=== PATIENT | female | born 1970 | race Caucasian/White ===

== ENCOUNTER 2017-07-31 09:19 | Inpatient (IN) | payer OTHER ==
--- NOTE | 2017-07-31 09:32 | PDOC ---
History of Present Illness - General History Source: Patient - History of Present Illness Initial Comments: 07/31/17 10:23 The patient is a 47-year-old female accompanied by son with a significant past medical history of seizures, HTN, CVA x3, cardiac arrest s/p gastric bypass, and depression, who presents to the emergency department with shaking episodes, tremors, and chest pain today. Patient reports she had 3 seizures that were witnessed by her son this morning, and has had tremors for 1.5 hours. The son states the patient was awake during her episodes, but patients reports dizziness during the episodes. Patient states her last seizures occurred 2 years ago, and she last saw her neurologist in April. Son admits that the patient has a history of ETOH abuse, and drinks 1 box of wine a day over the last 4 years. Son states her last drink was probably at 1pm yesterday. Son also reports the patient is non-compliant with medications. Patient admits that she fell off her bed one week ago while sleeping, and son admits that the patient has hit her head during previous falls. Patient also complains of chest pain currently. The patient denies shortness of breath and headache. The patient denies fever, nausea, vomit, diarrhea and constipation. The patient denies dysuria, frequency , urgency and hematuria. Denies any loss of bladder or bowel control. Allergies: ibuprofen, acetaminophen, oxycodone, morphine Past Surgical History: gastric bypass surgery Social History: ETOH abuse. Denies drug or tobacco use. PCP: Dr. Ireland <Dixie Tristan - Last Filed: 07/31/17 10:25> <Elle Morillo - Last Filed: 07/31/17 13:22> - General Stated Complaint: SEIZURE Time Seen by Provider: 07/31/17 09:32 Past History <Dixie Tristan - Last Filed: 07/31/17 10:25> - Past Medical History Anemia: Yes Asthma: No Cancer: No Cardiac Disorders: Yes (cardiac arrest 03/2013) CVA: Yes (X3; MINI STROKE) COPD: No CHF: No Dementia: No Diabetes: No GI Disorders: Yes (GERD, gastric bypass) Disorders: No HTN: Yes Hypercholesterolemia: Yes Liver Disease: No Seizures: Yes Thyroid Disease: No - Surgical History Abdominal Surgery: Yes Appendectomy: No Cardiac Surgery: No Cholecystectomy: No Lung Surgery: No Neurologic Surgery: No Orthopedic Surgery: Yes (LEFT KNEE SCREWS 2015) - Suicide/Smoking/Psychosocial Hx Smoking Status: No Smoking History: Never smoked Have you smoked in the past 12 months: No Number of Cigarettes Smoked Daily: 0 Hx Alcohol Use: Yes Drug/Substance Use Hx: Yes Substance Use Type: Alcohol Hx Substance Use Treatment: No <IliaElle - Last Filed: 07/31/17 13:22> - Past Medical History Allergies/Adverse Reactions: Allergies Allergy/AdvReac Type Severity Reaction Status Date / Time ibuprofen [From Motrin] Allergy Intermediate Hives Verified 07/31/17 10:03 acetaminophen [From Percocet] Allergy Swelling Verified 07/31/17 10:03 oxycodone HCl [From Percocet] Allergy Swelling Verified 07/31/17 10:03 morphine AdvReac Severe Difficulty Verified 07/31/17 10:03 Breathing Home Medications: Ambulatory Orders Aspirin [ASA -] 81 mg PO DAILY 07/31/17 Atorvastatin Ca [Lipitor] 20 mg PO HS 07/31/17 Gabapentin 300 mg PO TID 07/31/17 Losartan 50Mg/Hctz 12.5MG [Hyzaar -] 1 tab PO DAILY 07/31/17 Meclizine HCl 12.5 mg PO BID PRN 07/31/17 Paroxetine HCl [Paxil] 80 mg PO BID 07/31/17 Topiramate 100 mg PO DAILY 07/31/17 Trazodone HCl 100 mg PO HS 07/31/17 Review of Systems - Review of Systems Able to Perform ROS?: Yes Comments:: 07/31/17 10:23 GENERAL/CONSTITUTIONAL: No fever. No weakness. HEAD, EYES, EARS, NOSE AND THROAT: No change in vision. No ear pain or discharge. No sore throat. CARDIOVASCULAR: (+) Chest pain. No shortness of breath. RESPIRATORY: No cough, wheezing, or hemoptysis. GASTROINTESTINAL: No nausea, vomiting, diarrhea or constipation. GENITOURINARY: No dysuria, frequency, or change in urination. MUSCULOSKELETAL: No joint or muscle swelling or pain. No neck or back pain. SKIN: No rash NEUROLOGIC: (+) Seizures and tremors. No headache, vertigo, loss of consciousness, or change in strength/sensation. ENDOCRINE: No increased thirst. No abnormal weight change. HEMATOLOGIC/LYMPHATIC: No anemia, easy bleeding, or history of blood clots. ALLERGIC/IMMUNOLOGIC: No hives or skin allergy. <Dxiie Tristan - Last Filed: 07/31/17 10:25> *Physical Exam - Physical Exam Comments: 07/31/17 10:23 GENERAL: Awake, alert, and fully oriented, in no acute distress HEAD: No signs of trauma EYES: PERRLA, EOMI, sclera anicteric, conjunctiva clear ENT: Auricles normal inspection, hearing grossly normal, nares patent, oropharynx clear without exudates. Moist mucosa NECK: Normal ROM, supple, no lymphadenopathy, JVD, or masses LUNGS: Breath sounds equal, clear to auscultation bilaterally. No wheezes, and no crackles HEART: (+) Tachycardic. Regular rhythm, normal S1 and S2, no murmurs, rubs or gallops ABDOMEN: Soft, nontender, normoactive bowel sounds. No guarding, no rebound. No masses EXTREMITIES: No edema. No clubbing or cyanosis. No cords, erythema, or tenderness. (+) Bruising to LUE. (+) Contracted LUE from prior stroke. NEUROLOGICAL: Cranial nerves II through XII grossly intact. SKIN: Warm, Dry, normal turgor, no rashes or lesions noted. <Dixie Tristan - Last Filed: 07/31/17 10:25> Heart Score/ECG Review - ECG Intrepretation Comment:: 07/31/17 10:15 sinus at 85, baseline artifact, nl interval, low voltage, no acute st/t wave findings <Elle Morillo - Last Filed: 07/31/17 13:22> ED Treatment Course - LABORATORY CBC & Chemistry Diagram: 07/31/17 09:57 07/31/17 10:06 - Medications Given in the ED: ED Medications Discontinued Medications Generic Name Dose Route Start Last Admin Trade Name Cayetanoq PRN Reason Stop Dose Admin Lorazepam 2 mg 07/31/17 09:35 07/31/17 10:00 Ativan Injection - IVPUSH 07/31/17 09:36 2 mg ONCE ONE Administration <Dixie Tristan - Last Filed: 07/31/17 10:25> - LABORATORY CBC & Chemistry Diagram: 07/31/17 09:57 07/31/17 10:06 <Elle Morillo - Last Filed: 07/31/17 13:22> Medical Decision Making - Medical Decision Making 07/31/17 09:39 a/p: 47yo female with hx of seizures with 3 "shaking" episodes this am- did not have LOC, was responsive -per son, drinking a box of wine daily and has not been taking her meds -Dr. West is neuro but hasn't seen in over a year -Dr. Ireland is PMD -suspect alcohol withdrawal tremors -last drink yesterday at 1p -supposed to take topamax and carbamazapine -only took 2 doses of meds last week -also suspect withdrawal seizures from meds -will check labs, will need admission for alcohol withdrawal and seizure monitoring -will check trops for cp today -drug screen -head ct/c spine ct given recent falls -ua -monitor, ekg, cxr -will monitor and reassess 07/31/17 11:18 pt with tachy, tongue fasciculations, tremors - concern for alcohol withdrawal case discussed with DR. Ireland - accepts pt to service consult placed to Dr. calloway 07/31/17 13:21 re-eval: tremors have improved, c/o R breast pain soft tissue density to R breast, no ttp, no ecchymosis, no erythema, no drainage from nipple, no skin changes - missed mammogram a year ago recommend mammogram for further eval <Elle Morillo - Last Filed: 07/31/17 13:22> *DC/Admit/Observation/Transfer - Attestations Scribe Attestion: 07/31/17 10:24 Documentation prepared by Dixie Tristan, acting as medical stenographer for Elle Morillo DO, MD/. <Dixie Tristan - Last Filed: 07/31/17 10:25> - Discharge Dispostion Admit: Yes - Attestations Physician Attestion: 07/31/17 11:19 I, Dr. Elle Morillo DO, attest that this document has been prepared under my direction and personally reviewed by me in its entirety. I further attest, that it accurately reflects all work, treatment, procedures and medical decision -making performed by me. <Elle Morillo - Last Filed: 07/31/17 13:22> Diagnosis at time of Disposition: Alcohol withdrawal, Breast pain, right - Discharge Dispostion Condition at time of disposition: Guarded
[2017-07-31] MEDS ORDERED: FOLIC ACID INJECTION - 1 MG, THIAMINE HCL 100 MG, MULTIVIT INJECTION ADULT 10 ML in SOD... IVPB ONE (09:35)
[2017-07-31] MEDS ORDERED: LORazepam 2 MG/ML SDV VIAL ONE ×2 (09:37→10:58)
[2017-07-31 10:28] LABS: BASO % 1.2 % (0-2.0); EOS % 0.3 % (0-4.5); HEMATOCRIT 31.6 % (32.4-45.2); HEMOGLOBIN 10.2 GM/dL (10.7-15.3); MCH 25.4 pg (25.7-33.7); MCHC 32.2 g/dl (32.0-36.0); MONO % 5.4 % (3.8-10.2); NEUT % 67.1 % (42.8-82.8); PLATELET COUNT 149 K/MM3 (134-434); RDW 26.2 % (11.6-15.6); WHITE BLOOD COUNT 4.4 K/mm3 (4.0-10.0)
[2017-07-31 10:32] LABS: ADD RBC MORPHOLOGY YES
[2017-07-31 10:52] LABS: INR 0.88 (0.82-1.09)
[2017-07-31 10:53] LABS: ALBUMIN 3.6 g/dl (3.4-5.0); ANION GAP 9 (8-16); BLOOD UREA NITROGEN 9 mg/dL (7-18); CALCIUM 8.4 mg/dL (8.5-10.1); CHLORIDE 102 mmol/L (98-107); CO2 26 mmol/L (21-32); CREATININE 0.5 mg/dL (0.55-1.02); GLUCOSE,RANDOM 88 mg/dL (74-106); SGPT/ALT 24 U/L (12-78); SODIUM 137 mmol/L (136-145); TOT PROT 7.8 g/dl (6.4-8.2)
[2017-07-31 10:55] LABS: ACTIVATED PTT 30.6 SECONDS (26.9-34.4)
[2017-07-31 10:56] LABS: ALK PHOS 100 U/L (45-117); BILIRUBIN,TOTAL 0.6 mg/dL (0.2-1.0)
[2017-07-31 11:01] LABS: POTASSIUM 4.4 mmol/L (3.5-5.1); SGOT/AST 47 U/L (15-37)
[2017-07-31] MEDS ORDERED: chlordiazePOXIDE HCL 25 MG CAPSULE PO PRN (11:42)
[2017-07-31] MEDS ORDERED: chlordiazePOXIDE HCL 25 MG CAPSULE PO ONE (11:42)
--- NOTE | 2017-07-31 11:44 | CONSULT ---
Consult Detox [facility] Reason for Current Admission/Consult: substance use disorder Referred by:: gustavo grier - History History of Present Illness: 47 yo f admitted yesterday after reportedly 3 seizures at home, denies daily alcohol use but did drink socially, family says she is drinking, she says last heavy drinking 2002. Has been started on libirum deto x protocol which she has tolerated without sedation and has eleavted bp with tyremors+++, anxiety and insomnia, sweats reported. severe chest pain as ell, followed by cardiology. denies smoking., takes mediations as prescribed which she would liek to restart. - History Source History Provided By: Patient, Medical Record, Caregiver Limitations to Obtaining History: Poor Historian - Alcohol/Substance Use Hx Alcohol Use: Yes (social???) - Current Drug/Alcohol Use Alcohol Route: Oral Frequency: 1-3 times last 30 days Amount used: ??? 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 very agitated, anxious, with sweats, tremors, tearful woulud like to restart medications from home. elevated bp CIWA Score - CIWA Score Nausea/Vomitin-No Nausea/No Vomiting Muscle Tremors: 4-Moderate,w/Arms Extend Anxiety: 4-Mod. Anxious/Guarded Agitation: 4-Moderately Restless Paroxysmal Sweats: 1-Minimal Palms Moist Orientation: 0-Oriented Tacttile Disturbances: 0-None Auditory Disturbances: 0-None Visual Disturbances: 0-None Headache: 0-None Present CIWA-Ar Total Score: 13 Assessment Plan - Diagnosis (1) Alcohol dependence with uncomplicated withdrawal Status: Acute (2) Hypertension Status: Acute Qualifiers: Hypertension type: essential hypertension Qualified Code(s): I10 - Essential (primary) hypertension (3) Seizure Status: Acute (4) GERD (gastroesophageal reflux disease) Status: Acute (5) H/O bariatric surgery Status: Acute (6) History of stroke Status: Acute (7) Poor historian Status: Acute - Plan Plan: chart, imagina, labs reveiweed, history taken and patietn examinied. Discussed care with medical team. REcommend: 1. fluids, mvi, thimaine, folic acid, cont llibirum detox as ordered -0 very agitate and anxious, will give extra dose of libirum ordered for 7. 2. hypertension- restart home medications 3. depression - psych consult, restart psych meds???, 4. seziures - alcohol withdrawal vbs epilepsy , restart neurontin can titirte up to daily dose as tolerted 5. consider intensive outpatien care at [facility], f/u [facility] Medrano [phone] - Medication Detox Regimen/Protocol: Librium
[2017-07-31] MEDS ORDERED: cloNIDine HCL 0.1 MG TABLET PO ONE (11:45)
[2017-07-31 14:12] LABS: URINE APPEARANCE CLEAR; URINE BILIRUBIN NEGATIVE (<2.0 mg/dL); URINE BLOOD NEGATIVE (NEGATIVE); URINE COLOR YELLOW; URINE GLUCOSE (UA) NEGATIVE (NEGATIVE); URINE KETONE 2+ (NEGATIVE); URINE LEUK ESTERASE NEGATIVE (NEGATIVE); URINE NITRITE NEGATIVE (NEGATIVE); URINE UROBILINOGEN NEGATIVE mg/dL (0.2-1.0)
[2017-07-31 14:18] LABS: URINE PROTEIN 2+ (NEGATIVE)
[2017-07-31 14:26] LABS: COCAINE, UR NEGATIVE ng/ml (CUTOFF=300); METHADONE, UR NEGATIVE ng/ml (CUTOFF=300); OPIATES, URI NEGATIVE ng/ml (CUTOFF=300); PHENCYCLIDINE,URINE NEGATIVE ng/ml (CUTOFF=25); URINE AMPHETAMINES NEGATIVE ng/ml (CUTOFF=500); URINE BARBITURATES NEGATIVE ng/ml (CUTOFF=200); URINE BENZODIAZEPINES NEGATIVE ng/ml (CUTOFF=200)
--- NOTE | 2017-07-31 14:41 | EKG ---
Test Reason : Blood Pressure : / mmHG Vent. Rate : 085 BPM Atrial Rate : 085 BPM P-R Int : 140 ms QRS Dur : 074 ms QT Int : 370 ms P-R-T Axes : 067 025 045 degrees QTc Int : 440 ms POOR DATA QUALITY, INTERPRETATION MAY BE ADVERSELY AFFECTED NORMAL SINUS RHYTHM NORMAL ECG WHEN COMPARED WITH ECG OF 18-OCT-2015 14:32, NON-SPECIFIC CHANGE IN ST SEGMENT IN ANTERIOR LEADS Confirmed by COLT AGUIRRE MD ([id number]) on 07/31/2017 2:41:09 PM Referred By: Confirmed By:COLT AGUIRRE MD
[2017-07-31 15:58] LABS: EPI CELLS MODERATE /HPF (FEW); URINE BACTERIA FEW /hpf (NONE SEEN)
[2017-07-31 15:59] LABS: URINE HYALINE CAST <1 /lpf; URINE MUCUS MANY
[2017-07-31] MEDS ORDERED: chlordiazePOXIDE HCL 25 MG CAPSULE ONE (17:52)
[2017-07-31] MEDS: chlordiazePOXIDE HCL 25 MG CAPSULE PO SCH ×2 (17:56→23:18)
[2017-07-31] MEDS: THIAMINE HCL 100 MG TABLET (FP) PO SCH (21:33)
[2017-07-31] MEDS ORDERED: ASPIRIN 325 MG ENTERIC COATED TABLET (FP) PO ONE (23:02)
--- NOTE | 2017-07-31 23:02 | HOSP ---
Subjective - Review of Symptoms Events since last encounter: I was called to evaluate patient for chest pain. She states that she has had this chest pain for the past two weeks. She describes sharp constant non radiating substernal pain that is worse of palpation and deep inspirations. She does admit to cough for the past two weeks as well. CP is accompanied by some dysnea on exertion. Pain is not associated with activity, nausea , vomiting , diaphoresis or fevers. She is admitted for multiple tonic-clonic siezures earlier today. Denies BEAN, SOB, or abdominal pain. Pulmonary: Yes: Cough, Pleuritic Chest Pain Cardiovascular: Yes: Chest Pain, Edema Gastrointestinal: No: Nausea, Vomiting Physical Examination Vital Signs: Vital Signs Temperature 98.3 F 07/31/17 17:48 Pulse Rate 85 07/31/17 17:48 Respiratory Rate 16 07/31/17 17:50 Blood Pressure 135/84 07/31/17 17:48 O2 Sat by Pulse Oximetry (%) 97 07/31/17 20:42 Constitutional: Yes: Well Nourished, Mild Distress HENT: Yes: Atraumatic, Normocephalic Neck: Yes: Supple Cardiovascular: Yes: Regular Rate and Rhythm. No: Gallop, Murmur, Rub Respiratory: Yes: Regular, CTA Bilaterally Gastrointestinal: Yes: Normal Bowel Sounds, Soft Musculoskeletal: Yes: Other (point tenderness with palpation of right sternal border.) Extremities: No: Calf Tenderness Neurological: Yes: Alert, Oriented Labs: CBC, BMP 07/31/17 09:57 07/31/17 10:06 Hospitalist Encounter Assessment: Pain is most likely musculoskeletal. * Given cardiac history will send for toponin I * EKG stat * ASA 325 PO stat. Outcome: * EKG showed NSR with no acute st or t wave abnormalities. * Troponin I (-) x1 Visit type - Emergency Visit Emergency Visit: Yes ED Registration Date: 07/31/17 Care time: The patient presented to the Emergency Department on the above date and was hospitalized for further evaluation of their emergent condition. - New Patient This patient is new to me today: Yes Date on this admission: 08/01/17 - Critical Care Critical Care patient: No
[2017-08-01 03:49] VITALS: BMI 22.1
[2017-08-01] MEDS: chlordiazePOXIDE HCL 25 MG CAPSULE PO SCH ×4 (05:13→22:55)
--- NOTE | 2017-08-01 06:18 | HP ---
Admitting History and Physical - Primary Care Physician PCP: Andie Ireland - Admission Chief Complaint: TREMORS/ETOH WITHDRAWEL History of Present Illness: PATIENT WELL KNOWN TO MY SERVICE HOWEVER HAS NOT SEEN ME FOR MEDICAL CARE IN OVER 1 YEAR. PATIENT S/P GASTRIC BYPASS SX, S/P CVA WITH PARESTHESIA, SEVERE ANXIETY DISORDER WITH PRIOR NERVOUS BREAKDOWNS, APPARANTLY HAS BEEN ABUSING AND DEPENDENT ON ETOH HERE WITH WITHDRAWEL SYMPTOMS. 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), Migraine, Seizure Cardiovascular: Yes: HTN, Other (cardiac arrest at time of gastric bypass) ...LMP: 01/22/12 ...: No Musculoskeletal: Yes: Hemiplegia (residual left side weakness from the CVA) - Past Surgical History Past Surgical History: Yes: Bariatric Surgery (2012), Upper Endoscopy (2005) - Smoking History Smoking history: Never smoked Have you smoked in the past 12 months: No Aproximately how many cigarettes per day: 0 - Alcohol/Substance Use Hx Alcohol Use: Yes Home Medications - Allergies Allergies/Adverse Reactions: Allergies Allergy/AdvReac Type Severity Reaction Status Date / Time ibuprofen [From Motrin] Allergy Intermediate Hives Verified 07/31/17 10:03 acetaminophen [From Percocet] Allergy Swelling Verified 07/31/17 10:03 oxycodone HCl [From Percocet] Allergy Swelling Verified 07/31/17 10:03 morphine AdvReac Severe Difficulty Verified 07/31/17 10:03 Breathing - Home Medications Home Medications: Ambulatory Orders Aspirin [ASA -] 81 mg PO DAILY 07/31/17 Atorvastatin Ca [Lipitor] 20 mg PO HS 07/31/17 Cyclobenzaprine HCl 10 mg PO HS PRN 07/31/17 Gabapentin 300 mg PO TID 07/31/17 Losartan 50Mg/Hctz 12.5MG [Hyzaar -] 1 tab PO DAILY 07/31/17 Meclizine HCl 12.5 mg PO BID PRN 07/31/17 Paroxetine HCl [Paxil] 80 mg PO BID 07/31/17 Topiramate 100 mg PO DAILY 07/31/17 Trazodone HCl 100 mg PO HS 07/31/17 Review of Systems - Review of Systems Constitutional: reports: Weakness Eyes: reports: No Symptoms HENT: reports: No Symptoms Neck: reports: No Symptoms Cardiovascular: reports: Chest Pain Respiratory: reports: No Symptoms, SOB Gastrointestinal: reports: No Symptoms Genitourinary: reports: No Symptoms Musculoskeletal: reports: Muscle Weakness Integumentary: reports: No Symptoms Neurological: reports: Confusion, Numbness, Parasthesia, Pre-Existing Deficit Endocrine: reports: No Symptoms Hematology/Lymphatic: reports: No Symptoms Psychiatric: reports: Anxiety, Depression Physical Examination Vital Signs: Vital Signs Temperature 97.8 F 08/01/17 01:43 Pulse Rate 62 08/01/17 01:43 Respiratory Rate 18 08/01/17 01:43 Blood Pressure 135/90 08/01/17 01:43 O2 Sat by Pulse Oximetry (%) 97 07/31/17 20:42 Constitutional: Yes: Mild Distress Eyes: Yes: WNL HENT: Yes: WNL Neck: Yes: WNL Cardiovascular: Yes: WNL Respiratory: Yes: WNL Gastrointestinal: Yes: WNL Renal/: Yes: WNL Musculoskeletal: Yes: Muscle Weakness Extremities: Yes: Other Edema: No Integumentary: Yes: WNL, Tattoos Neurological: Yes: Confusion, Pre-Existing Deficit, Tingling ...Motor Strength: LUE, LLE, RUE, RLE Psychiatric: Yes: Agitated Labs: CBC, BMP 07/31/17 09:57 07/31/17 10:06 Problem List - Problems (1) Alcohol withdrawal Code(s): F10.239 - ALCOHOL DEPENDENCE WITH WITHDRAWAL, UNSPECIFIED (2) Breast pain, right Code(s): N64.4 - MASTODYNIA (3) Abdominal pain Code(s): R10.9 - UNSPECIFIED ABDOMINAL PAIN (4) Anemia Code(s): D64.9 - ANEMIA, UNSPECIFIED (5) Elevated liver enzymes Code(s): R74.8 - ABNORMAL LEVELS OF OTHER SERUM ENZYMES (6) Epilepsy Code(s): G40.909 - EPILEPSY, UNSP, NOT INTRACTABLE, WITHOUT STATUS EPILEPTICUS (7) GERD (gastroesophageal reflux disease) Code(s): K21.9 - GASTRO-ESOPHAGEAL REFLUX DISEASE WITHOUT ESOPHAGITIS (8) H/O bariatric surgery Code(s): Z98.84 - BARIATRIC SURGERY STATUS (9) H/O cardiac arrest Code(s): Z86.74 - PERSONAL HISTORY OF SUDDEN CARDIAC ARREST (10) HTN (hypertension) Code(s): I10 - ESSENTIAL (PRIMARY) HYPERTENSION (11) Hemiplegia affecting non-dominant side, post-stroke Code(s): I69.359 - HEMIPLGA FOLLOWING CEREBRAL INFARCTION AFFECTING UNSP SIDE (12) History of stroke Code(s): Z86.73 - PRSNL HX OF TIA (TIA), AND CEREB INFRC W/O RESID DEFICITS Assessment/Plan ETOH WITHDRAWEL LIBRIUM PROTOCOL DETOX CONSULT DR SIMON THIAMINE FOLIC ACID [facility] NEURO CHECKS PT EVAL WILL NEED PSYCHOLOGICAL SUPPORT AND COMFORT PSYCHIATRY EVAL
--- NOTE | 2017-08-01 09:33 | CON.CARD ---
Consult Consult Specialty:: Cardiology Referred by:: Dr. Ireland Reason for Consultation:: Exertional dyspnea, palpitations and chest pain x 1 year - History of Present Illness Chief Complaint: Seizures at home History of Present Illness: Chart reviewed: " The patient is a 47-year-old female accompanied by son with a significant past medical history of seizures, HTN, CVA x3, cardiac arrest s/p gastric bypass , and depression, who presents to the emergency department with shaking episodes , tremors, and chest pain today. Patient reports she had 3 seizures that were witnessed by her son this morning, and has had tremors for 1.5 hours. The son states the patient was awake during her episodes, but patients reports dizziness during the episodes. Patient states her last seizures occurred 2 years ago, and she last saw her neurologist in April. Son admits that the patient has a history of ETOH abuse, and drinks 1 box of wine a day over the last 4 years. Son states her last drink was probably at 1pm yesterday. Son also reports the patient is non-compliant with medications. Patient admits that she fell off her bed one week ago while sleeping, and son admits that the patient has hit her head during previous falls. Patient also complains of chest pain currently. The patient denies shortness of breath and headache. The patient denies fever, nausea, vomit, diarrhea and constipation. The patient denies dysuria, frequency , urgency and hematuria. Denies any loss of bladder or bowel control. " On my ROS, she describes about one year of exertional dyspnea associated with palpitations and chest tightness. No edema, syncope, PND, orthopnea. - History Source History Provided By: Patient, Medical Record - Past Medical History [employer]ISTERED [employer]: Yes: CVA (at time of gastric bypass), Migraine, Seizure Cardio/Vascular: Yes: HTN, Other (cardiac arrest 2012, details unclear. No known h/o CAD) Pulmonary: No: Asthma, Bronchitis, Cancer, COPD, O2 Dependent, Pneumonia, Previously Intubated, Pulmonary Embolus, Pulmonary Fibrosis, Sleep Apnea, Other Gastrointestinal: Yes: Other (s/p bariatric surgery) ...LMP: 01/22/12 ...: No Musculoskeletal: Yes: Hemiplegia (residual left side weakness from the CVA) - Past Surgical History Past Surgical History: Yes: Bariatric Surgery (2012), Upper Endoscopy (2005) - Alcohol/Substance Use Hx Alcohol Use: Yes - Smoking History Smoking history: Never smoked Have you smoked in the past 12 months: No Aproximately how many cigarettes per day: 0 - Social History Usual Living Arrangement: Other (with her two sons and she has a [employer] 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 q 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) Home Medications - Allergies Allergies/Adverse Reactions: Allergies Allergy/AdvReac Type Severity Reaction Status Date / Time ibuprofen [From Motrin] Allergy Intermediate Hives Verified 07/31/17 10:03 acetaminophen [From Percocet] Allergy Swelling Verified 07/31/17 10:03 oxycodone HCl [From Percocet] Allergy Swelling Verified 07/31/17 10:03 morphine AdvReac Severe Difficulty Verified 07/31/17 10:03 Breathing - Home Medications Home Medications: Ambulatory Orders Aspirin [ASA -] 81 mg PO DAILY 07/31/17 Atorvastatin Ca [Lipitor] 20 mg PO HS 07/31/17 Cyclobenzaprine HCl 10 mg PO HS PRN 07/31/17 Gabapentin 300 mg PO TID 07/31/17 Losartan 50Mg/Hctz 12.5MG [Hyzaar -] 1 tab PO DAILY 07/31/17 Meclizine HCl 12.5 mg PO BID PRN 07/31/17 Paroxetine HCl [Paxil] 80 mg PO BID 07/31/17 Topiramate 100 mg PO DAILY 07/31/17 Trazodone HCl 100 mg PO HS 07/31/17 Family Disease History - Family Disease History Family History: Unremarkable (not pertinent to this presentation) Review of Systems Findings/Remarks: see HPI - Review of Systems Constitutional: reports: Weakness Cardiovascular: reports: Chest Pain, Palpitations, Shortness of Breath Respiratory: reports: Exercise Intolerance, SOB on Exertion Gastrointestinal: denies: No Symptoms, Abdominal Pain, Bloating, Constipation, Diarrhea, Dysphagia, Indigestion, Melena, Nausea, Rectal Bleeding, Vomiting, Vomiting Blood, Other Genitourinary: denies: No Symptoms, Burning, Discharge, Dysuria, Flank Pain, Frequency, Hematuria, Incontinence, Lesions, Menses, Pain, Testicular Mass, Testicular Pain, Testicular Swelling, Urgency, Vaginal Bleeding, Other Breasts: denies: No Symptoms Reported, See HPI, Breast Implants, Discharge from Nipple, Lumps, Pain, Skin Changes, Other Musculoskeletal: denies: No Symptoms, Back Pain, Crepitus, Decreased ROM, Extremity Pain, Joint Pain, Joint Swelling, Muscle Pain, Muscle Cramps, Muscle Weakness, Other Integumentary: denies: No Symptoms, Blister, Bruising, Change in Color, Eczema, Erythema, Incision, Lesions, Lump, Pallor, Pruritis, Rash, Wound, Other Neurological: reports: Seizure Endocrine: denies: No Symptoms, Excessive Sweating, Flushing, Increased Hunger, Increased Thirst, Intolerance to Cold, Intolerance to Heat, Unexplained Weight Gain, Unexplained Weight Loss, Other Psychiatric: denies: No Symptoms, Altered Sleep Pattern, Anxiety, Depression, Hallucinations, Panic, Paranoia, Suicidal, Other - Risk Factors Known Risk Factors: Yes: Hypercholesterolemia, Hypertension Vital Signs: Vital Signs Temperature 97.7 F 08/01/17 06:00 Pulse Rate 72 08/01/17 06:00 Respiratory Rate 18 08/01/17 06:00 Blood Pressure 120/86 08/01/17 06:00 O2 Sat by Pulse Oximetry (%) 97 07/31/17 20:42 Constitutional: Yes: No Distress, Calm Eyes: Yes: Conjunctiva Clear, EOM Intact HENT: Yes: Atraumatic Neck: Yes: Supple, Trachea Midline Respiratory: Yes: CTA Bilaterally Gastrointestinal: Yes: Soft Cardiovascular: Yes: Regular Rate and Rhythm JVD: No Carotid Bruit: No PMI: Non-Displaced Heart Sounds: Yes: S1, S2 (RRR, no M/R/G) Edema: No Peripheral Pulses WNL: No Neurological: Yes: Alert, Oriented ...Motor Strength: WNL - Other Data Labs, Other Data: CBC, BMP 07/31/17 09:57 07/31/17 10:06 INR, PTT INR 0.88 (0.82-1.09) 07/31/17 10:06 Troponin, BNP 07/31/17 07/31/17 07/31/17 10:06 23:30 23:40 Troponin I < 0.02 Cancelled < 0.02 Troponin, BNP 07/31/17 07/31/17 07/31/17 10:06 23:30 23:40 Troponin I < 0.02 Cancelled < 0.02 Laboratory Tests 07/31/17 07/31/17 07/31/17 09:57 09:57 09:57 WBC 4.4 Hgb 10.2 L Plt Count 149 D Sodium Potassium BUN Creatinine Lactic Acid 1.3 Calcium Magnesium Total Bilirubin ALT Alkaline Phosphatase Creatine Kinase Troponin I Albumin Beta HCG, Quant Urine Color Urine Appearance Urine pH Urine Protein Urine Ketones Urine Blood Urine Nitrite Urine Bilirubin Urine Urobilinogen Ur Leukocyte Esterase Urine WBC (Auto) Opiates Screen Methadone Screen Barbiturate Screen Phencyclidine Screen Ur Amphetamines Screen MDMA (Ecstasy) Screen Benzodiazepines Screen Cocaine Screen U Marijuana (THC) Screen Alcohol, Quantitative < 5.0 07/31/17 07/31/17 07/31/17 10:06 13:56 13:56 WBC Hgb Plt Count Sodium 137 Potassium 4.4 BUN 9 Creatinine 0.5 L Lactic Acid Calcium 8.4 L Magnesium 2.0 Total Bilirubin 0.6 D ALT 24 Alkaline Phosphatase 100 Creatine Kinase 111 Troponin I < 0.02 Albumin 3.6 Beta HCG, Quant < 1.0 Urine Color Yellow Urine Appearance Clear Urine pH 7.0 D Urine Protein 2+ H Urine Ketones 2+ H Urine Blood Negative Urine Nitrite Negative Urine Bilirubin Negative Urine Urobilinogen Negative Ur Leukocyte Esterase Negative Urine WBC (Auto) 5-10 Opiates Screen Negative Methadone Screen Negative Barbiturate Screen Negative Phencyclidine Screen Negative Ur Amphetamines Screen Negative MDMA (Ecstasy) Screen Negative Benzodiazepines Screen Negative Cocaine Screen Negative U Marijuana (THC) Screen Negative Alcohol, Quantitative 07/31/17 23:40 WBC Hgb Plt Count Sodium Potassium BUN Creatinine Lactic Acid Calcium Magnesium Total Bilirubin ALT Alkaline Phosphatase Creatine Kinase Troponin I < 0.02 Albumin Beta HCG, Quant Urine Color Urine Appearance Urine pH Urine Protein Urine Ketones Urine Blood Urine Nitrite Urine Bilirubin Urine Urobilinogen Ur Leukocyte Esterase Urine WBC (Auto) Opiates Screen Methadone Screen Barbiturate Screen Phencyclidine Screen Ur Amphetamines Screen MDMA (Ecstasy) Screen Benzodiazepines Screen Cocaine Screen U Marijuana (THC) Screen Alcohol, Quantitative NSR, no acute changes Echo: Pending Imaging - Results Chest X-ray: Report Reviewed, Image Reviewed Cat Scan: Report Reviewed, Image Reviewed EKG: Image Reviewed Problem List - Problems (1) Seizure Code(s): R56.9 - UNSPECIFIED CONVULSIONS (2) Hypertension Code(s): I10 - ESSENTIAL (PRIMARY) HYPERTENSION Qualifiers: Hypertension type: essential hypertension Qualified Code(s): I10 - Essential (primary) hypertension (3) Dyspnea on exertion Code(s): R06.09 - OTHER FORMS OF DYSPNEA (4) Palpitations Code(s): R00.2 - PALPITATIONS (5) Chest pain Code(s): R07.9 - CHEST PAIN, UNSPECIFIED Qualifiers: Chest pain type: other chest pain Qualified Code(s): R07.89 - Other chest pain; R07.8 - Other chest pain (6) History of cardiac arrest Code(s): Z86.74 - PERSONAL HISTORY OF SUDDEN CARDIAC ARREST Assessment/Plan IMP: Seizure disorder: secondary to prior CVA, +/- ETOH Suspected anxiety disorder Chronic HTN Chronic BONILLA, palpitations and atypical CP Remote vague history of cardiac arrest 2012, with no history of CAD REC: 1. Telemetry x 24 hours to evaluate palpitations 2. Echo for EF assessment 3. Will arrange stress MPI prior to d/c for further CV risk stratification and to assess her symptoms 4. Further work up and treatment of seizures and concern for ETOH abuse as per PMD. Thank you.
[2017-08-01] MEDS: PRENATAL VITAMINS W/ FOLIC ACID TABLET (FP) PO SCH (10:04)
[2017-08-01] MEDS ORDERED: PT OWN MED DRAWER 7, Y5N ONE (10:04)
[2017-08-01] MEDS: LORazepam 1 MG TABLET PO PRN ×2 (11:41→21:00)
[2017-08-01] MEDS ORDERED: cloNIDine HCL 0.1 MG TABLET PO ONE (16:17)
[2017-08-01] MEDS ORDERED: chlordiazePOXIDE HCL 25 MG CAPSULE PO ONE ×2 (16:17→19:00)
[2017-08-01] MEDS ORDERED: MECLIZINE HCL 12.5 MG TABLET PO PRN (16:34)
[2017-08-01] MEDS: ASPIRIN 81 MG CHEWABLE TABLETS PO SCH (16:35)
--- NOTE | 2017-08-01 16:49 | CON.PSY ---
Psychiatry Consult Chief Complaint: Patient seen for Psych eval. History of Alcohol abusec and anxiety. Currant[place] on Paxil from a Psychiatrist at [facility]. Symptoms: reports: Anxiety - Previous Psychiatric Treatment Outpatient: Less than 6 mos ago Inpatient: None - Previous Substance Abuse Treatment Outpatient: None - Reason for Previous Treatment Reason for Previous Treatment: Anxiety or Panic Disorder, Alcohol Abuse - Current Medications Current Medications: Active Medications Aspirin (Asa -) 81 mg PO DAILY [facility] Last Admin: 08/01/17 16:35 Dose: 81 mg Atorvastatin Calcium (Lipitor -) 20 mg PO HS [facility] Chlordiazepoxide HCl (Librium -) 25 mg PO [id number] [facility] Stop: 08/02/17 11:01 Last Admin: 08/01/17 16:35 Dose: 25 mg Chlordiazepoxide HCl (Librium -) 15 mg PO [id number] [facility] Stop: 08/03/17 11:01 Chlordiazepoxide HCl (Librium -) 25 mg PO Q4H PRN PRN Reason: WITHDRAWAL(CONT SUBST) Stop: 08/03/17 11:41 Chlordiazepoxide HCl (Librium -) 50 mg PO ONCE ONE Stop: 08/01/17 19:01 Gabapentin (Neurontin -) 100 mg PO TID [facility] Gabapentin (Neurontin -) 300 mg PO TID [facility] HCTZ/Losartan Potassium (Hyzaar -) 1 tab PO DAILY [facility] Lorazepam (Ativan -) 1 mg PO Q8H PRN PRN Reason: ANXIETY Last Admin: 08/01/17 11:41 Dose: 1 mg Meclizine HCl (Antivert -) 12.5 mg PO BID PRN PRN Reason: dizziness Non-Formulary Medication (Paroxetine Hcl [Paxil]) 80 mg PO BID [facility] Multivit/Folic Acid/Iron ( Vitamins (Sjr) -) 1 tab PO DAILY [facility] Last Admin: 08/01/17 10:04 Dose: 1 tab Thiamine HCl (Vitamin B1 -) 100 mg PO HS [facility] Last Admin: 07/31/17 21:33 Dose: 100 mg Topiramate (Topamax -) 100 mg PO DAILY [facility] Trazodone HCl (Desyrel -) 100 mg PO HS [facility] - Allergies Allergies: Allergies Allergy/AdvReac Type Severity Reaction Status Date / Time ibuprofen [From Motrin] Allergy Intermediate Hives Verified 07/31/17 10:03 acetaminophen [From Percocet] Allergy Swelling Verified 07/31/17 10:03 oxycodone HCl [From Percocet] Allergy Swelling Verified 07/31/17 10:03 morphine AdvReac Severe Difficulty Verified 07/31/17 10:03 Breathing - Current Living Status Usual Living Arrangement: Alone - Current Mental Status Evaluation Appearance: Well Groomed Attitude: Cooperative, Guarded - Affect Affect: Constrictive Appropriateness: Appropriate to Content - Mood Mood: Anxious - Speech/Language Expressive: Coherent - Psychomotor Activity Psychomotor Activity: Tremors - Thought Process Thought Process: Intact - Thought Content Hallucinations: Absent Delusions: Absent - Self Perception Self Perception: No Impairment - Cognition Attention: Alert Orientation: Time Memory, Immediate Recall: Intact Memory, Short Term: 2/3 Memory, Remote with Promptin/3 - Concentration Serial Sevens Intact: Yes Simple Calculations Intact: Yes - Abstraction Proverb Interpretation: Intact Judgement: Minimally Impaired - Insight Insight: Intact - Impulse Control Impulse Control: Minimally Impaired - Suicidal Ideation Suicidal Ideation: No - Homicidal Ideation Homicidal Ideation: No Assessment/Plan Continue with [facility]. Will see her pvt psych after discharge.
--- NOTE | 2017-08-01 16:59 | PN ---
Progress Note, Physician Chief Complaint: AWAKE MORE ALERT SAIRA DENIES SEIZURES SINCE ADMISSION - Current Medication List Current Medications: Active Medications Aspirin (Asa -) 81 mg PO DAILY [facility] Last Admin: 08/01/17 16:35 Dose: 81 mg Atorvastatin Calcium (Lipitor -) 20 mg PO HS [facility] Chlordiazepoxide HCl (Librium -) 25 mg PO [id number] [facility] Stop: 08/02/17 11:01 Last Admin: 08/01/17 16:35 Dose: 25 mg Chlordiazepoxide HCl (Librium -) 15 mg PO [id number] [facility] Stop: 08/03/17 11:01 Chlordiazepoxide HCl (Librium -) 25 mg PO Q4H PRN PRN Reason: WITHDRAWAL(CONT SUBST) Stop: 08/03/17 11:41 Chlordiazepoxide HCl (Librium -) 50 mg PO ONCE ONE Stop: 08/01/17 19:01 Gabapentin (Neurontin -) 100 mg PO TID [facility] Gabapentin (Neurontin -) 300 mg PO TID [facility] HCTZ/Losartan Potassium (Hyzaar -) 1 tab PO DAILY [facility] Lorazepam (Ativan -) 1 mg PO Q8H PRN PRN Reason: ANXIETY Last Admin: 08/01/17 11:41 Dose: 1 mg Meclizine HCl (Antivert -) 12.5 mg PO BID PRN PRN Reason: dizziness Paroxetine HCl (Paxil -) 80 mg PO BID [facility] Multivit/Folic Acid/Iron ( Vitamins (Sjr) -) 1 tab PO DAILY [facility] Last Admin: 08/01/17 10:04 Dose: 1 tab Thiamine HCl (Vitamin B1 -) 100 mg PO [facility] Last Admin: 07/31/17 21:33 Dose: 100 mg Topiramate (Topamax -) 100 mg PO DAILY [facility] Trazodone HCl (Desyrel -) 100 mg PO [facility] - Objective Vital Signs: Vital Signs Temperature 97.5 F L 08/01/17 15:23 Pulse Rate 77 08/01/17 15:23 Respiratory Rate 20 08/01/17 15:23 Blood Pressure 144/109 08/01/17 15:23 O2 Sat by Pulse Oximetry (%) 100 08/01/17 09:00 Constitutional: Yes: Mild Distress Eyes: Yes: WNL, Other HENT: Yes: WNL Neck: Yes: WNL Cardiovascular: Yes: WNL Respiratory: Yes: WNL Gastrointestinal: Yes: WNL Genitourinary: Yes: WNL Musculoskeletal: Yes: Muscle Weakness Extremities: Yes: WNL Edema: No Peripheral Pulses WNL: Yes Integumentary: Yes: WNL Wound/Incision: Yes: Clean/Dry Neurological: Yes: Paresthesia, Pre-Existing Deficit, Tremors ...Motor Strength: LUE, LLE, RUE, RLE Psychiatric: Yes: Agitated, Other Labs: CBC, BMP 07/31/17 09:57 07/31/17 10:06 INR, PTT INR 0.88 (0.82-1.09) 07/31/17 10:06 Problem List - Problems (1) Alcohol withdrawal Code(s): F10.239 - ALCOHOL DEPENDENCE WITH WITHDRAWAL, UNSPECIFIED (2) Breast pain, right Code(s): N64.4 - MASTODYNIA (3) Abdominal pain Code(s): R10.9 - UNSPECIFIED ABDOMINAL PAIN (4) Anemia Code(s): D64.9 - ANEMIA, UNSPECIFIED (5) Elevated liver enzymes Code(s): R74.8 - ABNORMAL LEVELS OF OTHER SERUM ENZYMES (6) Epilepsy Code(s): G40.909 - EPILEPSY, UNSP, NOT INTRACTABLE, WITHOUT STATUS EPILEPTICUS (7) GERD (gastroesophageal reflux disease) Code(s): K21.9 - GASTRO-ESOPHAGEAL REFLUX DISEASE WITHOUT ESOPHAGITIS (8) H/O bariatric surgery Code(s): Z98.84 - BARIATRIC SURGERY STATUS (9) H/O cardiac arrest Code(s): Z86.74 - PERSONAL HISTORY OF SUDDEN CARDIAC ARREST (10) HTN (hypertension) Code(s): I10 - ESSENTIAL (PRIMARY) HYPERTENSION (11) Hemiplegia affecting non-dominant side, post-stroke Code(s): I69.359 - HEMIPLGA FOLLOWING CEREBRAL INFARCTION AFFECTING UNSP SIDE (12) History of stroke Code(s): Z86.73 - PRSNL HX OF TIA (TIA), AND CEREB INFRC W/O RESID DEFICITS Assessment/Plan PAXIL RESTARTED 30MG DAILY ON LIBRIUM PROTOCOL FOR ETOH ABUSE CHECKING IRON LEVELS FOR ANMEIA STOOL OCCULT FALL RISKS/NEURO CHECKS/ASPIRATION/SEIZURE PRECAUTIONS
--- NOTE | 2017-08-01 16:59 | EKG ---
Test Reason : Blood Pressure : / mmHG Vent. Rate : 062 BPM Atrial Rate : 062 BPM P-R Int : 124 ms QRS Dur : 076 ms QT Int : 448 ms P-R-T Axes : 088 010 019 degrees QTc Int : 454 ms POOR DATA QUALITY, INTERPRETATION MAY BE ADVERSELY AFFECTED NORMAL SINUS RHYTHM NORMAL ECG WHEN COMPARED WITH ECG OF 31-JUL-2017 09:39, NO SIGNIFICANT CHANGE WAS FOUND Confirmed by MD Ludivina, Je ([id number]) on 08/01/2017 4:59:24 PM Referred By: Confirmed By:Je Florence MD
[2017-08-01] MEDS ORDERED: PARoxetine HCL 30 MG TABLET PO SCH (17:00)
[2017-08-01] MEDS ORDERED: PARoxetine HCL 10 MG TABLET (FP) ONE (17:23)
[2017-08-01] MEDS: LOSARTAN 50MG/HCTZ 12.5MG 1 TAB (FP) PO SCH (17:27)
[2017-08-01] MEDS: TOPIRAMATE 100 MG TABLET PO SCH (18:30)
[2017-08-01] MEDS ORDERED: traZODone HCL 50 MG TABLET (FP) ONE (20:56)
[2017-08-01] MEDS: ATORVASTATIN CA 20 MG TABLET (FP) PO SCH (21:00)
[2017-08-01] MEDS: THIAMINE HCL 100 MG TABLET (FP) PO SCH (21:00)
[2017-08-01] MEDS: traZODone HCL 100 MG TABLET (FP) PO SCH (21:00)
[2017-08-01] MEDS: GABAPENTIN 300 MG CAPSULE (FP) PO SCH (21:00)
[2017-08-01] MEDS: GABAPENTIN 100 MG CAPSULE (FP) PO SCH (21:01)
[2017-08-01] MEDS ORDERED: PARoxetine HCL 20 MG TABLET (FP) PO SCH (22:00)
[2017-08-02] MEDS: chlordiazePOXIDE HCL 25 MG CAPSULE PO SCH ×3 (05:14→11:00)
[2017-08-02] MEDS: GABAPENTIN 100 MG CAPSULE (FP) PO SCH ×3 (05:49→22:58)
[2017-08-02] MEDS: GABAPENTIN 300 MG CAPSULE (FP) PO SCH ×2 (05:49→14:39)
[2017-08-02] MEDS ORDERED: REGADENOSON 0.4 MG/5 ML PRE-FILLED SYRINGE IVPUSH ONE (10:00)
[2017-08-02] MEDS: PARoxetine HCL 10 MG TABLET (FP) PO SCH (14:38)
[2017-08-02] MEDS: ASPIRIN 81 MG CHEWABLE TABLETS PO SCH (14:39)
[2017-08-02] MEDS: TOPIRAMATE 100 MG TABLET PO SCH (14:39)
[2017-08-02] MEDS: PRENATAL VITAMINS W/ FOLIC ACID TABLET (FP) PO SCH (14:39)
[2017-08-02] MEDS: LOSARTAN 50MG/HCTZ 12.5MG 1 TAB (FP) PO SCH (14:41)
[2017-08-02] MEDS: chlordiazePOXIDE 5 MG CAPSULE PO SCH ×2 (17:58→22:58)
[2017-08-02] MEDS ORDERED: traZODone HCL 50 MG TABLET (FP) ONE (22:52)
[2017-08-02] MEDS: ATORVASTATIN CA 20 MG TABLET (FP) PO SCH (22:58)
[2017-08-02] MEDS: THIAMINE HCL 100 MG TABLET (FP) PO SCH (22:58)
[2017-08-02] MEDS: traZODone HCL 100 MG TABLET (FP) PO SCH (22:59)
[2017-08-03] MEDS: GABAPENTIN 100 MG CAPSULE (FP) PO SCH (05:15)
[2017-08-03] MEDS: chlordiazePOXIDE 5 MG CAPSULE PO SCH ×2 (05:15→10:58)
[2017-08-03] MEDS ORDERED: PT OWN MED DRAWER 7, Y5N ONE (07:45)
--- NOTE | 2017-08-03 08:22 | PN ---
Progress Note, Physician Chief Complaint: High risk stress test-- TID, large anterior wall defect - Current Medication List Current Medications: Active Medications Aspirin (Asa -) 81 mg PO DAILY [facility] Last Admin: 08/02/17 14:39 Dose: 81 mg Atorvastatin Calcium (Lipitor -) 20 mg PO HS [facility] Last Admin: 08/02/17 22:58 Dose: 20 mg Chlordiazepoxide HCl (Librium -) 15 mg PO [id number] [facility] Stop: 08/03/17 11:01 Last Admin: 08/03/17 05:15 Dose: 15 mg Gabapentin (Neurontin -) 100 mg PO TID [facility] Last Admin: 08/03/17 05:15 Dose: 100 mg HCTZ/Losartan Potassium (Hyzaar -) 1 tab PO DAILY [facility] Last Admin: 08/02/17 14:41 Dose: Not Given Lorazepam (Ativan -) 1 mg PO Q8H PRN PRN Reason: ANXIETY Last Admin: 08/01/17 21:00 Dose: 1 mg Meclizine HCl (Antivert -) 12.5 mg PO BID PRN PRN Reason: dizziness Paroxetine HCl (Paxil -) 30 mg PO DAILY [facility] Last Admin: 08/02/17 14:38 Dose: 30 mg Multivit/Folic Acid/Iron ( Vitamins (Sjr) -) 1 tab PO DAILY [facility] Last Admin: 08/02/17 14:39 Dose: 1 tab Thiamine HCl (Vitamin B1 -) 100 mg PO [facility] Last Admin: 08/02/17 22:58 Dose: 100 mg Topiramate (Topamax -) 100 mg PO DAILY [facility] Last Admin: 08/02/17 14:39 Dose: 100 mg Trazodone HCl (Desyrel -) 100 mg PO [facility] Last Admin: 08/02/17 22:59 Dose: 100 mg - Objective Vital Signs: Vital Signs Temperature 97.0 F L 08/03/17 06:00 Pulse Rate 65 08/03/17 06:00 Respiratory Rate 20 08/03/17 06:00 Blood Pressure 93/62 08/03/17 06:00 O2 Sat by Pulse Oximetry (%) 94 L 08/02/17 21:00 Constitutional: Yes: No Distress Cardiovascular: Yes: Regular Rate and Rhythm Respiratory: Yes: CTA Bilaterally Gastrointestinal: Yes: Soft Edema: No Neurological: Yes: Alert Labs: CBC, BMP 07/31/17 09:57 07/31/17 10:06 INR, PTT INR 0.88 (0.82-1.09) 07/31/17 10:06 Laboratory Tests 07/31/17 07/31/17 07/31/17 09:57 10:06 13:56 Sodium 137 Potassium 4.4 Chloride 102 Creatinine 0.5 L Troponin I < 0.02 Opiates Screen Negative Methadone Screen Negative Barbiturate Screen Negative Phencyclidine Screen Negative Ur Amphetamines Screen Negative MDMA (Ecstasy) Screen Negative Benzodiazepines Screen Negative Cocaine Screen Negative U Marijuana (THC) Screen Negative Alcohol, Quantitative < 5.0 07/31/17 23:40 Sodium Potassium Chloride Creatinine Troponin I < 0.02 Opiates Screen Methadone Screen Barbiturate Screen Phencyclidine Screen Ur Amphetamines Screen MDMA (Ecstasy) Screen Benzodiazepines Screen Cocaine Screen U Marijuana (THC) Screen Alcohol, Quantitative - ....Imaging EKG: Image Reviewed (NSR) Problem List - Problems (1) Seizure Code(s): R56.9 - UNSPECIFIED CONVULSIONS (2) Hypertension Code(s): I10 - ESSENTIAL (PRIMARY) HYPERTENSION Qualifiers: Hypertension type: essential hypertension Qualified Code(s): I10 - Essential (primary) hypertension (3) Dyspnea on exertion Code(s): R06.09 - OTHER FORMS OF DYSPNEA (4) Palpitations Code(s): R00.2 - PALPITATIONS (5) Chest pain Code(s): R07.9 - CHEST PAIN, UNSPECIFIED Qualifiers: Chest pain type: other chest pain Qualified Code(s): R07.89 - Other chest pain; R07.8 - Other chest pain (6) History of cardiac arrest Code(s): Z86.74 - PERSONAL HISTORY OF SUDDEN CARDIAC ARREST Assessment/Plan IMP: Seizure disorder: secondary to prior CVA, +/- ETOH Suspected anxiety disorder Chronic HTN Chronic BONILLA, palpitations and atypical CP Remote vague history of cardiac arrest 2012, with no history of CAD REC: Significant anterior wall ischemia with TID and low post stress EF Have recommended cath Risks/benefits discussed in detail-- she has agreed to cath. Will transfer to [facility] for cath and continuation of Librium taper.
--- NOTE | 2017-08-03 08:52 | PN ---
[facility] Progress Note (SOAP) Subjective: patient is comfortabel on current medication regiemne, still has tremor but reports tis is her baseline tremor right hand. l Objective: 08/03/17 14:16 less anxious Vital Signs - 24 hr 08/02/17 08/02/17 08/02/17 14:42 18:38 21:00 Temperature 98.2 F 97.8 F Pulse Rate 79 76 69 Respiratory 18 18 20 Rate Blood Pressure 104/68 101/68 100/69 O2 Sat by Pulse 94 L Oximetry (%) 08/03/17 08/03/17 08/03/17 02:00 06:00 09:00 Temperature 97.2 F L 97.0 F L Pulse Rate 64 65 Respiratory 20 20 18 Rate Blood Pressure 98/66 93/62 O2 Sat by Pulse 96 Oximetry (%) 08/03/17 11:00 Temperature 97.1 F L Pulse Rate 99 H Respiratory 18 Rate Blood Pressure 107/72 O2 Sat by Pulse Oximetry (%) Laboratory Tests 07/31/17 07/31/17 07/31/17 09:57 09:57 09:57 WBC 4.4 RBC 4.00 Hgb 10.2 L Hct 31.6 L MCV 79.0 L MCH 25.4 L MCHC 32.2 RDW 26.2 H Plt Count 149 D MPV 9.0 Neutrophils % 67.1 D Lymphocytes % 26.0 D Monocytes % 5.4 Eosinophils % 0.3 D Basophils % 1.2 PT with INR INR PTT (Actin FS) Sodium Potassium Chloride Carbon Dioxide Anion Gap BUN Creatinine Creat Clearance w eGFR Random Glucose Lactic Acid 1.3 Calcium Magnesium Iron Total Bilirubin AST ALT Alkaline Phosphatase Creatine Kinase Troponin I Total Protein Albumin Vitamin B12 Serum Folate Beta HCG, Quant Urine Color Urine Appearance Urine pH Ur Specific [place] Urine Protein Urine Glucose (UA) Urine Ketones Urine Blood Urine Nitrite Urine Bilirubin Urine Urobilinogen Ur Leukocyte Esterase Urine WBC (Auto) Urine RBC (Auto) Ur Epithelial Cells Urine Bacteria Hyaline Casts Urine Mucus Opiates Screen Methadone Screen Barbiturate Screen Phencyclidine Screen Ur Amphetamines Screen MDMA (Ecstasy) Screen Benzodiazepines Screen Cocaine Screen U Marijuana (THC) Screen Alcohol, Quantitative < 5.0 RPR Titer 07/31/17 07/31/17 07/31/17 10:06 10:06 13:56 WBC RBC Hgb Hct MCV MCH MCHC RDW Plt Count MPV Neutrophils % Lymphocytes % Monocytes % Eosinophils % Basophils % PT with INR 10.00 INR 0.88 PTT (Actin FS) 30.6 Sodium 137 Potassium 4.4 Chloride 102 Carbon Dioxide 26 Anion Gap 9 BUN 9 Creatinine 0.5 L Creat Clearance w eGFR > 60 Random Glucose 88 Lactic Acid Calcium 8.4 L Magnesium 2.0 Iron Total Bilirubin 0.6 D AST 47 H ALT 24 Alkaline Phosphatase 100 Creatine Kinase 111 Troponin I < 0.02 Total Protein 7.8 Albumin 3.6 Vitamin B12 Serum Folate Beta HCG, Quant < 1.0 Urine Color Yellow Urine Appearance Clear Urine pH 7.0 D Ur Specific [place] 1.024 Urine Protein 2+ H Urine Glucose (UA) Negative Urine Ketones 2+ H Urine Blood Negative Urine Nitrite Negative Urine Bilirubin Negative Urine Urobilinogen Negative Ur Leukocyte Esterase Negative Urine WBC (Auto) 5-10 Urine RBC (Auto) 0-2 Ur Epithelial Cells Moderate Urine Bacteria Few Hyaline Casts <1 Urine Mucus Many Opiates Screen Methadone Screen Barbiturate Screen Phencyclidine Screen Ur Amphetamines Screen MDMA (Ecstasy) Screen Benzodiazepines Screen Cocaine Screen U Marijuana (THC) Screen Alcohol, Quantitative RPR Titer 07/31/17 07/31/17 07/31/17 13:56 15:20 23:30 WBC RBC Hgb Hct MCV MCH MCHC RDW Plt Count MPV Neutrophils % Lymphocytes % Monocytes % Eosinophils % Basophils % PT with INR INR PTT (Actin FS) Sodium Potassium Chloride Carbon Dioxide Anion Gap BUN Creatinine Creat Clearance w eGFR Random Glucose Lactic Acid Calcium Magnesium Iron Total Bilirubin AST ALT Alkaline Phosphatase Creatine Kinase Troponin I Cancelled Total Protein Albumin Vitamin B12 Serum Folate Beta HCG, Quant Urine Color Cancelled Urine Appearance Cancelled Urine pH Cancelled Ur Specific [place] Cancelled Urine Protein Cancelled Urine Glucose (UA) Cancelled Urine Ketones Cancelled Urine Blood Cancelled Urine Nitrite Cancelled Urine Bilirubin Cancelled Urine Urobilinogen Cancelled Ur Leukocyte Esterase Cancelled Urine WBC (Auto) Urine RBC (Auto) Ur Epithelial Cells Urine Bacteria Hyaline Casts Urine Mucus Opiates Screen Negative Methadone Screen Negative Barbiturate Screen Negative Phencyclidine Screen Negative Ur Amphetamines Screen Negative MDMA (Ecstasy) Screen Negative Benzodiazepines Screen Negative Cocaine Screen Negative U Marijuana (THC) Screen Negative Alcohol, Quantitative RPR Titer 07/31/17 08/02/17 08/02/17 23:40 05:30 05:30 WBC RBC Hgb Hct MCV MCH MCHC RDW Plt Count MPV Neutrophils % Lymphocytes % Monocytes % Eosinophils % Basophils % PT with INR INR PTT (Actin FS) Sodium Potassium Chloride Carbon Dioxide Anion Gap BUN Creatinine Creat Clearance w eGFR Random Glucose Lactic Acid Calcium Magnesium Iron 20 L Total Bilirubin AST ALT Alkaline Phosphatase Creatine Kinase Troponin I < 0.02 Total Protein Albumin Vitamin B12 Serum Folate Beta HCG, Quant Urine Color Urine Appearance Urine pH Ur Specific [place] Urine Protein Urine Glucose (UA) Urine Ketones Urine Blood Urine Nitrite Urine Bilirubin Urine Urobilinogen Ur Leukocyte Esterase Urine WBC (Auto) Urine RBC (Auto) Ur Epithelial Cells Urine Bacteria Hyaline Casts Urine Mucus Opiates Screen Methadone Screen Barbiturate Screen Phencyclidine Screen Ur Amphetamines Screen MDMA (Ecstasy) Screen Benzodiazepines Screen Cocaine Screen U Marijuana (THC) Screen Alcohol, Quantitative RPR Titer Nonreactive 08/02/17 05:30 WBC RBC Hgb Hct MCV MCH MCHC RDW Plt Count MPV Neutrophils % Lymphocytes % Monocytes % Eosinophils % Basophils % PT with INR INR PTT (Actin FS) Sodium Potassium Chloride Carbon Dioxide Anion Gap BUN Creatinine Creat Clearance w eGFR Random Glucose Lactic Acid Calcium Magnesium Iron Total Bilirubin AST ALT Alkaline Phosphatase Creatine Kinase Troponin I Total Protein Albumin Vitamin B12 253 Serum Folate 13 Beta HCG, Quant Urine Color Urine Appearance Urine pH Ur Specific [place] Urine Protein Urine Glucose (UA) Urine Ketones Urine Blood Urine Nitrite Urine Bilirubin Urine Urobilinogen Ur Leukocyte Esterase Urine WBC (Auto) Urine RBC (Auto) Ur Epithelial Cells Urine Bacteria Hyaline Casts Urine Mucus Opiates Screen Methadone Screen Barbiturate Screen Phencyclidine Screen Ur Amphetamines Screen MDMA (Ecstasy) Screen Benzodiazepines Screen Cocaine Screen U Marijuana (THC) Screen Alcohol, Quantitative RPR Titer Assessment: 08/03/17 14:18 alcohol use disoder, tolerting deto, improvement in anxiety and depression d/w refrigerator tester need for further cardiac testing, will complete detox hile hospitalized.
[2017-08-03] MEDS ORDERED: MELATONIN 5 MG TABLETS PO PRN (08:53)
[2017-08-03] MEDS ORDERED: GABAPENTIN 100 MG CAPSULE (FP) PO SCH (09:15)
[2017-08-03] MEDS: PARoxetine HCL 10 MG TABLET (FP) PO SCH (10:51)
[2017-08-03] MEDS: TOPIRAMATE 100 MG TABLET PO SCH (10:51)
[2017-08-03] MEDS: ASPIRIN 81 MG CHEWABLE TABLETS PO SCH (10:52)
[2017-08-03] MEDS: PRENATAL VITAMINS W/ FOLIC ACID TABLET (FP) PO SCH (10:53)
[2017-08-03] MEDS: LOSARTAN 50MG/HCTZ 12.5MG 1 TAB (FP) PO SCH (10:53)
--- NOTE | 2017-08-03 11:11 | DS ---
Physical Examination Vital Signs: Vital Signs Temperature 97.0 F L 08/03/17 06:00 Pulse Rate 65 08/03/17 06:00 Respiratory Rate 20 08/03/17 06:00 Blood Pressure 93/62 08/03/17 06:00 O2 Sat by Pulse Oximetry (%) 94 L 08/02/17 21:00 Findings/Remarks: READY FOR DISCHARGE FOR CARDIAC CATH Constitutional: Yes: Mild Distress Eyes: Yes: WNL HENT: Yes: WNL Neck: Yes: WNL Cardiovascular: Yes: WNL Respiratory: Yes: WNL Gastrointestinal: Yes: WNL Musculoskeletal: Yes: WNL Extremities: Yes: WNL Edema: No Peripheral Pulses WNL: Yes Integumentary: Yes: WNL Wound/Incision: Yes: Clean/Dry Neurological: Yes: WNL ...Motor Strength: WNL Psychiatric: Yes: Other Labs: CBC, BMP 07/31/17 09:57 07/31/17 10:06 Discharge Summary Reason For Visit: ALCOHOL WITHDRAWAL SYNDROME Current Active Problems Alcohol dependence with uncomplicated withdrawal (Acute) Breast pain, right (Acute) Chest pain (Acute) Dyspnea on exertion (Acute) History of cardiac arrest (Acute) Hypertension (Acute) Palpitations (Acute) Seizure (Acute) Procedures: Principal: STRESS TEST Hospital Course: ADMITTED FOR ETOH WITHDRAWELS TREATED WITH LIBRIUM PROTOCOL, STRESSTEST THEN POSITIVE WITH ISCHEMIA, TRANSFERRING TO [facility] FOR CARDIAC CATH Condition: Guarded - Instructions Diet, Activity, Other Instructions: SEE DR IRELAND AFTER DISCHARGE FROM [facility] ADA/LOW SODIUM DIET ETOH INPATIENT VS OUTPATIENT AFTER CARDIAC CATH Referrals: Andie Ireland MD [Primary Care Provider] - Disposition: TRANSFER ACUTE CARE/OTHER HOSP - Home Medications Comprehensive Discharge Medication List: Ambulatory Orders Aspirin [ASA -] 81 mg PO DAILY 07/31/17 Atorvastatin Ca [Lipitor] 20 mg PO HS 07/31/17 Cyclobenzaprine HCl 10 mg PO HS PRN 07/31/17 Gabapentin 300 mg PO TID 07/31/17 Losartan 50Mg/Hctz 12.5MG [Hyzaar -] 1 tab PO DAILY 07/31/17 Meclizine HCl 12.5 mg PO BID PRN 07/31/17 Paroxetine HCl [Paxil] 80 mg PO BID 07/31/17 Topiramate 100 mg PO DAILY 07/31/17 Trazodone HCl 100 mg PO HS 07/31/17 Chlordiazepoxide [Librium -] 15 mg PO [id number] capsule MDD 4 08/03/17 Docusate Sodium [Colace -] 300 mg PO HS capsule 08/03/17 LORazepam [Ativan] 1 mg PO Q8H PRN tablet MDD 3 08/03/17 Melatonin 5 mg PO HS PRN tab 08/03/17 Paroxetine HCl [Paxil -] 30 mg PO DAILY tablet 08/03/17 Vitamins (Sjr) - 1 tab PO DAILY tablet 08/03/17 Thiamine HCl [Vitamin B1 -] 100 mg PO HS tablet 08/03/17
[2017-08-03 12:33] VITALS: BP 107/72; PULSE 99; TEMP 97.1
--- NOTE | 2017-08-03 14:25 | PN ---
S Progress Note (SOAP) Subjective: no complaints Objective: 08/03/17 14:24 Vital Signs - 24 hr 08/02/17 08/02/17 08/02/17 14:42 18:38 21:00 Temperature 98.2 F 97.8 F Pulse Rate 79 76 69 Respiratory 18 18 20 Rate Blood Pressure 104/68 101/68 100/69 O2 Sat by Pulse 94 L Oximetry (%) 08/03/17 08/03/17 08/03/17 02:00 06:00 09:00 Temperature 97.2 F L 97.0 F L Pulse Rate 64 65 Respiratory 20 20 18 Rate Blood Pressure 98/66 93/62 O2 Sat by Pulse 96 Oximetry (%) 08/03/17 11:00 Temperature 97.1 F L Pulse Rate 99 H Respiratory 18 Rate Blood Pressure 107/72 O2 Sat by Pulse Oximetry (%) Laboratory Results - last 24 hr 08/02/17 05:30 Iron 20 L Assessment: 08/03/17 14:25 medicallys table for discharge for cardiac work up
[2017-08-03] MEDS ORDERED: DOCUSATE SODIUM 100 MG CAPSULE (FP) PO SCH (22:00)
== END 2017-08-03 11:45 | disposition short-term general hospital (02) | DRG 311 ==
LOC: JER 09:19 → JERBED 11:19 → J4S 18:14
PROVIDERS: ADMIT Family Medicine; ATTEND Family Medicine
PROC: HZ2ZZZZ Detoxification Services for Substance Abuse Treatment (ICD-10-PCS; principal; 2017-07-31)
DX: I24.9 Acute ischemic heart disease, unspecified (principal); F10.239 Alcohol dependence with withdrawal, unspecified; I69.354 Hemiplegia and hemiparesis following cerebral infarction affecting left non-dominant side; G40.909 Epilepsy, unspecified, not intractable, without status epilepticus; K21.9 Gastro-esophageal reflux disease without esophagitis; N64.4 Mastodynia; D64.9 Anemia, unspecified; I10 Essential (primary) hypertension; G43.909 Migraine, unspecified, not intractable, without status migrainosus; F41.8 Other specified anxiety disorders; R10.9 Unspecified abdominal pain; R74.8 Abnormal levels of other serum enzymes; Z98.84 Bariatric surgery status; Z86.74 Personal history of sudden cardiac arrest; Z86.73 Personal history of transient ischemic attack (TIA), and cerebral infarction without residual deficits
CPT/HCPCS: 36415; 70450-TC; 71045-TC-FY; 72125-TC; 78452-TC; 80053; 80307; 81003; 81015; 82550; 82607; 82746; 83540; 83605; 83735; 84484; 84702; 85025; 85610; 85730; 86593; 87045; 87046; 87205; 87324; 87449; 93005; 93010; 93017; 93306-TC; 99285-25; A9502; J0735; J2785; J7030

== ENCOUNTER 2017-08-29 10:21 | Emergency (ER) | payer OTHER ==
[2017-08-29 10:32] VITALS: BP 141/70; PULSE 87; TEMP 98.2; BMI 21.6
[2017-08-29] MEDS ORDERED: BACITRACIN 15 GM TUBE TOPICAL OINTMENT TP ONE (11:24)
[2017-08-29] MEDS ORDERED: BACITRACIN 15 GM TUBE TOPICAL OINTMENT ONE (11:31)
--- NOTE | 2017-08-29 11:52 | PDOC ---
History of Present Illness - General Chief Complaint: Edema Stated Complaint: LEFT HAND SWOLLEN Time Seen by Provider: 08/29/17 10:43 History Source: Patient Exam Limitations: No Limitations - History of Present Illness Initial Comments: 08/29/17 11:51 CHIEF COMPLAINT: Left hand swelling with multiple abrasions HISTORY OF PRESENT ILLNESS: Patient is a 47-year-old female, history of multiple strokes, hypertension, seizures and alcohol withdrawal presents for evaluation of swelling and redness to left hand with multiple abrasions. 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 No pain to arm. No fever. Past History - Past Medical History Allergies/Adverse Reactions: Allergies Allergy/AdvReac Type Severity Reaction Status Date / Time ibuprofen [From Motrin] Allergy Intermediate Hives Verified 08/29/17 10:26 acetaminophen [From Percocet] Allergy Swelling Verified 08/29/17 10:26 oxycodone HCl [From Percocet] Allergy Swelling Verified 08/29/17 10:26 morphine AdvReac Severe Difficulty Verified 08/29/17 10:26 Breathing Home Medications: Ambulatory Orders Aspirin [ASA -] 81 mg PO DAILY 07/31/17 Atorvastatin Ca [Lipitor] 20 mg PO HS 07/31/17 Cyclobenzaprine HCl 10 mg PO HS PRN 07/31/17 Gabapentin 300 mg PO TID 07/31/17 Losartan 50Mg/Hctz 12.5MG [Hyzaar -] 1 tab PO DAILY 07/31/17 Meclizine HCl 12.5 mg PO BID PRN 07/31/17 Paroxetine HCl [Paxil] 80 mg PO BID 07/31/17 Topiramate 100 mg PO DAILY 07/31/17 Trazodone HCl 100 mg PO HS 07/31/17 Chlordiazepoxide [Librium -] 15 mg PO [id number] capsule MDD 4 08/03/17 Docusate Sodium [Colace -] 300 mg PO HS capsule 08/03/17 LORazepam [Ativan] 1 mg PO Q8H PRN tablet MDD 3 08/03/17 Melatonin 5 mg PO HS PRN tab 08/03/17 Paroxetine HCl [Paxil -] 30 mg PO DAILY tablet 08/03/17 Vitamins (Sjr) - 1 tab PO DAILY tablet 08/03/17 Thiamine HCl [Vitamin B1 -] 100 mg PO HS tablet 08/03/17 Sulfamethoxazole/Trimethoprim [Bactrim Ds -] 1 tab PO BID #20 tablet 08/29/17 Anemia: Yes Asthma: No Cancer: No Cardiac Disorders: Yes (cardiac arrest 03/2013) CVA: Yes (X3; MINI STROKE) COPD: No CHF: No Dementia: No Diabetes: No GI Disorders: Yes (GERD, gastric bypass) Disorders: No HTN: Yes Hypercholesterolemia: Yes Liver Disease: No Seizures: Yes Thyroid Disease: No - Surgical History Abdominal Surgery: Yes Appendectomy: No Cardiac Surgery: No Cholecystectomy: No Lung Surgery: No Neurologic Surgery: No Orthopedic Surgery: Yes (LEFT KNEE SCREWS 2014) - Immunization History Immunization Up to Date: Yes - Suicide/Smoking/Psychosocial Hx Smoking Status: No Smoking History: Never smoked Have you smoked in the past 12 months: No Number of Cigarettes Smoked Daily: 0 Information on smoking cessation initiated: No Hx Alcohol Use: No Drug/Substance Use Hx: No Substance Use Type: None Hx Substance Use Treatment: No Review of Systems - Review of Systems Constitutional: No: Symptoms Reported HEENTM: No: Symptoms Reported Respiratory: No: Symptoms reported Cardiac (ROS): No: Symptoms Reported ABD/GI: No: Symptoms Reported : No: Symptoms Reported Musculoskeletal: No: Joint Pain, Joint Swelling Integumentary: Yes: Erythema, Rash, Other (multiple superficial abrasions to dorsum of left fingers.). No: Bruising Neurological: No: Symptoms reported Hematologic/Lymphatic: No: Symptoms Reported All Other Systems: Reviewed and Negative *Physical Exam - Vital Signs Last Vital Signs Temp Pulse Resp BP Pulse Ox 98.2 F 87 17 141/70 99 08/29/17 10:26 08/29/17 10:26 08/29/17 10:26 08/29/17 10:08/29/17 10:26 - Physical Exam General Appearance: Yes: Appropriately Dressed. No: Apparent Distress Respiratory/Chest: positive: Lungs Clear, Normal Breath Sounds Cardiovascular: positive: Regular Rhythm, Regular Rate Lymphatic: negative: Adenopathy Extremity: positive: Swelling, Erythema, Other (dialysis, chronic to left hand swelling, erythema and warmth with multiple abrasions to the dorsum of the left fingers.) Integumentary: positive: Erythema, Rash, Swelling. negative: Ecchymosis, Bruising Neurologic: positive: Alert, Normal Mood/Affect ED Treatment Course - Medications Given in the ED: ED Medications Discontinued Medications Generic Name Dose Route Start Last Admin Trade Name Yasemin PRN Reason Stop Dose Admin Bacitracin 1 applic 08/29/17 11:24 08/29/17 11:36 Bacitracin - TP 08/29/17 11:25 1 applic ONCE ONE Administration Medical Decision Making - Medical Decision Making 08/29/17 11:54 A/P: Patient with infected abrasions to dorsum of left hand, no evidence of cellulitis or streaking localized warmth around wounds. Will apply bacitracin, DC on Bactrim, follow-up in 3 days if symptoms are not starting to resolve. *DC/Admit/Observation/Transfer Diagnosis at time of Disposition: Wound infection - Discharge Dispostion Disposition: HOME Condition at time of disposition: Stable Admit: No - Prescriptions Prescriptions: Sulfamethoxazole/Trimethoprim [Bactrim Ds -] 1 tab PO BID #20 tablet - Referrals Referrals: Andie Ireland MD [Primary Care Provider] - - Patient Instructions Additional Instructions: He stated Bactrim daily, apply bacitracin to wound, make sure to cleanse regularly. Return to ER if any increased redness swelling or signs of infection if symptoms are not starting to resolve in 2 days. - Post Discharge Activity
== END 2017-08-29 12:08 | disposition home or self-care (01) ==
LOC: JERFT 10:21
DX: S60.418A Abrasion of other finger, initial encounter (principal); Z91.5 Personal history of self-harm; I10 Essential (primary) hypertension; F10.230 Alcohol dependence with withdrawal, uncomplicated; E78.00 Pure hypercholesterolemia, unspecified; Z86.73 Personal history of transient ischemic attack (TIA), and cerebral infarction without residual deficits; Z86.69 Personal history of other diseases of the nervous system and sense organs; Z86.74 Personal history of sudden cardiac arrest; Z79.82 Long term (current) use of aspirin
CPT/HCPCS: 99281-25

== ENCOUNTER 2018-01-21 23:49 | Emergency (ER) | payer OTHER ==
[2018-01-22 00:07] VITALS: BP 129/85; PULSE 98; TEMP 98
--- NOTE | 2018-01-22 00:17 | PDOC ---
History of Present Illness - General History Source: Patient Exam Limitations: No Limitations - History of Present Illness Initial Comments: 01/22/18 00:28 The patient is a 47 year old female accompanied with her mother and son ( daughter) with a past medical history of cardiac arrest 03/2013, CVA with residual left sided weakness, GERD, HTN, HLD, seizures, and anemia who presents to the emergency department for evaluation of laceration above right eye s/p fall. The patient reports falling twice in her bedroom after consuming EtOH this evening. Pt is unsure of LOC. She reports an associated symptom of dizziness. The patient denies chest pain, SOB, headache, fever, chills, nausea, vomiting, and any bowel/urinary issues. Allergies: ibuprofen, acetaminophen, oxycodone HCl, Morphine. Social History: Consumes EtOh once a week. No reported cigarette or IV drug use. Surgical History: Abdominal <Sonya Lu - Last Filed: 01/22/18 00:44> <Nayeli Swann - Last Filed: 01/22/18 01:56> - General Chief Complaint: Laceration Stated Complaint: LACERATION Time Seen by Provider: 01/22/18 00:12 Past History <Sonya Lu - Last Filed: 01/22/18 00:44> - Past Medical History Anemia: Yes Asthma: No Cancer: No Cardiac Disorders: Yes (cardiac arrest 03/2013) CVA: Yes (X3; MINI STROKE) COPD: No CHF: No Dementia: No Diabetes: No GI Disorders: Yes (GERD, gastric bypass) Disorders: No HTN: Yes Hypercholesterolemia: Yes Liver Disease: No Seizures: Yes Thyroid Disease: No - Surgical History Abdominal Surgery: Yes Appendectomy: No Cardiac Surgery: No Cholecystectomy: No Lung Surgery: No Neurologic Surgery: No Orthopedic Surgery: Yes (LEFT KNEE SCREWS 2014) - Immunization History Immunization Up to Date: Yes - Suicide/Smoking/Psychosocial Hx Smoking Status: No Smoking History: Never smoked Have you smoked in the past 12 months: No Number of Cigarettes Smoked Daily: 0 Hx Alcohol Use: Yes Drug/Substance Use Hx: No Substance Use Type: None Hx Substance Use Treatment: No <Nayeli Swann - Last Filed: 01/22/18 01:56> - Past Medical History Allergies/Adverse Reactions: Allergies Allergy/AdvReac Type Severity Reaction Status Date / Time ibuprofen [From Motrin] Allergy Intermediate Hives Verified 01/22/18 00:07 acetaminophen [From Percocet] Allergy Swelling Verified 01/22/18 00:07 oxycodone HCl [From Percocet] Allergy Swelling Verified 01/22/18 00:07 morphine AdvReac Severe Difficulty Verified 01/22/18 00:07 Breathing Home Medications: Ambulatory Orders Aspirin [ASA -] 81 mg PO DAILY 07/31/17 Atorvastatin Ca [Lipitor] 20 mg PO HS 07/31/17 Cyclobenzaprine HCl 10 mg PO HS PRN 07/31/17 Gabapentin 300 mg PO TID 07/31/17 Losartan 50Mg/Hctz 12.5MG [Hyzaar -] 1 tab PO DAILY 07/31/17 Meclizine HCl 12.5 mg PO BID PRN 07/31/17 Paroxetine HCl [Paxil] 80 mg PO BID 07/31/17 Topiramate 100 mg PO DAILY 07/31/17 traZODone HCL [Trazodone HCl] 100 mg PO HS 07/31/17 Chlordiazepoxide [Librium -] 15 mg PO [id number] capsule MDD 4 08/03/17 Docusate Sodium [Colace -] 300 mg PO HS capsule 08/03/17 LORazepam [Ativan] 1 mg PO Q8H PRN tablet MDD 3 08/03/17 Melatonin 5 mg PO HS PRN tab 08/03/17 Paroxetine HCl [Paxil -] 30 mg PO DAILY tablet 08/03/17 Thiamine HCl [Vitamin B1 -] 100 mg PO HS tablet 08/03/17 Review of Systems - Review of Systems Able to Perform ROS?: Yes Comments:: CONSTITUTIONAL: Absent: fever, no chills, no fatigue EYES: (+)Laceration above right eye. Absent: visual changes ENT: Absent: ear pain, no sore throat CARDIOVASCULAR: Absent: chest pain, no palpitations RESPIRATORY: Absent: cough, no SOB GI: Absent: abdominal pain, no nausea, no vomiting, no constipation, no diarrhea GENITOURINARY: Absent: dysuria, no frequency, no hematuria MUSKULOSKELETAL: Absent: back pain, no arthralgia, no myalgia SKIN: Absent: rash NEURO: (+)Dizziness. Absent: headache <Sonya Lu - Last Filed: 01/22/18 00:44> *Physical Exam - Vital Signs Last Vital Signs Temp Pulse Resp BP Pulse Ox 98.0 F 98 H 18 129/85 99 01/22/18 00:03 01/22/18 00:03 01/22/18 00:03 01/22/18 00:03 01/22/18 00:03 - Physical Exam Comments: 01/22/18 00:45 GENERAL: (+)Left sided paralysis. Well-appearing, well-nourished. No apparent distress. HEENT: (+)Right lateral brow laceration. (+)Bruise on right cheekbone. (+ Normocephalic, atraumatic. PERRL, EOM intact. CARDIOVASCULAR: Normal S1, S2. Regular rate and rhythm. PULMONARY: Clear to auscultation bilaterally. ABDOMEN: Soft, non-distended, non-tender. EXTREMITIES: (+)Contraction of left forearm. (+)Paralysis of left fingers. Otherwise, normal ROM in all four extremities. No gross deformities. SKIN: Warm, dry. No rash <Sonya Lu - Last Filed: 01/22/18 00:44> - Vital Signs Last Vital Signs Temp Pulse Resp BP Pulse Ox 98.0 F 98 H 18 129/85 99 01/22/18 00:03 01/22/18 00:03 01/22/18 00:03 01/22/18 00:03 01/22/18 00:03 <Nayeli Swann - Last Filed: 01/22/18 01:56> Procedures - Laceration/Wound Repair Right Lateral Face Wound Length: to 2.5 cm Wound Explored: clean Wound's Depth, Shape: superficial, linear Irrigated w/ Saline: Yes Betadine Prep: Yes Anesthesia: 1% Lidocaine Amount of Anesthetic (ccs): 2 Suture Size/Type: 5:0, other (polysorb) Number of Sutures: 3 Layer Closure: No <Nayeli Swann - Last Filed: 01/22/18 01:56> Medical Decision Making - Medical Decision Making 01/22/18 01:09 Pt comes with fall at home. She was drinking alcohol. She usually drinks at home. 01/22/18 01:56 Patient Name: CYNDY LUEVANO THIS IS A PRELIMINARY REPORT FROM [facility] DATE OF SERVICE: 2018-01-22 00:48:01 IMAGES: [id number] EXAM: HEAD CT WITHOUT CONTRAST HISTORY: Status post fall COMPARISON: None. FINDINGS: The ventricular system is midline and nondilated. There is cortical atrophy small vessel ischemic disease which is advanced for the patient's age. There is geographic edema in the right parietal lobe consistent with subacute to old MCA territory infarct. There also appears to be a small subacute to old infarct in the left posterior parietal lobe. There may be a small old right cerebellar lobe infarct. Embolic phenomena as possible There is no bleed, mass, extra- axial fluid collection or mass effect. No skull fracture or skull lesion is identified. The visualized paranasal sinuses and mastoid air cells are clear other than scattered sinus mucosal thickening. IMPRESSION: No acute traumatic pathology. Subacute to old bilateral infarcts, suggesting embolic phenomena. Individualized dose optimization techniques were used for this CT. THIS DOCUMENT HAS BEEN ELECTRONICALLY SIGNED <Nayeli Swann - Last Filed: 01/22/18 01:56> *DC/Admit/Observation/Transfer - Attestations Scribe Attestion: Documentation prepared by Sonya Lu, acting as medical records specialist for Nayeli Swann MD. <Sonya Lu - Last Filed: 01/22/18 00:44> - Discharge Dispostion Decision to Admit order: No <Nayeli Swann - Last Filed: 01/22/18 01:56> Diagnosis at time of Disposition: Laceration, Alcohol abuse - Discharge Dispostion Disposition: HOME Condition at time of disposition: Stable - Patient Instructions Printed Discharge Instructions: DI for Laceration Repair
[2018-01-22] MEDS ORDERED: DIPHTH,PERTUSS(ACELL),TET 0.5 ML DISP.SYRIN IM ONE (00:41)
[2018-01-22] MEDS ORDERED: METHOCARBAMOL 500 MG TABLET PO ONE (01:24)
[2018-01-22] MEDS ORDERED: METHOCARBAMOL 500 MG TABLET ONE (01:26)
== END 2018-01-22 01:40 | disposition home or self-care (01) ==
LOC: JER 23:49
PROC: 0HQ1XZZ Repair Face Skin, External Approach (ICD-10-PCS; principal; 2018-01-21)
PROC: 3E0234Z Introduction of Serum, Toxoid and Vaccine into Muscle, Percutaneous Approach (ICD-10-PCS; 2018-01-21)
DX: S01.111A Laceration without foreign body of right eyelid and periocular area, initial encounter (principal); W18.39XA Other fall on same level, initial encounter; Y93.89 Activity, other specified; Y92.89 Other specified places as the place of occurrence of the external cause
CPT/HCPCS: 70450-TC; 90715; 99281-25

== ENCOUNTER 2018-02-15 11:22 | Emergency (ER) | payer OTHER ==
[2018-02-15 11:42] VITALS: BP 132/88; PULSE 88; TEMP 97.9
--- NOTE | 2018-02-15 12:14 | PDOC ---
History of Present Illness - General Chief Complaint: Eye Problem Stated Complaint: EYE PROBLEM, INJURY Time Seen by Provider: 02/15/18 11:57 History Source: Patient, Old Records Exam Limitations: No Limitations - History of Present Illness Initial Comments: 02/15/18 12:08 HISTORY OF PRESENT ILLNESS: 48-year-old woman with past medical history of CVA, seizures, EtOH dependence who presents emergency Department with left thigh pain and bruising status post fall which occurred on 02/11. Patient believes she had a seizure at that time but does not remember the circumstances. Patient denies drinking at that time. Patient reports medication compliance as an appointment with her neurologist next week. Patient denies headache, dizziness, nausea, vomiting, blurry vision. No recent travel or sick contacts. PAST MEDICAL HISTORY: see HPI SURGICAL HISTORY: Denies ALLERGIES: NSAIDs, Tylenol, morphine REVIEW OF SYSTEMS General/Constitutional: Denies fever or chills. Denies weakness, weight change. HEENT: Denies change in vision. Left periorbital pain. Cardiovascular: Denies chest pain or shortness of breath. Respiratory: Denies cough, wheezing, or hemoptysis. Gastrointestinal: Denies nausea, vomiting, diarrhea or constipation. Denies rectal bleeding. Genitourinary: Denies dysuria, frequency, or change in urination. Musculoskeletal: Denies joint or muscle swelling or pain. Denies neck or back pain. Skin and breasts: Denies rash or easy bruising. Neurologic: Denies headache, vertigo, loss of consciousness, or loss of sensation. Psychiatric: Denies depression or anxiety. Endocrine: Denies increased thirst. Denies abnormal weight change. Hematologic/Lymphatic: Denies anemia, easy bleeding, or history of blood clots. Allergic/Immunologic: Denies hives or skin allergy. Denies latex allergy. PHYSICAL EXAM General Appearance: Well-appearing, appropriately dressed. No apparent distress , no intoxication. HEENT: EOMI, PERRLA, normal voice, TMs normal, pharynx normal. No conjunctival pallor. No photophobia, scleral icterus. Subconjunctival hemorrhage present. Resolving ecchymosis left inferior orbit. Neck: Supple. Trachea midline. No tenderness, rigidity, carotid bruit, stridor , lymphadenopathy, or thyromegaly. Respiratory/Chest: Lungs CTAB. No shortness of breath, chest tenderness, respiratory distress, accessory muscle use. No crackles, rales, rhonchi, stridor , wheezing, dullness Cardiovascular: RRR. S1, S2. No JVD, murmur, bradycardia, tachycardia. Vascular Pulses: Dorsalis-Pedis (R): 2+, Dorsalis-Pedis (L): 2+ Gastrointestinal/Abdominal: Normal bowel sounds. Abdomen soft, non-distended. No tenderness or rebound tenderness. No organomegaly, pulsatile mass, guarding, hernia, hepatomegaly, splenomegaly. Lymphatic: No adenopathy, tenderness. Musculoskeletal/Extremities: Normal inspection. FROM of all extremities, normal capillary refill. Pelvis Stable. No CVA tenderness. No tenderness to extremities, pedal edema, swelling, erythema or deformity. Integumentary: Appropriate color, dry, warm. 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 Fully oriented, alert. Appropriate mood/affect. Motor strength 5/5. No appreciable EOM palsy, facial droop or sensory deficit. Past History - Past Medical History Allergies/Adverse Reactions: Allergies Allergy/AdvReac Type Severity Reaction Status Date / Time ibuprofen [From Motrin] Allergy Intermediate Hives Verified 02/15/18 11:38 acetaminophen [From Percocet] Allergy Swelling Verified 02/15/18 11:38 oxycodone HCl [From Percocet] Allergy Swelling Verified 02/15/18 11:38 morphine AdvReac Severe Difficulty Verified 02/15/18 11:38 Breathing Home Medications: Ambulatory Orders Aspirin [ASA -] 81 mg PO DAILY 07/31/17 Atorvastatin Ca [Lipitor] 20 mg PO HS 07/31/17 Cyclobenzaprine HCl 10 mg PO HS PRN 07/31/17 Gabapentin 300 mg PO TID 07/31/17 Losartan 50Mg/Hctz 12.5MG [Hyzaar -] 1 tab PO DAILY 07/31/17 Meclizine HCl 12.5 mg PO BID PRN 07/31/17 Paroxetine HCl [Paxil] 80 mg PO BID 07/31/17 Topiramate 100 mg PO DAILY 07/31/17 traZODone HCL [Trazodone HCl] 100 mg PO HS 07/31/17 Chlordiazepoxide [Librium -] 15 mg PO [id number] capsule MDD 4 08/03/17 Docusate Sodium [Colace -] 300 mg PO HS capsule 08/03/17 LORazepam [Ativan] 1 mg PO Q8H PRN tablet MDD 3 08/03/17 Melatonin 5 mg PO HS PRN tab 08/03/17 Paroxetine HCl [Paxil -] 30 mg PO DAILY tablet 08/03/17 Thiamine HCl [Vitamin B1 -] 100 mg PO HS tablet 08/03/17 Anemia: Yes Asthma: No Cancer: No Cardiac Disorders: Yes (cardiac arrest 03/2013) CVA: Yes (X3; MINI STROKE) COPD: No CHF: No Dementia: No Diabetes: No GI Disorders: Yes (GERD, gastric bypass) Disorders: No HTN: Yes Hypercholesterolemia: Yes Liver Disease: No Seizures: Yes Thyroid Disease: No - Surgical History Abdominal Surgery: Yes Appendectomy: No Cardiac Surgery: No Cholecystectomy: No Lung Surgery: No Neurologic Surgery: No Orthopedic Surgery: Yes (LEFT KNEE SCREWS 2014) - Immunization History Immunization Up to Date: Yes - Suicide/Smoking/Psychosocial Hx Smoking Status: No Smoking History: Never smoked Have you smoked in the past 12 months: No Number of Cigarettes Smoked Daily: 0 Hx Alcohol Use: Yes Drug/Substance Use Hx: No Substance Use Type: None Hx Substance Use Treatment: No *Physical Exam - Vital Signs Last Vital Signs Temp Pulse Resp BP Pulse Ox 97.9 F 88 18 132/88 98 02/15/18 11:38 02/15/18 11:38 02/15/18 11:38 02/15/18 11:38 02/15/18 11:38 ED Treatment Course - RADIOLOGY Radiology Studies Ordered: Category Date Time Status FACIAL BONES CT W/O CONTRAST [CT] Stat CT Scan 02/15/18 12:[address] WITHOUT CONTRAST [CT] Stat CT Scan 02/15/18 12:05 Ordered Medical Decision Making - Medical Decision Making 02/15/18 12:11 A/P: 48-year-old woman history of CVA, seizures, EtOH with left periorbital pain status post seizure on 02/11 Left periorbital ecchymosis which is resolving No tenderness to palpation of orbits bilaterally No crepitus present No subcutaneous emphysema present No septal hematomas noted No hemotympanum present Left subconjunctival hemorrhage present Extraocular movements intact Neuro exam is grossly normal Urine testing Head and facial bone CT to rule out fracture or intracranial injury 02/15/18 14:05 CT of the head and facial bones as read by Dr. Woodall: No significant interval change or acute intracranial pathology is identified. Calvarium is intact. Minimal deformity of the right orbital medial wall suggestive of fracture, likely chronic. No orbital floor fracture is identified Chronic sinusitis I will discharge the patient home to follow-up with her neurologist. I'll give the patient referral for ENT for evaluation if pain continues. *DC/Admit/Observation/Transfer Diagnosis at time of Disposition: Pain of left orbit - Discharge Dispostion Disposition: HOME Condition at time of disposition: Stable Decision to Admit order: No - Referrals Referrals: Andie Ireland MD [Primary Care Provider] - Maxim Muse MD [Staff Physician] - Justus Peck MD [Staff Physician] - - Patient Instructions Additional Instructions: A CAT scan today reveals no acute injuries. You've been given a referral for ophthalmology as well as ENT. Call to make an appointment for reevaluation Make an appointment with your neurologist for reevaluation. Continue taking all medication as prescribed Return to emergency department for any concerns - Post Discharge Activity
== END 2018-02-15 14:10 | disposition home or self-care (01) ==
LOC: JERFT 11:22
DX: H57.12 Ocular pain, left eye (principal); W18.39XA Other fall on same level, initial encounter; Y93.89 Activity, other specified; Y92.9 Unspecified place or not applicable; F10.20 Alcohol dependence, uncomplicated; R56.9 Unspecified convulsions; Z86.73 Personal history of transient ischemic attack (TIA), and cerebral infarction without residual deficits; I10 Essential (primary) hypertension; E78.00 Pure hypercholesterolemia, unspecified; Z98.84 Bariatric surgery status
CPT/HCPCS: 70450-TC; 70486-TC; 84703; 99281-25

== ENCOUNTER 2018-06-02 01:47 | Emergency (ER) | payer OTHER ==
[2018-06-02 01:57] VITALS: BMI 25.7
[2018-06-02] MEDS ORDERED: ACETAMINOPHEN 500 MG TABLET (FP) PO ONE (02:28)
[2018-06-02] MEDS ORDERED: LIDOCAINE 5% TOPICAL PATCH TP ONE (02:28)
--- NOTE | 2018-06-02 02:28 | PDOC ---
History of Present Illness - General Chief Complaint: Back Pain Stated Complaint: BACK PAIN Time Seen by Provider: 06/02/18 02:05 History Source: Patient Exam Limitations: No Limitations - History of Present Illness Initial Comments: 06/02/18 02:09 48YOF with complex medical h/o seizures, HTN, CVA x3, cardiac arrest, gastric bypass, and depression, who p/w 2 weeks of worsening low back pain in the setting of a fall in the shower 3 weeks ago while she was having a seizure. The patient is a poor historian. She states that she landed on her buttocks on the side of the shower, but did not suffer any additional injury. She has been able to ambulate since this incident. She did not get medically evaluated or have any imaging done. She has been taking her home gabapentin and one other prescription pain medication that she got from her neurologist, which have provided incomplete relief of the pain. She notes many other symptoms, including every neurological symptom asked about, but when probed she denies that any of this is new in the past 2-3 weeks since the fall. Past History - Past Medical History Allergies/Adverse Reactions: Allergies Allergy/AdvReac Type Severity Reaction Status Date / Time ibuprofen [From Motrin] Allergy Intermediate Hives Verified 06/02/18 01:56 acetaminophen [From Percocet] Allergy Swelling Verified 06/02/18 01:56 oxycodone HCl [From Percocet] Allergy Swelling Verified 06/02/18 01:56 morphine AdvReac Severe Difficulty Verified 06/02/18 01:56 Breathing Home Medications: Ambulatory Orders Aspirin [ASA -] 81 mg PO DAILY 07/31/17 Atorvastatin Ca [Lipitor] 20 mg PO HS 07/31/17 Cyclobenzaprine HCl 10 mg PO HS PRN 07/31/17 Gabapentin 300 mg PO TID 07/31/17 Losartan 50Mg/Hctz 12.5MG [Hyzaar -] 1 tab PO DAILY 07/31/17 Meclizine HCl 12.5 mg PO BID PRN 07/31/17 Paroxetine HCl [Paxil] 80 mg PO BID 07/31/17 Topiramate 100 mg PO DAILY 07/31/17 traZODone HCL [Trazodone HCl] 100 mg PO HS 07/31/17 Chlordiazepoxide [Librium -] 15 mg PO [id number] capsule MDD 4 08/03/17 Docusate Sodium [Colace -] 300 mg PO HS capsule 08/03/17 LORazepam [Ativan] 1 mg PO Q8H PRN tablet MDD 3 08/03/17 Melatonin 5 mg PO HS PRN tab 08/03/17 Paroxetine HCl [Paxil -] 30 mg PO DAILY tablet 08/03/17 Thiamine HCl [Vitamin B1 -] 100 mg PO HS tablet 08/03/17 Lidocaine Patch Removal [Lidoderm Patch Removal] 1 each MC DAILY@2200 #10 each 06/02/18 Anemia: Yes Asthma: No Cancer: No Cardiac Disorders: Yes (cardiac arrest 03/2013) CVA: Yes (X3; MINI STROKE) COPD: No CHF: No Dementia: No Diabetes: No GI Disorders: Yes (GERD, gastric bypass) Disorders: No HTN: Yes Hypercholesterolemia: Yes Liver Disease: No Seizures: Yes Thyroid Disease: No - Surgical History Abdominal Surgery: Yes Appendectomy: No Cardiac Surgery: No Cholecystectomy: No Lung Surgery: No Neurologic Surgery: No Orthopedic Surgery: Yes (LEFT KNEE SCREWS 2014) - Immunization History Immunization Up to Date: Yes - Suicide/Smoking/Psychosocial Hx Smoking Status: No Smoking History: Never smoked Have you smoked in the past 12 months: No Number of Cigarettes Smoked Daily: 0 Information on smoking cessation initiated: No Hx Alcohol Use: No Drug/Substance Use Hx: No Substance Use Type: None Hx Substance Use Treatment: No Review of Systems - Review of Systems Able to Perform ROS?: No (poor historian) *Physical Exam - Vital Signs Last Vital Signs Temp Pulse Resp BP Pulse Ox 97.6 F 100 H 18 118/87 98 06/02/18 01:56 06/02/18 01:56 06/02/18 01:56 06/02/18 01:56 06/02/18 01:56 Moderate Sedation - Procedure Monitoring Vital Signs: Procedure Monitoring Vital Signs Temperature 97.6 F 06/02/18 01:56 Pulse Rate 100 H 06/02/18 01:56 Respiratory Rate 18 06/02/18 01:56 Blood Pressure 118/87 06/02/18 01:56 O2 Sat by Pulse Oximetry (%) 98 06/02/18 01:56 Medical Decision Making - Medical Decision Making 48YOF p/w low back pain x2 weeks, had GLF in shower 3 weeks ago. Initial Vital Signs Temp Pulse Resp BP Pulse Ox 97.6 F 100 H 18 118/87 98 06/02/18 01:56 06/02/18 01:56 06/02/18 01:56 06/02/18 01:56 06/02/18 01:56 Exam: As noted in Physical Exam section. DDX IBNLT: DDD, DJD, osteophyte, compression fxr, other vertebral or spinous process fxr; malignancy, spinal epidural abscess, epidural hematoma, meningitis , multiple myeloma, or other more concerning etiology. W/U ordered: None TX ordered: Lidocaine patch, PO Tylenol Reassessment: Repeat VS: DISCHARGE The Pt has gotten significant relief of symptoms while in the ED. They are appropriate for discharge with close outpatient follow up. The Pt is comfortable with this plan and will follow up with their primary care provider in 1-3 days. Specific return precautions are discussed and they will come back to the ER if necessary. *DC/Admit/Observation/Transfer Diagnosis at time of Disposition: Back pain Qualifiers: Back pain location: low back pain Chronicity: unspecified Back pain laterality : unspecified Sciatica presence: without sciatica Qualified Code(s): M54.5 - Low back pain - Discharge Dispostion Disposition: HOME Condition at time of disposition: Stable Decision to Admit order: No - Prescriptions Prescriptions: Lidocaine Patch Removal [Lidoderm Patch Removal] 1 each MC DAILY@2200 #10 each - Referrals Referrals: [facility] [Provider Group] - Patient Instructions Printed Discharge Instructions: DI for Low Back Pain Additional Instructions: You were seen in the ER for back pain for the past 2 weeks. We gave you Tylenol and a lidocaine patch for the pain. There is no indication for imaging studies ( CT scans or X-rays) at this time. After our assessment, we do not believe you are having a medical emergency at this time, and we believe you are safe to go home. We are sending a prescription for lidocaine patches to your pharmacy, so please pick these up and use them as directed if you need them for pain. We are also sending a prescription for Tylenol to your pharmacy, so take this as needed for pain too. Please follow up with Dr. Ireland 1-3 days. Call their clinic as soon as possible on Monday, tell them you were seen in the ER , and tell them you need an appointment. You also need to follow up with Dr. West (your neurologist) as scheduled or sooner. If you have any new or worsening symptoms please come back to the ER at any time (24 hours a day), especially for new fever, new weakness, new urinary or bowel incontinence or retention, or other new symptoms. If you are having severe or life threatening symptoms, or symptoms that make it unsafe to drive or have someone drive you, please call 911. - Post Discharge Activity
--- NOTE | 2018-06-02 02:41 | PDOC ---
Attending Attestation - Resident Resident Name: RoroMelba - ED Attending Attestation I have performed the following: I have examined & evaluated the patient, The case was reviewed & discussed with the resident, I agree w/resident's findings & plan - HPI HPI: 06/02/18 03:58 Pt comes with her chronic back pain. States that she fell in the bathtub 3 weeks ago and that her back is hurting. She is also concerned about the rungworm on her right wrist and upper arm. Pt is allergic to oxycodone, vicodin and motphine. She is also allergic to NSAIDS. She will be treated with tylenol. She will be given lidocaine patch. - Physicial Exam PE: 06/02/18 06:47 Agree with resident exam. Pt has many black and blue bruises on her right hip and thigh. She has bruises on her arms bilat. Pt has no joint pains and she has FROM in all joints, She does have some limited ROM in the right wrist and hand from prior CVA and injuries. - Medical Decision Making 06/02/18 06:48 She feels better in the ER. She will go home with her mom.
[2018-06-02] MEDS ORDERED: ACETAMINOPHEN 325 MG TABLET (FP) ONE (02:44)
[2018-06-02] MEDS ORDERED: LIDOCAINE 5% TOPICAL PATCH ONE (02:44)
[2018-06-02 04:36] VITALS: BP 125/85; PULSE 98; TEMP 97.7
[2018-06-02] MEDS ORDERED: LIDOCAINE PATCH REMOVAL MC SCH (22:00)
== END 2018-06-02 04:18 | disposition home or self-care (01) ==
LOC: JER 01:47
DX: M54.5 Low back pain (principal); W18.2XXA Fall in (into) shower or empty bathtub, initial encounter; Y93.E1 Activity, personal bathing and showering; Y92.031 Bathroom in apartment as the place of occurrence of the external cause; Y99.8 Other external cause status; G40.909 Epilepsy, unspecified, not intractable, without status epilepticus; I10 Essential (primary) hypertension; E78.00 Pure hypercholesterolemia, unspecified; D64.9 Anemia, unspecified; K21.9 Gastro-esophageal reflux disease without esophagitis; Z86.73 Personal history of transient ischemic attack (TIA), and cerebral infarction without residual deficits; Z86.74 Personal history of sudden cardiac arrest
CPT/HCPCS: 99282-25

== ENCOUNTER 2018-08-17 03:11 | Emergency (ER) | payer OTHER ==
--- NOTE | 2018-08-17 03:36 | PDOC ---
History of Present Illness - General Chief Complaint: Alcohol intoxication Stated Complaint: INTOX Time Seen by Provider: 08/17/18 03:26 - History of Present Illness Initial Comments: 08/17/18 03:38 48YOF with complex medical h/o seizures, HTN, CVA x3, cardiac arrest, gastric bypass, and depression who presents after being found on the ground by her children in her bathroom between the shower and the toilet after she drank two glasses of wine. The patient cannot provide full and accurate history 2/2 intoxication. She states she did not hit her head and denies neck pain. She complains of mid point chest tenderness that is reproducible on palpation. She denies shortness of breath, vomiting, diarrhea, onstipation recent illness or recent travel. Past History - Past Medical History Allergies/Adverse Reactions: Allergies Allergy/AdvReac Type Severity Reaction Status Date / Time ibuprofen [From Motrin] Allergy Intermediate Hives Verified 08/17/18 03:23 acetaminophen [From Percocet] Allergy Swelling Verified 08/17/18 03:23 oxycodone HCl [From Percocet] Allergy Swelling Verified 08/17/18 03:23 morphine AdvReac Severe Difficulty Verified 08/17/18 03:23 Breathing Home Medications: Ambulatory Orders Aspirin [ASA -] 81 mg PO DAILY 07/31/17 Atorvastatin Ca [Lipitor] 20 mg PO HS 07/31/17 Cyclobenzaprine HCl 10 mg PO HS PRN 07/31/17 Gabapentin 300 mg PO TID 07/31/17 Losartan 50Mg/Hctz 12.5MG [Hyzaar -] 1 tab PO DAILY 07/31/17 Meclizine HCl 12.5 mg PO BID PRN 07/31/17 Topiramate 100 mg PO DAILY 07/31/17 traZODone HCL [Trazodone HCl] 100 mg PO HS 07/31/17 Melatonin 5 mg PO HS PRN tab 08/03/17 Thiamine HCl [Vitamin B1 -] 100 mg PO HS tablet 08/03/17 Lidocaine Patch Removal [Lidoderm Patch Removal] 1 each MC DAILY@2200 #10 each 06/02/18 Anemia: Yes Asthma: No Cancer: No Cardiac Disorders: Yes (cardiac arrest 03/2013) CVA: Yes (X3; MINI STROKE) COPD: No CHF: No Dementia: No Diabetes: No GI Disorders: Yes (GERD, gastric bypass) Disorders: No HTN: Yes Hypercholesterolemia: Yes Liver Disease: No Seizures: Yes Thyroid Disease: No - Surgical History Abdominal Surgery: Yes Appendectomy: No Cardiac Surgery: No Cholecystectomy: No Lung Surgery: No Neurologic Surgery: No Orthopedic Surgery: Yes (LEFT KNEE SCREWS 2015) - Immunization History Immunization Up to Date: Yes - Suicide/Smoking/Psychosocial Hx Smoking Status: No Smoking History: Unknown if ever smoked Have you smoked in the past 12 months: No Number of Cigarettes Smoked Daily: 0 Information on smoking cessation initiated: No Hx Alcohol Use: Yes Drug/Substance Use Hx: No Substance Use Type: None Hx Substance Use Treatment: No *Physical Exam - Vital Signs Last Vital Signs Temp Pulse Resp BP Pulse Ox 97.4 F L 89 18 114/89 98 08/17/18 03:23 08/17/18 03:23 08/17/18 03:23 08/17/18 03:23 08/17/18 03:23 - Physical Exam Comments: 08/17/18 03:49 intoxicated negative exam ED Treatment Course - LABORATORY CBC & Chemistry Diagram: 08/17/18 04:15 08/17/18 04:15 Medical Decision Making - Medical Decision Making 08/17/18 03:49 48YOF with complex medical h/o seizures, HTN, CVA x3, cardiac arrest, gastric bypass, and depression who presents after being found on the ground by her children in her bathroom between the shower and the toilet after she drank two glasses of wine. The patient cannot provide full and accurate history 2/2 intoxication. She states she did not hit her head and denies neck pain. She complains of mid point chest tenderness that is reproducible on palpation. ED Course: consider ddx ibnlt: seizure vs alcohol intox vs electrolyte derangement head ct, cervical spine ct, cxr cbc, cmp, etoh level 08/17/18 06:13 CT was all negative CXR: no acute changes from 31/07/17 MTF *DC/Admit/Observation/Transfer Diagnosis at time of Disposition: Alcohol abuse - Discharge Dispostion Disposition: HOME Condition at time of disposition: Stable Decision to Admit order: No - Referrals - Patient Instructions Printed Discharge Instructions: DI for Alcohol Abuse Additional Instructions: You were seen in the ED for alcohol intoxication In the ED you had imaging and labwork done. Your workup was unremarkable. You should clinical improvement to be discharged home. Return to the ED immediately if you experience hand or tongue tremors, chest pain, shortness of breath, coughing up blood, vomiting blood or abdominal pain. - Post Discharge Activity
--- NOTE | 2018-08-17 03:53 | PDOC ---
Attending Attestation - Resident Resident Name: Shavonne Aiken - ED Attending Attestation I have performed the following: I have examined & evaluated the patient, The case was reviewed & discussed with the resident, I agree w/resident's findings & plan, Exceptions are as noted - HPI HPI: 08/17/18 07:16 48F pmh HTN, CVA, CAD s/p VA, epilepsy, depression, here found down, intoxicated. - Physicial Exam PE: 08/17/18 07:17 Intoxicated, +AOB, rousable Ox3 NCAT, PERRL Neck supple, no bony tenderness RRR LCTAB Abd soft, nt, nd No ext tremors, no asterixis, no tongue fascisulation - Medical Decision Making 08/17/18 07:18 Intox possible fall trauma imaging neg initial etoh Still clinically intoxicated at 6am signed out to day team for re-evaluation when clinically sober
[2018-08-17 04:32] LABS: BASO % 0.8 % (0-2.0); EOS % 0.9 % (0-4.5); HEMATOCRIT 35.8 % (32.4-45.2); HEMOGLOBIN 11.4 GM/dL (10.7-15.3); LYMPH % 35.7 % (8-40); MCH 28.6 pg (25.7-33.7); MCHC 31.9 g/dl (32.0-36.0); MEAN CELL VOLUME 89.7 fl (80-96); MEAN PLT VOLUME 8.8 fl (7.5-11.1); MONO % 8.6 % (3.8-10.2); PLATELET COUNT 125 K/MM3 (134-434); RBC 3.99 M/mm3 (3.60-5.2); RDW 21.7 % (11.6-15.6)
[2018-08-17 05:10] LABS: ALBUMIN 3.3 g/dl (3.4-5.0); ALK PHOS 83 U/L (45-117); ANION GAP 10 MMOL/L (8-16); BILIRUBIN,TOTAL < 0.1 mg/dL (0.2-1); BLOOD UREA NITROGEN 10 mg/dL (7-18); CALCIUM 7.7 mg/dL (8.5-10.1); CHLORIDE 115 mmol/L (98-107); CO2 22 mmol/L (21-32); CREATININE 0.6 mg/dL (0.55-1.3); GLUCOSE,RANDOM 105 mg/dL (74-106); POTASSIUM 4.3 mmol/L (3.5-5.1); SGOT/AST 45 U/L (15-37); SGPT/ALT 33 U/L (13-61); SODIUM 146 mmol/L (136-145)
[2018-08-17 05:34] LABS: ANISOCYTOSIS 2+
[2018-08-17 07:51] VITALS: BP 92/56; PULSE 82; TEMP 98
--- NOTE | 2018-08-17 08:33 | PDOC ---
*Physical Exam - Vital Signs Last Vital Signs Temp Pulse Resp BP Pulse Ox 98.0 F 82 16 92/56 L 96 08/17/18 07:50 08/17/18 07:50 08/17/18 07:50 08/17/18 07:50 08/17/18 07:50 - Physical Exam Comments: 08/17/18 08:27 General Appearance: Nourished. No Apparent Distress HEENT: EOMI, MICHAEL. No Pharyngeal Erythema, Tonsillar Exudate, Tonsillar Erythema Neck: No Cervical Lymphadenopathy Respiratory/Chest: Lungs Clear, Normal Breath Sounds. No Crackles, Rales, Rhonchi, Wheezing Cardiovascular: Regular Rhythm, Regular Rate. No Murmur, Gallops, Rubs Gastrointestinal/Abdominal: Normal Bowel Sounds, Soft. No Guarding, Rebound, Tenderness Musculoskeletal: No CVA Tenderness Extremity: Normal Capillary Refill Integumentary: Normal Color, Dry, Warm Neurologic: Fully Oriented, Alert, Normal Mood/Affect, Normal Response, Ambulating with a Steady Gait ED Treatment Course - LABORATORY CBC & Chemistry Diagram: 08/17/18 04:15 08/17/18 04:15 - ADDITIONAL ORDERS Additional order review: Laboratory Results 08/17/18 04:15 Sodium 146 H Potassium 4.3 Chloride 115 H Carbon Dioxide 22 Anion Gap 10 BUN 10 Creatinine 0.6 Creat Clearance w eGFR 106.25 Random Glucose 105 Calcium 7.7 L Total Bilirubin < 0.1 L AST 45 H ALT 33 Alkaline Phosphatase 83 Troponin I < 0.02 Total Protein 7.0 Albumin 3.3 L Alcohol, Quantitative 298.8 H 08/17/18 04:15 RBC 3.99 MCV 89.7 MCHC 31.9 L RDW 21.7 H MPV 8.8 Neutrophils % 54.0 Lymphocytes % 35.7 D Monocytes % 8.6 Eosinophils % 0.9 D Basophils % 0.8 Progress Note - Progress Note Progress Note: The patient is a 48 year old female with a history of CVA with residual left sided deficits who presents for evaluation of intoxication. Lab results show an alcohol level of 300. Head CT is unchanged from priors. Patient is to be monitored for sobriety. Medical Decision Making - Medical Decision Making 08/17/18 08:44 Patient is alert and oriented x3. No persistent nystagmus on exam. No Slurred Speech. Able to ambulate with known residual left sided weakness from prior CVAs. The patient is clinically sober on exam and stable for discharge. We are comfortable discharging the patient home with primary care provider follow up. We discussed the plan and return precautions with the patient who voiced understanding and is agreeable with the plan. *DC/Admit/Observation/Transfer Diagnosis at time of Disposition: Alcohol abuse - Discharge Dispostion Disposition: HOME Condition at time of disposition: Stable - Referrals - Patient Instructions Printed Discharge Instructions: DI for Alcohol Abuse Additional Instructions: You were seen in the ED for alcohol intoxication In the ED you had imaging and labwork done. Your workup was unremarkable. You should clinical improvement to be discharged home. Return to the ED immediately if you experience hand or tongue tremors, chest pain, shortness of breath, coughing up blood, vomiting blood or abdominal pain. - Post Discharge Activity
--- NOTE | 2018-08-17 10:20 | EKG ---
Test Reason : Blood Pressure : / mmHG Vent. Rate : 090 BPM Atrial Rate : 090 BPM P-R Int : 168 ms QRS Dur : 078 ms QT Int : 398 ms P-R-T Axes : 063 020 034 degrees QTc Int : 486 ms POOR DATA QUALITY, INTERPRETATION MAY BE ADVERSELY AFFECTED NORMAL SINUS RHYTHM LOW VOLTAGE QRS NONSPECIFIC T WAVE ABNORMALITY PROLONGED QT ABNORMAL ECG WHEN COMPARED WITH ECG OF 31-JUL-2017 23:14, NO SIGNIFICANT CHANGE WAS FOUND Confirmed by KONSTANTIN COLEMAN MD ([id number]) on 08/17/2018 10:20:14 AM Referred By: Confirmed By:KONSTANTIN COLEMAN MD
== END 2018-08-17 10:32 | disposition home or self-care (01) ==
LOC: JER 03:11
DX: F10.120 Alcohol abuse with intoxication, uncomplicated (principal); Y90.8 Blood alcohol level of 240 mg/100 ml or more; I25.10 Atherosclerotic heart disease of native coronary artery without angina pectoris; I10 Essential (primary) hypertension; I25.2 Old myocardial infarction; E78.00 Pure hypercholesterolemia, unspecified; I69.854 Hemiplegia and hemiparesis following other cerebrovascular disease affecting left non-dominant side; F32.9 Major depressive disorder, single episode, unspecified; Z86.74 Personal history of sudden cardiac arrest; Z86.69 Personal history of other diseases of the nervous system and sense organs
CPT/HCPCS: 36415; 70450-TC; 71045-TC-FY; 72125-TC; 80053; 80307; 84484; 85025; 93005; 93010; 99284-25

== ENCOUNTER 2018-10-07 21:50 | Inpatient (IN) | payer OTHER ==
--- NOTE | 2018-10-07 22:05 | PDOC ---
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 She states that she had gotten up from standing , felt lightheaded and then fell. She endorses hitting her head but denies LOC. She reports feeling lightheaded after standing for the past 2-3 days but denies fall until today. Currently she reports a BEAN that is frontal, described as pressure, constant since it started, and not exacerbated or alleviated by anything she can identify. She denies neck pain. She endorses dysuria and possibly hematuria. Denies fevers/chills, vision changes, chest pain, trouble breathing, abdominal pain, N/V/C/D, or blood in her stool. Denies acute changes in sensation. 10/07/18 22:15 Past History - Past Medical History Allergies/Adverse Reactions: Allergies Allergy/AdvReac Type Severity Reaction Status Date / Time ibuprofen [From Motrin] Allergy Intermediate Hives Verified 10/07/18 23:12 acetaminophen [From Percocet] Allergy Swelling Verified 10/07/18 23:12 oxycodone HCl [From Percocet] Allergy Swelling Verified 10/07/18 23:12 morphine AdvReac Severe Difficulty Verified 10/07/18 23:12 Breathing Home Medications: Ambulatory Orders Aspirin [ASA -] 81 mg PO DAILY 07/31/17 Atorvastatin Ca [Lipitor] 20 mg PO HS 07/31/17 Cyclobenzaprine HCl 10 mg PO HS PRN 07/31/17 Gabapentin 300 mg PO TID 07/31/17 Losartan 50Mg/Hctz 12.5MG [Hyzaar -] 1 tab PO DAILY 07/31/17 Meclizine HCl 12.5 mg PO BID PRN 07/31/17 Topiramate 100 mg PO DAILY 07/31/17 traZODone HCL [Trazodone HCl] 100 mg PO HS 07/31/17 Melatonin 5 mg PO HS PRN tab 08/03/17 Thiamine HCl [Vitamin B1 -] 100 mg PO HS tablet 08/03/17 Lidocaine Patch Removal [Lidoderm Patch Removal] 1 each MC DAILY@2200 #10 each 06/02/18 Anemia: Yes Asthma: No Cancer: No Cardiac Disorders: Yes (cardiac arrest 03/2013) CVA: Yes (X3; MINI STROKE) COPD: No CHF: No Dementia: No Diabetes: No GI Disorders: Yes (GERD, gastric bypass) Disorders: No HTN: Yes Hypercholesterolemia: Yes Liver Disease: No Seizures: Yes Thyroid Disease: No - Surgical History Abdominal Surgery: Yes Appendectomy: No Cardiac Surgery: No Cholecystectomy: No Lung Surgery: No Neurologic Surgery: No Orthopedic Surgery: Yes (LEFT KNEE SCREWS 2014) - Immunization History Immunization Up to Date: Yes - Suicide/Smoking/Psychosocial Hx Smoking Status: No Smoking History: Never smoked Have you smoked in the past 12 months: No Number of Cigarettes Smoked Daily: 0 Hx Alcohol Use: No Drug/Substance Use Hx: No Substance Use Type: None Hx Substance Use Treatment: No Review of Systems - Review of Systems Able to Perform ROS?: Yes Comments:: GENERAL/CONSTITUTIONAL: No fever or chills. HEAD, EYES, EARS, NOSE AND THROAT: No acute change in vision. No ear pain or discharge. No sore throat CARDIOVASCULAR: No chest pain or shortness of breath RESPIRATORY: Denies cough, hemoptysis GASTROINTESTINAL: No nausea, vomiting, diarrhea or constipation GENITOURINARY: +dysuria MUSCULOSKELETAL: +chronic LUE SKIN: No rash NEUROLOGIC: No headache, vertigo, loss of consciousness, or change in strength/ sensation ENDOCRINE: No increased thirst. 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 She also reports dysuria w/ possible hematuria for several days. ED Course CMP, CBC, Trop I, UA, UCx ECG CXR CT Head w/o contrast 10/07/18 22:58 UA w/ evidence of UTI -Pevious urine culture w/ sensitivity to Macrobid -Will give Macrobid No leukocytosis No anemia Lytes wnl No SIMON LFTs unremarkable Trop I neg ECG w/ NSR; HR 65; QTc 413; no acute ischemic changes; similar to previous CT Head 10/08/18 FINDINGS: Again note is made of an old right middle cerebral artery territory infarct. Again note is made of an old left parietal occipital junction infarct. Small peripheral right cerebellar infarct again noted. No visible acute infarct. No hemorrhage. No mass. 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
[2018-10-07 22:51] LABS: BASO % 0.7 % (0-2.0); HEMATOCRIT 39.8 % (32.4-45.2); HEMOGLOBIN 12.5 GM/dL (10.7-15.3); LYMPH % 27.3 % (8-40); MCH 28.6 pg (25.7-33.7); MCHC 31.5 g/dl (32.0-36.0); MEAN CELL VOLUME 90.6 fl (80-96); MEAN PLT VOLUME 8.2 fl (7.5-11.1); PLATELET COUNT 254 K/MM3 (134-434); RBC 4.39 M/mm3 (3.60-5.2); WHITE BLOOD COUNT 4.4 K/mm3 (4.0-10.0)
[2018-10-07 23:16] LABS: ALBUMIN 3.8 g/dl (3.4-5.0); ALK PHOS 82 U/L (45-117); ANION GAP 6 MMOL/L (8-16); BILIRUBIN,TOTAL 0.1 mg/dL (0.2-1); BLOOD UREA NITROGEN 25 mg/dL (7-18); CALCIUM 8.8 mg/dL (8.5-10.1); CHLORIDE 106 mmol/L (98-107); CO2 24 mmol/L (21-32); GLUCOSE,RANDOM 94 mg/dL (74-106); POTASSIUM 4.3 mmol/L (3.5-5.1); SGOT/AST 19 U/L (15-37); SGPT/ALT 19 U/L (13-61); SODIUM 136 mmol/L (136-145); TOT PROT 7.8 g/dl (6.4-8.2)
[2018-10-07 23:31] LABS: ANISOCYTOSIS 2+; MACROCYTOSIS 1+; PLATELET ESTIMATE NORMAL
[2018-10-07 23:37] LABS: EPI CELLS 8.1 /HPF (0-5/HPF); HYALINE CASTS 20 /lpf (0-8); PH,URINE 5.5 (5.0-8.0); URINE APPEARANCE CLOUDY; URINE BACTERIA 86.7 /hpf (NEGATIVE); URINE BILIRUBIN NEGATIVE (NEGATIVE); URINE COLOR YELLOW; URINE GLUCOSE (UA) NEGATIVE (NEGATIVE); URINE KETONE NEGATIVE (NEGATIVE); URINE LEUK ESTERASE 2+ (NEGATIVE); URINE NITRITE NEGATIVE (NEGATIVE); URINE PROTEIN NEGATIVE (NEGATIVE); URINE RBC 1 /hpf (0-4); URINE WBC 31 /hpf (0-5)
[2018-10-07] MEDS ORDERED: NITROFURANTOIN MACROCRYSTAL 50 MG CAPSULE (FP) PO ONE (23:45)
[2018-10-07] MEDS ORDERED: NITROFURANTOIN MACROCRYSTAL 50 MG CAPSULE (FP) PO SCH (23:45)
[2018-10-08] MEDS ORDERED: NITROFURANTOIN MACROCRYSTAL 50 MG CAPSULE (FP) ONE ×3 (00:56→06:13)
--- NOTE | 2018-10-08 01:10 | PDOC ---
Documentation entered by Miguelina Hernandez SCRIBE, acting as scribe for Jessica Kiser MD. Jessica Kiser MD: This documentation has been prepared by the simonibe, Miguelina Hernandez SCRIBE, under my direction and personally reviewed by me in its entirety. I confirm that the documentation accurately reflects all work, treatment, procedures, and medical decision making performed by me. Attending Attestation - Resident Resident Name: Bashir Watkins - ED Attending Attestation I have performed the following: I have examined & evaluated the patient, The case was reviewed & discussed with the resident, I agree w/resident's findings & plan, Exceptions are as noted - HPI HPI: 10/07/18 22:58 The patient is a 48-year-old female with a past medical history significant for CVA (x5), seizures and cardiac arrest presents to the emergency department via EMS s/p a syncopal episode. The patient presents s/p a fall with a head injury. The patient reports hitting the back of her head and currently endorses a frontal headache, thats constant and pressure in quality. The patient reports associated symptoms of lightheadedness, and an additional complain of dysuria. Denies fever, chills, chest pain, shortness of breath, abdominal pain. Allergies: Ibuprofen, acetaminophen, oxycodone HCL, Morphine. - Physicial Exam PE: 10/08/18 00:46 alert,conversant 48 yo female reports feeling weak and dizzy and then fainting and hitting her head head no scalp lacerations noted, no hematomas eyes blas eomi neck supple, no bruits,no jvd lungs cta b/l cvs [id number] abd nontender,no guarding no cva tenderness extremities left arm and hand contracture, no tenderness in her limbs skin warm and dry neuro axox3,ambulatory, chronically contracted left hand,arm 10/08/18 01:06 - Medical Decision Making 10/08/18 01:07 48 yo female with significant PMH including ACS,CVA,SD had a syncopal episode tonight and hit her head ct scan head no acute intracranal pathology first troponin is negative ekg is nsr wqith no acute inshemia UA ++uti imp syncope,head trauma,UTI pt to be admitted to telemetry
[2018-10-08 02:44] LABS: INR 0.95 (0.83-1.09); PROTHROMBIN TIME (PATIENT) 11.2 SEC (9.7-13.0)
[2018-10-08 02:47] LABS: ACTIVATED PTT 32.3 SECONDS (25.2-36.5)
--- NOTE | 2018-10-08 03:07 | HP ---
CHIEF COMPLAINT:syncope PCP: Shu HISTORY OF PRESENT ILLNESS: 48-year-old woman reported episode of vertigo which occurred while walking in the evening on 10/07. Associated with headache, she fell on hit her head on a toilet, however denied losing consciousness. Denied any nausea or vomiting following this event. She reports extensive history of stroke - x5 in 2012 after which she underwent physical therapy. Says she does not ambulate with help of walker or cane. ER course was notable for: (1) head CT (2) EKG (3) Recent Travel:no PAST MEDICAL HISTORY:CVA (x5)-2013, seizures d/o, past etoh abuse, cardiac arrest? PAST SURGICAL HISTORY: no Social History: Smoking: no Alcohol: former etoh abuse Drugs: denied Family History: no Allergies ibuprofen [From Motrin] Allergy (Intermediate, Verified 10/07/18 23:12) Hives acetaminophen [From Percocet] Allergy (Verified 10/07/18 23:12) Swelling oxycodone HCl [From Percocet] Allergy (Verified 10/07/18 23:12) Swelling morphine Adverse Reaction (Severe, Verified 10/07/18 23:12) Difficulty Breathing HOME MEDICATIONS: Home Medications Medication Instructions Recorded Aspirin [ASA -] 81 mg PO DAILY 07/31/17 Atorvastatin Ca [Lipitor] 20 mg PO HS 07/31/17 Cyclobenzaprine HCl 10 mg PO HS PRN 07/31/17 Gabapentin 300 mg PO TID 07/31/17 Losartan 50Mg/Hctz 12.5MG [Hyzaar 1 tab PO DAILY 07/31/17 -] Meclizine HCl 12.5 mg PO BID PRN 07/31/17 Topiramate 100 mg PO DAILY 07/31/17 traZODone HCL [Trazodone HCl] 100 mg PO HS 07/31/17 Melatonin 5 mg PO HS PRN tab 08/03/17 Thiamine HCl [Vitamin B1 -] 100 mg PO HS tablet 08/03/17 Lidocaine Patch Removal [Lidoderm 1 each MC DAILY@2200 #10 each 06/02/18 Patch Removal] REVIEW OF SYSTEMS CONSTITUTIONAL: Absent: fever, chills, diaphoresis, generalized weakness, malaise, loss of appetite, weight change HEENT: Absent: rhinorrhea, nasal congestion, throat pain, throat swelling, difficulty swallowing, mouth swelling, ear pain, eye pain, visual changes CARDIOVASCULAR: Absent: chest pain, syncope, palpitations, irregular heart rate, lightheadedness , peripheral edema RESPIRATORY: Absent: cough, shortness of breath, dyspnea with exertion, orthopnea, wheezing, stridor, hemoptysis GASTROINTESTINAL: Absent: abdominal pain, abdominal distension, nausea, vomiting, diarrhea, constipation, melena, hematochezia GENITOURINARY: Absent: dysuria, frequency, urgency, hesitancy, hematuria, flank pain, genital pain MUSCULOSKELETAL: Absent: myalgia, arthralgia, joint swelling, back pain, neck pain SKIN: Absent: rash, itching, pallor HEMATOLOGIC/IMMUNOLOGIC: Absent: easy bleeding, easy bruising, lymphadenopathy, frequent infections ENDOCRINE: Absent: unexplained weight gain, unexplained weight loss, heat intolerance, cold intolerance NEUROLOGIC: Absent: focal weakness or paresthesias,, seizure, mental status changes, bladder or bowel incontinence present- headache, dizziness, unsteady gait, vertigo PSYCHIATRIC: Absent: , depression, suicidal or homicidal ideation, hallucinations. present- anxiety PHYSICAL EXAMINATION Vital Signs - 24 hr 10/07/18 21:55 Temperature 98.0 F Pulse Rate 68 Respiratory 18 Rate Blood Pressure 108/70 O2 Sat by Pulse 100 Oximetry (%) GENERAL: Awake, alert, and fully oriented, appears anxious HEAD: Normal with no signs of trauma. EYES: Pupils equal, round and reactive to light, extraocular movements intact, sclera anicteric, conjunctiva clear. No lid lag. EARS, NOSE, THROAT: Ears normal, nares patent, oropharynx clear without exudates. Moist mucous membranes. NECK: Normal range of motion, supple without lymphadenopathy, JVD, or masses. LUNGS: Breath sounds equal, clear to auscultation bilaterally. No wheezes, and no crackles. No accessory muscle use. HEART: Regular rate and rhythm, normal S1 and S2 without murmur, rub or gallop. ABDOMEN: Soft, nontender, not distended, normoactive bowel sounds, no guarding, no rebound, no masses. MUSCULOSKELETAL: Normal range of motion at all joints. No bony deformities or tenderness. No CVA tenderness. UPPER EXTREMITIES left upper ext motor 3/5, hand contracted LOWER EXTREMITIES: 2+ pulses, warm, well-perfused. No calf tenderness. No peripheral edema. NEUROLOGICAL: Cranial nerves II-XII intact. Normal speech. Normal gait. PSYCHIATRIC: Cooperative. Good eye contact. Appropriate mood and affect. SKIN: Warm, dry, normal turgor, no rashes or lesions noted, normal capillary refill. Laboratory Results - last 24 hr 10/07/18 10/07/18 10/07/18 14:25 22:40 23:25 WBC 4.4 RBC 4.39 Hgb 12.5 Hct 39.8 MCV 90.6 MCH 28.6 MCHC 31.5 L RDW 21.0 H Plt Count 254 D MPV 8.2 Absolute Neuts (auto) 2.7 Neutrophils % 61.0 Lymphocytes % 27.3 D Monocytes % 10.0 Eosinophils % 1.0 Basophils % 0.7 Nucleated RBC % 0 Platelet Estimate Normal Platelet Comment No clumping noted Anisocytosis 2+ Microcytosis 1+ Macrocytosis 1+ PT with INR INR PTT (Actin FS) Sodium 136 Potassium 4.3 Chloride 106 Carbon Dioxide 24 Anion Gap 6 L BUN 25 H Creatinine 1.0 Est GFR (CKD-EPI)AfAm 76.61 Est GFR (CKD-EPI)NonAf 66.10 Random Glucose 94 Calcium 8.8 Total Bilirubin 0.1 L AST 19 ALT 19 Alkaline Phosphatase 82 Troponin I < 0.02 Total Protein 7.8 Albumin 3.8 Urine Color Yellow Urine Appearance Cloudy Urine pH 5.5 D Ur Specific [place] 1.025 Urine Protein Negative Urine Glucose (UA) Negative Urine Ketones Negative Urine Blood Negative Urine Nitrite Negative Urine Bilirubin Negative Urine Urobilinogen 1.0 Ur Leukocyte Esterase 2+ H Urine WBC (Auto) 31 Urine RBC (Auto) 1 Urine Casts (Auto) 20 U Epithel Cells (Auto) 8.1 Urine Bacteria (Auto) 86.7 10/08/18 10/08/18 02:00 02:00 WBC RBC Hgb Hct MCV MCH MCHC RDW Plt Count MPV Absolute Neuts (auto) Neutrophils % Lymphocytes % Monocytes % Eosinophils % Basophils % Nucleated RBC % Platelet Estimate Platelet Comment Anisocytosis Microcytosis Macrocytosis PT with INR 11.20 INR 0.95 PTT (Actin FS) 32.3 Sodium Potassium Chloride Carbon Dioxide Anion Gap BUN Creatinine Est GFR (CKD-EPI)AfAm Est GFR (CKD-EPI)NonAf Random Glucose Calcium Total Bilirubin AST ALT Alkaline Phosphatase Troponin I < 0.02 Total Protein Albumin Urine Color Urine Appearance Urine pH Ur Specific [place] Urine Protein Urine Glucose (UA) Urine Ketones Urine Blood Urine Nitrite Urine Bilirubin Urine Urobilinogen Ur Leukocyte Esterase Urine WBC (Auto) Urine RBC (Auto) Urine Casts (Auto) U Epithel Cells (Auto) Urine Bacteria (Auto) Head CT reviewed, EKG reviewed nsr ASSESSMENT/PLAN: #Vertigo/presyncope- r/o etoh intoxication, may be unsteady gait related to prior CVAs. Head CT showed only old right cerebral CVAs, no new insults. Troponins x2 were negative. Patient is also noted to be on multiple medications which can cause drowsiness and impair proper gait and induce falls - such as gabapentin, topiramate, trazadone. -tele-observation -bed rest -fall precautions -gentle IV fluid hydration -Physical therapy eval for gait assessment -neuro evaluation -consider to taper her antiepiletic meds as they can induce falls -check orthostatics #Seizure d/o -c/w topiramate, gabapentin -neuro eval #Hypotension -hold her antihypertensive meds -gentle IV fluid hydration #Past Etoh abuse- denied recent etoh -send serum etoh level -ativan 2mg PO if agitation or withdrawal -thiamine 100mg po daily -folate 1mg po daily -1 MV daily #DVT ppx -heparin sc Visit type - Emergency Visit Emergency Visit: Yes ED Registration Date: 10/07/18 Care time: The patient presented to the Emergency Department on the above date and was hospitalized for further evaluation of their emergent condition. - New Patient This patient is new to me today: Yes Date on this admission: 10/08/18 - Critical Care Critical Care patient: No
[2018-10-08] MEDS ORDERED: MECLIZINE HCL 12.5 MG TABLET PO PRN (03:14)
[2018-10-08] MEDS ORDERED: LORazepam 1 MG TABLET PO PRN (03:32)
[2018-10-08] MEDS ORDERED: GABAPENTIN 100 MG CAPSULE (FP) ONE (03:58)
[2018-10-08] MEDS: SODIUM CHLORIDE 1,000 ML IV SCH (04:30)
[2018-10-08] MEDS: GABAPENTIN 300 MG CAPSULE (FP) PO SCH ×3 (06:18→22:51)
[2018-10-08] MEDS ORDERED: LORazepam 0.5 MG TABLET ONE (06:57)
--- NOTE | 2018-10-08 09:34 | CON.CARD ---
Consult Consult Specialty:: cardio - History of Present Illness Chief Complaint: dizzy History of Present Illness: 48 F here with dizziness. pt reportedly was agitated, given sedation--now deeply sleeping and minimally/ briefly opens eyes to stimulation, not communicative. has 1 to 1 at bedside. history from notes: described vertigo with associated headache and fall with injury. was here in 07/2017 with the following problems: Seizure disorder: secondary to prior CVA, +/- ETOH Suspected anxiety disorder Chronic HTN Chronic BONILLA, palpitations and atypical CP ? Remote vague history of cardiac arrest 2012, with no history of CAD (pt felt unreliable historian at that time) MPI then with hi risk findings--transferred to [facility] for cath. 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 of gastric bypass), Migraine, Seizure Cardio/Vascular: Yes: HTN, Other (cardiac arrest at time of gastric bypass) Gastrointestinal: Yes: Other (s/p bariatric surgery) ...LMP: 01/22/12 Musculoskeletal: Yes: Hemiplegia (residual left side weakness from the CVA) - Past Surgical History Past Surgical History: Yes: Bariatric Surgery (2012), Upper Endoscopy (2005) - Alcohol/Substance Use Hx Alcohol Use: No - Smoking History Smoking history: Never smoked Have you smoked in the past 12 months: No Aproximately how many cigarettes per day: 0 - Social History Usual Living Arrangement: Alone Home Medications - Allergies Allergies/Adverse Reactions: Allergies Allergy/AdvReac Type Severity Reaction Status Date / Time ibuprofen [From Motrin] Allergy Intermediate Hives Verified 10/07/18 23:12 acetaminophen [From Percocet] Allergy Swelling Verified 10/07/18 23:12 oxycodone HCl [From Percocet] Allergy Swelling Verified 10/07/18 23:12 morphine AdvReac Severe Difficulty Verified 10/07/18 23:12 Breathing - Home Medications Home Medications: Ambulatory Orders Aspirin [ASA -] 81 mg PO DAILY 07/31/17 Atorvastatin Ca [Lipitor] 20 mg PO HS 07/31/17 Cyclobenzaprine HCl 10 mg PO HS PRN 07/31/17 Gabapentin 300 mg PO TID 07/31/17 Losartan 50Mg/Hctz 12.5MG [Hyzaar -] 1 tab PO DAILY 07/31/17 Meclizine HCl 12.5 mg PO BID PRN 07/31/17 Topiramate 100 mg PO DAILY 07/31/17 traZODone HCL [Trazodone HCl] 100 mg PO HS 07/31/17 Melatonin 5 mg PO HS PRN tab 08/03/17 Thiamine HCl [Vitamin B1 -] 100 mg PO HS tablet 08/03/17 Lidocaine Patch Removal [Lidoderm Patch Removal] 1 each MC DAILY@2200 #10 each 06/02/18 Family Disease History - Family Disease History Family History: Unable to Obtain Review of Systems Unable to obtain ROS, reason: sedated Vital Signs: Vital Signs Temperature 98.1 F 10/08/18 08:35 Pulse Rate 72 10/08/18 08:55 Respiratory Rate 16 10/08/18 08:55 Blood Pressure 99/69 10/08/18 08:55 O2 Sat by Pulse Oximetry (%) 99 10/08/18 08:55 Constitutional: Yes: Well Nourished, No Distress Eyes: No: Sclera Icterus HENT: No: Nasal Congestion Neck: No: Decreased ROM Respiratory: Yes: CTA Bilaterally (not deep breaths for exam). No: Accessory Muscle Use, Rales, Wheezes Gastrointestinal: Yes: Normal Bowel Sounds. No: Distention, Hepatomegaly, Palpable Mass, Tenderness Cardiovascular: Yes: Regular Rate and Rhythm JVD: No Carotid Bruit: No PMI: Non-Displaced Heart Sounds: Yes: S1, S2. No: Gallop Murmur: No: Systolic Murmur, Diastolic Murmur Musculoskeletal: Yes: Other (No kyphosis) Extremities: No: Cool, Cyanosis Edema: No Peripheral Pulses: 2+ Left Carotid, 2+ Right Carotid, 2+ Left Doralis Pedis, 2+ Right Dorsalis Pedis Integumentary: No: Jaundice Neurological: Yes: Alert, Oriented (x3) Psychiatric: No: Agitated - Other Data Labs, Other Data: CBC, BMP 10/07/18 22:40 10/07/18 14:25 INR, PTT INR 0.95 (0.83-1.09) 10/08/18 02:00 Troponin, BNP 10/07/18 10/08/18 14:25 02:00 Troponin I < 0.02 < 0.02 Troponin, BNP 10/07/18 10/08/18 14:25 02:00 Troponin I < 0.02 < 0.02 Laboratory Tests 10/07/18 10/07/18 10/08/18 14:25 22:40 02:00 WBC 4.4 Hgb 12.5 Plt Count 254 D Sodium 136 Potassium 4.3 Carbon Dioxide 24 BUN 25 H Creatinine 1.0 AST 19 ALT 19 Troponin I < 0.02 < 0.02 Albumin 3.8 Assessment/Plan MPI 07/23 (tessy): nl STs. large/severe anterior/septal/apical/lateral ischemia, EF 43%, + TID Echo 07/23: nl LV/EF. nl RV. nl LA. mild TR. CT head: no acute path vs priors: chronic R MCA infarct, L parietal, small R cerebellar ECG: NSR, normal axis/intervals. WNL--no change vs prior CXR: clear lungs/pleura dizziness, fall: -details from notes, as pt currently cannot provide (sedated) -? vertigo by ER note description. pt s/p CVA on meclizine at home. -bp's soft here, 90s > 80s systolic -on losartan-HCT at home--hold for now -labs ok, mildly elevated BUN h/o abnormal nuclear stress test: -will f/u 2018 cath report, not on DAPT (requested from [facility] awaiting fax to office) HTN: -as above, holding home meds for now h/o CVA x multiple (periop bariatric surgery): -cont home aspirin, statin -outpt cardio f/u psych disorder, etoh use: -per hospitalist sz disorder: -per hospitalist
[2018-10-08] MEDS: HEPARIN NA (PORCINE) 5,000 UNITS/ML 1ML VIAL SQ SCH ×2 (09:39→22:48)
[2018-10-08] MEDS: ASPIRIN 81 MG CHEWABLE TABLETS PO SCH (09:39)
[2018-10-08] MEDS: FOLIC ACID 1 MG TABLET (FP) PO SCH (09:39)
[2018-10-08] MEDS: MULTIVITAMINS (DAILY MVI) TABLET (FP) PO SCH (09:40)
[2018-10-08] MEDS: TOPIRAMATE 100 MG TABLET PO SCH ×2 (09:40→22:59)
[2018-10-08] MEDS: CEFTRIAXONE 1 GM in DEXTROSE 5%-WATER - 50 ML IVPB SCH (09:40)
[2018-10-08] MEDS: THIAMINE HCL 100 MG TABLET (FP) PO SCH (09:41)
[2018-10-08] MEDS ORDERED: LOSARTAN 50MG/HCTZ 12.5MG 1 TAB (FP) PO SCH (10:00)
[2018-10-08 10:05] LABS: HEMATOCRIT 35.3 % (32.4-45.2); HEMOGLOBIN 11.2 GM/dL (10.7-15.3); MCH 28.6 pg (25.7-33.7); MCHC 31.8 g/dl (32.0-36.0); MEAN CELL VOLUME 89.9 fl (80-96); MEAN PLT VOLUME 8.3 fl (7.5-11.1); PLATELET COUNT 234 K/MM3 (134-434); RBC 3.93 M/mm3 (3.60-5.2); RDW 20.8 % (11.6-15.6); WHITE BLOOD COUNT 4.4 K/mm3 (4.0-10.0)
[2018-10-08 10:21] LABS: CALCIUM 8.7 mg/dL (8.5-10.1); CREATININE 0.7 mg/dL (0.55-1.3); POTASSIUM 3.9 mmol/L (3.5-5.1)
--- NOTE | 2018-10-08 10:58 | PN ---
Progress Note, Physician Chief Complaint: patient seen and examined complains of dizziness - Current Medication List Current Medications: Active Medications Aspirin (Asa -) 81 mg PO DAILY [facility] Last Admin: 10/08/18 09:39 Dose: 81 mg Atorvastatin Calcium (Lipitor -) 20 mg PO [facility] Folic Acid (Folic Acid -) 1 mg PO DAILY [facility] Last Admin: 10/08/18 09:39 Dose: 1 mg Gabapentin (Neurontin -) 300 mg PO TID [facility] Last Admin: 10/08/18 06:18 Dose: 300 mg Heparin Sodium (Porcine) (Heparin -) 5,000 unit SQ BID [facility] Last Admin: 10/08/18 09:39 Dose: 5,000 unit Ceftriaxone Sodium 1 gm/ (Dextrose) 50 mls @ 100 mls/hr IVPB DAILY [facility]; Protocol Last Admin: 10/08/18 09:40 Dose: 100 mls/hr Sodium Chloride (Normal Saline -) 1,000 mls @ 75 mls/hr IV ASDIR [facility] Last Admin: 10/08/18 04:30 Dose: 75 mls/hr Lorazepam (Ativan -) 2 mg PO TID PRN PRN Reason: ANXIETY Last Admin: 10/08/18 07:00 Dose: 2 mg Meclizine HCl (Antivert -) 12.5 mg PO BID PRN PRN Reason: dizziness Multivitamins/Minerals/Vitamin C (Tab-A-Vit -) 1 tab PO DAILY [facility] Last Admin: 10/08/18 09:40 Dose: 1 tab Thiamine HCl (Vitamin B1 -) 100 mg PO DAILY [facility] Last Admin: 10/08/18 09:41 Dose: 100 mg Topiramate (Topamax -) 100 mg PO DAILY [facility] Last Admin: 10/08/18 09:40 Dose: 100 mg Trazodone HCl (Desyrel -) 100 mg PO [facility] - Objective Vital Signs: Vital Signs Temperature 98.1 F 10/08/18 08:35 Pulse Rate 63 10/08/18 09:41 Respiratory Rate 16 10/08/18 08:55 Blood Pressure 106/73 10/08/18 09:41 O2 Sat by Pulse Oximetry (%) 99 10/08/18 08:55 Constitutional: Yes: Calm Cardiovascular: Yes: Regular Rate and Rhythm, S1, S2 Respiratory: Yes: CTA Bilaterally Gastrointestinal: Yes: Normal Bowel Sounds, Soft Edema: No Labs: CBC, BMP 10/08/18 09:40 10/08/18 09:40 INR, PTT INR 0.95 (0.83-1.09) 10/08/18 02:00 Problem List - Problems (1) Dizziness Assessment/Plan: neurology eval to assess medication low BP hold losartan/hctz meclizine ct head negative Code(s): R42 - DIZZINESS AND GIDDINESS (2) Hallucination Assessment/Plan: with agitation psych eval has uti treat with iv abx ivf to improve creatinine Code(s): R44.3 - HALLUCINATIONS, UNSPECIFIED (3) Alcohol abuse Assessment/Plan: thiamine, folate,multivitamin alcohol level normal Code(s): F10.10 - ALCOHOL ABUSE, UNCOMPLICATED
--- NOTE | 2018-10-08 11:09 | EKG ---
Test Reason : Blood Pressure : / mmHG Vent. Rate : 080 BPM Atrial Rate : 080 BPM P-R Int : 180 ms QRS Dur : 080 ms QT Int : 366 ms P-R-T Axes : 061 029 038 degrees QTc Int : 422 ms POOR DATA QUALITY, INTERPRETATION MAY BE ADVERSELY AFFECTED NORMAL SINUS RHYTHM NONSPECIFIC ST AND T WAVE ABNORMALITY ABNORMAL ECG WHEN COMPARED WITH ECG OF 07-OCT-2018 22:14, NO SIGNIFICANT CHANGE WAS FOUND Confirmed by COLT AGUIRRE MD ([id number]) on 10/08/2018 11:09:37 AM Referred By: Confirmed By:COLT AGUIRRE MD
--- NOTE | 2018-10-08 11:24 | EKG ---
Test Reason : Blood Pressure : / mmHG Vent. Rate : 065 BPM Atrial Rate : 065 BPM P-R Int : 174 ms QRS Dur : 084 ms QT Int : 398 ms P-R-T Axes : 057 044 043 degrees QTc Int : 413 ms NORMAL SINUS RHYTHM NONSPECIFIC ST ABNORMALITY ABNORMAL ECG WHEN COMPARED WITH ECG OF 17-AUG-2018 03:35, QT HAS SHORTENED Confirmed by COLT AGUIRRE MD ([id number]) on 10/08/2018 11:23:46 AM Referred By: Confirmed By:COLT AGUIRRE MD
--- NOTE | 2018-10-08 14:18 | CON.NEURO ---
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: CVA (at time of gastric bypass), Migraine, Seizure Cardio/Vascular: Yes: HTN, Other (cardiac arrest at time of gastric bypass) Gastrointestinal: Yes: Other (s/p bariatric surgery) ...LMP: 01/22/12 Musculoskeletal: Yes: Hemiplegia (residual left side weakness from the CVA) - Past Surgical History Past Surgical History: Yes: Bariatric Surgery (2012), Upper Endoscopy (2005) - Alcohol/Substance Use Hx Alcohol Use: No - Smoking History Smoking history: Never smoked Have you smoked in the past 12 months: No Aproximately how many cigarettes per day: 0 - Social History Usual Living Arrangement: Alone Home Medications - Allergies Allergies/Adverse Reactions: Allergies Allergy/AdvReac Type Severity Reaction Status Date / Time ibuprofen [From Motrin] Allergy Intermediate Hives Verified 10/07/18 23:12 acetaminophen [From Percocet] Allergy Swelling Verified 10/07/18 23:12 oxycodone HCl [From Percocet] Allergy Swelling Verified 10/07/18 23:12 morphine AdvReac Severe Difficulty Verified 10/07/18 23:12 Breathing - Home Medications Home Medications: Ambulatory Orders Aspirin [ASA -] 81 mg PO DAILY 07/31/17 Atorvastatin Ca [Lipitor] 20 mg PO HS 07/31/17 Cyclobenzaprine HCl 10 mg PO HS PRN 07/31/17 Gabapentin 300 mg PO TID 07/31/17 Losartan 50Mg/Hctz 12.5MG [Hyzaar -] 1 tab PO DAILY 07/31/17 Meclizine HCl 12.5 mg PO BID PRN 07/31/17 Topiramate 100 mg PO DAILY 07/31/17 traZODone HCL [Trazodone HCl] 100 mg PO HS 07/31/17 Melatonin 5 mg PO HS PRN tab 08/03/17 Thiamine HCl [Vitamin B1 -] 100 mg PO HS tablet 08/03/17 Lidocaine Patch Removal [Lidoderm Patch Removal] 1 each MC DAILY@2200 #10 each 06/02/18 Family Disease History - Family Disease History Family History: Unable to Obtain Review of Systems - Review of Systems Constitutional: reports: No Symptoms Eyes: reports: No Symptoms HENT: reports: No Symptoms Physical Exam-Neuro Vital Signs: Vital Signs Temperature 98.1 F 10/08/18 08:35 Pulse Rate 63 10/08/18 09:41 Respiratory Rate 16 10/08/18 08:55 Blood Pressure 106/73 10/08/18 09:41 O2 Sat by Pulse Oximetry (%) 99 10/08/18 08:55 Constitutional: Yes: Well Nourished Neck: Yes: WNL Cardiovascular: Yes: WNL Labs: CBC, BMP 10/08/18 09:40 10/08/18 09:40 INR, PTT INR 0.95 (0.83-1.09) 10/08/18 02:00 - Neuro Exam Level Of Consciousness: Yes: Oriented to Person, Oriented to Place, Oriented to Time Eyes: Yes: PERRLA Speech: WNL Dominant Hand: Right Cranial Nerves II-XII Intact: Yes Gag: Present DTR's: 1+ Left Bicep, 1+ Right Bicep, 3+ Left Tricep, 3+ Right Tricep, 3+ Left Brachioradialis Babinski: Present Imaging - Results Cat Scan: Image Reviewed Problem List - Problems (1) Dizziness Assessment/Plan: Seziure 1. Neuro checks 2. No EEG 3. Blood test Code(s): R42 - DIZZINESS AND GIDDINESS
--- NOTE | 2018-10-08 16:17 | ECHO ---
Name: CYNDY LUEVANO Exam:Adult Echocardiogram Study Date: 10/08/2018 11:58 AM Age: 48 yrs Reason For Study: R/O Height: 65 in Weight: 120 lb BSA: 1.6 m2 MMode/2D Measurements & Calculations IVSd: 0.86 cm Ao root diam: 3.5 cm LVIDd: 4.1 cm LA dimension: 3.2 cm LVIDs: 2.9 cm ACS: 1.8 cm LVPWd: 0.98 cm IVSs: 0.97 cm LVPWs: 1.2 cm EDV(Teich): 73.8 ml ESV(Teich): 33.5 ml LVOT diam: 2.1 cm Doppler Measurements & Calculations MV E max jonas: 61.9 cm/sec Ao V2 max: 96.9 cm/sec MV A max jonas: 59.2 cm/sec Ao max P.8 mmHg MV E/A: 1.0 Ao V2 mean: 71.2 cm/sec Ao mean P.2 mmHg Ao V2 VTI: 20.8 cm SHANNON(I,D): 2.8 cm2 SHANNON(V,D): 2.7 cm2 LV V1 max P.3 mmHg MR max jonas: 339.1 cm/sec LV V1 mean P.1 mmHg MR max P.0 mmHg LV V1 max: 76.3 cm/sec LV V1 mean: 48.7 cm/sec LV V1 VTI: 16.9 cm SV(LVOT): 57.3 ml TR max jonas: 160.3 cm/sec TR max P.3 mmHg PI end-d jonas: 65.2 cm/sec Med Peak E' Jonas: 4.5 cm/sec Med E/e': 13.8 Lat Peak E' Jonas: 6.1 cm/sec Lat E/e': 10.1 Procedure A complete two-dimensional transthoracic echocardiogram was performed (2D, M-mode, Doppler and color flow Doppler). Technically limited study. Left Ventricle The left ventricle is normal in size. Left ventricular systolic function is normal. Ejection Fraction = 60- 65%. No regional wall motion abnormalities noted. Right Ventricle The right ventricle is normal size. The right ventricular systolic function is normal. Atria The left atrial size is normal. Right atrial size is normal. Mitral Valve There is mild mitral annular calcification. There is mild mitral valve thickening. There is mild mitr al regurgitation. Tricuspid Valve The tricuspid valve is normal in structure and function. There is mild tricuspid regurgitation. Right ventricular systolic pressure is normal. Aortic Valve The aortic valve is normal in structure and function. No aortic regurgitation is present. Pulmonic Valve The pulmonic valve is not well visualized. Great Vessels The aortic root is normal size. Pericardium/Pleura There is no pericardial effusion. Interpretation Summary Technically limited study The left ventricle is normal in size. Left ventricular systolic function is normal. No regional wall motion abnormalities noted. Ejection Fraction = 60-65%. The right ventricular systolic function is normal. The left atrial size is normal. Right atrial size is normal. There is mild mitral annular calcification. There is mild mitral valve thickening. There is mild mitral regurgitation. There is mild tricuspid regurgitation. Right ventricular systolic pressure is normal. There is no pericardial effusion. Previous study is not available for comparison Kobe Acuña MD 10/08/2018 04:16 PM
[2018-10-08] MEDS ORDERED: traZODone HCL 50 MG TABLET (FP) ONE (21:14)
[2018-10-08] MEDS ORDERED: ATORVASTATIN CA 20 MG TABLET (FP) PO SCH (22:00)
[2018-10-08] MEDS ORDERED: traZODone HCL 100 MG TABLET (FP) PO SCH (22:00)
[2018-10-08] MEDS ORDERED: PT OWN MED DRAWER 7, Y5N ONE (22:46)
[2018-10-08] MEDS: LACOSAMIDE 50 MG TABLET PO SCH (22:52)
[2018-10-09] MEDS: SODIUM CHLORIDE 1,000 ML IV SCH ×3 (04:30→20:49)
[2018-10-09] MEDS: GABAPENTIN 300 MG CAPSULE (FP) PO SCH ×3 (06:13→22:04)
[2018-10-09 06:58] LABS: BASO % 0.9 % (0-2.0); EOS % 1.8 % (0-4.5); HEMATOCRIT 37.7 % (32.4-45.2); HEMOGLOBIN 11.9 GM/dL (10.7-15.3); LYMPH % 44.6 % (8-40); MCH 28.6 pg (25.7-33.7); MCHC 31.5 g/dl (32.0-36.0); MEAN CELL VOLUME 90.7 fl (80-96); MEAN PLT VOLUME 8.6 fl (7.5-11.1); MONO % 8.8 % (3.8-10.2); NEUT % 43.9 % (42.8-82.8); PLATELET COUNT 259 K/MM3 (134-434); RBC 4.16 M/mm3 (3.60-5.2); RDW 20.8 % (11.6-15.6); WHITE BLOOD COUNT 3.8 K/mm3 (4.0-10.0)
[2018-10-09 07:36] LABS: ALBUMIN 3.6 g/dl (3.4-5.0); BILIRUBIN,TOTAL 0.2 mg/dL (0.2-1); CALCIUM 8.9 mg/dL (8.5-10.1); CREATININE 0.6 mg/dL (0.55-1.3); POTASSIUM 4.2 mmol/L (3.5-5.1); TOT PROT 7.2 g/dl (6.4-8.2)
[2018-10-09] MEDS ORDERED: PT OWN MED DRAWER 7, Y5N ONE (09:32)
[2018-10-09] MEDS ORDERED: cefTRIAXone SODIUM 1 GM VIAL ONE (09:33)
[2018-10-09] MEDS ORDERED: DEXTROSE 5%-WATER - 50 ML IVPB ONE (09:34)
[2018-10-09] MEDS: ASPIRIN 81 MG CHEWABLE TABLETS PO SCH (09:36)
[2018-10-09] MEDS: THIAMINE HCL 100 MG TABLET (FP) PO SCH (09:36)
[2018-10-09] MEDS: LACOSAMIDE 50 MG TABLET PO SCH ×2 (09:36→22:04)
[2018-10-09] MEDS: FOLIC ACID 1 MG TABLET (FP) PO SCH (09:36)
[2018-10-09] MEDS: CEFTRIAXONE 1 GM in DEXTROSE 5%-WATER - 50 ML IVPB SCH (09:36)
[2018-10-09] MEDS: MULTIVITAMINS (DAILY MVI) TABLET (FP) PO SCH (09:36)
[2018-10-09] MEDS: TOPIRAMATE 100 MG TABLET PO SCH ×3 (09:36→22:04)
[2018-10-09] MEDS: HEPARIN NA (PORCINE) 5,000 UNITS/ML 1ML VIAL SQ SCH ×2 (09:37→22:05)
--- NOTE | 2018-10-09 11:49 | PN ---
Progress Note, Physician Chief Complaint: Syncope Vertigo Seizures ETOH abuse History of Present Illness: Previous notes and events reviewed awake and alert NAD complain of R sided headache and mid chest pain - Current Medication List Current Medications: Active Medications Aspirin (Asa -) 81 mg PO DAILY [facility] Last Admin: 10/09/18 09:36 Dose: 81 mg Atorvastatin Calcium (Lipitor -) 20 mg PO HS [facility] Last Admin: 10/08/18 22:51 Dose: 20 mg Folic Acid (Folic Acid -) 1 mg PO DAILY [facility] Last Admin: 10/09/18 09:36 Dose: 1 mg Gabapentin (Neurontin -) 300 mg PO TID [facility] Last Admin: 10/09/18 06:13 Dose: 300 mg Heparin Sodium (Porcine) (Heparin -) 5,000 unit SQ BID [facility] Last Admin: 10/09/18 09:37 Dose: 5,000 unit Ceftriaxone Sodium 1 gm/ (Dextrose) 50 mls @ 100 mls/hr IVPB DAILY [facility]; Protocol Last Admin: 10/09/18 09:36 Dose: 100 mls/hr Sodium Chloride (Normal Saline -) 1,000 mls @ 75 mls/hr IV ASDIR [facility] Last Admin: 10/09/18 04:30 Dose: 75 mls/hr Lacosamide (Vimpat -) 50 mg PO BID [facility] Last Admin: 10/09/18 09:36 Dose: 50 mg Lorazepam (Ativan -) 2 mg PO TID PRN PRN Reason: ANXIETY Last Admin: 10/08/18 07:00 Dose: 2 mg Meclizine HCl (Antivert -) 12.5 mg PO BID PRN PRN Reason: dizziness Multivitamins/Minerals/Vitamin C (Tab-A-Vit -) 1 tab PO DAILY [facility] Last Admin: 10/09/18 09:36 Dose: 1 tab Thiamine HCl (Vitamin B1 -) 100 mg PO DAILY [facility] Last Admin: 10/09/18 09:36 Dose: 100 mg Topiramate (Topamax -) 100 mg PO DAILY [facility] Last Admin: 10/09/18 09:36 Dose: 100 mg Topiramate (Topamax -) 100 mg PO BID [facility] Last Admin: 10/09/18 09:38 Dose: Not Given Trazodone HCl (Desyrel -) 100 mg PO HS [facility] Last Admin: 10/08/18 22:51 Dose: 100 mg - Objective Vital Signs: Vital Signs Temperature 97.8 F 10/09/18 10:00 Pulse Rate 74 10/09/18 10:00 Respiratory Rate 18 10/09/18 10:00 Blood Pressure 98/65 10/09/18 10:00 O2 Sat by Pulse Oximetry (%) 100 10/08/18 23:00 Constitutional: Yes: No Distress, Calm Eyes: Yes: Conjunctiva Clear HENT: Yes: Atraumatic Cardiovascular: Yes: Regular Rate and Rhythm Respiratory: Yes: Regular, CTA Bilaterally Gastrointestinal: Yes: Normal Bowel Sounds, Soft Genitourinary: Yes: Incontinence Musculoskeletal: Yes: Muscle Weakness Extremities: Yes: WNL Edema: No Neurological: Yes: Alert, Pre-Existing Deficit, Weakness (L side) Psychiatric: Yes: Alert Labs: CBC, BMP 10/09/18 05:40 10/09/18 05:40 INR, PTT INR 0.95 (0.83-1.09) 10/08/18 02:00 Microbiology 10/07/18 23:25 Urine - Urine Clean Catch Urine Culture - Preliminary Lactose Fermenting Neg Bacilli Problem List - Problems (1) Alcohol abuse Assessment/Plan: -THiamine, Folate, MVI -ETOH quant neg Code(s): F10.10 - ALCOHOL ABUSE, UNCOMPLICATED (2) Hypertension Assessment/Plan: -BP meds on hold d/t hypotension (losartan/hctz) -when BP normalizes will resume Code(s): I10 - ESSENTIAL (PRIMARY) HYPERTENSION Qualifiers: Hypertension type: unspecified Qualified Code(s): I10 - Essential (primary ) hypertension (3) Syncope Assessment/Plan: -neurology on board -Head CT scan results reviewed -fall precautions -Meclizine Code(s): R55 - SYNCOPE AND COLLAPSE Qualifiers: Syncope type: unspecified Qualified Code(s): R55 - Syncope and collapse (4) Epilepsy Assessment/Plan: -Neurology on board -Vimpat -seizure precautions -neuro checks -Head CT scan reviewed Code(s): G40.909 - EPILEPSY, UNSP, NOT INTRACTABLE, WITHOUT STATUS EPILEPTICUS (5) History of stroke Assessment/Plan: -Aspirin and Atorvastatin -Cardiology on board Code(s): Z86.73 - PRSNL HX OF TIA (TIA), AND CEREB INFRC W/O RESID DEFICITS (6) Hallucination Assessment/Plan: -Psych consult -Trazodone Code(s): R44.3 - HALLUCINATIONS, UNSPECIFIED Assessment/Plan see problem list dvt ppx
--- NOTE | 2018-10-09 12:02 | PN ---
Progress Note (short form) - Note Progress Note: s: has stable chest pain, per patient is chronic with normal cors on cath 2017. no dizziness, palps, dyspnea. Current Medications Aspirin (Asa -) 81 mg PO DAILY [facility] Last Admin: 10/09/18 09:36 Dose: 81 mg Atorvastatin Calcium (Lipitor -) 20 mg PO HS [facility] Last Admin: 10/08/18 22:51 Dose: 20 mg Folic Acid (Folic Acid -) 1 mg PO DAILY [facility] Last Admin: 10/09/18 09:36 Dose: 1 mg Gabapentin (Neurontin -) 300 mg PO TID [facility] Last Admin: 10/09/18 06:13 Dose: 300 mg Heparin Sodium (Porcine) (Heparin -) 5,000 unit SQ BID [facility] Last Admin: 10/09/18 09:37 Dose: 5,000 unit Ceftriaxone Sodium 1 gm/ (Dextrose) 50 mls @ 100 mls/hr IVPB DAILY [facility]; Protocol Last Admin: 10/09/18 09:36 Dose: 100 mls/hr Sodium Chloride (Normal Saline -) 1,000 mls @ 75 mls/hr IV ASDIR [facility] Last Admin: 10/09/18 04:30 Dose: 75 mls/hr Lacosamide (Vimpat -) 50 mg PO BID [facility] Last Admin: 10/09/18 09:36 Dose: 50 mg Lorazepam (Ativan -) 2 mg PO TID PRN PRN Reason: ANXIETY Last Admin: 10/08/18 07:00 Dose: 2 mg Meclizine HCl (Antivert -) 12.5 mg PO BID PRN PRN Reason: dizziness Multivitamins/Minerals/Vitamin C (Tab-A-Vit -) 1 tab PO DAILY [facility] Last Admin: 10/09/18 09:36 Dose: 1 tab Thiamine HCl (Vitamin B1 -) 100 mg PO DAILY [facility] Last Admin: 10/09/18 09:36 Dose: 100 mg Topiramate (Topamax -) 100 mg PO DAILY [facility] Last Admin: 10/09/18 09:36 Dose: 100 mg Topiramate (Topamax -) 100 mg PO BID [facility] Last Admin: 10/09/18 09:38 Dose: Not Given Trazodone HCl (Desyrel -) 100 mg PO HS [facility] Last Admin: 10/08/18 22:51 Dose: 100 mg Vital Signs: Vital Signs Period Temp Pulse Resp BP Sys/Carlson Pulse Ox Last 24 Hr 97.8 F-98.7 F 64-77 16-18 94-110/55-82 98-100 Constitutional: Yes: Well Nourished, No Distress Eyes: No: Sclera Icterus HENT: No: Nasal Congestion Neck: No: Decreased ROM Respiratory: Yes: CTA Bilaterally (not deep breaths for exam). No: Accessory Muscle Use, Rales, Wheezes Gastrointestinal: Yes: Normal Bowel Sounds. No: Distention, Hepatomegaly, Palpable Mass, Tenderness Cardiovascular: Yes: Regular Rate and Rhythm JVD: No Carotid Bruit: No PMI: Non-Displaced Heart Sounds: Yes: S1, S2. No: Gallop Murmur: No: Systolic Murmur, Diastolic Murmur Musculoskeletal: Yes: Other (No kyphosis) Extremities: No: Cool, Cyanosis Edema: No Peripheral Pulses: 2+ Left Carotid, 2+ Right Carotid, 2+ Left Doralis Pedis, 2+ Right Dorsalis Pedis Integumentary: No: Jaundice Neurological: Yes: Alert, Oriented (x3) Psychiatric: No: Agitated Assessment/Plan MPI 07/23 (tessy): nl STs. large/severe anterior/septal/apical/lateral ischemia, EF 43%, + TID Echo 07/23: nl LV/EF. nl RV. nl LA. mild TR. CT head: no acute path vs priors: chronic R MCA infarct, L parietal, small R cerebellar ECG: NSR, normal axis/intervals. WNL--no change vs prior CXR: clear lungs/pleura LHC (08/23): NORMAL CORONARY ANGIOGRAM. (EDP normal = 9, nl EF). tele: sinus dizziness, fall: -details from notes, as pt currently cannot provide (sedated) - neuro evaluated - likely seizure - also hx vertigo, pt s/p CVA on meclizine at home. -bp's soft here, 90s > 80s systolic - cont holding home losartan-HCT -on losartan-HCT at home--hold for now chest pain, h/o abnormal nuclear stress test: -normal cors on cath 08/2017 - cont aspirin HTN: -as above, holding home meds for now h/o CVA x multiple (periop bariatric surgery): -cont home aspirin, statin -outpt cardio f/u psych disorder, etoh use: -per hospitalist, psych sz disorder: -per hospitalist, neuro dc tele
--- NOTE | 2018-10-09 17:17 | PN ---
[facility] Progress Note (SOAP) Subjective: pt referred for etoh abuse , denies use since 1 week ago , per report pt w / intermittent use , pt denies symptoms at this time . PMHX : seizures 2/2 EtOH withdrawal , HTN, CVA x 5 w/ residual LUE/LLE weakness , total body paresthesia excluding RUE and face, s/p cardiac arrest and ROSC, gastric bypass, and depression , s/p fall/ syncopal episode w/ head injury 10/07/18 CT scan negative . pt denies alcohol abuse / dependence, by history from medical staff pt alternating weeks of sobriety w / binge- drinking . Pt denies nausea/ vomiting , diarrhea , tremors , phono / photophobia . Active Medications Aspirin (Asa -) 81 mg PO DAILY [facility] Last Admin: 10/09/18 09:36 Dose: 81 mg Atorvastatin Calcium (Lipitor -) 20 mg PO HS [facility] Last Admin: 10/08/18 22:51 Dose: 20 mg Folic Acid (Folic Acid -) 1 mg PO DAILY [facility] Last Admin: 10/09/18 09:36 Dose: 1 mg Gabapentin (Neurontin -) 300 mg PO TID [facility] Last Admin: 10/09/18 14:19 Dose: 300 mg Heparin Sodium (Porcine) (Heparin -) 5,000 unit SQ BID [facility] Last Admin: 10/09/18 09:37 Dose: 5,000 unit Ceftriaxone Sodium 1 gm/ (Dextrose) 50 mls @ 100 mls/hr IVPB DAILY [facility]; Protocol Last Admin: 10/09/18 09:36 Dose: 100 mls/hr Sodium Chloride (Normal Saline -) 1,000 mls @ 75 mls/hr IV ASDIR [facility] Last Admin: 10/09/18 12:33 Dose: 75 mls/hr Lacosamide (Vimpat -) 50 mg PO BID [facility] Last Admin: 10/09/18 09:36 Dose: 50 mg Lorazepam (Ativan -) 2 mg PO TID PRN PRN Reason: ANXIETY Last Admin: 10/08/18 07:00 Dose: 2 mg Meclizine HCl (Antivert -) 12.5 mg PO BID PRN PRN Reason: dizziness Multivitamins/Minerals/Vitamin C (Tab-A-Vit -) 1 tab PO DAILY [facility] Last Admin: 10/09/18 09:36 Dose: 1 tab Thiamine HCl (Vitamin B1 -) 100 mg PO DAILY [facility] Last Admin: 10/09/18 09:36 Dose: 100 mg Topiramate (Topamax -) 100 mg PO DAILY [facility] Last Admin: 10/09/18 09:36 Dose: 100 mg Topiramate (Topamax -) 100 mg PO BID [facility] Last Admin: 10/09/18 09:38 Dose: Not Given Trazodone HCl (Desyrel -) 100 mg PO [facility] Last Admin: 10/08/18 22:51 Dose: 100 mg Objective: CBC, BMP 10/09/18 05:40 10/09/18 05:40 Abnormal Lab Results 10/09/18 10/09/18 05:40 05:40 WBC 3.8 L MCHC 31.5 L RDW 20.8 H Lymphocytes % 44.6 H D Chloride 111 H Anion Gap 6 L Vital Signs - 24 hr 10/08/18 10/08/18 10/08/18 18:31 20:00 23:00 Temperature 98.2 F 98.3 F Pulse Rate 72 77 Respiratory 18 18 Rate Blood Pressure 106/82 104/55 L O2 Sat by Pulse 98 100 Oximetry (%) 10/09/18 10/09/18 10/09/18 02:00 06:00 07:00 Temperature 98.7 F 98.4 F Pulse Rate 64 65 Respiratory 18 18 Rate Blood Pressure 110/67 105/71 O2 Sat by Pulse 96 Oximetry (%) 10/09/18 10/09/18 10/09/18 10:00 14:00 15:00 Temperature 97.8 F 97.2 F L Pulse Rate 74 74 Respiratory 18 18 Rate Blood Pressure 98/65 105/62 O2 Sat by Pulse 99 Oximetry (%) wnwd , resting comfortably in bed . Neuro : aaox 3 , no tremors Assessment: Alcohol abuse by history Plan: continue prn Ativan
[2018-10-09] MEDS ORDERED: MECLIZINE HCL 12.5 MG TABLET PO PRN (19:11)
[2018-10-09] MEDS: ATORVASTATIN CA 20 MG TABLET (FP) PO SCH (22:04)
[2018-10-09] MEDS: traZODone HCL 100 MG TABLET (FP) PO SCH (22:04)
[2018-10-10] MEDS: LORazepam 1 MG TABLET PO PRN (02:39)
[2018-10-10] MEDS: SODIUM CHLORIDE 1,000 ML IV SCH ×2 (05:55→21:06)
--- NOTE | 2018-10-10 06:15 | RAPID ---
Physical Examination Vital Signs: Vital Signs Temperature 98.9 F 10/09/18 18:00 Pulse Rate 65 10/09/18 18:00 Respiratory Rate 18 10/09/18 18:00 Blood Pressure 101/56 L 10/09/18 18:00 O2 Sat by Pulse Oximetry (%) 99 10/09/18 15:00 Labs: CBC, BMP 10/09/18 05:40 10/09/18 05:40 Rapid Response - Rapid Response Assessment: Rapid response called for Pt. found to be having a seizure. Seizure resolved when I arrived. Per RN seizure lasted 3 minutes and involved the right upper extremity. Pt. was post-ictal however was resolving by the end of interrogation. Vs: 98.2, HR: 89, BP: 110/55; 92%. Pt. was Alert and oriented to name and location but was confused about date. Lungs were CTAB, Heart was nml S1 , S2 RRR, Pt. was able to vocalize needs and states that she had no increase in weakness or numbness of extremities. Pt. did not have incontinence or bite tongue. EKG, Electrolytes, Vimpat level was ordered. Will recall Dr. West in AM with day team for medication adjustements as Pt. having break through seizures. Will consider restarting Librium protocol pending CIWA score.
[2018-10-10] MEDS: GABAPENTIN 300 MG CAPSULE (FP) PO SCH ×3 (07:00→22:04)
[2018-10-10 07:33] LABS: HEMATOCRIT 37.1 % (32.4-45.2); HEMOGLOBIN 11.5 GM/dL (10.7-15.3); MCH 28.3 pg (25.7-33.7); MEAN CELL VOLUME 91.1 fl (80-96); MEAN PLT VOLUME 8.6 fl (7.5-11.1); PLATELET COUNT 229 K/MM3 (134-434); RBC 4.07 M/mm3 (3.60-5.2); RDW 20.7 % (11.6-15.6); WHITE BLOOD COUNT 3.7 K/mm3 (4.0-10.0)
[2018-10-10 08:09] LABS: ALBUMIN 3.2 g/dl (3.4-5.0); BILIRUBIN,TOTAL 0.2 mg/dL (0.2-1); CALCIUM 9.8 mg/dL (8.5-10.1); CREATININE 0.7 mg/dL (0.55-1.3); POTASSIUM 4.1 mmol/L (3.5-5.1); TOT PROT 6.4 g/dl (6.4-8.2)
--- NOTE | 2018-10-10 08:36 | PN ---
Progress Note, Physician History of Present Illness: events noted and chart reviewed According to the patient she was having headache at 7:00 this morning when the headache intensified 10 out of 10 and the patient had a seizure-like activity for about 45 seconds with loss of consciousness no tonic-clonic movement. Seizure stoplights offramp response was called - Current Medication List Current Medications: Active Medications Aspirin (Asa -) 81 mg PO DAILY [facility] Atorvastatin Calcium (Lipitor -) 20 mg PO HS [facility] Last Admin: 10/09/18 22:04 Dose: 20 mg Folic Acid (Folic Acid -) 1 mg PO DAILY [facility] Gabapentin (Neurontin -) 300 mg PO TID [facility] Last Admin: 10/10/18 07:00 Dose: 300 mg Heparin Sodium (Porcine) (Heparin -) 5,000 unit SQ BID [facility] Last Admin: 10/09/18 22:05 Dose: 5,000 unit Ceftriaxone Sodium 1 gm/ (Dextrose) 50 mls @ 100 mls/hr IVPB DAILY [facility]; Protocol Sodium Chloride (Normal Saline -) 1,000 mls @ 75 mls/hr IV ASDIR [facility] Last Admin: 10/10/18 05:55 Dose: 75 mls/hr Lacosamide (Vimpat -) 50 mg PO BID [facility] Last Admin: 10/09/18 22:04 Dose: 50 mg Lorazepam (Ativan -) 2 mg PO TID PRN PRN Reason: ANXIETY Last Admin: 10/10/18 02:39 Dose: 2 mg Meclizine HCl (Antivert -) 12.5 mg PO BID PRN PRN Reason: dizziness Multivitamins/Minerals/Vitamin C (Tab-A-Vit -) 1 tab PO DAILY [facility] Thiamine HCl (Vitamin B1 -) 100 mg PO DAILY [facility] Topiramate (Topamax -) 100 mg PO DAILY [facility] Topiramate (Topamax -) 100 mg PO BID [facility] Last Admin: 10/09/18 22:04 Dose: 100 mg Trazodone HCl (Desyrel -) 100 mg PO HS [facility] Last Admin: 10/09/18 22:04 Dose: 100 mg - Objective Vital Signs: Vital Signs Temperature 98.1 F 10/10/18 06:00 Pulse Rate 89 10/10/18 06:00 Respiratory Rate 18 10/10/18 06:00 Blood Pressure 110/55 L 10/10/18 06:00 O2 Sat by Pulse Oximetry (%) 100 10/09/18 23:00 Constitutional: Yes: Well Nourished Eyes: Yes: WNL Neurological: Yes: Alert, Oriented, Babinski positive ...Motor Strength: LUE (0) Labs: CBC, BMP 10/10/18 06:30 10/10/18 06:30 INR, PTT INR 0.95 (0.83-1.09) 10/08/18 02:00 Problem List - Problems (1) Dizziness Assessment/Plan: 1. Continue Vimpat 100 mg twice daily. 2. Increase Topamax 200 mg twice daily. 3. Seizure precautions. 4. Ativan when necessary seizure. 5. Fioricet when necessary headache. 6. Check ESR Code(s): R42 - DIZZINESS AND GIDDINESS
[2018-10-10] MEDS ORDERED: ACETAMINOPHEN/CAFFEINE/BUTALBITAL 1 TAB PO PRN (08:37)
--- NOTE | 2018-10-10 09:46 | PN ---
Progress Note, Physician - Current Medication List Current Medications: Active Medications Acetaminophen/Butalbital/Caffeine (Fioricet -) tablet PO Q6H PRN PRN Reason: FEVER Stop: 10/13/18 08:37 Aspirin (Asa -) 81 mg PO DAILY [facility] Atorvastatin Calcium (Lipitor -) 20 mg PO HS [facility] Last Admin: 10/09/18 22:04 Dose: 20 mg Folic Acid (Folic Acid -) 1 mg PO DAILY [facility] Gabapentin (Neurontin -) 300 mg PO TID [facility] Last Admin: 10/10/18 07:00 Dose: 300 mg Heparin Sodium (Porcine) (Heparin -) 5,000 unit SQ BID [facility] Last Admin: 10/09/18 22:05 Dose: 5,000 unit Ceftriaxone Sodium 1 gm/ (Dextrose) 50 mls @ 100 mls/hr IVPB DAILY [facility]; Protocol Sodium Chloride (Normal Saline -) 1,000 mls @ 75 mls/hr IV ASDIR [facility] Last Admin: 10/10/18 05:55 Dose: 75 mls/hr Lacosamide (Vimpat -) 50 mg PO BID [facility] Last Admin: 10/09/18 22:04 Dose: 50 mg Lorazepam (Ativan -) 2 mg PO TID PRN PRN Reason: ANXIETY Last Admin: 10/10/18 02:39 Dose: 2 mg Meclizine HCl (Antivert -) 12.5 mg PO BID PRN PRN Reason: dizziness Multivitamins/Minerals/Vitamin C (Tab-A-Vit -) 1 tab PO DAILY [facility] Thiamine HCl (Vitamin B1 -) 100 mg PO DAILY [facility] Topiramate (Topamax -) 100 mg PO BID [facility] Last Admin: 10/09/18 22:04 Dose: 100 mg Topiramate (Topamax -) 200 mg PO BID [facility] Trazodone HCl (Desyrel -) 100 mg PO HS [facility] Last Admin: 10/09/18 22:04 Dose: 100 mg - Objective Vital Signs: Vital Signs Temperature 98.1 F 10/10/18 06:00 Pulse Rate 89 10/10/18 06:00 Respiratory Rate 18 10/10/18 06:00 Blood Pressure 110/55 L 10/10/18 06:00 O2 Sat by Pulse Oximetry (%) 100 10/09/18 23:00 Cardiovascular: Yes: Regular Rate and Rhythm Respiratory: Yes: Regular, CTA Bilaterally Gastrointestinal: Yes: Normal Bowel Sounds, Soft Neurological: Yes: Alert, Oriented, Pre-Existing Deficit (weakness left side) Labs: CBC, BMP 10/10/18 06:30 10/10/18 06:30 INR, PTT INR 0.95 (0.83-1.09) 10/08/18 02:00 Assessment/Plan - Problems (1) Alcohol abuse Assessment/Plan: -THiamine, Folate, MVI -ETOH quant neg -Denies recent use Code(s): F10.10 - ALCOHOL ABUSE, UNCOMPLICATED (2) Hypertension Assessment/Plan: -BP meds on hold d/t hypotension (losartan/hctz) -when BP normalizes will resume Code(s): I10 - ESSENTIAL (PRIMARY) HYPERTENSION Qualifiers: Hypertension type: unspecified Qualified Code(s): I10 - Essential (primary ) hypertension (3) Syncope Assessment/Plan: -neurology on board -Head CT scan results reviewed -fall precautions -Meclizine Code(s): R55 - SYNCOPE AND COLLAPSE Qualifiers: Syncope type: unspecified Qualified Code(s): R55 - Syncope and collapse (4) Epilepsy Assessment/Plan: -Neurology on board--topomax increases -Vimpat -seizure precautions -neuro checks -Head CT scan reviewed Code(s): G40.909 - EPILEPSY, UNSP, NOT INTRACTABLE, WITHOUT STATUS EPILEPTICUS (5) History of stroke Assessment/Plan: -Aspirin and Atorvastatin -Cardiology on board Code(s): Z86.73 - PRSNL HX OF TIA (TIA), AND CEREB INFRC W/O RESID DEFICITS (6) Hallucination Assessment/Plan: -Psych consult -Trazodone Code(s): R44.3 - HALLUCINATIONS, UNSPECIFIED (7) UTI Assessment/Plan: -Ceftriaxone -ID
[2018-10-10] MEDS ORDERED: TOPIRAMATE 100 MG TABLET PO SCH (10:00)
[2018-10-10] MEDS ORDERED: CEFTRIAXONE 1 GM in DEXTROSE 5%-WATER - 50 ML IVPB SCH (10:00)
[2018-10-10] MEDS ORDERED: TOPIRAMATE 25 MG TABLET (FP) PO SCH (10:00)
[2018-10-10] MEDS ORDERED: cefTRIAXone SODIUM 1 GM VIAL ONE (10:42)
[2018-10-10] MEDS ORDERED: DEXTROSE 5%-WATER - 50 ML IVPB ONE (10:42)
[2018-10-10] MEDS: TOPIRAMATE 100 MG TABLET PO SCH ×2 (10:49→22:05)
[2018-10-10] MEDS: FOLIC ACID 1 MG TABLET (FP) PO SCH (10:49)
[2018-10-10] MEDS: LACOSAMIDE 50 MG TABLET PO SCH ×2 (10:50→22:04)
[2018-10-10] MEDS: HEPARIN NA (PORCINE) 5,000 UNITS/ML 1ML VIAL SQ SCH ×2 (10:50→22:05)
[2018-10-10] MEDS: ASPIRIN 81 MG CHEWABLE TABLETS PO SCH (10:50)
[2018-10-10] MEDS: THIAMINE HCL 100 MG TABLET (FP) PO SCH (10:50)
[2018-10-10] MEDS: MULTIVITAMINS (DAILY MVI) TABLET (FP) PO SCH (10:50)
[2018-10-10 11:25] LABS: CALCIUM 8.7 mg/dL (8.5-10.1); CREATININE 0.7 mg/dL (0.55-1.3); MAGNESIUM 2.4 mg/dL (1.8-2.4); PHOSPHOROUS 2.9 mg/dL (2.5-4.9)
--- NOTE | 2018-10-10 11:50 | PN ---
Progress Note (short form) - Note Progress Note: s: no dizziness, palps, dyspnea, chest pain. seizure this AM Current Medications Acetaminophen/Butalbital/Caffeine (Fioricet -) tablet PO Q6H PRN PRN Reason: FEVER Stop: 10/13/18 08:37 Aspirin (Asa -) 81 mg PO DAILY [facility] Last Admin: 10/10/18 10:50 Dose: 81 mg Atorvastatin Calcium (Lipitor -) 20 mg PO HS [facility] Last Admin: 10/09/18 22:04 Dose: 20 mg Folic Acid (Folic Acid -) 1 mg PO DAILY [facility] Last Admin: 10/10/18 10:49 Dose: 1 mg Gabapentin (Neurontin -) 300 mg PO TID [facility] Last Admin: 10/10/18 07:00 Dose: 300 mg Heparin Sodium (Porcine) (Heparin -) 5,000 unit SQ BID [facility] Last Admin: 10/10/18 10:50 Dose: 5,000 unit Ceftriaxone Sodium 1 gm/ (Dextrose) 50 mls @ 100 mls/hr IVPB DAILY [facility]; Protocol Last Admin: 10/10/18 10:47 Dose: 100 mls/hr Sodium Chloride (Normal Saline -) 1,000 mls @ 75 mls/hr IV ASDIR REAGAN Last Admin: 10/10/18 05:55 Dose: 75 mls/hr Lacosamide (Vimpat -) 50 mg PO BID [facility] Last Admin: 10/10/18 10:50 Dose: 50 mg Lorazepam (Ativan -) 2 mg PO TID PRN PRN Reason: ANXIETY Last Admin: 10/10/18 02:39 Dose: 2 mg Meclizine HCl (Antivert -) 12.5 mg PO BID PRN PRN Reason: dizziness Multivitamins/Minerals/Vitamin C (Tab-A-Vit -) 1 tab PO DAILY [facility] Last Admin: 10/10/18 10:50 Dose: 1 tab Thiamine HCl (Vitamin B1 -) 100 mg PO DAILY [facility] Last Admin: 10/10/18 10:50 Dose: 100 mg Topiramate (Topamax -) 100 mg PO BID [facility] Last Admin: 10/10/18 10:49 Dose: 100 mg Topiramate (Topamax -) 200 mg PO BID [facility] Last Admin: 10/10/18 10:48 Dose: 200 mg Trazodone HCl (Desyrel -) 100 mg PO HS [facility] Last Admin: 10/09/18 22:04 Dose: 100 mg Vital Signs Period Temp Pulse Resp BP Sys/Carlson Pulse Ox Last 24 Hr 97.2 F-98.9 F 53-89 18-18 101-115/55-76 99-100 Constitutional: Yes: Well Nourished, No Distress Eyes: No: Sclera Icterus HENT: No: Nasal Congestion Neck: No: Decreased ROM Respiratory: Yes: CTA Bilaterally (not deep breaths for exam). No: Accessory Muscle Use, Rales, Wheezes Gastrointestinal: Yes: Normal Bowel Sounds. No: Distention, Hepatomegaly, Palpable Mass, Tenderness Cardiovascular: Yes: Regular Rate and Rhythm JVD: No Carotid Bruit: No PMI: Non-Displaced Heart Sounds: Yes: S1, S2. No: Gallop Murmur: No: Systolic Murmur, Diastolic Murmur Musculoskeletal: Yes: Other (No kyphosis) Extremities: No: Cool, Cyanosis Edema: No Peripheral Pulses: 2+ Left Carotid, 2+ Right Carotid, 2+ Left Doralis Pedis, 2+ Right Dorsalis Pedis Integumentary: No: Jaundice Neurological: Yes: Alert, Oriented (x3) Psychiatric: No: Agitated Assessment/Plan MPI 07/23 (tessy): nl STs. large/severe anterior/septal/apical/lateral ischemia, EF 43%, + TID Echo 07/23: nl LV/EF. nl RV. nl LA. mild TR. CT head: no acute path vs priors: chronic R MCA infarct, L parietal, small R cerebellar ECG: NSR, normal axis/intervals. WNL--no change vs prior CXR: clear lungs/pleura LHC (08/23): NORMAL CORONARY ANGIOGRAM. (EDP normal = 9, nl EF). dizziness, fall: -details from notes, as pt currently cannot provide (sedated) - neuro evaluated - likely seizure - also hx vertigo, pt s/p CVA on meclizine at home. -bp's soft here, 90s > 80s systolic - cont holding home losartan-HCT -on losartan-HCT at home--hold for now sz disorder: -per hospitalist, neuro chest pain, h/o abnormal nuclear stress test: -normal cors on cath 08/2017 - cont aspirin HTN: -as above, holding home meds for now h/o CVA x multiple (periop bariatric surgery): -cont home aspirin, statin -outpt cardio f/u psych disorder, etoh use: -per hospitalist, psych
--- NOTE | 2018-10-10 12:49 | EKG ---
Test Reason : Blood Pressure : / mmHG Vent. Rate : 066 BPM Atrial Rate : 066 BPM P-R Int : 150 ms QRS Dur : 074 ms QT Int : 404 ms P-R-T Axes : 046 021 035 degrees QTc Int : 423 ms POOR DATA QUALITY, INTERPRETATION MAY BE ADVERSELY AFFECTED NORMAL SINUS RHYTHM NONSPECIFIC ST AND T WAVE ABNORMALITY ABNORMAL ECG WHEN COMPARED WITH ECG OF 08-OCT-2018 02:18, NO SIGNIFICANT CHANGE WAS FOUND Confirmed by VIRGINIA BESS, KONSTANTIN ([id number]) on 10/10/2018 12:49:22 PM Referred By: Confirmed By:KONSTANTIN COLEMAN MD
--- NOTE | 2018-10-10 13:16 | CON.ID ---
Consult Consult Specialty:: infectious disease Referred by:: dr flores Reason for Consultation:: uti - History of Present Illness Chief Complaint: s/p fall. dysuria History of Present Illness: 48 yo female with history of seizures, HTN, CVA, history of cardiac arrest episode of fall at home no fevers or chills noted dysuria that has resolved admitted 61 had a seizure this am, seen by neurology and medications adjusted - History Source History Provided By: Patient, Medical Record Limitations to Obtaining History: Clinical Condition - Past Medical History [employer]: Yes: CVA (at time of gastric bypass), Migraine, Seizure Cardio/Vascular: Yes: HTN, Other (cardiac arrest at time of gastric bypass) Gastrointestinal: Yes: Other (s/p bariatric surgery) ...LMP: 01/22/12 ...: No Psych: Yes: Depression Musculoskeletal: Yes: Hemiplegia (residual left side weakness from the CVA) - Past Surgical History Past Surgical History: Yes: Bariatric Surgery (2012), Upper Endoscopy (2005) - Alcohol/Substance Use Hx Alcohol Use: No - Smoking History Smoking history: Never smoked Have you smoked in the past 12 months: No Aproximately how many cigarettes per day: 0 - Social History Usual Living Arrangement: With Child ADL: Independent History of Recent Travel: No Home Medications - Allergies Allergies/Adverse Reactions: Allergies Allergy/AdvReac Type Severity Reaction Status Date / Time ibuprofen [From Motrin] Allergy Intermediate Hives Verified 10/07/18 23:12 acetaminophen [From Percocet] Allergy Swelling Verified 10/07/18 23:12 oxycodone HCl [From Percocet] Allergy Swelling Verified 10/07/18 23:12 morphine AdvReac Severe Difficulty Verified 10/07/18 23:12 Breathing - Home Medications Home Medications: Ambulatory Orders Aspirin [ASA -] 81 mg PO DAILY 07/31/17 Atorvastatin Ca [Lipitor] 20 mg PO HS 07/31/17 Cyclobenzaprine HCl 10 mg PO HS PRN 07/31/17 Gabapentin 300 mg PO TID 07/31/17 Losartan 50Mg/Hctz 12.5MG [Hyzaar -] 1 tab PO DAILY 07/31/17 Meclizine HCl 12.5 mg PO BID PRN 07/31/17 Topiramate 100 mg PO DAILY 07/31/17 traZODone HCL [Trazodone HCl] 100 mg PO HS 07/31/17 Melatonin 5 mg PO HS PRN tab 08/03/17 Thiamine HCl [Vitamin B1 -] 100 mg PO HS tablet 08/03/17 Lidocaine Patch Removal [Lidoderm Patch Removal] 1 each [facility] DAILY@2200 #10 each 06/02/18 Family Disease History - Family Disease History Family History: Denies Review of Systems - Review of Systems Constitutional: denies: Chills, Fever Eyes: reports: No Symptoms HENT: reports: No Symptoms Neck: reports: No Symptoms Cardiovascular: reports: No Symptoms Respiratory: reports: No Symptoms Gastrointestinal: reports: No Symptoms Genitourinary: reports: Burning Physical Exam Vital Signs: Vital Signs Temperature 98.1 F 10/10/18 06:00 Pulse Rate 89 10/10/18 06:00 Respiratory Rate 18 10/10/18 06:00 Blood Pressure 110/55 L 10/10/18 06:00 O2 Sat by Pulse Oximetry (%) 100 10/09/18 23:00 Constitutional: Yes: Well Nourished, No Distress, Calm Eyes: Yes: Conjunctiva Clear HENT: Yes: Atraumatic, Normocephalic Neck: Yes: Supple Cardiovascular: Yes: Regular Rate and Rhythm Respiratory: Yes: CTA Bilaterally Gastrointestinal: Yes: Normal Bowel Sounds, Soft Renal/: No: Bladder Distention, CVA Tenderness - Left, CVA Tenderness - Right Edema: No Psychiatric: Yes: Alert, Oriented Labs: CBC, BMP 10/10/18 06:30 10/10/18 10:08 Laboratory Tests 10/07/18 23:25 Ur Leukocyte Esterase 2+ H Urine WBC (Auto) 31 Microbiology 10/07/18 23:25 Urine - Urine Clean Catch Urine Culture - Final Escherichia Coli Imaging - Results Chest X-ray: Report Reviewed Cat Scan: Report Reviewed Problem List - Problems (1) Fall Code(s): W19.XXXA - UNSPECIFIED FALL, INITIAL ENCOUNTER (2) UTI (urinary tract infection) Code(s): N39.0 - URINARY TRACT INFECTION, SITE NOT SPECIFIED (3) Seizure Code(s): R56.9 - UNSPECIFIED CONVULSIONS Assessment/Plan day #3 rocephin dysuria resolved feeling better can change to po keflex in am to complete 7 days seizure management per neurology
[2018-10-10] MEDS ORDERED: PT OWN MED DRAWER 7, Y5N ONE (21:40)
[2018-10-10] MEDS: traZODone HCL 100 MG TABLET (FP) PO SCH (22:04)
[2018-10-10] MEDS: ATORVASTATIN CA 20 MG TABLET (FP) PO SCH (22:04)
[2018-10-11] MEDS: LORazepam 1 MG TABLET PO PRN (05:42)
[2018-10-11] MEDS: GABAPENTIN 300 MG CAPSULE (FP) PO SCH ×3 (05:42→22:03)
[2018-10-11] MEDS: ASPIRIN 81 MG CHEWABLE TABLETS PO SCH (09:38)
[2018-10-11] MEDS: LACOSAMIDE 50 MG TABLET PO SCH ×2 (09:38→22:01)
[2018-10-11] MEDS: CEPHALEXIN MONOHYDRATE 500 MG CAPSULE (UD) PO SCH ×2 (09:39→22:01)
[2018-10-11] MEDS: HEPARIN NA (PORCINE) 5,000 UNITS/ML 1ML VIAL SQ SCH ×2 (09:39→22:05)
[2018-10-11] MEDS: TOPIRAMATE 100 MG TABLET PO SCH ×2 (09:39→22:02)
[2018-10-11] MEDS: THIAMINE HCL 100 MG TABLET (FP) PO SCH (09:39)
[2018-10-11] MEDS: FOLIC ACID 1 MG TABLET (FP) PO SCH (09:39)
[2018-10-11] MEDS: MULTIVITAMINS (DAILY MVI) TABLET (FP) PO SCH (09:39)
--- NOTE | 2018-10-11 13:36 | PN ---
Progress Note, Physician Chief Complaint: patient seen and examined seizure medication adjusted by neurology - Current Medication List Current Medications: Active Medications Acetaminophen/Butalbital/Caffeine (Fioricet -) tablet PO Q6H PRN PRN Reason: FEVER Stop: 10/13/18 08:37 Aspirin (Asa -) 81 mg PO DAILY [facility] Last Admin: 10/11/18 09:38 Dose: 81 mg Atorvastatin Calcium (Lipitor -) 20 mg PO HS [facility] Last Admin: 10/10/18 22:04 Dose: 20 mg Cephalexin HCl (Keflex -) 500 mg PO BID [facility] Last Admin: 10/11/18 09:39 Dose: 500 mg Folic Acid (Folic Acid -) 1 mg PO DAILY [facility] Last Admin: 10/11/18 09:39 Dose: 1 mg Gabapentin (Neurontin -) 300 mg PO TID [facility] Last Admin: 10/11/18 05:42 Dose: 300 mg Heparin Sodium (Porcine) (Heparin -) 5,000 unit SQ BID [facility] Last Admin: 10/11/18 09:39 Dose: 5,000 unit Sodium Chloride (Normal Saline -) 1,000 mls @ 75 mls/hr IV ASDIR [facility] Last Admin: 10/10/18 21:06 Dose: 75 mls/hr Lacosamide (Vimpat -) 50 mg PO BID [facility] Last Admin: 10/11/18 09:38 Dose: 50 mg Lorazepam (Ativan -) 2 mg PO TID PRN PRN Reason: ANXIETY Last Admin: 10/11/18 05:42 Dose: 2 mg Meclizine HCl (Antivert -) 12.5 mg PO BID PRN PRN Reason: dizziness Multivitamins/Minerals/Vitamin C (Tab-A-Vit -) 1 tab PO DAILY [facility] Last Admin: 10/11/18 09:39 Dose: 1 tab Thiamine HCl (Vitamin B1 -) 100 mg PO DAILY [facility] Last Admin: 10/11/18 09:39 Dose: 100 mg Topiramate (Topamax -) 200 mg PO BID [facility] Last Admin: 10/11/18 09:39 Dose: 200 mg Trazodone HCl (Desyrel -) 100 mg PO HS [facility] Last Admin: 10/10/18 22:04 Dose: 100 mg - Objective Vital Signs: Vital Signs Temperature 98.0 F 10/11/18 10:00 Pulse Rate 58 L 10/11/18 10:00 Respiratory Rate 20 10/11/18 10:00 Blood Pressure 98/60 10/11/18 10:00 O2 Sat by Pulse Oximetry (%) 100 10/10/18 21:00 Constitutional: Yes: Calm Neck: Yes: Trachea Midline Cardiovascular: Yes: Regular Rate and Rhythm, S1, S2 Respiratory: Yes: CTA Bilaterally Gastrointestinal: Yes: Normal Bowel Sounds, Soft Edema: No Neurological: Yes: Alert Labs: CBC, BMP 10/10/18 06:30 10/10/18 10:08 INR, PTT INR 0.95 (0.83-1.09) 10/08/18 02:00 Problem List - Problems (1) Dizziness Assessment/Plan: neurology noted Code(s): R42 - DIZZINESS AND GIDDINESS (2) Hallucination Assessment/Plan: with agitation improved has uti treat with iv abx change to po ivf to improve creatinine Code(s): R44.3 - HALLUCINATIONS, UNSPECIFIED (3) Alcohol abuse Assessment/Plan: thiamine, folate,multivitamin alcohol level normal Code(s): F10.10 - ALCOHOL ABUSE, UNCOMPLICATED (4) Seizure Assessment/Plan: meds per neurology Code(s): R56.9 - UNSPECIFIED CONVULSIONS Assessment/Plan DC home in AM on po abx
[2018-10-11 14:12] LABS: BASO % 1.1 % (0-2.0); EOS % 1.2 % (0-4.5); HEMATOCRIT 37.3 % (32.4-45.2); HEMOGLOBIN 11.6 GM/dL (10.7-15.3); LYMPH % 28.2 % (8-40); MCH 28.3 pg (25.7-33.7); MCHC 31.1 g/dl (32.0-36.0); MEAN CELL VOLUME 90.8 fl (80-96); MEAN PLT VOLUME 8.4 fl (7.5-11.1); MONO % 8.8 % (3.8-10.2); NEUT % 60.7 % (42.8-82.8); PLATELET COUNT 239 K/MM3 (134-434); RBC 4.11 M/mm3 (3.60-5.2); RDW 20.9 % (11.6-15.6); WHITE BLOOD COUNT 3.5 K/mm3 (4.0-10.0)
[2018-10-11 14:39] LABS: ALBUMIN 3.3 g/dl (3.4-5.0); BILIRUBIN,TOTAL 0.1 mg/dL (0.2-1); CALCIUM 8.4 mg/dL (8.5-10.1); CREATININE 0.8 mg/dL (0.55-1.3); TOT PROT 6.8 g/dl (6.4-8.2)
--- NOTE | 2018-10-11 15:42 | PN ---
Progress Note (short form) - Note Progress Note: s: no dizziness, palps, dyspnea. occasional chest pain Current Medications Acetaminophen/Butalbital/Caffeine (Fioricet -) tablet PO Q6H PRN PRN Reason: FEVER Stop: 10/13/18 08:37 Aspirin (Asa -) 81 mg PO DAILY [facility] Last Admin: 10/11/18 09:38 Dose: 81 mg Atorvastatin Calcium (Lipitor -) 20 mg PO HS [facility] Last Admin: 10/10/18 22:04 Dose: 20 mg Cephalexin HCl (Keflex -) 500 mg PO BID [facility] Last Admin: 10/11/18 09:39 Dose: 500 mg Folic Acid (Folic Acid -) 1 mg PO DAILY [facility] Last Admin: 10/11/18 09:39 Dose: 1 mg Gabapentin (Neurontin -) 300 mg PO TID [facility] Last Admin: 10/11/18 14:01 Dose: 300 mg Heparin Sodium (Porcine) (Heparin -) 5,000 unit SQ BID [facility] Last Admin: 10/11/18 09:39 Dose: 5,000 unit Sodium Chloride (Normal Saline -) 1,000 mls @ 75 mls/hr IV ASDIR [facility] Last Admin: 10/10/18 21:06 Dose: 75 mls/hr Lacosamide (Vimpat -) 50 mg PO BID [facility] Last Admin: 10/11/18 09:38 Dose: 50 mg Lorazepam (Ativan -) 2 mg PO TID PRN PRN Reason: ANXIETY Last Admin: 10/11/18 05:42 Dose: 2 mg Meclizine HCl (Antivert -) 12.5 mg PO BID PRN PRN Reason: dizziness Multivitamins/Minerals/Vitamin C (Tab-A-Vit -) 1 tab PO DAILY [facility] Last Admin: 10/11/18 09:39 Dose: 1 tab Thiamine HCl (Vitamin B1 -) 100 mg PO DAILY [facility] Last Admin: 10/11/18 09:39 Dose: 100 mg Topiramate (Topamax -) 200 mg PO BID [facility] Last Admin: 10/11/18 09:39 Dose: 200 mg Trazodone HCl (Desyrel -) 100 mg PO HS [facility] Last Admin: 10/10/18 22:04 Dose: 100 mg Vital Signs Period Temp Pulse Resp BP Sys/Carlson Pulse Ox Last 24 Hr 97.2 F-98.4 F 51-80 18-20 90-138/55-80 100 Constitutional: Yes: Well Nourished, No Distress Eyes: No: Sclera Icterus HENT: No: Nasal Congestion Neck: No: Decreased ROM Respiratory: Yes: CTA Bilaterally (not deep breaths for exam). No: Accessory Muscle Use, Rales, Wheezes Gastrointestinal: Yes: Normal Bowel Sounds. No: Distention, Hepatomegaly, Palpable Mass, Tenderness Cardiovascular: Yes: Regular Rate and Rhythm JVD: No Carotid Bruit: No PMI: Non-Displaced Heart Sounds: Yes: S1, S2. No: Gallop Murmur: No: Systolic Murmur, Diastolic Murmur Musculoskeletal: Yes: Other (No kyphosis) Extremities: No: Cool, Cyanosis Edema: No Peripheral Pulses: 2+ Left Carotid, 2+ Right Carotid, 2+ Left Doralis Pedis, 2+ Right Dorsalis Pedis Integumentary: No: Jaundice Neurological: Yes: Alert, Oriented (x3) Psychiatric: No: Agitated Assessment/Plan MPI 07/23 (tessy): nl STs. large/severe anterior/septal/apical/lateral ischemia, EF 43%, + TID Echo 07/23: nl LV/EF. nl RV. nl LA. mild TR. CT head: no acute path vs priors: chronic R MCA infarct, L parietal, small R cerebellar ECG: NSR, normal axis/intervals. WNL--no change vs prior CXR: clear lungs/pleura LHC (08/23): NORMAL CORONARY ANGIOGRAM. (EDP normal = 9, nl EF). dizziness, fall: -details from notes, as pt currently cannot provide (sedated) - neuro evaluated - likely seizure - also hx vertigo, pt s/p CVA on meclizine at home. -bp's soft here, 90s > 80s systolic -on losartan-HCT at home, cont holding here sz disorder: -per hospitalist, neuro chest pain, h/o abnormal nuclear stress test: -normal cors on cath 08/2017 - cont aspirin HTN: -as above, holding home meds for now h/o CVA x multiple (periop bariatric surgery): -cont home aspirin, statin -outpt cardio f/u psych disorder, etoh use: -per hospitalist, psych
[2018-10-11] MEDS: traZODone HCL 100 MG TABLET (FP) PO SCH (22:04)
[2018-10-11] MEDS: ATORVASTATIN CA 20 MG TABLET (FP) PO SCH (22:04)
[2018-10-12] MEDS: LORazepam 1 MG TABLET PO PRN ×2 (04:26→04:40)
[2018-10-12] MEDS: SODIUM CHLORIDE 1,000 ML IV SCH (04:50)
[2018-10-12] MEDS: GABAPENTIN 300 MG CAPSULE (FP) PO SCH ×2 (06:58→14:11)
[2018-10-12] MEDS: TOPIRAMATE 100 MG TABLET PO SCH (09:34)
[2018-10-12] MEDS: CEPHALEXIN MONOHYDRATE 500 MG CAPSULE (UD) PO SCH (09:34)
[2018-10-12] MEDS: LACOSAMIDE 50 MG TABLET PO SCH (09:34)
[2018-10-12] MEDS: MULTIVITAMINS (DAILY MVI) TABLET (FP) PO SCH (09:34)
[2018-10-12] MEDS: FOLIC ACID 1 MG TABLET (FP) PO SCH (09:34)
[2018-10-12] MEDS: ASPIRIN 81 MG CHEWABLE TABLETS PO SCH (09:34)
[2018-10-12] MEDS: THIAMINE HCL 100 MG TABLET (FP) PO SCH (09:34)
[2018-10-12] MEDS: HEPARIN NA (PORCINE) 5,000 UNITS/ML 1ML VIAL SQ SCH (09:35)
--- NOTE | 2018-10-12 12:59 | DS ---
Physical Examination Vital Signs: Vital Signs Temperature 98.4 F 10/12/18 10:00 Pulse Rate 75 10/12/18 10:00 Respiratory Rate 20 10/12/18 10:00 Blood Pressure 103/72 10/12/18 10:00 O2 Sat by Pulse Oximetry (%) 100 10/11/18 21:00 awake alert in chair ready to go home Constitutional: Yes: Calm Cardiovascular: Yes: Regular Rate and Rhythm, S1, S2 Respiratory: Yes: CTA Bilaterally Gastrointestinal: Yes: Normal Bowel Sounds, Soft Edema: No Neurological: Yes: Alert, Oriented Labs: CBC, BMP 10/11/18 13:58 10/11/18 13:58 Discharge Summary Reason For Visit: ALCOHOL ABUSE,SEIZURE,SYNCOPE,HISTORY OF STROKE Current Active Problems Alcohol abuse (Acute) Dizziness (Acute) Fall (Acute) Hallucination (Acute) History of cardiac arrest (Acute) Hypertension (Acute) Syncope (Acute) UTI (urinary tract infection) (Acute) Hospital Course: CHIEF COMPLAINT:syncope PCP: Shu HISTORY OF PRESENT ILLNESS: 48-year-old woman reported episode of vertigo which occurred while walking in the evening on 10/07. Associated with headache, she fell on hit her head on a toilet, however denied losing consciousness. Denied any nausea or vomiting following this event. She reports extensive history of stroke - x5 in 2012 after which she underwent physical therapy. Says she does not ambulate with help of walker or cane. in hospital had patel seen by neurology medications adjusted and also uti to go home on abx Condition: Good - Instructions Referrals: Gina West MD [Staff Physician] - Andie Ireland MD [Primary Care Provider] - 1 Week Disposition: HOME - Home Medications Comprehensive Discharge Medication List: Ambulatory Orders Aspirin [ASA -] 81 mg PO DAILY 07/31/17 Atorvastatin Ca [Lipitor] 20 mg PO HS 07/31/17 Cyclobenzaprine HCl 10 mg PO HS PRN 07/31/17 Gabapentin 300 mg PO TID 07/31/17 Losartan 50Mg/Hctz 12.5MG [Hyzaar -] 1 tab PO DAILY 07/31/17 Meclizine HCl 12.5 mg PO BID PRN 07/31/17 Topiramate 100 mg PO DAILY 07/31/17 traZODone HCL [Trazodone HCl] 100 mg PO HS 07/31/17 Melatonin 5 mg PO HS PRN tab 08/03/17 Thiamine HCl [Vitamin B1 -] 100 mg PO HS tablet 08/03/17 Lidocaine Patch Removal [Lidoderm Patch Removal] 1 each MC DAILY@2200 #10 each 06/02/18
--- NOTE | 2018-10-12 14:23 | PN ---
Progress Note (short form) - Note Progress Note: s: no dizziness, palps, dyspnea cp Current Medications Generic Name Dose Route Start Last Admin Trade Name Freq PRN Reason Stop Dose Admin Acetaminophen/Butalbital/Caffeine tablet 10/10/18 08:37 Fioricet - PO 10/13/18 08:37 Q6H PRN FEVER Aspirin 81 mg 10/10/18 10:00 10/12/18 09:34 Asa - PO 81 mg DAILY [facility] Administration Atorvastatin Calcium 20 mg 10/09/18 22:00 10/11/18 22:04 Lipitor - PO 20 mg HS [facility] Administration Cephalexin HCl 500 mg 10/11/18 10:00 10/12/18 09:34 Keflex - PO 500 mg BID [facility] Administration Folic Acid 1 mg 10/10/18 10:00 10/12/18 09:34 Folic Acid - PO 1 mg DAILY [facility] Administration Gabapentin 300 mg 10/09/18 22:00 10/12/18 14:11 Neurontin - PO 300 mg TID [facility] Administration Heparin Sodium (Porcine) 5,000 unit 10/09/18 22:00 10/12/18 09:35 Heparin - SQ 5,000 unit BID [facility] Administration Sodium Chloride 1,000 mls @ 75 mls/hr 10/09/18 19:11 10/12/18 04:50 Normal Saline - IV 75 mls/hr ASDIR [facility] Administration Lacosamide 50 mg 10/09/18 22:00 10/12/18 09:34 Vimpat - PO 50 mg BID [facility] Administration Meclizine HCl 12.5 mg 10/09/18 19:11 Antivert - PO BID PRN dizziness Multivitamins/Minerals/Vitamin C 1 tab 10/10/18 10:00 10/12/18 09:34 Tab-A-Vit - PO 1 tab DAILY [facility] Administration Thiamine HCl 100 mg 10/10/18 10:00 10/12/18 09:34 Vitamin B1 - PO 100 mg DAILY [facility] Administration Topiramate 200 mg 10/10/18 21:45 10/12/18 09:34 Topamax - PO 200 mg BID [facility] Administration Trazodone HCl 100 mg 10/09/18 22:00 10/11/18 22:04 Desyrel - PO 100 mg HS [facility] Administration Vital Signs Period Temp Pulse Resp BP Sys/Carlson Pulse Ox Last 24 Hr 97.8 F-98.4 F 59-78 18-20 103-118/72-92 100 Constitutional: Yes: Well Nourished, No Distress Eyes: No: Sclera Icterus Respiratory: Yes: CTA Bilaterallynl eff. No: Accessory Muscle Use, Rales, Wheezes Gastrointestinal: Yes: Normal Bowel Sounds. No: Distention, Hepatomegaly, Palpable Mass, Tenderness Cardiovascular: Yes: Regular Rate and Rhythm JVD: No Heart Sounds: Yes: S1, S2. No: Gallop Murmur: No: Systolic Murmur, Diastolic Murmur Extremities: No: Cool, Cyanosis Edema: No Integumentary: No: Jaundice Neurological: Yes: Alert, Oriented (x3) Psychiatric: No: Agitated CBC, BMP 10/11/18 13:58 10/11/18 13:58 Assessment/Plan MPI 07/23 (tessy): nl STs. large/severe anterior/septal/apical/lateral ischemia, EF 43%, + TID Echo 07/23: nl LV/EF. nl RV. nl LA. mild TR. CT head: no acute path vs priors: chronic R MCA infarct, L parietal, small R cerebellar ECG: NSR, normal axis/intervals. WNL--no change vs prior CXR: clear lungs/pleura LHC (08/23): NORMAL CORONARY ANGIOGRAM. (EDP normal = 9, nl EF). dizziness, fall: - neuro evaluated - likely seizure - also hx vertigo, pt s/p CVA on meclizine at home. -bp's soft here, 90s > 80s systolic so home losartan-HCT stopped. bp better now. sz disorder: -per neuro chest pain, h/o abnormal nuclear stress test: -normal cors on cath 08/2017 -cont aspirin HTN: -as above, holding htn meds h/o CVA x multiple (periop bariatric surgery): -cont home aspirin, statin -outpt cardio f/u psych disorder, etoh use: -per hospitalist, psych cardiac mera stable for dc
[2018-10-12 15:47] VITALS: BP 107/70; PULSE 82; TEMP 97.3
== END 2018-10-12 18:00 | disposition home or self-care (01) | DRG 101 ==
LOC: JER 21:50 → JERBED 22:59 → J4W 10-08 18:12 → OBSVTOIN 10-09 11:21 → J5S 10-09 13:30
PROVIDERS: ADMIT Family Medicine; ATTEND Family Medicine
DX: R56.9 Unspecified convulsions (principal); R44.3 Hallucinations, unspecified; I69.354 Hemiplegia and hemiparesis following cerebral infarction affecting left non-dominant side; N39.0 Urinary tract infection, site not specified; I25.10 Atherosclerotic heart disease of native coronary artery without angina pectoris; I95.9 Hypotension, unspecified; F10.10 Alcohol abuse, uncomplicated; F32.9 Major depressive disorder, single episode, unspecified; R07.89 Other chest pain; I25.2 Old myocardial infarction; B96.20 Unspecified Escherichia coli [E. coli] as the cause of diseases classified elsewhere; R51 Headache; I10 Essential (primary) hypertension; R42 Dizziness and giddiness; G43.909 Migraine, unspecified, not intractable, without status migrainosus; W19.XXXA Unspecified fall, initial encounter; Z98.84 Bariatric surgery status
CPT/HCPCS: 36415; 70450-TC; 71045-TC-FY; 80048; 80053; 80307; 81003; 83735; 84100; 84484; 85025; 85027; 85610; 85730; 87086; 87186; 93005; 93010; 93306-TC; 97116-GP; 97161-GP; 99285-25; G0378; G0480; J1644; J7030

== ENCOUNTER 2018-12-25 09:46 | Inpatient (IN) | payer OTHER ==
--- NOTE | 2018-12-25 09:53 | PDOC ---
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 Had associated dizziness, perioral and Right facial numbness that made her concern for seizure onset. Last seizure was October 07, 2018. Tried gabapentin 600mg which initially led to resolution of BEAN, but subsequently recurred. Had BEAN x3 at ~ 2000, 0000, 0600. Has not had any recent changes in medications. Endorses compliance to all medications. 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 Currently, SORTING MACHINE ATTENDANT says pt is normal. Last week, had mechanical fall due to slipping on wet floor; might have hit head , (-)LOC. Has SORTING MACHINE ATTENDANT. Takes ASA 81mg QD. Sees her Neurologist Dr West 12/25/18 12:48 Associated Symptoms: reports: headaches (R-sided and frontotemporal), nausea/ vomiting (mild nausea, no vomiting). denies: chest pain, cough, fever/chills, loss of appetite, shortness of breath Aspirin Received prior to arrival: Yes: 81 mg x 1 NIH Stroke Scale - Last Known Well Date/Time & Onset Date Last Known Well: 12/24/18 Time Last Known Well: 21:00 - Initial Evaluation Level of consciousness: Alert Ask patient the month and their age: Answers one correctly (wrong month) Ask patient to open & close eyes; make fist and let go: Obeys both correctly Best gaze (horizontal eye movement): Normal Visual field testing: No visual field loss Facial paresis (Show teeth/raise eyebrows/close eyes tight): Normal symmetrical movement Motor Function: Left Arm: Normal Motor Function: Right Arm: Normal (extends arm 90 (or 45) degrees for 10 seconds without drift Motor Function: Left Leg: Normal (extends leg 30 degrees for 5 seconds without drift) Motor Function: Right Leg: Normal (extends leg 30 degrees for 5 seconds without drift) Limb Ataxia: No ataxia Sensory(Use pinprick test arms,legs,trunk,face/side to side): Normal Best language (Describe picture, name items, read sentences): No Aphasia Dysarthria (read several words): Mild to moderate slurring of words Extinction and Inattention: No abnormality - Total Score NIH Stroke Scale Score: 2 Past History - Travel Traveled outside of the country in the last 30 days: No Close contact w/someone who was outside of country & ill: No - Past Medical History Allergies/Adverse Reactions: Allergies Allergy/AdvReac Type Severity Reaction Status Date / Time ibuprofen [From Motrin] Allergy Intermediate Hives Verified 12/25/18 10:21 acetaminophen [From Percocet] Allergy Swelling Verified 12/25/18 10:21 oxycodone HCl [From Percocet] Allergy Swelling Verified 12/25/18 10:21 morphine AdvReac Severe Difficulty Verified 12/25/18 10:21 Breathing Home Medications: Ambulatory Orders Aspirin [ASA -] 81 mg PO DAILY 07/31/17 Atorvastatin Ca [Lipitor] 20 mg PO HS 07/31/17 Gabapentin 300 mg PO TID 07/31/17 Meclizine HCl 12.5 mg PO BID PRN 07/31/17 traZODone HCL [Trazodone HCl] 100 mg PO HS 07/31/17 Melatonin 5 mg PO HS PRN tab 08/03/17 Thiamine HCl [Vitamin B1 -] 100 mg PO HS tablet 08/03/17 Folic Acid - 1 mg PO DAILY #30 tablet MDD 1 10/12/18 Lacosamide [Vimpat -] 100 mg PO BID #60 tab MDD 4 10/12/18 Multivitamins [Multivit ([facility] Formul[facility])] 1 tab PO DAILY #30 tab MDD 1 10/12/18 Topiramate [Topamax -] 200 mg PO BID #30 tablet MDD 2 10/12/18 Anemia: Yes Asthma: No Cancer: No Cardiac Disorders: Yes (cardiac arrest 03/2013) CVA: Yes (X3 in 2012) COPD: No CHF: No Dementia: No Diabetes: No GI Disorders: Yes (GERD, gastric bypass) Disorders: No HTN: Yes Hypercholesterolemia: Yes Liver Disease: No Seizures: Yes (Last seizure October 2018) Thyroid Disease: No - Surgical History Abdominal Surgery: Yes (gastric bypass) Appendectomy: No Cardiac Surgery: No Cholecystectomy: No Lung Surgery: No Neurologic Surgery: No Orthopedic Surgery: Yes (LEFT KNEE 2015) Other Surgical History: 12/25/18 12:00 - - Family Disease History Family Disease History: Other: Grandparents (HTN) - Immunization History Immunization Up to Date: Yes - Suicide/Smoking/Psychosocial Hx Smoking Status: No Smoking History: Former smoker Have you smoked in the past 12 months: No Number of Cigarettes Smoked Daily: 0 Hx Alcohol Use: No Drug/Substance Use Hx: No Substance Use Type: None Hx Substance Use Treatment: No Review of Systems - Review of Systems Able to Perform ROS?: Yes Is the patient limited Korean proficient: No Constitutional: Yes: Chills. No: Fever, Loss of Appetite, Unintentional Wgt. Loss HEENTM: No: Eye Pain, Blurred Vision, Throat Pain, Throat Swelling Respiratory: No: Cough, Orthopnea, Wheezing Cardiac (ROS): No: Chest Pain, Palpitations ABD/GI: No: Constipated, Diarrhea, Nausea, Vomiting : No: Burning, Dysuria, Discharge, Hematuria Musculoskeletal: No: Back Pain, Joint Pain, Muscle Pain Neurological: Yes: Headache (10/10 Right frontal-temporal ), Unsteady Gait ( ambulates w/ assistance w/ SORTING MACHINE ATTENDANT). No: Numbness, Seizure, Tremors, Weakness *Physical Exam - Physical Exam General Appearance: Yes: Nourished. No: Apparent Distress, Cachetic, Obese, Thin HEENT: positive: EOMI. negative: Scleral Icterus (R), Scleral Icterus (L) Neck: negative: Tender, Lymphadenopathy (R), Lymphadenopathy (L) Respiratory/Chest: positive: Lungs Clear, Normal Breath Sounds. negative: Decreased Breath Sounds, Stridor, Wheezing Cardiovascular: positive: Regular Rate, S1, S2 Gastrointestinal/Abdominal: positive: Soft. negative: Protuberent, Distended, Guarding, Rebound, Tenderness Extremity: positive: Other (LUE with contracture) Integumentary: positive: Dry, Warm Neurologic: positive: Alert, Numbness (Left facial, LUE, LLE), Disoriented (not oriented to time) ED Treatment Course - LABORATORY CBC & Chemistry Diagram: 12/26/18 08:20 08/21/19 08:20 Medical Decision Making - Medical Decision Making 12/25/18 12:24 - no TPA due to symptom onset at ~0300 - fu CBC, CMP, lipase - fu EKG - CT Head -- unchanged past infarcts(R MCA, L parietal lobe, R cerebellum) 12/25/18 12:49 - Signed out to Dr Espinal *DC/Admit/Observation/Transfer Diagnosis at time of Disposition: Headache - Discharge Dispostion Disposition: HOME Condition at time of disposition: Stable - Referrals - Patient Instructions - Post Discharge Activity
[2018-12-25] MEDS ORDERED: ACETAMINOPHEN 1000 MG/100 ML VIAL (NON FORMULARY) IVPB ONE (10:26)
[2018-12-25] MEDS ORDERED: METOCLOPRAMIDE HCL INJECTION 10 MG/2 ML VIAL IVPUSH ONE (10:26)
[2018-12-25] MEDS ORDERED: SODIUM CHLORIDE 0.9% 500 ML INFUS.BAG IV ONE (10:31)
[2018-12-25] MEDS ORDERED: ACETAMINOPHEN INJECTION 100 ML IVPB ONE (10:54)
[2018-12-25] MEDS ORDERED: METOCLOPRAMIDE HCL INJECTION 10 MG/2 ML VIAL ONE (10:54)
--- NOTE | 2018-12-25 11:11 | PDOC ---
Documentation entered by Dottie Stevens SCRIBE, acting as scribe for Elle Morillo DO. Elle Morillo DO: This documentation has been prepared by the simonibe, Dottie Stevens SCRIBE, under my direction and personally reviewed by me in its entirety. I confirm that the documentation accurately reflects all work, treatment, procedures, and medical decision making performed by me. Attending Attestation - Resident Resident Name: Grabiel Russell - ED Attending Attestation I have performed the following: I have examined & evaluated the patient, The case was reviewed & discussed with the resident, I agree w/resident's findings & plan, Exceptions are as noted - HPI HPI: 12/25/18 11:29 The patient is a 48-year-old female, with a past medical history of anemia, [place] ( 03/2013), CVA x3, HTN, HLD, GERD, gastric bypass, and seizures, who presents to the ED with a mechanical slip and fall a few days ago. Patients aide was cleaning floors and the patient fell, hitting her head. She denies any loss of consciousness. Last night the patient developed a RT sided headache and an aura at same time and reports that her speech has been different since 3:30 PM yesterday. Patient last saw her neurologist (Dr. West) on 10/09/18 when she experienced her last seizure. She denies any recent changes recent changes in her gabapentin which she takes 2x a day. The patient denies any fever, chills, nausea, vomiting, diarrhea, constipation, or abdominal pain. Denies any chest pain or shortness of breath. Neurologist: Dr. West - Physicial Exam PE: 12/25/18 11:31 GENERAL: Awake, alert, and fully oriented, in no acute distress HEAD: No signs of trauma EYES: PERRLA, EOMI, sclera anicteric, conjunctiva clear ENT: Auricles normal inspection, hearing grossly normal, nares patent, oropharynx clear without exudates. Moist mucosa NECK: Normal ROM, supple, no lymphadenopathy, JVD, or masses LUNGS: Breath sounds equal, clear to auscultation bilaterally. No wheezes, and no crackles HEART: Regular rate and rhythm, normal S1 and S2, no murmurs, rubs or gallops ABDOMEN: Soft, nontender, normoactive bowel sounds. No guarding, no rebound. No masses EXTREMITIES: Normal range of motion, no edema. No clubbing or cyanosis. No cords, erythema, or tenderness NEUROLOGICAL: (+)Weakness LLE, left hand is contracted, and decreased sensation on her LT side which is her baseline. Abnormal speech on exam. SKIN: Warm, Dry, normal turgor, no rashes or lesions noted - Medical Decision Making 12/25/18 11:06 I, Dr. Elle Morillo, DO, attest that this document has been prepared under my direction and personally reviewed by me in its entirety. I further attest, that it accurately reflects all work, treatment, procedures and medical decision -making performed by me. a/p: 48yo female with hx of cva with residual L sided weakness, also with seizure hx - jeffries and aura of seizure since yesterday - states abnl speech, feels more slurred and difficulty speaking since yesterday at 330p -hx of head injury earlier last week after a mechanical trip and fall -jeffries since yesterday - improved with gabapentin intermittently -pt denies cp/sob -no abd pain -nausea with the jeffries -will send for head ct, labs, ekg -will medicate with reglan/tylenol, ivf -will discuss with Dr. Alcocer 12/25/18 11:54 no acute findings on head ct labs pending 12/25/18 12:45 labs reviewed no tpa given symptoms of slurred speech started yesterday at 330p pt will be admitted for neuro eval and follow up withe pmd for further eval of jeffries and slurred speech
[2018-12-25 11:57] LABS: EOS % 3.2 % (0-4.5); HEMATOCRIT 39.6 % (32.4-45.2); HEMOGLOBIN 12.7 GM/dL (10.7-15.3); LYMPH % 20.8 % (8-40); MEAN CELL VOLUME 87.4 fl (80-96); MEAN PLT VOLUME 8.8 fl (7.5-11.1); MONO % 8.3 % (3.8-10.2); NEUT % 66.7 % (42.8-82.8); PLATELET COUNT 209 K/MM3 (134-434); RBC 4.53 M/mm3 (3.60-5.2); RDW 17.2 % (11.6-15.6)
[2018-12-25 12:03] LABS: PH,URINE 8.5 (5.0-8.0); URINE APPEARANCE CLEAR; URINE BILIRUBIN NEGATIVE (NEGATIVE); URINE COLOR YELLOW; URINE GLUCOSE (UA) NEGATIVE (NEGATIVE); URINE KETONE NEGATIVE (NEGATIVE); URINE LEUK ESTERASE NEGATIVE (NEGATIVE); URINE NITRITE NEGATIVE (NEGATIVE); URINE PROTEIN NEGATIVE (NEGATIVE); URINE UROBILINOGEN 0.2 mg/dL (0.2-1.0)
[2018-12-25 12:25] LABS: INR 0.89 (0.83-1.09); PROTHROMBIN TIME (PATIENT) 10.5 SEC (9.7-13.0)
[2018-12-25 12:29] LABS: ALBUMIN 3.9 g/dl (3.4-5.0); ALK PHOS 105 U/L (45-117); ANION GAP 8 MMOL/L (8-16); BILIRUBIN,TOTAL 0.4 mg/dL (0.2-1); BLOOD UREA NITROGEN 15.5 mg/dL (7-18); CALCIUM 9.7 mg/dL (8.5-10.1); CHLORIDE 108 mmol/L (98-107); CHOLESTEROL 206 mg/dL (50-200); CO2 25 mmol/L (21-32); CREATININE 0.7 mg/dL (0.55-1.3); GLUCOSE,RANDOM 104 mg/dL (74-106); HDL CHOLESTEROL 97 mg/dL (40-60); POTASSIUM 3.7 mmol/L (3.5-5.1); SGOT/AST 18 U/L (15-37); SGPT/ALT 19 U/L (13-61); SODIUM 140 mmol/L (136-145); TOT PROT 8.1 g/dl (6.4-8.2); TRIGLYCERIDES 180 mg/dL (0-150)
[2018-12-25] MEDS ORDERED: ASPIRIN 81 MG CHEWABLE TABLETS PO ONE (12:46)
[2018-12-25] MEDS ORDERED: GABAPENTIN 300 MG CAPSULE (FP) PO ONE (12:53)
[2018-12-25] MEDS ORDERED: ASPIRIN 81 MG CHEWABLE TABLETS ONE (13:21)
[2018-12-25] MEDS ORDERED: GABAPENTIN 100 MG CAPSULE (FP) ONE ×2 (13:22→21:31)
--- NOTE | 2018-12-25 13:36 | EKG ---
Test Reason : Blood Pressure : / mmHG Vent. Rate : 068 BPM Atrial Rate : 068 BPM P-R Int : 150 ms QRS Dur : 086 ms QT Int : 400 ms P-R-T Axes : 033 018 021 degrees QTc Int : 425 ms NORMAL SINUS RHYTHM NORMAL ECG WHEN COMPARED WITH ECG OF 10-OCT-2018 06:43, NO SIGNIFICANT CHANGE WAS FOUND Confirmed by MD NATHAN, PARISH ([id number]) on 12/25/2018 1:35:39 PM Referred By: Confirmed By:PARISH EVANS MD
--- NOTE | 2018-12-25 17:00 | HP ---
Admitting History and Physical - Primary Care Physician PCP: Andie Ireland - Admission History of Present Illness: Patient is 48 y/o female with past medical history of HTN, gastric bypass, intraop cardiac arrest, seizure disorder, 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 Patient states yesterday afternoon she noticed she developed slurred speech accompanied with R sided headache, dizziness, mid, non radiating chest pain, and "seizure-like" shaking. She took her seizure medication and did not feel any relief. This morning patient states she did not feel better and presented to ER with FACTORY CLERK. 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: CVA (at time of gastric bypass), Migraine, Seizure Cardiovascular: Yes: HTN, Other (cardiac arrest at time of gastric bypass) Gastrointestinal: Yes: Other (s/p bariatric surgery) ...LMP: 01/22/12 Psych: Yes: Depression Musculoskeletal: Yes: Hemiplegia (residual left side weakness from the CVA) - Past Surgical History Past Surgical History: Yes: Bariatric Surgery (2012), Upper Endoscopy (2005) - Smoking History Smoking history: Former smoker Have you smoked in the past 12 months: No Aproximately how many cigarettes per day: 0 - Alcohol/Substance Use Hx Alcohol Use: No - Social History ADL: Independent History of Recent Travel: No Home Medications - Allergies Allergies/Adverse Reactions: Allergies Allergy/AdvReac Type Severity Reaction Status Date / Time ibuprofen [From Motrin] Allergy Intermediate Hives Verified 12/25/18 10:21 acetaminophen [From Percocet] Allergy Swelling Verified 12/25/18 10:21 oxycodone HCl [From Percocet] Allergy Swelling Verified 12/25/18 10:21 morphine AdvReac Severe Difficulty Verified 12/25/18 10:21 Breathing - Home Medications Home Medications: Ambulatory Orders Aspirin [ASA -] 81 mg PO DAILY 07/31/17 Atorvastatin Ca [Lipitor] 20 mg PO HS 07/31/17 Gabapentin 300 mg PO TID 07/31/17 Meclizine HCl 12.5 mg PO BID PRN 07/31/17 traZODone HCL [Trazodone HCl] 100 mg PO HS 07/31/17 Melatonin 5 mg PO HS PRN tab 08/03/17 Thiamine HCl [Vitamin B1 -] 100 mg PO HS tablet 08/03/17 Cephalexin Monohydrate [Keflex -] 500 mg PO BID #10 capsule MDD 2 10/12/18 Folic Acid - 1 mg PO DAILY #30 tablet MDD 1 10/12/18 Lacosamide [Vimpat -] 100 mg PO BID #60 tab MDD 4 10/12/18 Multivitamins [Multivit ([facility] Formul[facility])] 1 tab PO DAILY #30 tab MDD 1 10/12/18 Topiramate [Topamax -] 200 mg PO BID #30 tablet MDD 2 10/12/18 Review of Systems - Review of Systems Constitutional: reports: Weakness Eyes: reports: No Symptoms, Double Vision HENT: reports: No Symptoms Neck: reports: No Symptoms Cardiovascular: reports: Chest Pain, Palpitations Respiratory: reports: No Symptoms Gastrointestinal: reports: Nausea Genitourinary: reports: No Symptoms Breasts: reports: No Symptoms Reported Musculoskeletal: reports: Muscle Weakness Integumentary: reports: No Symptoms Neurological: reports: No Symptoms Endocrine: reports: No Symptoms Hematology/Lymphatic: reports: No Symptoms Psychiatric: reports: No Symptoms Physical Examination Vital Signs: Vital Signs Temperature 97.8 F 12/25/18 10:00 Pulse Rate 77 12/25/18 14:10 Respiratory Rate 16 12/25/18 10:00 Blood Pressure 129/84 12/25/18 14:10 O2 Sat by Pulse Oximetry (%) 100 12/25/18 14:10 Constitutional: Yes: No Distress, Calm Eyes: Yes: Conjunctiva Clear HENT: Yes: Atraumatic Cardiovascular: Yes: Regular Rate and Rhythm Respiratory: Yes: Regular, CTA Bilaterally Gastrointestinal: Yes: Normal Bowel Sounds, Soft Musculoskeletal: Yes: Muscle Weakness ( L side) Extremities: Yes: WNL Edema: No Neurological: Yes: Alert, Pre-Existing Deficit Psychiatric: Yes: Alert Labs: CBC, BMP 12/25/18 11:07 12/25/18 11:07 Imaging - Results Cat Scan: Report Reviewed MRI: Report Reviewed Problem List - Problems (1) Chest pain Assessment/Plan: -Cardiology consult -tele monitoring -troponin neg Code(s): R07.9 - CHEST PAIN, UNSPECIFIED Qualifiers: Chest pain type: other chest pain Qualified Code(s): R07.89 - Other chest pain; R07.8 - Other chest pain (2) Epilepsy Assessment/Plan: -Neurology consult -Gabapentin, Carbamezepine, Vimpat -seizure precaution -neuro check q4h Code(s): G40.909 - EPILEPSY, UNSP, NOT INTRACTABLE, WITHOUT STATUS EPILEPTICUS (3) HTN (hypertension) Assessment/Plan: -monitor BP Code(s): I10 - ESSENTIAL (PRIMARY) HYPERTENSION (4) Headache Assessment/Plan: -Neurology consult -r/o TIA -Head CT scan shows no acute interval change or acute pathology, chronic bilateral supratentorial infarcts seen including chronic lacunar infarct right cerebellum, chronic sinusitis with partially included retention cyst vs polyp right maxillary antrum -Brain MRI shows no acute infarcts, multiple chronic supratentorial and infratentorial infarcts noted without definite interval change -carotid US -cardiology consult -neuro checks q4h -tele monitoring Code(s): R51 - HEADACHE Assessment/Plan see problem list dvt ppx
--- NOTE | 2018-12-25 17:23 | PDOC ---
*Physical Exam - Vital Signs Last Vital Signs Temp Pulse Resp BP Pulse Ox 97.8 F 77 16 129/84 100 12/25/18 10:00 12/25/18 14:10 12/25/18 10:00 12/25/18 14:10 12/25/18 14:10 ED Treatment Course - LABORATORY CBC & Chemistry Diagram: 12/26/18 08:20 12/26/18 08:20 - ADDITIONAL ORDERS Additional order review: Laboratory Results 12/25/18 12/25/18 12/25/18 11:07 11:07 11:07 PT with INR INR Sodium 140 Potassium 3.7 Chloride 108 H Carbon Dioxide 25 Anion Gap 8 BUN 15.5 Creatinine 0.7 Est GFR (CKD-EPI)AfAm 117.91 Est GFR (CKD-EPI)NonAf 101.74 Random Glucose 104 Calcium 9.7 Total Bilirubin 0.4 AST 18 ALT 19 Alkaline Phosphatase 105 Troponin I < 0.02 Total Protein 8.1 Albumin 3.9 Triglycerides 180 H Cholesterol 206 H Total LDL Cholesterol 89 HDL Cholesterol 97 H Urine Color Yellow Urine Appearance Clear Urine pH 8.5 H D Ur Specific [place] 1.007 L Urine Protein Negative Urine Glucose (UA) Negative Urine Ketones Negative Urine Blood Negative Urine Nitrite Negative Urine Bilirubin Negative Urine Urobilinogen 0.2 Ur Leukocyte Esterase Negative Urine HCG, Qual Negative 12/25/18 11:07 PT with INR 10.50 INR 0.89 Sodium Potassium Chloride Carbon Dioxide Anion Gap BUN Creatinine Est GFR (CKD-EPI)AfAm Est GFR (CKD-EPI)NonAf Random Glucose Calcium Total Bilirubin AST ALT Alkaline Phosphatase Troponin I Total Protein Albumin Triglycerides Cholesterol Total LDL Cholesterol HDL Cholesterol Urine Color Urine Appearance Urine pH Ur Specific [place] Urine Protein Urine Glucose (UA) Urine Ketones Urine Blood Urine Nitrite Urine Bilirubin Urine Urobilinogen Ur Leukocyte Esterase Urine HCG, Qual 12/25/18 11:07 RBC 4.53 MCV 87.4 MCHC 32.0 RDW 17.2 H MPV 8.8 Neutrophils % 66.7 Lymphocytes % 20.8 D Monocytes % 8.3 Eosinophils % 3.2 D Basophils % 1.0 - Medications Given in the ED: ED Medications Discontinued Medications Generic Name Dose Route Start Last Admin Trade Name Freq PRN Reason Stop Dose Admin Acetaminophen 1,000 mg 12/25/18 10:26 12/25/18 11:15 Ofirmev Injection - IVPB 12/25/18 10:27 1,000 mg ONCE ONE Administration Aspirin 162 mg 12/25/18 12:46 12/25/18 13:26 Asa - PO 12/25/18 12:47 162 mg ONCE ONE Administration Gabapentin 600 mg 12/25/18 12:53 12/25/18 13:26 Neurontin - PO 12/25/18 12:54 600 mg ONCE ONE Administration Metoclopramide HCl 10 mg 12/25/18 10:26 12/25/18 11:15 Reglan Injection - IVPUSH 12/25/18 10:27 10 mg ONCE ONE Administration Sodium Chloride 1,000 ml 12/25/18 10:31 12/25/18 11:15 Normal Saline - IV 12/25/18 10:32 1,000 ml ONCE ONE Administration Medical Decision Making - Medical Decision Making 12/25/18 17:[address] Russell 48yo F hx of CVA x5 with residual deficits on her left side (numbness, contractures and eye blindness presents to the ED with right sided headache (frontotemporal) NIHSS =2 CT head unchanged from last Ct showing infarcts EKG: NSR, normal EKG unchanged compared to 09/10/2018 Pt admitted with consult tto Dr. West (neurologist) *DC/Admit/Observation/Transfer Diagnosis at time of Disposition: Headache Qualifiers: Headache type: unspecified Headache chronicity pattern: acute headache Intractability: not intractable Qualified Code(s): R51 - Headache - Discharge Dispostion Disposition: HOME Condition at time of disposition: Stable - Referrals - Patient Instructions - Post Discharge Activity
[2018-12-25] MEDS ORDERED: LACOSAMIDE 50 MG TABLET PO ONE (21:30)
[2018-12-25] MEDS ORDERED: carBAMazepine 200 MG TABLET ONE (21:31)
[2018-12-25] MEDS ORDERED: HEPARIN NA (PORCINE) 5,000 UNITS/ML 1ML VIAL ONE (21:31)
[2018-12-25] MEDS: HEPARIN NA (PORCINE) 5,000 UNITS/ML 1ML VIAL SQ SCH (21:59)
[2018-12-25] MEDS: LACOSAMIDE 50 MG TABLET PO SCH (21:59)
[2018-12-25] MEDS: carBAMazepine XR 200 MG TAB.ER.12H PO SCH (21:59)
[2018-12-25] MEDS ORDERED: GABAPENTIN 300 MG CAPSULE (FP) PO SCH (22:00)
[2018-12-26] MEDS ORDERED: METOCLOPRAMIDE HCL INJECTION 10 MG/2 ML VIAL IVPUSH ONE (04:09)
[2018-12-26] MEDS ORDERED: diphenhydrAMINE HCL 25 MG CAPSULE (FP) PO ONE ×2 (04:49→04:58)
[2018-12-26 07:01] VITALS: TEMP 98
[2018-12-26 08:48] LABS: BASO % 1.5 % (0-2.0); EOS % 3.1 % (0-4.5); HEMATOCRIT 37.5 % (32.4-45.2); HEMOGLOBIN 11.8 GM/dL (10.7-15.3); MCH 27.9 pg (25.7-33.7); MCHC 31.6 g/dl (32.0-36.0); MEAN CELL VOLUME 88.2 fl (80-96); MEAN PLT VOLUME 8.6 fl (7.5-11.1); MONO % 8.5 % (3.8-10.2); NEUT % 49.9 % (42.8-82.8); PLATELET COUNT 215 K/MM3 (134-434); RBC 4.25 M/mm3 (3.60-5.2); RDW 17.2 % (11.6-15.6); WHITE BLOOD COUNT 3.7 K/mm3 (4.0-10.0)
[2018-12-26 09:30] LABS: ALBUMIN 3.7 g/dl (3.4-5.0); ALK PHOS 97 U/L (45-117); ANION GAP 10 MMOL/L (8-16); BILIRUBIN,TOTAL 0.3 mg/dL (0.2-1); CALCIUM 9.2 mg/dL (8.5-10.1); CHLORIDE 107 mmol/L (98-107); CHOLESTEROL 200 mg/dL (50-200); CO2 24 mmol/L (21-32); CREATININE 0.7 mg/dL (0.55-1.3); GLUCOSE,RANDOM 78 mg/dL (74-106); HDL CHOLESTEROL 98 mg/dL (40-60); MAGNESIUM 2.5 mg/dL (1.8-2.4); PHOSPHOROUS 3.4 mg/dL (2.5-4.9); SGOT/AST 20 U/L (15-37); SGPT/ALT 17 U/L (13-61); SODIUM 141 mmol/L (136-145); TOT PROT 7.7 g/dl (6.4-8.2); TRIGLYCERIDES 107 mg/dL (0-150)
[2018-12-26] MEDS ORDERED: TOPIRAMATE 200 MG TABLET (FP) PO SCH (10:00)
[2018-12-26] MEDS ORDERED: GABAPENTIN 300 MG CAPSULE (FP) PO SCH (10:00)
[2018-12-26] MEDS ORDERED: FOLIC ACID 1 MG TABLET (FP) PO SCH (10:00)
--- NOTE | 2018-12-26 10:06 | CONSULT ---
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 Patient states yesterday afternoon she noticed she developed slurred speech accompanied with R sided headache, dizziness, mid, non radiating chest pain, and "seizure-like" shaking. She took her seizure medication and did not feel any relief. This morning patient states she did not feel better and presented to ER with [employer]ATOR. CT head completed and without acute changes. MRI brain reviewed and discussed and also without any new infarcts. Does not have any new deficits on exam. Discussed with hospitalist and patient seems to be at baseline. She is awaiting further cardiac workup and may be consider discharge if remainder of workup negative. 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: CVA (at time of gastric bypass), Migraine, Seizure Cardiovascular: Yes: HTN, Other (cardiac arrest at time of gastric bypass) Gastrointestinal: Yes: Other (s/p bariatric surgery) ...LMP: 01/22/12 Psych: Yes: Depression Musculoskeletal: Yes: Hemiplegia (residual left side weakness from the CVA) - Past Surgical History Past Surgical History: Yes: Bariatric Surgery (2012), Upper Endoscopy (2005) - Smoking History Smoking history: Former smoker Have you smoked in the past 12 months: No Family: HTN - Alcohol/Substance Use Hx Alcohol Use: No - Social History ADL: Independent History of Recent Travel: No Home Medications - Allergies Allergies/Adverse Reactions: Allergies Allergy/AdvReac Type Severity Reaction Status Date / Time ibuprofen [From Motrin] Allergy Intermediate Hives Verified 12/25/18 10:21 acetaminophen [From Percocet] Allergy Swelling Verified 12/25/18 10:21 oxycodone HCl [From Percocet] Allergy Swelling Verified 12/25/18 10:21 morphine AdvReac Severe Difficulty Verified 12/25/18 10:21 Breathing - Home Medications Home Medications: Ambulatory Orders Aspirin [ASA -] 81 mg PO DAILY 07/31/17 Atorvastatin Ca [Lipitor] 20 mg PO HS 07/31/17 Gabapentin 300 mg PO TID 07/31/17 Meclizine HCl 12.5 mg PO BID PRN 07/31/17 traZODone HCL [Trazodone HCl] 100 mg PO HS 07/31/17 Melatonin 5 mg PO HS PRN tab 08/03/17 Thiamine HCl [Vitamin B1 -] 100 mg PO HS tablet 08/03/17 Cephalexin Monohydrate [Keflex -] 500 mg PO BID #10 capsule MDD 2 10/12/18 Folic Acid - 1 mg PO DAILY #30 tablet MDD 1 10/12/18 Lacosamide [Vimpat -] 100 mg PO BID #60 tab MDD 4 10/12/18 Multivitamins [Multivit ([facility] Formul[facility])] 1 tab PO DAILY #30 tab MDD 1 10/12/18 Topiramate [Topamax -] 200 mg PO BID #30 tablet MDD 2 10/12/18 Review of Systems - Review of Systems Constitutional: reports: Weakness Eyes: reports: No Symptoms, Double Vision HENT: reports: No Symptoms Neck: reports: No Symptoms Cardiovascular: reports: Chest Pain, Palpitations Respiratory: reports: No Symptoms Gastrointestinal: reports: Nausea Genitourinary: reports: No Symptoms Breasts: reports: No Symptoms Reported Musculoskeletal: reports: Muscle Weakness Integumentary: reports: No Symptoms Neurological: reports: No Symptoms Endocrine: reports: No Symptoms Hematology/Lymphatic: reports: No Symptoms Psychiatric: reports: No Symptoms Physical Examination Vital Signs: Vital Signs Temperature 97.8 F 12/25/18 10:00 Pulse Rate 77 12/25/18 14:10 Respiratory Rate 16 12/25/18 10:00 Blood Pressure 129/84 12/25/18 14:10 O2 Sat by Pulse Oximetry (%) 100 12/25/18 14:10 Constitutional: Yes: No Distress, Calm Eyes: Yes: Conjunctiva Clear HENT: Yes: Atraumatic Cardiovascular: Yes: Regular Rate and Rhythm Respiratory: Yes: Regular, CTA Bilaterally Gastrointestinal: Yes: Normal Bowel Sounds, Soft Musculoskeletal: Yes: Muscle Weakness ( L side) Extremities: Yes: WNL Edema: No Neurological: AWake, alert, reduced L sensation, L side 4/5, R 5/5, finger to nose intact CBCD WBC 3.7 K/mm3 (4.0-10.0) L 12/26/18 08:20 RBC 4.25 M/mm3 (3.60-5.2) 12/26/18 08:20 Hgb 11.8 GM/dL (10.7-15.3) 12/26/18 08:20 Hct 37.5 % (32.4-45.2) 12/26/18 08:20 MCV 88.2 fl (80-96) 12/26/18 08:20 MCHC 31.6 g/dl (32.0-36.0) L 12/26/18 08:20 RDW 17.2 % (11.6-15.6) H 12/26/18 08:20 Plt Count 215 K/MM3 (134-434) 12/26/18 08:20 MPV 8.6 fl (7.5-11.1) 12/26/18 08:20 CMP Sodium 141 mmol/L (136-145) 12/26/18 08:20 Potassium 4.0 mmol/L (3.5-5.1) 12/26/18 08:20 Chloride 107 mmol/L (98-107) 12/26/18 08:20 Carbon Dioxide 24 mmol/L (21-32) 12/26/18 08:20 Anion Gap 10 MMOL/L (8-16) 12/26/18 08:20 BUN 9.0 mg/dL (7-18) 12/26/18 08:20 Creatinine 0.7 mg/dL (0.55-1.3) 12/26/18 08:20 Random Glucose 78 mg/dL (74-106) 12/26/18 08:20 Calcium 9.2 mg/dL (8.5-10.1) 12/26/18 08:20 Total Bilirubin 0.3 mg/dL (0.2-1) 12/26/18 08:20 AST 20 U/L (15-37) 12/26/18 08:20 ALT 17 U/L (13-61) 12/26/18 08:20 Alkaline Phosphatase 97 U/L (45-117) 12/26/18 08:20 Total Protein 7.7 g/dl (6.4-8.2) 12/26/18 08:20 Albumin 3.7 g/dl (3.4-5.0) 12/26/18 08:20 CARDIAC ENZYMES Creatine Kinase 104 U/L (26-192) 12/26/18 08:20 Troponin I < 0.02 ng/ml (0.00-0.05) 12/26/18 08:20 Plan: Patient is 48 y/o female with past medical history of HTN, gastric bypass, intraop cardiac arrest, seizure disorder, 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 Patient states yesterday afternoon she noticed she developed slurred speech accompanied with R sided headache, dizziness, mid, non radiating chest pain, and "seizure-like" shaking. She took her seizure medication and did not feel any relief. This morning patient states she did not feel better and presented to ER with [employer] O[employer]ATOR. CT head completed and without acute changes. MRI brain reviewed and discussed and also without any new infarcts. Does not have any new deficits on exam. Discussed with hospitalist and patient seems to be at baseline. She is awaiting further cardiac workup and may be consider discharge if remainder of workup negative. Continue seizure medication, home dose can remain. No abnormal movements, appears to be at baseline during evaluation. Monitor blood pressure, maintain normotensive range.
--- NOTE | 2018-12-26 11:02 | CON.CARD ---
Cardiology Consult (text) - Consultation Consultation Note: Consult Specialty:: cardio - History of Present Illness Chief Complaint: slurred speech History of Present Illness: 48 F h/o HTN, intraop cardiac arrest, CVA with residual L deficit here with slurred speech. sees Dr. Mojica for cardio. Slurred speech started yesterday afternoon associated with R side headache, dizziness, shaking. Also had chest pain all day yesterday, better this morning. Middle of chest, not reproducible, simliar to prior chest pain episodes. 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: CVA (at time of gastric bypass), Migraine, Seizure Cardio/Vascular: Yes: HTN, Other (cardiac arrest at time of gastric bypass) Gastrointestinal: Yes: Other (s/p bariatric surgery) ...LMP: 01/22/12 Musculoskeletal: Yes: Hemiplegia (residual left side weakness from the CVA) - Past Surgical History Past Surgical History: Yes: Bariatric Surgery (2012), Upper Endoscopy (2005) - Alcohol/Substance Use Hx Alcohol Use: No - Smoking History Smoking history: Never smoked Have you smoked in the past 12 months: No Aproximately how many cigarettes per day: 0 - Social History Usual Living Arrangement: Alone Home Medications - Allergies Allergies/Adverse Reactions: Allergies Allergy/AdvReac Type Severity Reaction Status Date / Time ibuprofen [From Motrin] Allergy Intermediate Hives Verified 12/25/18 10:21 acetaminophen [From Percocet] Allergy Swelling Verified 12/25/18 10:21 oxycodone HCl [From Percocet] Allergy Swelling Verified 12/25/18 10:21 morphine AdvReac Severe Difficulty Verified 12/25/18 10:21 Breathing Ambulatory Orders Aspirin [ASA -] 81 mg PO DAILY 07/31/17 Atorvastatin Ca [Lipitor] 20 mg PO HS 07/31/17 Gabapentin 300 mg PO TID 07/31/17 Meclizine HCl 12.5 mg PO BID PRN 07/31/17 traZODone HCL [Trazodone HCl] 100 mg PO HS 07/31/17 Melatonin 5 mg PO HS PRN tab 08/03/17 Thiamine HCl [Vitamin B1 -] 100 mg PO HS tablet 08/03/17 Cephalexin Monohydrate [Keflex -] 500 mg PO BID #10 capsule MDD 2 10/12/18 Folic Acid - 1 mg PO DAILY #30 tablet MDD 1 10/12/18 Lacosamide [Vimpat -] 100 mg PO BID #60 tab MDD 4 10/12/18 Multivitamins [Multivit ([facility] Form[facility])] 1 tab PO DAILY #30 tab MDD 1 10/12/18 Topiramate [Topamax -] 200 mg PO BID #30 tablet MDD 2 10/12/18 Family Disease History - Family Disease History Family History: unremarkable Review of Systems ROS: as per HPI, otherwise negative Vital Signs: Vital Signs Period Temp Pulse Resp BP Sys/Carlson Pulse Ox Last 24 Hr 98.0 F 68-77 15 129-147/84-101 100-100 Constitutional: Yes: Well Nourished, No Distress Eyes: No: Sclera Icterus HENT: No: Nasal Congestion Neck: No: Decreased ROM Respiratory: Yes: CTA Bilaterally (not deep breaths for exam). No: Accessory Muscle Use, Rales, Wheezes Gastrointestinal: Yes: Normal Bowel Sounds. No: Distention, Hepatomegaly, Palpable Mass, Tenderness Cardiovascular: Yes: Regular Rate and Rhythm JVD: No Carotid Bruit: No PMI: Non-Displaced Heart Sounds: Yes: S1, S2. No: Gallop Murmur: No: Systolic Murmur, Diastolic Murmur Musculoskeletal: Yes: Other (No kyphosis) Extremities: No: Cool, Cyanosis Edema: No Peripheral Pulses: 2+ Left Carotid, 2+ Right Carotid, 2+ Left Doralis Pedis, 2+ Right Dorsalis Pedis Integumentary: No: Jaundice Neurological: Yes: Alert, Oriented (x3) Psychiatric: No: Agitated 12/25/18 12/25/18 12/25/18 11:07 11:07 11:07 WBC 5.0 RBC 4.53 Hgb 12.7 Hct 39.6 MCV 87.4 MCHC 32.0 RDW 17.2 H Plt Count 209 Neutrophils % 66.7 Lymphocytes % 20.8 D Monocytes % 8.3 Eosinophils % 3.2 D Basophils % 1.0 INR 0.89 Sodium 140 Potassium 3.7 Chloride 108 H Carbon Dioxide 25 Anion Gap 8 BUN 15.5 Creatinine 0.7 12/26/18 12/26/18 08:20 08:20 WBC 3.7 L RBC 4.25 Hgb 11.8 Hct 37.5 MCV 88.2 MCHC 31.6 L RDW 17.2 H Plt Count 215 Neutrophils % 49.9 D Lymphocytes % 37.0 D Monocytes % 8.5 Eosinophils % 3.1 Basophils % 1.5 INR Sodium 141 Potassium 4.0 Chloride 107 Carbon Dioxide 24 Anion Gap 10 BUN 9.0 Creatinine 0.7 Assessment/Plan MPI 07/23 (tessy): nl STs. large/severe anterior/septal/apical/lateral ischemia, EF 43%, + TID Echo 07/23: nl LV/EF. nl RV. nl LA. mild TR. MRI brain no acute stroke LHC (08/23): NORMAL CORONARY ANGIOGRAM. (EDP normal = 9, nl EF). ECG: NSR, normal axis/intervals. WNL--no change vs prior tele: sinus chest pain - similar to prior episodes of chest pain - EKG no ischemic changes, trop neg x 2, unlikely ACS - normal cath in 08/2017 - no further cardiac workup slurred speech, h/o seizure disorder, headache - neuro consulted, no acute stroke on imaging - carotid dopplers negative HTN - cont current meds h/o CVA - cont home aspirin, statin
--- NOTE | 2018-12-26 11:34 | PN ---
Progress Note, Physician Chief Complaint: AMS Left sided weakness History of Present Illness: NAD wants to go home - Current Medication List Current Medications: Active Medications Carbamazepine (Tegretol Xr -) 400 mg PO BID [facility] Last Admin: 12/25/18 21:59 Dose: 400 mg Folic Acid (Folic Acid -) 1 mg PO DAILY [facility] Gabapentin (Neurontin -) 600 mg PO DAILY [facility] Gabapentin (Neurontin -) 300 mg PO HS [facility] Last Admin: 12/25/18 21:59 Dose: 300 mg Heparin Sodium (Porcine) (Heparin -) 5,000 unit SQ BID [facility] Last Admin: 12/25/18 21:59 Dose: 5,000 unit Lacosamide (Vimpat -) 50 mg PO BID [facility] Last Admin: 12/25/18 21:59 Dose: 50 mg Topiramate (Topamax -) 200 mg PO DAILY [facility] - Objective Vital Signs: Vital Signs Temperature 98.0 F 12/26/18 07:00 Pulse Rate 68 12/26/18 07:00 Respiratory Rate 15 12/26/18 07:00 Blood Pressure 147/101 H 12/26/18 07:00 O2 Sat by Pulse Oximetry (%) 100 12/26/18 07:00 Constitutional: Yes: Well Nourished, No Distress, Calm Cardiovascular: Yes: Regular Rate and Rhythm Respiratory: Yes: Regular Gastrointestinal: Yes: WNL Genitourinary: Yes: WNL Musculoskeletal: Yes: WNL Extremities: Yes: WNL Edema: No Peripheral Pulses WNL: Yes Neurological: Yes: Alert, Oriented Psychiatric: Yes: Alert, Oriented Labs: CBC, BMP 12/26/18 08:20 12/26/18 08:20 INR, PTT INR 0.89 (0.83-1.09) 12/25/18 11:07 Problem List - Problems (1) Epilepsy Assessment/Plan: -Seen by Neurology, -CT head completed and without acute changes -MRI brain reviewed and discussed and also without any new infarcts -resume home meds, no changes as per neurology Code(s): G40.909 - EPILEPSY, UNSP, NOT INTRACTABLE, WITHOUT STATUS EPILEPTICUS (2) Weakness Assessment/Plan: -Labs unremarkable -No neuro deficits at this time Cleared by Cardiology and neurology to be discharged Code(s): R53.1 - WEAKNESS (3) Headache Assessment/Plan: -resolved Code(s): R51 - HEADACHE Assessment/Plan see problem list
[2018-12-26] MEDS: HEPARIN NA (PORCINE) 5,000 UNITS/ML 1ML VIAL SQ SCH (11:38)
[2018-12-26] MEDS: carBAMazepine XR 200 MG TAB.ER.12H PO SCH (11:39)
--- NOTE | 2018-12-26 12:05 | DS ---
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 Patient states yesterday afternoon she noticed she developed slurred speech accompanied with R sided headache, dizziness, mid, non radiating chest pain, and "seizure-like" shaking. She took her seizure medication and did not feel any relief. 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 Constitutional: Yes: Well Nourished, No Distress, Calm Cardiovascular: Yes: Regular Rate and Rhythm Respiratory: Yes: Regular Gastrointestinal: Yes: Normal Bowel Sounds, Soft, Abdomen, Obese Musculoskeletal: Yes: WNL Extremities: Yes: WNL Edema: No Peripheral Pulses WNL: Yes Neurological: Yes: Alert, Oriented Psychiatric: Yes: Alert, Oriented Labs: CBC, BMP 12/26/18 08:20 12/26/18 08:20 Discharge Summary Reason For Visit: TRANSIENT ISCHEMIC ATTACK Current Active Problems Headache (Acute) Hospital Course: Laboratory Last Values WBC 3.7 K/mm3 (4.0-10.0) L 12/26/18 08:20 RBC 4.25 M/mm3 (3.60-5.2) 12/26/18 08:20 Hgb 11.8 GM/dL (10.7-15.3) 12/26/18 08:20 Hct 37.5 % (32.4-45.2) 12/26/18 08:20 MCV 88.2 fl (80-96) 12/26/18 08:20 MCH 27.9 pg (25.7-33.7) 12/26/18 08:20 MCHC 31.6 g/dl (32.0-36.0) L 12/26/18 08:20 RDW 17.2 % (11.6-15.6) H 12/26/18 08:20 Plt Count 215 K/MM3 (134-434) 12/26/18 08:20 MPV 8.6 fl (7.5-11.1) 12/26/18 08:20 Absolute Neuts (auto) 1.9 K/mm3 (1.5-8.0) 12/26/18 08:20 Neutrophils % 49.9 % (42.8-82.8) D 12/26/18 08:20 Lymphocytes % 37.0 % (8-40) D 12/26/18 08:20 Monocytes % 8.5 % (3.8-10.2) 12/26/18 08:20 Eosinophils % 3.1 % (0-4.5) 12/26/18 08:20 Basophils % 1.5 % (0-2.0) 12/26/18 08:20 Nucleated RBC % 0 % (0-0) 12/26/18 08:20 PT with INR 10.50 SEC (9.7-13.0) 12/25/18 11:07 INR 0.89 (0.83-1.09) 12/25/18 11:07 Sodium 141 mmol/L (136-145) 12/26/18 08:20 Potassium 4.0 mmol/L (3.5-5.1) 12/26/18 08:20 Chloride 107 mmol/L (98-107) 12/26/18 08:20 Carbon Dioxide 24 mmol/L (21-32) 12/26/18 08:20 Anion Gap 10 MMOL/L (8-16) 12/26/18 08:20 BUN 9.0 mg/dL (7-18) 12/26/18 08:20 Creatinine 0.7 mg/dL (0.55-1.3) 12/26/18 08:20 Est GFR (CKD-EPI)AfAm 117.91 12/26/18 08:20 Est GFR (CKD-EPI)NonAf 101.74 12/26/18 08:20 Random Glucose 78 mg/dL (74-106) 12/26/18 08:20 Calcium 9.2 mg/dL (8.5-10.1) 12/26/18 08:20 Phosphorus 3.4 mg/dL (2.5-4.9) 12/26/18 08:20 Magnesium 2.5 mg/dL (1.8-2.4) H 12/26/18 08:20 Total Bilirubin 0.3 mg/dL (0.2-1) 12/26/18 08:20 AST 20 U/L (15-37) 12/26/18 08:20 ALT 17 U/L (13-61) 12/26/18 08:20 Alkaline Phosphatase 97 U/L (45-117) 12/26/18 08:20 Creatine Kinase 104 U/L (26-192) 12/26/18 08:20 Troponin I < 0.02 ng/ml (0.00-0.05) 12/26/18 08:20 B-Natriuretic Peptide 92.0 pg/ml (5-125) 12/26/18 08:20 Total Protein 7.7 g/dl (6.4-8.2) 12/26/18 08:20 Albumin 3.7 g/dl (3.4-5.0) 12/26/18 08:20 Triglycerides 107 mg/dL (0-150) 12/26/18 08:20 Cholesterol 200 mg/dL (50-200) 12/26/18 08:20 Total LDL Cholesterol 86 mg/dL (5-100) 12/26/18 08:20 HDL Cholesterol 98 mg/dL (40-60) H 12/26/18 08:20 TSH 2.12 uIU/ml (0.358-3.74) 12/26/18 08:20 Urine Color Yellow 12/25/18 11:07 Urine Appearance Clear 12/25/18 11:07 Urine pH 8.5 (5.0-8.0) H D 12/25/18 11:07 Ur Specific [place] 1.007 (1.010-1.035) L 12/25/18 11:07 Urine Protein Negative (NEGATIVE) 12/25/18 11:07 Urine Glucose (UA) Negative (NEGATIVE) 12/25/18 11:07 Urine Ketones Negative (NEGATIVE) 12/25/18 11:07 Urine Blood Negative (NEGATIVE) 12/25/18 11:07 Urine Nitrite Negative (NEGATIVE) 12/25/18 11:07 Urine Bilirubin Negative (NEGATIVE) 12/25/18 11:07 Urine Urobilinogen 0.2 mg/dL (0.2-1.0) 12/25/18 11:07 Ur Leukocyte Esterase Negative (NEGATIVE) 12/25/18 11:07 Urine HCG, Qual Negative 12/25/18 11:07 Vital Signs Temp 98.0 F 12/26/18 07:00 Pulse 68 12/26/18 07:00 Resp 15 12/26/18 07:00 BP 147/101 H 12/26/18 07:00 Pulse Ox 100 12/26/18 07:00 Condition: Stable - Instructions Disposition: HOME - Home Medications Comprehensive Discharge Medication List: Ambulatory Orders Aspirin [ASA -] 81 mg PO DAILY 07/31/17 Atorvastatin Ca [Lipitor] 20 mg PO HS 07/31/17 Gabapentin 300 mg PO TID 07/31/17 Meclizine HCl 12.5 mg PO BID PRN 07/31/17 traZODone HCL [Trazodone HCl] 100 mg PO HS 07/31/17 Melatonin 5 mg PO HS PRN tab 08/03/17 Thiamine HCl [Vitamin B1 -] 100 mg PO HS tablet 08/03/17 Folic Acid - 1 mg PO DAILY #30 tablet MDD 1 10/12/18 Lacosamide [Vimpat -] 100 mg PO BID #60 tab MDD 4 10/12/18 Multivitamins [Multivit ([facility] Formulary)] 1 tab PO DAILY #30 tab MDD 1 10/12/18 Topiramate [Topamax -] 200 mg PO BID #30 tablet MDD 2 10/12/18
[2018-12-26] MEDS ORDERED: LACOSAMIDE 50 MG TABLET PO ONE (12:16)
[2018-12-26] MEDS: LACOSAMIDE 50 MG TABLET PO SCH (12:17)
[2018-12-26 18:19] VITALS: BP 136/100; PULSE 54
== END 2018-12-26 13:30 | disposition home or self-care (01) | DRG 103 ==
LOC: JER 09:46 → JERBED 12:45
PROVIDERS: ADMIT Family Medicine; ATTEND Family Medicine
DX: R51 Headache (principal); I69.354 Hemiplegia and hemiparesis following cerebral infarction affecting left non-dominant side; G40.909 Epilepsy, unspecified, not intractable, without status epilepticus; I10 Essential (primary) hypertension; R07.89 Other chest pain
CPT/HCPCS: 36415; 70450-TC; 70551-TC; 80053; 80061; 81003; 82550; 83721; 83735; 83880; 84100; 84436; 84443; 84484; 84703; 85025; 85610; 93005; 93010; 93880-TC; 99283-25; J0131; J1644

== ENCOUNTER 2019-02-12 23:48 | Observation (INO) | payer OTHER ==
--- NOTE | 2019-02-13 00:48 | PDOC ---
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 The pt had an unwitnessed fall earlier today which the pt is unable to state if it was mechanical or syncopal. The pt' s second fall was witnessed by her daughter. Per the daughter, the pt tripped over a fan, fell forwards, and had no witnessed LOC at that time. The pt reports a BEAN and tenderness over her forehead. She denies any other pain/ injury. The pt reports drinking two glasses of wine today, the last just before EMS arrival. She denies fevers/chills, chest pain, trouble breathing, abdominal pain, N/V, or extremity pain 02/13/19 00:48 Past History - Past Medical History Allergies/Adverse Reactions: Allergies Allergy/AdvReac Type Severity Reaction Status Date / Time ibuprofen [From Motrin] Allergy Intermediate Hives Verified 12/25/18 10:21 acetaminophen [From Percocet] Allergy Swelling Verified 12/25/18 10:21 oxycodone HCl [From Percocet] Allergy Swelling Verified 12/25/18 10:21 morphine AdvReac Severe Difficulty Verified 12/25/18 10:21 Breathing Home Medications: Ambulatory Orders Aspirin [ASA -] 81 mg PO DAILY 07/31/17 Atorvastatin Ca [Lipitor] 20 mg PO HS 07/31/17 Gabapentin 300 mg PO TID 07/31/17 Meclizine HCl 12.5 mg PO BID PRN 07/31/17 traZODone HCL [Trazodone HCl] 100 mg PO HS 07/31/17 Melatonin 5 mg PO HS PRN tab 08/03/17 Thiamine HCl [Vitamin B1 -] 100 mg PO HS tablet 08/03/17 Folic Acid - 1 mg PO DAILY #30 tablet MDD 1 10/12/18 Lacosamide [Vimpat -] 100 mg PO BID #60 tab MDD 4 10/12/18 Multivitamins [Multivit ([facility] Formul[facility])] 1 tab PO DAILY #30 tab MDD 1 10/12/18 Topiramate [Topamax -] 200 mg PO BID #30 tablet MDD 2 10/12/18 Anemia: Yes Asthma: No Cancer: No Cardiac Disorders: Yes (cardiac arrest 03/2013) CVA: Yes (X3 in 2012) COPD: No CHF: No Dementia: No Diabetes: No GI Disorders: Yes (GERD, gastric bypass) Disorders: No HTN: Yes Hypercholesterolemia: Yes Liver Disease: No Seizures: Yes (Last seizure October 2018) Thyroid Disease: No - Surgical History Abdominal Surgery: Yes (gastric bypass) Appendectomy: No Cardiac Surgery: No Cholecystectomy: No Lung Surgery: No Neurologic Surgery: No Orthopedic Surgery: Yes (LEFT KNEE 2014) - Immunization History Td Vaccination: Yes Immunization Up to Date: Yes - Psycho Social/Smoking Cessation Hx Smoking Status: No Smoking History: Never smoked Have you smoked in the past 12 months: No Number of Cigarettes Smoked Daily: 0 Information on smoking cessation initiated: No Hx Alcohol Use: Yes Drug/Substance Use Hx: No Substance Use Type: None Hx Substance Use Treatment: No Review of Systems - Review of Systems Able to Perform ROS?: Yes Comments:: GENERAL/CONSTITUTIONAL: No fever or chills HEAD, EYES, EARS, NOSE AND THROAT: No change in vision. No change in hearing. No sore throat CARDIOVASCULAR: No chest pain or shortness of breath RESPIRATORY: Denies cough GASTROINTESTINAL: No nausea, vomiting, diarrhea GENITOURINARY: No dysuria, frequency MUSCULOSKELETAL: No joint or muscle swelling or pain. No neck or back pain SKIN: No rash NEUROLOGIC: No vertigo, +chronic LUE weakness s/p CVA ENDOCRINE: No increased thirst. No abnormal weight change HEMATOLOGIC/LYMPHATIC: No anemia ALLERGIC/IMMUNOLOGIC: No hives or skin allergy 02/13/19 00:47 Is the patient limited Lebanese proficient: No *Physical Exam - Vital Signs Last Vital Signs Temp Pulse Resp BP Pulse Ox 98 F 78 18 120/75 98 02/13/19 00:33 02/13/19 00:33 02/13/19 00:33 02/13/19 00:33 02/13/19 00:33 - Physical Exam Comments: GENERAL: Awake, alert, oriented to person HEAD: Left forehead abrasion/swelling; 1cm linear laceration lateral to left eyebrow w/o active hemorrhage EYES: PERRLA, EOMI, sclera anicteric, conjunctiva clear ENT: Hearing grossly normal, nares patent, oropharynx clear without exudates. Moist mucosa NECK: No midline C-spine TTP BACK: No T/L spine TTP or stepoffs LUNGS: No distress, speaks in full sentences, clear to auscultation bilaterally HEART: Regular rate and rhythm, normal S1 and S2, no murmurs appreciated, peripheral pulses normal and equal bilaterally ABDOMEN: Soft, nontender, normoactive bowel sounds. No guarding, no rebound EXTREMITIES: Normal inspection, Normal range of motion, no edema. No clubbing or cyanosis NEUROLOGICAL: Cranial nerves II through XII grossly intact. 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 Ddx: syncopal vs mechanical fall and intoxication ED Course Labs sent CXR ECG CT head IVF, banana bag 02/13/19 01:21 No leukocytosis No anemia 02/13/19 03:01 Trop I neg Lytes unremarkable No SIMON LFTs wnl EtOH 257, no evidence of withdrawal at this time ECG w/ sinus bradycardia; HR 58; QTc 451; No ROB Left facial laceration repaired w/ steri-strips and dermabond -Wound care instructions given CT Head w/o evidence of acute infarct/hemorrhage; large old R MCA infarct noted and small old wedge infarct in left occipital lobe 02/13/19 04:04 Plan for Tele obs for syncope Pt signed out to [facility] Admitting Consult order placed for Dr. Mojica 10/09/19 04:26 Discharge - Discharge Information Problems reviewed: Yes Clinical Impression/Diagnosis: Alcohol abuse Fall Qualifiers: Encounter type: sequela Qualified Code(s): W19.XXXS - Unspecified fall, sequela Syncope Qualifiers: Syncope type: unspecified Qualified Code(s): R55 - Syncope and collapse Condition: Fair - Admission Yes - Follow up/Referral - Patient Discharge Instructions - Post Discharge Activity
[2019-02-13] MEDS ORDERED: FOLIC ACID INJECTION - 1 MG, THIAMINE HCL 100 MG, MULTIVIT INJECTION ADULT 10 ML in SOD... IVPB ONE (00:58)
[2019-02-13 01:58] LABS: BASO % 1.2 % (0-2.0); EOS % 2.3 % (0-4.5); HEMATOCRIT 39.3 % (32.4-45.2); HEMOGLOBIN 12.4 GM/dL (10.7-15.3); LYMPH % 42.3 % (8-40); MCH 27.7 pg (25.7-33.7); MCHC 31.4 g/dl (32.0-36.0); MEAN CELL VOLUME 88.2 fl (80-96); MEAN PLT VOLUME 8.6 fl (7.5-11.1); NEUT % 49.2 % (42.8-82.8); PLATELET COUNT 237 K/MM3 (134-434); RBC 4.46 M/mm3 (3.60-5.2); RDW 19.1 % (11.6-15.6); WHITE BLOOD COUNT 3.5 K/mm3 (4.0-10.0)
--- NOTE | 2019-02-13 03:13 | PDOC ---
Documentation entered by Mary Ndiaye SCRIBE, acting as scribe for Ashleigh Macdonald DO. Ashleigh Macdonald DO: This documentation has been prepared by the Zelda esteves Adrianna, SCRIBE, under my direction and personally reviewed by me in its entirety. I confirm that the documentation accurately reflects all work, treatment, procedures, and medical decision making performed by me. Attending Attestation - Resident Resident Name: HenryjaneeBashir - ED Attending Attestation I have performed the following: I have examined & evaluated the patient, The case was reviewed & discussed with the resident, I agree w/resident's findings & plan - HPI HPI: The patient is a 48 year old female, with a significant PMH of seizures ( secondary to EtOH withdrawal), HTN, CVA x5 (with residual LUE and LLE weakness and diffuse paresthesia excluding face and RUE), cardiac arrest and ROSC, gastric bypass, and depression, who presents s/p fall. Patients first fall was unwitnessed, unclear if mechanical vs syncopal, and patient hit her head. Patients second fall was secondary to tripping, causing her to fall forward without any LOC. She endorses a BEAN and forehead tenderness. Allergies: Ibuprofen, acetaminophen, oxycodone, morphine Surgical History: Gastric bypass, left knee arthroscopy Social History: Drank 2 glasses of wine today. Denies tobacco or illicit drug use PCP: Dr. Ireland - Physicial Exam PE: Agree with resident exam - Medical Decision Making 02/13/19 03:12 48-year-old female status post multiple falls, one unwitnessed with history of alcohol abuse Plan for chest x-ray, labs, EKG and CT brain Will admit for observation due to unwitnessed fall and possible syncope
[2019-02-13 03:30] LABS: ALBUMIN 3.1 g/dl (3.4-5.0); ALK PHOS 84 U/L (45-117); ANION GAP 8 MMOL/L (8-16); BILIRUBIN,TOTAL 0.1 mg/dL (0.2-1); BLOOD UREA NITROGEN 13.2 mg/dL (7-18); CHLORIDE 119 mmol/L (98-107); CO2 22 mmol/L (21-32); CREATININE 0.6 mg/dL (0.55-1.3); GLUCOSE,RANDOM 104 mg/dL (74-106); POTASSIUM 3.6 mmol/L (3.5-5.1); SGOT/AST 16 U/L (15-37); SGPT/ALT 16 U/L (13-61); SODIUM 148 mmol/L (136-145); TOT PROT 6.3 g/dl (6.4-8.2)
--- NOTE | 2019-02-13 04:38 | HP ---
Admitting History and Physical - Primary Care Physician PCP: Dr. Ireland - Admission Chief Complaint: syncope, s/p fall x2 History of Present Illness: 48 year old female, with a significant PMH of seizures (secondary to EtOH withdrawal), HTN, CVA x5 (with residual LUE and LLE weakness and diffuse paresthesia excluding face and RUE), cardiac arrest and ROSC, gastric bypass, and depression, who arrived to ED due to s/p fall from standing x2 at home. Patients first fall was unwitnessed, unclear if mechanical vs syncopal, and patient hit her head. Patients second fall was due to tripping, causing her to fall forward without any LOC. She complains of BEAN and forehead tenderness, patient reports drinking two glasses of wine today, the last just before EMS arrival. 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 (CVA x5 w/ reported residual LUE/LLE weakness as well as total body paresthesia excluding RUE and face), Migraine, Seizure (seizures 2/2 EtOH withdraw) Cardiovascular: Yes: HTN, Hyperlipdemia, Other (cardiac arrest at time of gastric bypass) Gastrointestinal: Yes: Other (s/p bariatric surgery) ...LMP: 01/22/12 Psych: Yes: Depression Musculoskeletal: Yes: Hemiplegia (residual left side weakness from the CVA) - Past Surgical History Past Surgical History: Yes: Bariatric Surgery (2012), Upper Endoscopy (2005) - Smoking History Smoking history: Never smoked Have you smoked in the past 12 months: No Aproximately how many cigarettes per day: 0 - Alcohol/Substance Use Hx Alcohol Use: Yes - Social History ADL: Independent History of Recent Travel: No Home Medications - Allergies Allergies/Adverse Reactions: Allergies Allergy/AdvReac Type Severity Reaction Status Date / Time ibuprofen [From Motrin] Allergy Intermediate Hives Verified 12/25/18 10:21 acetaminophen [From Percocet] Allergy Swelling Verified 12/25/18 10:21 oxycodone HCl [From Percocet] Allergy Swelling Verified 12/25/18 10:21 morphine AdvReac Severe Difficulty Verified 12/25/18 10:21 Breathing - Home Medications Home Medications: Ambulatory Orders Aspirin [ASA -] 81 mg PO DAILY 03/26/18 Atorvastatin Ca [Lipitor] 20 mg PO HS 07/31/17 Gabapentin 300 mg PO TID 07/31/17 Meclizine HCl 12.5 mg PO BID PRN 07/31/17 traZODone HCL [Trazodone HCl] 100 mg PO HS 07/31/17 Melatonin 5 mg PO HS PRN tab 08/03/17 Thiamine HCl [Vitamin B1 -] 100 mg PO HS tablet 08/03/17 Folic Acid - 1 mg PO DAILY #30 tablet MDD 1 10/12/18 Lacosamide [Vimpat -] 100 mg PO BID #60 tab MDD 4 10/12/18 Multivitamins [Multivit ([facility] Formulary)] 1 tab PO DAILY #30 tab MDD 1 10/12/18 Topiramate [Topamax -] 200 mg PO BID #30 tablet MDD 2 10/12/18 Family Medical History Family History: Unable to Obtain Review of Systems - Review of Systems Constitutional: reports: Other (headache) Eyes: reports: No Symptoms HENT: reports: No Symptoms Neck: reports: No Symptoms Cardiovascular: reports: No Symptoms Respiratory: reports: No Symptoms Gastrointestinal: reports: No Symptoms Genitourinary: reports: No Symptoms Breasts: reports: No Symptoms Reported Musculoskeletal: reports: No Symptoms Integumentary: reports: No Symptoms Neurological: reports: Weakness Endocrine: reports: No Symptoms Hematology/Lymphatic: reports: No Symptoms Psychiatric: reports: No Symptoms Physical Examination Vital Signs: Vital Signs Temperature 98 F 02/13/19 00:33 Pulse Rate 78 02/13/19 00:33 Respiratory Rate 18 02/13/19 00:33 Blood Pressure 120/75 02/13/19 00:33 O2 Sat by Pulse Oximetry (%) 98 02/13/19 00:33 Constitutional: Yes: Mild Distress Eyes: Yes: Conjunctiva Clear, EOM Intact, Other (Left forehead swelling 1cm linear laceration lateral to left eyebrow) HENT: Yes: Atraumatic, Normocephalic Neck: Yes: Supple, Trachea Midline Cardiovascular: Yes: Regular Rate and Rhythm Respiratory: Yes: Regular, CTA Bilaterally Gastrointestinal: Yes: Normal Bowel Sounds, Soft Musculoskeletal: Yes: WNL Extremities: Yes: Other (LUE weakness/contracture) Neurological: Yes: Alert, Confusion, Other (slurred speech) Labs: CBC, BMP 02/13/19 01:28 02/13/19 02:50 Imaging - Results Cat Scan: Report Reviewed (CT head: large old right middle cerebral artery tempory infarct, small old infarct left occiptal lobe) EKG: Report Reviewed (ECG w/ sinus bradycardia; HR 58; QTc 451; No ROB) Other: Report Reviewed (Alcohol quantitative: 257.2) Problem List - Problems (1) Syncope Code(s): R55 - SYNCOPE AND COLLAPSE Qualifiers: Syncope type: unspecified Qualified Code(s): R55 - Syncope and collapse (2) Fall Code(s): W19.XXXA - UNSPECIFIED FALL, INITIAL ENCOUNTER Qualifiers: Encounter type: sequela Qualified Code(s): W19.XXXS - Unspecified fall, sequela (3) Alcohol abuse Code(s): F10.10 - ALCOHOL ABUSE, UNCOMPLICATED (4) Laceration of left facial nerve Code(s): S04.52XA - INJURY OF FACIAL NERVE, LEFT SIDE, INITIAL ENCOUNTER (5) HLD (hyperlipidemia) Code(s): E78.5 - HYPERLIPIDEMIA, UNSPECIFIED (6) Seizure Code(s): R56.9 - UNSPECIFIED CONVULSIONS (7) Hypertension Code(s): I10 - ESSENTIAL (PRIMARY) HYPERTENSION Qualifiers: Hypertension type: unspecified Qualified Code(s): I10 - Essential (primary ) hypertension (8) Depression Code(s): F32.9 - MAJOR DEPRESSIVE DISORDER, SINGLE EPISODE, UNSPECIFIED Assessment/Plan 48 year old female, with a significant PMH of seizures (secondary to EtOH withdrawal), HTN, CVA x5 (with residual LUE and LLE weakness and diffuse paresthesia excluding face and RUE), cardiac arrest and ROSC, gastric bypass, and depression, who arrived to ED due to s/p fall from standing x2 at home. Patients first fall was unwitnessed, unclear if mechanical vs syncopal, and patient hit her head. Patients second fall was due to tripping, causing her to fall forward without any LOC. She complains of BEAN and forehead tenderness, patient reports drinking two glasses of wine today, the last just before EMS arrival. #S/p fall x2 syncope vs mechanical fall # Left face laceration -ECG w/ sinus bradycardia; HR 58; QTc 451; No ROB - Trop I neg -CT Head w/o evidence of acute infarct/hemorrhage; large old R MCA infarct noted and small old wedge infarct in left occipital lobe -Left facial laceration repaired w/ steri-strips and dermabond -continue with pain management -educated on local wound care management in ED -safety/fall precaution -follow up Dr. Mojica #alcohol abuse Lytes unremarkable LFTs wnl EtOH 257, no evidence of withdrawal - given folic/ thiamine/ MVI 1000ml in ED -Thiamine HCl 100 mg PO HS tablet -Folic Acid 1 mg PO DAILY -CIWA score 7, monitor if noted with increase tremors and new signs consider librium taper # Seizure -Lacosamide 100 mg PO BID - monitor for acute seizure activity - safety/fall precaution # HLD - Atorvastatin Ca 20 mg PO HS # HTN - BP stable, diet controlled # Depression - traZODone HCL 100 mg PO HS 07/31/17 Visit type - Emergency Visit Emergency Visit: Yes ED Registration Date: 02/13/19 Care time: The patient presented to the Emergency Department on the above date and was hospitalized for further evaluation of their emergent condition. - New Patient This patient is new to me today: Yes Date on this admission: 02/13/19 - Critical Care Critical Care patient: No
[2019-02-13] MEDS ORDERED: GABAPENTIN 100 MG CAPSULE (FP) ONE (05:37)
[2019-02-13] MEDS ORDERED: HEPARIN NA (PORCINE) 5,000 UNITS/ML 1ML VIAL ONE (05:37)
[2019-02-13] MEDS: GABAPENTIN 300 MG CAPSULE (FP) PO SCH ×3 (05:41→22:24)
[2019-02-13] MEDS: HEPARIN NA (PORCINE) 5,000 UNITS/ML 1ML VIAL SQ SCH ×3 (05:41→22:23)
[2019-02-13] MEDS ORDERED: FOLIC ACID 1 MG TABLET (FP) PO SCH (10:00)
[2019-02-13] MEDS ORDERED: MULTIVITAMINS (DAILY MVI) TABLET (FP) PO SCH (10:00)
[2019-02-13] MEDS ORDERED: LACOSAMIDE 50 MG TABLET PO ONE (10:34)
[2019-02-13] MEDS: LACOSAMIDE 50 MG TABLET PO SCH ×2 (10:39→22:22)
[2019-02-13] MEDS: MECLIZINE HCL 12.5 MG TABLET PO PRN (10:39)
--- NOTE | 2019-02-13 11:13 | CON.CARD ---
Cardiology Consult (text) - Consultation Consultation Note: Consult Specialty:: cardio - History of Present Illness Chief Complaint: fall History of Present Illness: 48 F h/o HTN, intraop cardiac arrest, CVA with residual L deficit here with slurred speech. sees Dr. Mojica for cardio. Had been feeling well until last week, had eye surgery and hasn't been seeing well with L eye, headaches, lightheaded. Saw Dr. Mojica on Monday, she said BP was high and meds kept the same but she is keeping a log. Yesterday at night she got up to go to the bathroom in the dark and fell. Doesn't know if she lost consciousness, she feels anxious and doesn't remember. 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 gastric bypass), Migraine, Seizure Cardio/Vascular: Yes: HTN, Other (cardiac arrest at time of gastric bypass) Gastrointestinal: Yes: Other (s/p bariatric surgery) ...LMP: 01/22/12 Musculoskeletal: Yes: Hemiplegia (residual left side weakness from the CVA) - Past Surgical History Past Surgical History: Yes: Bariatric Surgery (2012), Upper Endoscopy (2005) - Alcohol/Substance Use Hx Alcohol Use: No - Smoking History Smoking history: Never smoked Have you smoked in the past 12 months: No Aproximately how many cigarettes per day: 0 - Social History Usual Living Arrangement: Alone Home Medications - Allergies Allergies/Adverse Reactions: Allergies Allergy/AdvReac Type Severity Reaction Status Date / Time ibuprofen [From Motrin] Allergy Intermediate Hives Verified 12/25/18 10:21 acetaminophen [From Percocet] Allergy Swelling Verified 12/25/18 10:21 oxycodone HCl [From Percocet] Allergy Swelling Verified 12/25/18 10:21 morphine AdvReac Severe Difficulty Verified 12/25/18 10:21 Breathing Home Medications Medication Instructions Recorded Aspirin [ASA -] 81 mg PO DAILY 07/31/17 Atorvastatin Ca [Lipitor] 20 mg PO HS 07/31/17 Gabapentin 300 mg PO TID 07/31/17 Meclizine HCl 12.5 mg PO BID PRN 07/31/17 traZODone HCL [Trazodone HCl] 100 mg PO HS 07/31/17 Melatonin 5 mg PO HS PRN tab 08/03/17 Thiamine HCl [Vitamin B1 -] 100 mg PO HS tablet 08/03/17 Folic Acid - 1 mg PO DAILY #30 tablet MDD 1 10/12/18 Lacosamide [Vimpat -] 100 mg PO BID #60 tab MDD 4 10/12/18 Multivitamins [Multivit ([facility] 1 tab PO DAILY #30 tab MDD 1 10/12/18 Formulary)] Topiramate [Topamax -] 200 mg PO BID #30 tablet MDD 2 10/12/18 Family Disease History - Family Disease History Family History: unremarkable Review of Systems ROS: as per HPI, otherwise negative Vital Signs Period Temp Pulse Resp BP Sys/Carlson Pulse Ox Last 24 Hr 98 F 78 18 120/75 98 Constitutional: Yes: Well Nourished, No Distress Eyes: No: Sclera Icterus HENT: No: Nasal Congestion Neck: No: Decreased ROM Respiratory: Yes: CTA Bilaterally (not deep breaths for exam). No: Accessory Muscle Use, Rales, Wheezes Gastrointestinal: Yes: Normal Bowel Sounds. No: Distention, Hepatomegaly, Palpable Mass, Tenderness Cardiovascular: Yes: Regular Rate and Rhythm JVD: No Carotid Bruit: No PMI: Non-Displaced Heart Sounds: Yes: S1, S2. No: Gallop Murmur: No: Systolic Murmur, Diastolic Murmur Musculoskeletal: Yes: Other (No kyphosis) Edema: No Integumentary: No: Jaundice Neurological: Yes: Alert, Oriented (x3) Psychiatric: No: Agitated Laboratory Last Values WBC 3.5 K/mm3 (4.0-10.0) L 02/13/19 01:28 RBC 4.46 M/mm3 (3.60-5.2) 02/13/19 01:28 Hgb 12.4 GM/dL (10.7-15.3) 02/13/19 01:28 Hct 39.3 % (32.4-45.2) 02/13/19 01:28 MCV 88.2 fl (80-96) 02/13/19 01:28 MCH 27.7 pg (25.7-33.7) 02/13/19 01:28 MCHC 31.4 g/dl (32.0-36.0) L 02/13/19 01:28 RDW 19.1 % (11.6-15.6) H 02/13/19 01:28 Plt Count 237 K/MM3 (134-434) 02/13/19 01:28 MPV 8.6 fl (7.5-11.1) 02/13/19 01:28 Absolute Neuts (auto) 1.7 K/mm3 (1.5-8.0) 02/13/19 01:28 Neutrophils % 49.2 % (42.8-82.8) 02/13/19 01:28 Lymphocytes % 42.3 % (8-40) H 02/13/19 01:28 Monocytes % 5.0 % (3.8-10.2) 02/13/19 01:28 Eosinophils % 2.3 % (0-4.5) 02/13/19 01:28 Basophils % 1.2 % (0-2.0) 02/13/19 01:28 Nucleated RBC % 0 % (0-0) 02/13/19 01:28 Sodium 148 mmol/L (136-145) H 02/13/19 02:50 Potassium 3.6 mmol/L (3.5-5.1) 02/13/19 02:50 Chloride 119 mmol/L (98-107) H 02/13/19 02:50 Carbon Dioxide 22 mmol/L (21-32) 02/13/19 02:50 Anion Gap 8 MMOL/L (8-16) 02/13/19 02:50 BUN 13.2 mg/dL (7-18) 02/13/19 02:50 Creatinine 0.6 mg/dL (0.55-1.3) 02/13/19 02:50 Est GFR (CKD-EPI)AfAm 124.05 02/13/19 02:50 Est GFR (CKD-EPI)NonAf 107.03 02/13/19 02:50 Random Glucose 104 mg/dL (74-106) 02/13/19 02:50 Calcium 7.0 mg/dL (8.5-10.1) L 02/13/19 02:50 Total Bilirubin 0.1 mg/dL (0.2-1) L 02/13/19 02:50 AST 16 U/L (15-37) 02/13/19 02:50 ALT 16 U/L (13-61) 02/13/19 02:50 Alkaline Phosphatase 84 U/L (45-117) 02/13/19 02:50 Troponin I < 0.02 ng/ml (0.00-0.05) 02/13/19 02:50 Total Protein 6.3 g/dl (6.4-8.2) L 02/13/19 02:50 Albumin 3.1 g/dl (3.4-5.0) L 02/13/19 02:50 Alcohol, Quantitative 257.2 mg/dL (0.0-5.0) H 02/13/19 02:50 Assessment/Plan MPI 07/23 (tessy): nl STs. large/severe anterior/septal/apical/lateral ischemia, EF 43%, + TID Echo 07/23: nl LV/EF. nl RV. nl LA. mild TR. head CT no acute process LHC (08/23): NORMAL CORONARY ANGIOGRAM. (EDP normal = 9, nl EF). ECG: sinus ilda, no ischemic changes echo 10/2018 nl LV function, nl RV, mild MR, mild TR fall - unclear if syncope - pt says she is anxious and doesn't remember, per prior report did not lose consciousness - recently had eye surgery with poor vision in L eye, headaches, lightheadedness - recent echo unremarkable - head CT no acute process - EKG stable, trop neg unlikely ACS - defer further cardiac workup - further workup per primary HTN - cont current meds h/o CVA - cont home aspirin, statin
--- NOTE | 2019-02-13 12:11 | EKG ---
Test Reason : Blood Pressure : / mmHG Vent. Rate : 058 BPM Atrial Rate : 058 BPM P-R Int : 184 ms QRS Dur : 076 ms QT Int : 460 ms P-R-T Axes : 032 008 028 degrees QTc Int : 451 ms SINUS BRADYCARDIA NONSPECIFIC ST AND T WAVE ABNORMALITY ABNORMAL ECG WHEN COMPARED WITH ECG OF 25-DEC-2018 12:06, NO SIGNIFICANT CHANGE WAS FOUND Confirmed by KONSTANTIN COLEMAN MD ([id number]) on 02/13/2019 12:11:34 PM Referred By: Confirmed By:KONSTANTIN COLEMAN MD
--- NOTE | 2019-02-13 13:14 | PN ---
Progress Note, Physician Chief Complaint: S/p Fall mechanical vs syncopal History of Present Illness: Previous notes and events reviewed awake and alert NAD complain of headache denies chest pain or SOB - Current Medication List Current Medications: Active Medications Atorvastatin Calcium (Lipitor -) 20 mg PO HS [facility] Folic Acid (Folic Acid -) 1 mg PO DAILY [facility] Last Admin: 02/13/19 10:39 Dose: 1 mg Gabapentin (Neurontin -) 300 mg PO TID [facility] Last Admin: 02/13/19 05:41 Dose: 300 mg Heparin Sodium (Porcine) (Heparin -) 5,000 unit SQ TID [facility] Last Admin: 02/13/19 05:41 Dose: 5,000 unit Lacosamide (Vimpat -) 100 mg PO BID [facility] Last Admin: 02/13/19 10:39 Dose: 100 mg Meclizine HCl (Antivert -) 12.5 mg PO BID PRN PRN Reason: dizziness Last Admin: 02/13/19 10:39 Dose: 12.5 mg Multivitamins/Minerals/Vitamin C (Tab-A-Vit -) 1 tab PO DAILY [facility] Last Admin: 02/13/19 10:39 Dose: 1 tab Thiamine HCl (Vitamin B1 -) 100 mg PO [facility] Trazodone HCl (Desyrel -) 100 mg PO [facility] - Objective Vital Signs: Vital Signs Temperature 98 F 02/13/19 00:33 Pulse Rate 78 02/13/19 00:33 Respiratory Rate 18 02/13/19 00:33 Blood Pressure 120/75 02/13/19 00:33 O2 Sat by Pulse Oximetry (%) 98 02/13/19 00:33 Constitutional: Yes: No Distress, Calm Eyes: Yes: Conjunctiva Clear HENT: Yes: Atraumatic, Other (hematoma forehead, laceration left eyebrow) Cardiovascular: Yes: Regular Rate and Rhythm Respiratory: Yes: Regular, CTA Bilaterally Gastrointestinal: Yes: Normal Bowel Sounds, Soft Musculoskeletal: Yes: Muscle Weakness (LUE) Extremities: Yes: Other (LUE contracture) Edema: No Neurological: Yes: Alert, Oriented Psychiatric: Yes: Alert, Oriented Labs: CBC, BMP 02/13/19 01:28 02/13/19 02:50 Problem List - Problems (1) Alcohol abuse Assessment/Plan: -Dr Cole consult -Multivitam, Folic Acid, Thiamine Code(s): F10.10 - ALCOHOL ABUSE, UNCOMPLICATED (2) Fall Assessment/Plan: -Cardiology on board -mechanical vs syncope -Carotid US -fall precautions -neuro checks Code(s): W19.XXXA - UNSPECIFIED FALL, INITIAL ENCOUNTER Qualifiers: Encounter type: sequela Qualified Code(s): W19.XXXS - Unspecified fall, sequela (3) HLD (hyperlipidemia) Assessment/Plan: -Atorvastatin Code(s): E78.5 - HYPERLIPIDEMIA, UNSPECIFIED (4) HTN (hypertension) Assessment/Plan: -low Na diet Code(s): I10 - ESSENTIAL (PRIMARY) HYPERTENSION Assessment/Plan see problem list dvt ppx
[2019-02-13] MEDS ORDERED: traZODone HCL 100 MG TABLET (FP) PO SCH (22:00)
[2019-02-13] MEDS ORDERED: ATORVASTATIN CA 20 MG TABLET (FP) PO SCH (22:00)
[2019-02-13] MEDS ORDERED: THIAMINE HCL 100 MG TABLET (FP) PO SCH (22:00)
[2019-02-13] MEDS ORDERED: PT OWN MED DRAWER 7, Y5N ONE (23:07)
[2019-02-14 02:01] VITALS: BMI 23.3
[2019-02-14] MEDS: MECLIZINE HCL 12.5 MG TABLET PO PRN (03:11)
[2019-02-14] MEDS: HEPARIN NA (PORCINE) 5,000 UNITS/ML 1ML VIAL SQ SCH (06:47)
[2019-02-14] MEDS: GABAPENTIN 300 MG CAPSULE (FP) PO SCH (06:47)
[2019-02-14] MEDS ORDERED: LORazepam 0.5 MG TABLET PO PRN (07:57)
[2019-02-14] MEDS ORDERED: MECLIZINE HCL 12.5 MG TABLET PO PRN (07:58)
[2019-02-14 08:32] LABS: HEMATOCRIT 34.8 % (32.4-45.2); HEMOGLOBIN 11.2 GM/dL (10.7-15.3); MCH 27.9 pg (25.7-33.7); MEAN CELL VOLUME 87.1 fl (80-96); MEAN PLT VOLUME 8.4 fl (7.5-11.1); PLATELET COUNT 201 K/MM3 (134-434)
[2019-02-14 08:39] LABS: ALBUMIN 3.3 g/dl (3.4-5.0); BILIRUBIN,TOTAL 0.5 mg/dL (0.2-1); CALCIUM 8.6 mg/dL (8.5-10.1); CREATININE 0.7 mg/dL (0.55-1.3); POTASSIUM 3.6 mmol/L (3.5-5.1); TOT PROT 6.5 g/dl (6.4-8.2)
[2019-02-14 09:38] LABS: PH,URINE 6.5 (5.0-8.0); URINE APPEARANCE CLEAR; URINE BILIRUBIN NEGATIVE (NEGATIVE); URINE COLOR YELLOW; URINE GLUCOSE (UA) NEGATIVE (NEGATIVE); URINE KETONE NEGATIVE (NEGATIVE); URINE LEUK ESTERASE NEGATIVE (NEGATIVE); URINE NITRITE NEGATIVE (NEGATIVE); URINE PROTEIN NEGATIVE (NEGATIVE); URINE UROBILINOGEN 0.2 mg/dL (0.2-1.0)
[2019-02-14] MEDS ORDERED: MULTIVITAMINS (DAILY MVI) TABLET (FP) PO SCH (10:00)
[2019-02-14] MEDS ORDERED: FOLIC ACID 1 MG TABLET (FP) PO SCH (10:00)
[2019-02-14] MEDS ORDERED: FLU VACCINE QUAD 60 MCG/0.5 ML (MDV 19-20) IM ONE (10:00)
[2019-02-14] MEDS ORDERED: LACOSAMIDE 50 MG TABLET PO SCH ×2 (10:00→22:00)
--- NOTE | 2019-02-14 10:24 | DS ---
Physical Examination Vital Signs: Vital Signs Temperature 98.3 F 02/14/19 06:00 Pulse Rate 56 L 02/14/19 06:00 Respiratory Rate 20 02/14/19 06:00 Blood Pressure 133/71 02/14/19 06:00 O2 Sat by Pulse Oximetry (%) 95 02/13/19 19:07 Findings/Remarks: Laboratory Tests 02/13/19 02/13/19 02/13/19 01:28 01:28 02:50 WBC 3.5 L RBC 4.46 Hgb 12.4 Hct 39.3 MCV 88.2 MCH 27.7 MCHC 31.4 L RDW 19.1 H Plt Count 237 MPV 8.6 Absolute Neuts (auto) 1.7 Neutrophils % 49.2 Lymphocytes % 42.3 H Monocytes % 5.0 Eosinophils % 2.3 Basophils % 1.2 Nucleated RBC % 0 Sodium Cancelled 148 H Potassium Cancelled 3.6 Chloride Cancelled 119 H Carbon Dioxide Cancelled 22 Anion Gap Cancelled 8 BUN Cancelled 13.2 Creatinine Cancelled 0.6 Est GFR (CKD-EPI)AfAm Cancelled 124.05 Est GFR (CKD-EPI)NonAf Cancelled 107.03 Random Glucose Cancelled 104 Calcium Cancelled 7.0 L Total Bilirubin Cancelled 0.1 L AST Cancelled 16 ALT Cancelled 16 Alkaline Phosphatase Cancelled 84 Troponin I Cancelled < 0.02 Total Protein Cancelled 6.3 L Albumin Cancelled 3.1 L Urine Color Urine Appearance Urine pH Ur Specific [place] Urine Protein Urine Glucose (UA) Urine Ketones Urine Blood Urine Nitrite Urine Bilirubin Urine Urobilinogen Ur Leukocyte Esterase Alcohol, Quantitative 257.2 H 02/13/19 02/14/19 02/14/19 07:30 07:15 07:15 WBC 4.0 RBC 4.00 Hgb 11.2 Hct 34.8 MCV 87.1 MCH 27.9 MCHC 32.0 RDW 19.0 H Plt Count 201 MPV 8.4 Absolute Neuts (auto) Neutrophils % Lymphocytes % Monocytes % Eosinophils % Basophils % Nucleated RBC % Sodium 140 Potassium 3.6 Chloride 107 Carbon Dioxide 26 Anion Gap 6 L BUN 13.0 Creatinine 0.7 Est GFR (CKD-EPI)AfAm 117.91 Est GFR (CKD-EPI)NonAf 101.74 Random Glucose 92 Calcium 8.6 Total Bilirubin 0.5 AST 32 ALT 21 Alkaline Phosphatase 86 Troponin I Total Protein 6.5 Albumin 3.3 L Urine Color Yellow Urine Appearance Clear Urine pH 6.5 D Ur Specific [place] 1.014 Urine Protein Negative Urine Glucose (UA) Negative Urine Ketones Negative Urine Blood Negative Urine Nitrite Negative Urine Bilirubin Negative Urine Urobilinogen 0.2 Ur Leukocyte Esterase Negative Alcohol, Quantitative Active Medications Generic Name Dose Route Start Last Admin Trade Name Freq PRN Reason Stop Dose Admin Atorvastatin Calcium 20 mg 02/14/19 22:00 Lipitor - PO HS [facility] Folic Acid 1 mg 02/14/19 10:00 Folic Acid - PO DAILY [facility] Gabapentin 300 mg 02/14/19 14:00 Neurontin - PO TID [facility] Heparin Sodium (Porcine) 5,000 unit 02/14/19 14:00 Heparin - SQ TID [facility] Lacosamide 100 mg 02/14/19 10:00 Vimpat - PO BID [facility] Lorazepam 0.5 mg 02/14/19 07:57 Ativan - PO BID PRN ANXIETY Meclizine HCl 12.5 mg 02/14/19 07:58 Antivert - PO BID PRN dizziness Multivitamins/Minerals/Vitamin C 1 tab 02/14/19 10:00 Tab-A-Vit - PO DAILY [facility] Thiamine HCl 100 mg 02/14/19 22:00 Vitamin B1 - PO HS [facility] Trazodone HCl 100 mg 02/14/19 22:00 Desyrel - PO HS [facility] Constitutional: Yes: No Distress, Calm Eyes: Yes: Conjunctiva Clear HENT: Yes: Atraumatic, Other (minor laceration left eyebrow, abrasion x 2 forehead) Cardiovascular: Yes: Regular Rate and Rhythm Respiratory: Yes: Regular, CTA Bilaterally Gastrointestinal: Yes: Normal Bowel Sounds, Soft Musculoskeletal: Yes: Muscle Weakness Extremities: Yes: WNL Edema: No Integumentary: Yes: Laceration (l eyebrow), Other (abrasion forehead x 2) Neurological: Yes: Alert, Oriented Psychiatric: Yes: Alert, Oriented Labs: CBC, BMP 02/14/19 07:15 02/14/19 07:15 Discharge Summary Problems reviewed: Yes Reason For Visit: ALCOHOL ABUSE,SYNCOPE,FALL Current Active Problems Alcohol abuse (Acute) Depression (Acute) Fall (Acute) HLD (hyperlipidemia) (Acute) Laceration of left facial nerve (Acute) Syncope (Acute) Hospital Course: 48 year old female, with a significant PMH of seizures (secondary to EtOH withdrawal), HTN, CVA x5 (with residual LUE and LLE weakness and diffuse paresthesia excluding face and RUE), cardiac arrest and ROSC, gastric bypass, and depression, who arrived to ED due to s/p fall from standing x2 at home. Patients first fall was unwitnessed, unclear if mechanical vs syncopal, and patient hit her head. Patients second fall was due to tripping, causing her to fall forward without any LOC. She complains of BEAN and forehead tenderness, patient reports drinking two glasses of wine today, the last just before EMS arrival. patient denies fevers/chills, chest pain, trouble breathing, abdominal pain, N/V , or extremity pain Head CT scan shows no acute intracranial hemorrhage, edema, midline shift, mass effect, skull fracture Condition: Stable - Instructions Diet, Activity, Other Instructions: Follow up with PMD on monday follow up with Dr Cole at [facility] follow up with Neurologist Dr West continue with medication as prescribed return to ER if develop severe pain, respiratory distress, chest pain, change in mental status Referrals: Andie Ireland MD [Primary Care Provider] - Gina West MD [Staff Physician] - Daniela oCle DO [Staff Physician] - Disposition: VNS/HOME HEALTH CARE - Home Medications Comprehensive Discharge Medication List: Ambulatory Orders Aspirin [ASA -] 81 mg PO DAILY 07/31/17 Atorvastatin Ca [Lipitor] 20 mg PO HS 07/31/17 Gabapentin 300 mg PO TID 07/31/17 Meclizine HCl 12.5 mg PO BID PRN 07/31/17 traZODone HCL [Trazodone HCl] 100 mg PO HS 07/31/17 Melatonin 5 mg PO HS PRN tab 08/03/17 Thiamine HCl [Vitamin B1 -] 100 mg PO HS tablet 08/03/17 Folic Acid - 1 mg PO DAILY #30 tablet MDD 1 10/12/18 Lacosamide [Vimpat -] 100 mg PO BID #60 tab MDD 4 10/12/18 Multivitamins [Multivit ([facility] Formulary)] 1 tab PO DAILY #30 tab MDD 1 10/12/18 Topiramate [Topamax -] 200 mg PO BID #30 tablet MDD 2 10/12/18
--- NOTE | 2019-02-14 11:39 | PN ---
Progress Note (short form) - Note Progress Note: s: no cp sob palps; has dizzy/room spinning sensation while sitting in chair or laying in bed Current Medications Generic Name Dose Route Start Last Admin Trade Name Yasemin PRN Reason Stop Dose Admin Atorvastatin Calcium 20 mg 02/14/19 22:00 Lipitor - PO HS [facility] Folic Acid 1 mg 02/14/19 10:00 02/14/19 10:41 Folic Acid - PO 1 mg DAILY [facility] Administration Gabapentin 300 mg 02/14/19 14:00 Neurontin - PO TID [facility] Heparin Sodium (Porcine) 5,000 unit 02/14/19 14:00 Heparin - SQ TID [facility] Lacosamide 100 mg 02/14/19 10:00 02/14/19 10:41 Vimpat - PO 100 mg BID [facility] Administration Lorazepam 0.5 mg 02/14/19 07:57 Ativan - PO BID PRN ANXIETY Meclizine HCl 12.5 mg 02/14/19 07:58 Antivert - PO BID PRN dizziness Multivitamins/Minerals/Vitamin C 1 tab 02/14/19 10:00 02/14/19 10:41 Tab-A-Vit - PO 1 tab DAILY [facility] Administration Thiamine HCl 100 mg 02/14/19 22:00 Vitamin B1 - PO HS [facility] Trazodone HCl 100 mg 02/14/19 22:00 Desyrel - PO HS [facility] Vital Signs Period Temp Pulse Resp BP Sys/Carlson Pulse Ox Last 24 Hr 98.2 F-98.5 F 56-80 20-20 117-136/66-91 95-96 Constitutional: Yes: Well Nourished, No Distress Eyes: No: Sclera Icterus HENT: No: Nasal Congestion Neck: No: Decreased ROM Respiratory: Yes: CTA Bilaterally . No: Accessory Muscle Use, Rales, Wheezes Gastrointestinal: Yes: Normal Bowel Sounds. No: Distention, Hepatomegaly, Palpable Mass, Tenderness Cardiovascular: Yes: Regular Rate and Rhythm JVD: No Carotid Bruit: No Heart Sounds: Yes: S1, S2. No: Gallop Murmur: No: Systolic Murmur, Diastolic Murmur Edema: No Integumentary: No: Jaundice Neurological: Yes: Alert, Oriented (x3) Psychiatric: No: Agitated CBC, BMP 02/14/19 07:15 02/14/19 07:15 Assessment/Plan MPI 3/18 (tessy): nl STs. large/severe anterior/septal/apical/lateral ischemia, EF 43%, + TID Echo 07/23: nl LV/EF. nl RV. nl LA. mild TR. head CT no acute process LHC (08/23): NORMAL CORONARY ANGIOGRAM. (EDP normal = 9, nl EF). ECG: sinus ilda, no ischemic changes echo 10/2018 nl LV function, nl RV, mild MR, mild TR fall - unclear if syncope - pt says she is anxious and doesn't remember, per prior report did not lose consciousness - recently had eye surgery with poor vision in L eye, headaches, dizziness - recent echo unremarkable - head CT no acute process - EKG stable, trop neg unlikely ACS - defer further cardiac workup at this time - further workup per primary HTN - cont current meds h/o CVA - cont home aspirin, statin
--- NOTE | 2019-02-14 12:03 | CON.NEURO ---
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: CVA (CVA x5 w/ reported residual LUE/LLE weakness as well as total body paresthesia excluding RUE and face), Migraine, Seizure (seizures 2/2 EtOH withdraw) Cardio/Vascular: Yes: HTN, Hyperlipdemia, Other (cardiac arrest at time of gastric bypass) Gastrointestinal: Yes: Other (s/p bariatric surgery) ...LMP: 01/22/12 ...: No Psych: Yes: Depression Musculoskeletal: Yes: Hemiplegia (residual left side weakness from the CVA) - Past Surgical History Past Surgical History: Yes: Bariatric Surgery (2012), Upper Endoscopy (2005) - Alcohol/Substance Use Hx Alcohol Use: Yes - Smoking History Smoking history: Never smoked Have you smoked in the past 12 months: No Aproximately how many cigarettes per day: 0 - Social History Usual Living Arrangement: With Child ADL: Independent History of Recent Travel: No Home Medications - Allergies Allergies/Adverse Reactions: Allergies Allergy/AdvReac Type Severity Reaction Status Date / Time ibuprofen [From Motrin] Allergy Intermediate Hives Verified 12/25/18 10:21 acetaminophen [From Percocet] Allergy Swelling Verified 12/25/18 10:21 oxycodone HCl [From Percocet] Allergy Swelling Verified 12/25/18 10:21 morphine AdvReac Severe Difficulty Verified 12/25/18 10:21 Breathing - Home Medications Home Medications: Ambulatory Orders Aspirin [ASA -] 81 mg PO DAILY 07/31/17 Atorvastatin Ca [Lipitor] 20 mg PO HS 07/31/17 Gabapentin 300 mg PO TID 07/31/17 Meclizine HCl 12.5 mg PO BID PRN 07/31/17 traZODone HCL [Trazodone HCl] 100 mg PO HS 07/31/17 Melatonin 5 mg PO HS PRN tab 08/03/17 Thiamine HCl [Vitamin B1 -] 100 mg PO HS tablet 08/03/17 Folic Acid - 1 mg PO DAILY #30 tablet MDD 1 10/12/18 Lacosamide [Vimpat -] 100 mg PO BID #60 tab MDD 4 10/12/18 Multivitamins [Multivit ([facility] Formul[facility])] 1 tab PO DAILY #30 tab MDD 1 10/12/18 Topiramate [Topamax -] 200 mg PO BID #30 tablet MDD 2 10/12/18 Review of Systems - Review of Systems Constitutional: reports: No Symptoms Eyes: reports: No Symptoms HENT: reports: No Symptoms Neurological: reports: Change in LOC, Change in Speech, Headache Physical Exam-Neuro Vital Signs: Vital Signs Temperature 98.3 F 02/14/19 06:00 Pulse Rate 56 L 02/14/19 06:00 Respiratory Rate 20 02/14/19 06:00 Blood Pressure 133/71 02/14/19 06:00 O2 Sat by Pulse Oximetry (%) 95 02/13/19 19:07 Constitutional: Yes: Well Nourished Neck: Yes: WNL Cardiovascular: Yes: WNL Labs: CBC, BMP 02/14/19 07:15 02/14/19 07:15 - Neuro Exam Level Of Consciousness: Yes: Alert, Oriented to Person, Oriented to Place Eyes: Yes: PERRLA Speech: WNL Dominant Hand: Right Cranial Nerves II-XII Intact: Yes Gag: Present DTR's: 1+ Left Bicep, 1+ Right Bicep, 1+ Left Tricep, 1+ Right Tricep Response to light touch: Normal Response to pain prick: Normal Response to temperature: Normal Response to vibration: Normal Motor Strength: 3/5: Left Arm, Right Arm, Left Leg, Right Leg Gait: Deferred Imaging - Results Cat Scan: Image Reviewed Problem List - Problems (1) Epilepsy Assessment/Plan: Vimpat 150 mg po q12 Blood work seiure precaution DC planning Thank you Code(s): G40.909 - EPILEPSY, UNSP, NOT INTRACTABLE, WITHOUT STATUS EPILEPTICUS
[2019-02-14] MEDS ORDERED: GABAPENTIN 300 MG CAPSULE (FP) PO SCH (14:00)
[2019-02-14] MEDS ORDERED: HEPARIN NA (PORCINE) 5,000 UNITS/ML 1ML VIAL SQ SCH (14:00)
[2019-02-14 15:57] VITALS: BP 145/89; PULSE 89; TEMP 98.1
[2019-02-14] MEDS ORDERED: THIAMINE HCL 100 MG TABLET (FP) PO SCH (22:00)
[2019-02-14] MEDS ORDERED: ATORVASTATIN CA 20 MG TABLET (FP) PO SCH (22:00)
[2019-02-14] MEDS ORDERED: traZODone HCL 100 MG TABLET (FP) PO SCH (22:00)
== END 2019-02-14 16:55 | disposition home health service (06) ==
LOC: JER 23:48 → JERBED 02-13 04:16 → J8W 02-13 20:25
PROVIDERS: ADMIT Family Medicine; ATTEND Family Medicine
PROC: 0HQ1XZZ Repair Face Skin, External Approach (ICD-10-PCS; principal; 2019-02-13)
PROC: 3E033GC Introduction of Other Therapeutic Substance into Peripheral Vein, Percutaneous Approach (ICD-10-PCS; 2019-02-13)
PROC: 3E013GC Introduction of Other Therapeutic Substance into Subcutaneous Tissue, Percutaneous Approach (ICD-10-PCS; 2019-02-13)
DX: F10.10 Alcohol abuse, uncomplicated (principal); R55 Syncope and collapse; S01.81XA Laceration without foreign body of other part of head, initial encounter; W01.0XXA Fall on same level from slipping, tripping and stumbling without subsequent striking against object, initial encounter; Z91.81 History of falling; Y93.89 Activity, other specified; Y92.9 Unspecified place or not applicable; I10 Essential (primary) hypertension; I69.354 Hemiplegia and hemiparesis following cerebral infarction affecting left non-dominant side; F32.9 Major depressive disorder, single episode, unspecified; K21.9 Gastro-esophageal reflux disease without esophagitis; E78.5 Hyperlipidemia, unspecified; G40.909 Epilepsy, unspecified, not intractable, without status epilepticus; Z88.6 Allergy status to analgesic agent; Z79.82 Long term (current) use of aspirin; Z98.84 Bariatric surgery status; Z86.74 Personal history of sudden cardiac arrest
CPT/HCPCS: 12011-25; 36415; 70450-TC; 71046-TC-FY; 80053; 80307; 81003; 84484; 85025; 85027; 87086; 93005; 93010; 93880-TC; 96365; 96366; 96372; 97116-GP; 97161-GP; 99285-25; G0378; J1644; J7030; Q2036

== ENCOUNTER 2019-12-17 03:30 | Inpatient (IN) | payer OTHER ==
[2019-12-17] MEDS ORDERED: FOLIC ACID INJECTION - 1 MG, THIAMINE HCL 100 MG, MULTIVIT INJECTION ADULT 10 ML in SOD... IVPB ONE (03:41)
--- NOTE | 2019-12-17 03:53 | PDOC ---
Attending Attestation - Resident Resident Name: Dustin Padilla - ED Attending Attestation I have performed the following: I have examined & evaluated the patient, The case was reviewed & discussed with the resident, I agree w/resident's findings & plan - HPI HPI: 12/17/19 06:35 see resident hpi - Physicial Exam PE: 12/17/19 06:35 see resident exam - Medical Decision Making 12/17/19 06:37 49-year-old labile and uncooperative female with injury to the mouth, possibly due to seizure versus trauma with admitted alcohol use Due to inconsistent history patient underwent CT scans of the head facial bones cervical spine chest abdomen and pelvis Patient sedated with Ativan and Benadryl to allow imaging in setting of possible head trauma Due to noncompliance and staff risk oral lacerations were glued and Steri- Stripped Blood alcohol level markedly elevated Pending CT results will plan for admission for alcohol related seizure 12/17/19 06:40 Discharge - Discharge Information Problems reviewed: Yes Clinical Impression/Diagnosis: Seizure, Alcohol abuse, Lip laceration - Follow up/Referral Referrals: Andie Ireland MD [Primary Care Provider] - - Patient Discharge Instructions - Post Discharge Activity
[2019-12-17] MEDS ORDERED: LORazepam 2 MG/ML SDV VIAL ONE ×2 (04:01→04:31)
[2019-12-17 04:57] LABS: BASO % 1.8 % (0-2.0); EOS % 2.3 % (0-4.5); HEMATOCRIT 40.8 % (32.4-45.2); HEMOGLOBIN 13.1 GM/dL (10.7-15.3); LYMPH % 38.5 % (8-40); MCH 30.3 pg (25.7-33.7); MCHC 32.1 g/dl (32.0-36.0); MEAN CELL VOLUME 94.5 fl (80-96); MEAN PLT VOLUME 8.9 fl (7.5-11.1); MONO % 4.3 % (3.8-10.2); NEUT % 53.1 % (42.8-82.8); PLATELET COUNT 238 K/MM3 (134-434); RBC 4.32 M/mm3 (3.60-5.2); RDW 14.5 % (11.6-15.6)
[2019-12-17 05:08] LABS: INR 0.87 (0.83-1.09); PROTHROMBIN TIME (PATIENT) 10.3 SEC (9.7-13.0)
[2019-12-17 05:10] LABS: ACTIVATED PTT 33.5 SECONDS (25.2-36.5)
[2019-12-17 05:19] LABS: ALBUMIN 3.5 g/dl (3.4-5.0); ALK PHOS 134 U/L (45-117); ANION GAP 9 MMOL/L (8-16); BILIRUBIN,TOTAL 0.2 mg/dL (0.2-1); BLOOD UREA NITROGEN 14.8 mg/dL (7-18); CHLORIDE 114 mmol/L (98-107); CO2 21 mmol/L (21-32); CREATININE 0.5 mg/dL (0.55-1.3); GLUCOSE,RANDOM 109 mg/dL (74-106); POTASSIUM 4.2 mmol/L (3.5-5.1); SGOT/AST 204 U/L (15-37); SGPT/ALT 100 U/L (13-61); SODIUM 143 mmol/L (136-145)
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
--- NOTE | 2019-12-17 07:34 | PDOC ---
*Physical Exam - Vital Signs Last Vital Signs Temp Pulse Resp BP Pulse Ox 98.2 F 106 H 16 138/89 100 12/17/19 03:33 12/17/19 05:34 12/17/19 05:34 12/17/19 05:34 12/17/19 05:34 ED Treatment Course - LABORATORY CBC & Chemistry Diagram: 12/17/19 04:20 12/17/19 04:20 - ADDITIONAL ORDERS Additional order review: Laboratory Results 12/17/19 12/17/19 12/17/19 04:20 04:20 04:20 PT with INR 10.30 INR 0.87 PTT (Actin FS) 33.5 Sodium 143 Potassium 4.2 Chloride 114 H Carbon Dioxide 21 Anion Gap 9 BUN 14.8 Creatinine 0.5 L Est GFR (CKD-EPI)AfAm 130.79 Est GFR (CKD-EPI)NonAf 112.85 Random Glucose 109 H Calcium 9.0 Total Bilirubin 0.2 AST 204 H ALT 100 H Alkaline Phosphatase 134 H Troponin I < 0.02 Total Protein 8.0 Albumin 3.5 Carbamazepine <0.5 Alcohol, Quantitative 292.1 H 12/17/19 04:20 RBC 4.32 MCV 94.5 MCHC 32.1 RDW 14.5 D MPV 8.9 Neutrophils % 53.1 Lymphocytes % 38.5 Monocytes % 4.3 Eosinophils % 2.3 Basophils % 1.8 - Medications Given in the ED: ED Medications Discontinued Medications Generic Name Dose Route Start Last Admin Trade Name Freq PRN Reason Stop Dose Admin Diphenhydramine HCl 50 mg 12/17/19 06:42 12/17/19 06:43 Benadryl Injection - IVPUSH 12/17/19 06:43 50 mg ONCE ONE Administration Lorazepam 1 mg 12/17/19 03:49 12/17/19 04:09 Ativan Injection - IVPUSH 12/17/19 03:50 1 mg ONCE ONE Administration Lorazepam 1 mg 12/17/19 04:00 12/17/19 04:09 Ativan Injection - IVPUSH 12/17/19 04:01 1 mg ONCE ONE Administration Medical Decision Making - Medical Decision Making 12/17/19 07:32 Signed out to me by Dr. Padilla. Patient is a 49F with PMH EtOH use disorder c/b withdrawal seizures, epilepsy disorder on 400mg BID carbamazepine followed by Dr. West, CVAx5 w/ residual L-sided deficits, cardiac arrest, gastric bypass, here in ED for seizure and lip laceration. Patient intoxicated and a poor historian. Apparently got in to an argument with her son, after drank 2 bottles of wine and reportedly had a seizure with subsequent injury and lip laceration. EtOH level 291. Unclear if seizure related to alcohol withdrawal or epilepsy. Given 4mg IV Ativan and Benadryl for stabilization and sedation. CT scans of head/c-spine/face/CAP all read as negative for pathology. Labs notable for: - CBC WNL - AST 200 - ALT 100 - carbamazepine level <0.5, patient likely not taking Pending admission to day team vs. Dr. Ireland. 12/17/19 09:[address] Ireland, who accepts patient for admission to his s ervice. Discharge - Discharge Information Problems reviewed: Yes Clinical Impression/Diagnosis: Seizure, Alcohol abuse, Alcohol related seizure Lip laceration Qualifiers: Encounter type: initial encounter Qualified Code(s): S01.511A - Laceration without foreign body of lip, initial encounter - Follow up/Referral - Patient Discharge Instructions - Post Discharge Activity
--- NOTE | 2019-12-17 10:33 | EKG ---
Test Reason : Blood Pressure : / mmHG Vent. Rate : 085 BPM Atrial Rate : 085 BPM P-R Int : 158 ms QRS Dur : 074 ms QT Int : 372 ms P-R-T Axes : 039 008 022 degrees QTc Int : 442 ms NORMAL SINUS RHYTHM NONSPECIFIC T WAVE ABNORMALITY ABNORMAL ECG WHEN COMPARED WITH ECG OF 13-FEB-2019 02:50, NO SIGNIFICANT CHANGE WAS FOUND Confirmed by MD Ludivina, Je ([id number]) on 12/17/2019 10:32:49 AM Referred By: Confirmed By:Je Florence MD
--- NOTE | 2019-12-17 12:14 | CON.CARD ---
Cardiology Consult (text) - Consultation Consultation Note: Consult Specialty:: cardio - History of Present Illness Chief Complaint: seizure History of Present Illness: 49 F h/o HTN, intraop cardiac arrest, CVA, EtOH abuse, p/w seizure, alcohol intoxication, dizziness. sees Dr. Mojica for cardio. Presented to ED with lip laceration after seizure on night of admission. Has seizures about once a month. She got into an argument with her son, afterwards she drank two bottles of wine. Complained of palpitations and dizziness earlier per report. History obtained from chart, patient lethargic and falling asleep during interview. says she feels fine. 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 gastric bypass), Migraine, Seizure Cardio/Vascular: Yes: HTN, Other (cardiac arrest at time of gastric bypass) Gastrointestinal: Yes: Other (s/p bariatric surgery) ...LMP: 01/22/12 Musculoskeletal: Yes: Hemiplegia (residual left side weakness from the CVA) - Past Surgical History Past Surgical History: Yes: Bariatric Surgery (2012), Upper Endoscopy (2005) - Alcohol/Substance Use Hx Alcohol Use: No - Smoking History Smoking history: Never smoked Have you smoked in the past 12 months: No Aproximately how many cigarettes per day: 0 - Social History Usual Living Arrangement: Alone Home Medications - Allergies Allergies/Adverse Reactions: Allergies Allergy/AdvReac Type Severity Reaction Status Date / Time ibuprofen [From Motrin] Allergy Intermediate Hives Verified 12/17/19 03:42 acetaminophen [From Percocet] Allergy Swelling Verified 12/17/19 03:42 oxycodone HCl [From Percocet] Allergy Swelling Verified 12/17/19 03:42 morphine AdvReac Severe Difficulty Verified 12/17/19 03:42 Breathing Home Medications Medication Instructions Recorded Aspirin [ASA -] 81 mg PO DAILY 07/31/17 Atorvastatin Ca [Lipitor] 20 mg PO HS 07/31/17 Gabapentin 300 mg PO TID 07/31/17 Meclizine HCl 12.5 mg PO BID PRN 07/31/17 traZODone HCL [Trazodone HCl] 100 mg PO HS 07/31/17 Melatonin 5 mg PO HS PRN tab 08/03/17 Thiamine HCl [Vitamin B1 -] 100 mg PO HS tablet 08/03/17 Folic Acid - 1 mg PO DAILY #30 tablet MDD 1 10/12/18 Lacosamide [Vimpat -] 100 mg PO BID #60 tab MDD 4 10/12/18 Multivitamins [Multivit ([facility] 1 tab PO DAILY #30 tab MDD 1 10/12/18 Formulary)] Topiramate [Topamax -] 200 mg PO BID #30 tablet MDD 2 10/12/18 Family Disease History - Family Disease History Family History: unremarkable Review of Systems ROS: as per HPI, otherwise negative Vital Signs Period Temp Pulse Resp BP Sys/Carlson Pulse Ox Last 24 Hr 98.2 F-98.3 F 81-106 16-18 125-154/87-122 99-100 Constitutional: Yes: Well Nourished, No Distress Eyes: No: Sclera Icterus HENT: No: Nasal Congestion Neck: No: Decreased ROM Respiratory: Yes: CTA Bilaterally (poor effort). No: Accessory Muscle Use, Rales, Wheezes Gastrointestinal: Yes: Normal Bowel Sounds. No: Distention, Hepatomegaly, Palpable Mass, Tenderness Cardiovascular: Yes: Regular Rate and Rhythm JVD: No Carotid Bruit: No PMI: Non-Displaced Heart Sounds: Yes: S1, S2. No: Gallop Murmur: No: Systolic Murmur, Diastolic Murmur Musculoskeletal: Yes: Other (No kyphosis) Edema: No Integumentary: No: Jaundice Neurological: Yes: lethargic Psychiatric: No: Agitated Laboratory Last Values WBC 5.0 K/mm3 (4.0-10.0) 12/17/19 04:20 RBC 4.32 M/mm3 (3.60-5.2) 12/17/19 04:20 Hgb 13.1 GM/dL (10.7-15.3) 12/17/19 04:20 Hct 40.8 % (32.4-45.2) D 12/17/19 04:20 MCV 94.5 fl (80-96) 12/17/19 04:20 MCH 30.3 pg (25.7-33.7) 12/17/19 04:20 MCHC 32.1 g/dl (32.0-36.0) 12/17/19 04:20 RDW 14.5 % (11.6-15.6) D 12/17/19 04:20 Plt Count 238 K/MM3 (134-434) 12/17/19 04:20 MPV 8.9 fl (7.5-11.1) 12/17/19 04:20 Absolute Neuts (auto) 2.7 K/mm3 (1.5-8.0) 12/17/19 04:20 Neutrophils % 53.1 % (42.8-82.8) 12/17/19 04:20 Lymphocytes % 38.5 % (8-40) 12/17/19 04:20 Monocytes % 4.3 % (3.8-10.2) 12/17/19 04:20 Eosinophils % 2.3 % (0-4.5) 12/17/19 04:20 Basophils % 1.8 % (0-2.0) 12/17/19 04:20 Nucleated RBC % 0 % (0-0) 12/17/19 04:20 PT with INR 10.30 SEC (9.7-13.0) 12/17/19 04:20 INR 0.87 (0.83-1.09) 12/17/19 04:20 PTT (Actin FS) 33.5 SECONDS (25.2-36.5) 12/17/19 04:20 Sodium 143 mmol/L (136-145) 12/17/19 04:20 Potassium 4.2 mmol/L (3.5-5.1) 12/17/19 04:20 Chloride 114 mmol/L (98-107) H 12/17/19 04:20 Carbon Dioxide 21 mmol/L (21-32) 12/17/19 04:20 Anion Gap 9 MMOL/L (8-16) 12/17/19 04:20 BUN 14.8 mg/dL (7-18) 12/17/19 04:20 Creatinine 0.5 mg/dL (0.55-1.3) L 12/17/19 04:20 Est GFR (CKD-EPI)AfAm 130.79 12/17/19 04:20 Est GFR (CKD-EPI)NonAf 112.85 12/17/19 04:20 Random Glucose 109 mg/dL (74-106) H 12/17/19 04:20 Calcium 9.0 mg/dL (8.5-10.1) 12/17/19 04:20 Total Bilirubin 0.2 mg/dL (0.2-1) 12/17/19 04:20 AST 204 U/L (15-37) H 12/17/19 04:20 ALT 100 U/L (13-61) H 12/17/19 04:20 Alkaline Phosphatase 134 U/L (45-117) H 12/17/19 04:20 Troponin I < 0.02 ng/ml (0.00-0.05) 12/17/19 04:20 Total Protein 8.0 g/dl (6.4-8.2) 12/17/19 04:20 Albumin 3.5 g/dl (3.4-5.0) 12/17/19 04:20 Carbamazepine <0.5 12/17/19 04:20 Alcohol, Quantitative 292.1 mg/dL (0.0-5.0) H 12/17/19 04:20 Assessment/Plan MPI 07/23 (tessy): nl STs. large/severe anterior/septal/apical/lateral ischemia, EF 43%, + TID Echo 07/23: nl LV/EF. nl RV. nl LA. mild TR. head CT no acute process LHC (08/23): NORMAL CORONARY ANGIOGRAM. (EDP normal = 9, nl EF). ECG: sinus, nl intervals, no ischemic changes echo 10/2018 nl LV function, nl RV, mild MR, mild TR seizure, alcohol intoxication - treating for alcohol withdrawal per primary - neuro consulted, history of seizures dizziness, palpitations - EKG stable, trop neg x 1, unlikely ACS - likely in setting of alcohol intoxication HTN - cont current meds h/o CVA - cont home aspirin, statin
[2019-12-17] MEDS ORDERED: MELATONIN 5 MG TABLETS PO PRN (16:08)
[2019-12-17] MEDS ORDERED: MECLIZINE HCL 12.5 MG TABLET PO PRN (16:08)
--- NOTE | 2019-12-17 16:13 | CON.NEURO ---
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 (CVA x5 w/ reported residual LUE/LLE weakness as well as total body paresthesia excluding RUE and face), Migraine, Seizure (seizures 2/2 EtOH withdraw) Cardio/Vascular: Yes: HTN, Hyperlipdemia, Other (cardiac arrest at time of gastric bypass) Gastrointestinal: Yes: Other (s/p bariatric surgery) ...LMP: 12/17/19 ...: No Psych: Yes: Depression Musculoskeletal: Yes: Hemiplegia (residual left side weakness from the CVA) - Past Surgical History Past Surgical History: Yes: Bariatric Surgery (2012), Upper Endoscopy (2005) - Alcohol/Substance Use Hx Alcohol Use: Yes - Smoking History Smoking history: Never smoked Have you smoked in the past 12 months: No Aproximately how many cigarettes per day: 0 - Social History Usual Living Arrangement: With Child ADL: Independent History of Recent Travel: No Home Medications - Allergies Allergies/Adverse Reactions: Allergies Allergy/AdvReac Type Severity Reaction Status Date / Time ibuprofen [From Motrin] Allergy Intermediate Hives Verified 12/17/19 03:42 acetaminophen [From Percocet] Allergy Swelling Verified 12/17/19 03:42 oxycodone HCl [From Percocet] Allergy Swelling Verified 12/17/19 03:42 morphine AdvReac Severe Difficulty Verified 12/17/19 03:42 Breathing - Home Medications Home Medications: Ambulatory Orders Aspirin [ASA -] 81 mg PO DAILY 07/31/17 Atorvastatin Ca [Lipitor] 20 mg PO HS 07/31/17 Gabapentin 300 mg PO TID 07/31/17 Meclizine HCl 12.5 mg PO BID PRN 07/31/17 traZODone HCL [Trazodone HCl] 100 mg PO HS 07/31/17 Melatonin 5 mg PO HS PRN tab 08/03/17 Thiamine HCl [Vitamin B1 -] 100 mg PO HS tablet 08/03/17 Folic Acid - 1 mg PO DAILY #30 tablet MDD 1 10/12/18 Lacosamide [Vimpat -] 100 mg PO BID #60 tab MDD 4 10/12/18 Multivitamins [Multivit ([facility] Formulary)] 1 tab PO DAILY #30 tab MDD 1 10/12/18 Topiramate [Topamax -] 200 mg PO BID #30 tablet MDD 2 10/12/18 Family Medical History Family History: Unremarkable Review of Systems - Review of Systems Neurological: reports: Dizziness, Headache, Incoordination, Numbness, Parasthesia, Seizure, Syncope, Tremors Physical Exam-Neuro Vital Signs: Vital Signs Temperature 98.2 F 12/17/19 13:10 Pulse Rate 75 12/17/19 13:10 Respiratory Rate 16 12/17/19 13:10 Blood Pressure 127/74 12/17/19 13:10 O2 Sat by Pulse Oximetry (%) 99 12/17/19 13:10 Constitutional: Yes: Well Nourished Neck: Yes: WNL Cardiovascular: Yes: WNL Labs: CBC, BMP 12/17/19 04:20 12/17/19 04:20 INR, PTT INR 0.87 (0.83-1.09) 12/17/19 04:20 - Neuro Exam Level Of Consciousness: Yes: Oriented to Person, Oriented to Place, Oriented to Time Eyes: Yes: PERRLA Speech: WNL Dominant Hand: Right Cranial Nerves II-XII Intact: Yes Gag: Present DTR's: 1+ Left Bicep, 1+ Right Bicep, 1+ Left Tricep, 1+ Right Tricep Babinski: Present Response to light touch: Abnormal Response to pain prick: Abnormal Response to temperature: Abnormal Motor Strength: 2/5: Left Arm, Left Leg, 3/5: Right Arm, Right Leg Gait: Deferred Imaging - Results Cat Scan: Image Reviewed Problem List - Problems (1) Seizure Assessment/Plan: Seizure mostly associated with alcohol over use 1. Topamax [place] e 2. No EEG 3. COVID test 4. Increase Vimpat to 150 mg po q12 5. Vimpat level 12/17 6. Seizure precaution Code(s): R56.9 - UNSPECIFIED CONVULSIONS (2) Alcohol abuse Assessment/Plan: 1. Psych eval 2. DT prophylaxis with Librium protocol 3. GGT Code(s): F10.10 - ALCOHOL ABUSE, UNCOMPLICATED (3) Headache Assessment/Plan: 1. Diary 2. Magnesium 400 mg po qd 3. Naproxysn prn Code(s): R51 - HEADACHE
[2019-12-17] MEDS: ASPIRIN 81 MG CHEWABLE TABLETS PO SCH (18:20)
[2019-12-17] MEDS: GABAPENTIN 300 MG CAPSULE PO SCH ×2 (18:20→22:33)
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
[2019-12-17] MEDS ORDERED: ASPIRIN 81 MG CHEWABLE TABLETS ONE (18:25)
[2019-12-17] MEDS ORDERED: GABAPENTIN 100 MG CAPSULE ONE ×2 (18:26→22:19)
[2019-12-17] MEDS ORDERED: TOPIRAMATE 100 MG TABLET PO SCH (22:00)
[2019-12-17] MEDS ORDERED: ATORVASTATIN CA 20 MG TABLET (FP) PO SCH (22:00)
[2019-12-17] MEDS ORDERED: LACOSAMIDE 50 MG TABLET PO SCH (22:00)
[2019-12-17] MEDS ORDERED: LACOSAMIDE 50 MG TABLET PO ONE (22:18)
[2019-12-17] MEDS ORDERED: THIAMINE HCL 100 MG TABLET (FP) ONE (22:18)
[2019-12-17] MEDS ORDERED: carBAMazepine 200 MG TABLET ONE (22:19)
[2019-12-17] MEDS: carBAMazepine 200 MG TABLET PO SCH (22:33)
[2019-12-17] MEDS: LACOSAMIDE 50 MG TABLET PO SCH (22:33)
[2019-12-17] MEDS: THIAMINE HCL 100 MG TABLET (FP) PO SCH (22:33)
[2019-12-17] MEDS: traZODone HCL 100 MG TABLET (FP) PO SCH (22:44)
[2019-12-17] MEDS: TOPIRAMATE 200 MG TABLET PO SCH (22:45)
[2019-12-18 00:37] VITALS: BMI 20.2
[2019-12-18] MEDS: GABAPENTIN 300 MG CAPSULE PO SCH ×3 (06:11→22:09)
[2019-12-18 08:23] LABS: ALK PHOS 107 U/L (45-117); BILIRUBIN,TOTAL 0.9 mg/dL (0.2-1); CHLORIDE 110 mmol/L (98-107); CO2 21 mmol/L (21-32); CREATININE 0.7 mg/dL (0.55-1.3); GLUCOSE,RANDOM 95 mg/dL (74-106); SGPT/ALT 70 U/L (13-61); TOT PROT 6.7 g/dl (6.4-8.2)
[2019-12-18 08:24] LABS: ANION GAP 9 MMOL/L (8-16); BLOOD UREA NITROGEN 13.1 mg/dL (7-18); POTASSIUM 3.9 mmol/L (3.5-5.1); SGOT/AST 139 U/L (15-37); SODIUM 140 mmol/L (136-145)
[2019-12-18 08:59] LABS: BASO % 1.2 % (0-2.0); EOS % 4.8 % (0-4.5); HEMATOCRIT 37.3 % (32.4-45.2); HEMOGLOBIN 11.6 GM/dL (10.7-15.3); LYMPH % 35.5 % (8-40); MCH 30.1 pg (25.7-33.7); MCHC 31.1 g/dl (32.0-36.0); MEAN PLT VOLUME 9.5 fl (7.5-11.1); MONO % 5.1 % (3.8-10.2); NEUT % 53.4 % (42.8-82.8); PLATELET COUNT 171 K/MM3 (134-434); RBC 3.84 M/mm3 (3.60-5.2); RDW 14.4 % (11.6-15.6); WHITE BLOOD COUNT 4.6 K/mm3 (4.0-10.0)
[2019-12-18] MEDS: MULTIVITAMINS (DAILY MVI) TABLET (FP) PO SCH (09:39)
[2019-12-18] MEDS: LACOSAMIDE 50 MG TABLET PO SCH ×2 (09:39→22:08)
[2019-12-18] MEDS: FOLIC ACID 1 MG TABLET (FP) PO SCH (09:39)
[2019-12-18] MEDS: ASPIRIN 81 MG CHEWABLE TABLETS PO SCH (09:39)
[2019-12-18] MEDS: carBAMazepine 200 MG TABLET PO SCH ×2 (09:40→22:09)
[2019-12-18] MEDS: TOPIRAMATE 200 MG TABLET PO SCH ×2 (09:40→22:09)
[2019-12-18] MEDS: LORazepam 2 MG/ML SDV VIAL IVPUSH PRN (09:49)
--- NOTE | 2019-12-18 11:12 | PN ---
Progress Note, Physician Chief Complaint: Seizures Abnormal liver enzymes Alcohol abuse History of Present Illness: NAD Upon questioning, pt start crying c/o pain in her abdomen, back and head Extremely anxious - Current Medication List Current Medications: Active Medications Aspirin (Asa -) 81 mg PO DAILY [facility] Last Admin: 12/18/19 09:39 Dose: 81 mg Documented by: Carbamazepine (Tegretol -) 400 mg PO BID [facility] Last Admin: 12/18/19 09:40 Dose: 400 mg Documented by: Folic Acid (Folic Acid -) 1 mg PO DAILY [facility] Last Admin: 12/18/19 09:39 Dose: 1 mg Documented by: Gabapentin (Neurontin -) 300 mg PO TID [facility] Last Admin: 12/18/19 06:11 Dose: 300 mg Documented by: Lacosamide (Vimpat -) 150 mg PO BID [facility] Last Admin: 12/18/19 09:39 Dose: 150 mg Documented by: Lorazepam (Ativan Injection -) 1 mg IVPUSH BID PRN PRN Reason: AGITATION Last Admin: 12/18/19 09:49 Dose: 1 mg Documented by: Meclizine HCl (Antivert -) 12.5 mg PO BID PRN PRN Reason: dizziness Last Admin: 12/18/19 09:39 Dose: 12.5 mg Documented by: Melatonin (Melatonin) 5 mg PO HS PRN PRN Reason: INSOMNIA Multivitamins/Minerals/Vitamin C (Tab-A-Vit -) 1 tab PO DAILY [facility] Last Admin: 12/18/19 09:39 Dose: 1 tab Documented by: Thiamine HCl (Vitamin B1 -) 100 mg PO [facility] Last Admin: 12/17/19 22:33 Dose: 100 mg Documented by: Topiramate (Topamax -) 200 mg PO BID [facility] Last Admin: 12/18/19 09:40 Dose: 200 mg Documented by: Trazodone HCl (Desyrel -) 100 mg PO [facility] Last Admin: 12/17/19 22:44 Dose: 100 mg Documented by: - Objective Vital Signs: Vital Signs Temperature 98.1 F 12/18/19 06:00 Pulse Rate 77 12/18/19 06:00 Respiratory Rate 18 12/18/19 06:00 Blood Pressure 103/67 12/18/19 06:00 O2 Sat by Pulse Oximetry (%) 96 12/18/19 06:00 Constitutional: Yes: No Distress, Calm, Cachectic Cardiovascular: Yes: Regular Rate and Rhythm Respiratory: Yes: Regular, CTA Bilaterally Gastrointestinal: Yes: Normal Bowel Sounds, Soft, Tenderness (diffuse) Genitourinary: Yes: WNL Musculoskeletal: Yes: Muscle Weakness Extremities: Yes: WNL Edema: No Peripheral Pulses WNL: Yes Integumentary: Yes: Skin Tear (Left lip laceration) Neurological: Yes: Alert, Oriented Psychiatric: Yes: Alert, Oriented Labs: CBC, BMP 12/18/19 07:35 12/18/19 07:35 INR, PTT INR 0.87 (0.83-1.09) 12/17/19 04:20 Problem List - Problems (1) Alcohol abuse Assessment/Plan: -Detox consult -Ativan PRN Problems reviewed: Yes Code(s): F10.10 - ALCOHOL ABUSE, UNCOMPLICATED (2) Alcohol related seizure Problems reviewed: Yes Code(s): R56.9 - UNSPECIFIED CONVULSIONS (3) Lip laceration Assessment/Plan: -Local wound care -Steri strips Problems reviewed: Yes Code(s): S01.511A - LACERATION WITHOUT FOREIGN BODY OF LIP, INITIAL ENCOUNTER Qualifiers: Encounter type: initial encounter Qualified Code(s): S01.511A - Laceration without foreign body of lip, initial encounter (4) Epilepsy Assessment/Plan: -Neurology consult -CT head, facial,cervical spine unremarkable -Increase vimpat to 150 mg po bid -Carbamazepine 400 mg po bid Problems reviewed: Yes Code(s): G40.909 - EPILEPSY, UNSP, NOT INTRACTABLE, WITHOUT STATUS EPILEPTICUS (5) Elevated liver enzymes Assessment/Plan: -2/2 to alcohol abuse? -GI consult -CTAP-fatty infiltration of liver, cholelithiasis -monitor trend -Hold statin for now Problems reviewed: Yes Code(s): R74.8 - ABNORMAL LEVELS OF OTHER SERUM ENZYMES (6) Anxiety and depression Assessment/Plan: -Psychotherapy -Psychiatry consult -Ativan 1 mg BID PRN Problems reviewed: Yes Code(s): F41.9 - ANXIETY DISORDER, UNSPECIFIED; F32.9 - MAJOR DEPRESSIVE DISORDER, SINGLE EPISODE, UNSPECIFIED (7) Abdominal pain Assessment/Plan: -GI consult -CTAP reviewed -NPO except meds -IVF -Surgical consult Problems reviewed: Yes Code(s): R10.9 - UNSPECIFIED ABDOMINAL PAIN Assessment/Plan See problem list
--- NOTE | 2019-12-18 11:17 | PN ---
Progress Note (short form) - Note Progress Note: cc: lip swelling s: no dizziness, dyspnea,edema, palps. complains of pain all over body Current Medications Generic Name Dose Route Start Last Admin Trade Name Freq PRN Reason Stop Dose Admin Aspirin 81 mg 12/17/19 16:15 12/18/19 09:39 Asa - PO 81 mg DAILY REAGAN Administration Carbamazepine 400 mg 12/17/19 22:00 12/18/19 09:40 Tegretol - PO 400 mg BID REAGAN Administration Folic Acid 1 mg 12/18/19 10:00 12/18/19 09:39 Folic Acid - PO 1 mg DAILY REAGAN Administration Gabapentin 300 mg 12/17/19 16:08 12/18/19 06:11 Neurontin - PO 300 mg TID REAGAN Administration Lacosamide 150 mg 12/17/19 22:00 12/18/19 09:39 Vimpat - PO 150 mg BID REAGAN Administration Lorazepam 1 mg 12/17/19 16:14 12/18/19 09:49 Ativan Injection - IVPUSH 1 mg BID PRN Administration AGITATION Meclizine HCl 12.5 mg 12/17/19 16:08 12/18/19 09:39 Antivert - PO 12.5 mg BID PRN Administration dizziness Melatonin 5 mg 12/17/19 16:08 Melatonin PO HS PRN INSOMNIA Multivitamins/Minerals/Vitamin C 1 tab 12/18/19 10:00 12/18/19 09:39 Tab-A-Vit - PO 1 tab DAILY REAGAN Administration Thiamine HCl 100 mg 12/17/19 22:00 12/17/19 22:33 Vitamin B1 - PO 100 mg HS REAGAN Administration Topiramate 200 mg 12/17/19 22:30 12/18/19 09:40 Topamax - PO 200 mg BID REAGAN Administration Trazodone HCl 100 mg 12/17/19 22:00 12/17/19 22:44 Desyrel - PO 100 mg HS REAGAN Administration Vital Signs Period Temp Pulse Resp BP Sys/Carlson Pulse Ox Last 24 Hr 97.8 F-98.8 F 74-88 16-19 100-142/60-96 96-100 Constitutional: Yes: Well Nourished, No Distress Eyes: No: Sclera Icterus HENT: No: Nasal Congestion Neck: No: Decreased ROM Respiratory: Yes: CTA Bilaterally (poor effort). No: Accessory Muscle Use, Rales, Wheezes Gastrointestinal: Yes: Normal Bowel Sounds. No: Distention, Hepatomegaly, Palpable Mass, Tenderness Cardiovascular: Yes: Regular Rate and Rhythm JVD: No Carotid Bruit: No PMI: Non-Displaced Heart Sounds: Yes: S1, S2. No: Gallop Murmur: No: Systolic Murmur, Diastolic Murmur Musculoskeletal: Yes: Other (No kyphosis) Edema: No Integumentary: No: Jaundice Neurological: Yes: awake Psychiatric: not agitated Assessment/Plan MPI 07/23 (tessy): nl STs. large/severe anterior/septal/apical/lateral ischemia, EF 43%, + TID Echo 07/23: nl LV/EF. nl RV. nl LA. mild TR. head CT no acute process LHC (08/23): NORMAL CORONARY ANGIOGRAM. (EDP normal = 9, nl EF). ECG: sinus, nl intervals, no ischemic changes echo 10/2018 nl LV function, nl RV, mild MR, mild TR seizure, alcohol intoxication - treating for alcohol withdrawal per primary - neuro consulted, history of seizures dizziness, palpitations - EKG stable, trop neg x 1, unlikely ACS - likely in setting of alcohol intoxication HTN - cont current meds h/o CVA - cont home aspirin, statin
--- NOTE | 2019-12-18 13:13 | CON.GI ---
Consult Consult Specialty:: GI Referred by:: Hospitalist Service Reason for Consultation:: Abnormal liver chemistries - History of Present Illness Chief Complaint: Admitted for seizure History of Present Illness: 49F admitted for seizures. Patient unclear about this history. There is h/o alcohol abuse in the chart, however, patient states that she had a cup of wine monday, otherwise has not had a drink in quite some time. Complains of diffuse pain complaints (joints, back, legs, abdomen) ? if she fell? No N/V. CT scan A/P revealed mild hepatomegaly and gallstones. Remotely had EGD/Colonoscopy. No family history of colorectal cancer, liver disease. transaminases (in a 2:1 AST:ALT ratio) and ALP were elevated on admission and are trending down. ALP is now normal. 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: CVA (CVA x5 w/ reported residual LUE/LLE weakness as well as total body paresthesia excluding RUE and face), Migraine, Seizure (seizures 2/2 EtOH withdraw) Cardio/Vascular: Yes: HTN, Hyperlipdemia, Other (cardiac arrest at time of gastric bypass) Gastrointestinal: Yes: Other (s/p bariatric surgery) ...LMP: 12/17/19 ...: No Psych: Yes: Depression Musculoskeletal: Yes: Hemiplegia (residual left side weakness from the CVA) - Past Surgical History Past Surgical History: Yes: Bariatric Surgery (2012), Upper Endoscopy (2005) - Alcohol/Substance Use Hx Alcohol Use: Yes - Smoking History Smoking history: Never smoked Have you smoked in the past 12 months: No Aproximately how many cigarettes per day: 0 - Social History Usual Living Arrangement: With Child ADL: Independent History of Recent Travel: No Home Medications - Allergies Allergies/Adverse Reactions: Allergies Allergy/AdvReac Type Severity Reaction Status Date / Time ibuprofen [From Motrin] Allergy Intermediate Hives Verified 12/17/19 03:42 acetaminophen [From Percocet] Allergy Swelling Verified 12/17/19 03:42 oxycodone HCl [From Percocet] Allergy Swelling Verified 12/17/19 03:42 morphine AdvReac Severe Difficulty Verified 12/17/19 03:42 Breathing - Home Medications Home Medications: Ambulatory Orders Aspirin [ASA -] 81 mg PO DAILY 07/31/17 Atorvastatin Ca [Lipitor] 20 mg PO HS 07/31/17 Gabapentin 300 mg PO TID 07/31/17 Meclizine HCl 12.5 mg PO BID PRN 07/31/17 traZODone HCL [Trazodone HCl] 100 mg PO HS 07/31/17 Melatonin 5 mg PO HS PRN tab 08/03/17 Thiamine HCl [Vitamin B1 -] 100 mg PO HS tablet 08/03/17 Folic Acid - 1 mg PO DAILY #30 tablet MDD 1 10/12/18 Lacosamide [Vimpat -] 100 mg PO BID #60 tab MDD 4 10/12/18 Multivitamins [Multivit ([facility] Formul[facility])] 1 tab PO DAILY #30 tab MDD 1 10/12/18 Topiramate [Topamax -] 200 mg PO BID #30 tablet MDD 2 10/12/18 Family Medical History Other Family History: No family history of colorectal cancer or other GI malignancy Review of Systems - Review of Systems Constitutional: denies: Chills Cardiovascular: denies: Chest Pain Respiratory: denies: Cough Gastrointestinal: reports: Abdominal Pain Musculoskeletal: reports: Back Pain, Joint Pain, Muscle Cramps Physical Exam-GI Vital Signs: Vital Signs Temperature 98.1 F 12/18/19 10:00 Pulse Rate 94 H 12/18/19 10:00 Respiratory Rate 18 12/18/19 10:00 Blood Pressure 109/75 12/18/19 10:00 O2 Sat by Pulse Oximetry (%) 99 12/18/19 10:00 Constitutional: Yes: Calm Eyes: No: Sclera Icterus Cardiovascular: Yes: Regular Rate and Rhythm Respiratory: Yes: CTA Bilaterally Gastrointestinal Inspection: No: Distention ...Auscultate: Yes: Normoactive Bowel Sounds ...Palpate: Yes: Soft, Tenderness (TTP diffusely, predominantly RUQ). No: Hepatomegaly, Splenomegaly Extremities: Yes: Other (Left arm contracture) Edema: No (No LE edema) Neurological: Yes: Alert Labs: CBC, BMP 12/18/19 07:35 12/18/19 07:35 INR, PTT INR 0.87 (0.83-1.09) 12/17/19 04:20 Problem List - Problems (1) Elevated liver enzymes Assessment/Plan: If there was seizure activity, that certainly could elevate transaminases as could alcohol use. AST: ALT ratio was in 1 2:1 pattern. Also has a macrocytosis but denies alcohol abuse. Added on a CPK to AM labs. If evidence of rhabdomyolysis in setting of previous seizure activity, will need to be addressed by primary team Multiple pain complaints including abdomen and RUQ. No fever or leukocytosis Advise: Abdominal US HIDA Surgical evaluation Monitor LFTs Avoid hepatotoxic agents Monitor for etoh withdrawal Code(s): R74.8 - ABNORMAL LEVELS OF OTHER SERUM ENZYMES
[2019-12-18] MEDS: DEXTROSE 5%-0.45% SALINE 1,000 ML IV SCH (14:09)
--- NOTE | 2019-12-18 16:55 | CON.PSY ---
Psychiatry Consult Chief Complaint: 49 David old female admitted with Seizures. ? alcohol [id number]. [facility]. seen for anxirty , she had been drinking prior to admission. Sleeping soundly , appears calmer.. Symptoms: reports: Anxiety, Conduct Problems - Previous Psychiatric Treatment Outpatient: None Inpatient: None - Previous Substance Abuse Treatment Outpatient: None Inpatient: None - Reason for Previous Treatment Reason for Previous Treatment: Major Depression, Anxiety or Panic Disorder, Alcohol Abuse - Current Medications Current Medications: Active Medications Aspirin (Asa -) 81 mg PO DAILY [facility] Last Admin: 12/18/19 09:39 Dose: 81 mg Documented by: Carbamazepine (Tegretol -) 400 mg PO BID [facility] Last Admin: 12/18/19 09:40 Dose: 400 mg Documented by: Folic Acid (Folic Acid -) 1 mg PO DAILY [facility] Last Admin: 12/18/19 09:39 Dose: 1 mg Documented by: Gabapentin (Neurontin -) 300 mg PO TID [facility] Last Admin: 12/18/19 14:08 Dose: 300 mg Documented by: Dextrose/Sodium Chloride (D5-1/2ns -) 1,000 mls @ 100 mls/hr IV ASDIR [facility] Last Admin: 12/18/19 14:09 Dose: 100 mls/hr Documented by: Lacosamide (Vimpat -) 150 mg PO BID [facility] Last Admin: 12/18/19 09:39 Dose: 150 mg Documented by: Lorazepam (Ativan Injection -) 1 mg IVPUSH BID PRN PRN Reason: AGITATION Last Admin: 12/18/19 09:49 Dose: 1 mg Documented by: Meclizine HCl (Antivert -) 12.5 mg PO BID PRN PRN Reason: dizziness Last Admin: 12/18/19 09:39 Dose: 12.5 mg Documented by: Melatonin (Melatonin) 5 mg PO HS PRN PRN Reason: INSOMNIA Multivitamins/Minerals/Vitamin C (Tab-A-Vit -) 1 tab PO DAILY [facility] Last Admin: 12/18/19 09:39 Dose: 1 tab Documented by: Thiamine HCl (Vitamin B1 -) 100 mg PO HS [facility] Last Admin: 12/17/19 22:33 Dose: 100 mg Documented by: Topiramate (Topamax -) 200 mg PO BID [facility] Last Admin: 12/18/19 09:40 Dose: 200 mg Documented by: Trazodone HCl (Desyrel -) 100 mg PO HS [facility] Last Admin: 12/17/19 22:44 Dose: 100 mg Documented by: - Allergies Allergies: Allergies Allergy/AdvReac Type Severity Reaction Status Date / Time ibuprofen [From Motrin] Allergy Intermediate Hives Verified 12/17/19 03:42 acetaminophen [From Percocet] Allergy Swelling Verified 12/17/19 03:42 oxycodone HCl [From Percocet] Allergy Swelling Verified 12/17/19 03:42 morphine AdvReac Severe Difficulty Verified 12/17/19 03:42 Breathing - Current Living Status Usual Living Arrangement: With Child - Current Mental Status Evaluation Appearance: Disheveled Attitude: Guarded - Affect Affect: Constrictive Appropriateness: Appropriate to Content - Mood Mood: Anxious - Speech/Language Expressive: Coherent - Psychomotor Activity Psychomotor Activity: Normal, Hyperactive - Thought Process Thought Process: Intact - Thought Content Hallucinations: Absent Delusions: Absent - Self Perception Self Perception: No Impairment - Concentration Serial Sevens Intact: No Simple Calculations Intact: Yes - Abstraction Proverb Interpretation: Intact Judgement: Minimally Impaired - Insight Insight: Intact - Impulse Control Impulse Control: Minimally Impaired - Suicidal Ideation Suicidal Ideation: No - Homicidal Ideation Homicidal Ideation: No Assessment/Plan 10 Continuewith [facility] Psych meds. 2) d/c when medically stable.
--- NOTE | 2019-12-18 17:04 | CON.PSL ---
Psychology Consult Consult Specialty:: Neuropsychology and Clinical Psychology History Provided By: Patient, Medical Record Limitations to Obtaining History: Clinical Condition Current Medications: Active Medications Aspirin (Asa -) 81 mg PO DAILY [facility] Last Admin: 12/18/19 09:39 Dose: 81 mg Documented by: Carbamazepine (Tegretol -) 400 mg PO BID [facility] Last Admin: 12/18/19 09:40 Dose: 400 mg Documented by: Folic Acid (Folic Acid -) 1 mg PO DAILY [facility] Last Admin: 12/18/19 09:39 Dose: 1 mg Documented by: Gabapentin (Neurontin -) 300 mg PO TID [facility] Last Admin: 12/18/19 14:08 Dose: 300 mg Documented by: Dextrose/Sodium Chloride (D5-1/2ns -) 1,000 mls @ 100 mls/hr IV ASDIR [facility] Last Admin: 12/18/19 14:09 Dose: 100 mls/hr Documented by: Lacosamide (Vimpat -) 150 mg PO BID [facility] Last Admin: 12/18/19 09:39 Dose: 150 mg Documented by: Lorazepam (Ativan Injection -) 1 mg IVPUSH BID PRN PRN Reason: AGITATION Last Admin: 12/18/19 09:49 Dose: 1 mg Documented by: Meclizine HCl (Antivert -) 12.5 mg PO BID PRN PRN Reason: dizziness Last Admin: 12/18/19 09:39 Dose: 12.5 mg Documented by: Melatonin (Melatonin) 5 mg PO HS PRN PRN Reason: INSOMNIA Multivitamins/Minerals/Vitamin C (Tab-A-Vit -) 1 tab PO DAILY [facility] Last Admin: 12/18/19 09:39 Dose: 1 tab Documented by: Thiamine HCl (Vitamin B1 -) 100 mg PO HS [facility] Last Admin: 12/17/19 22:33 Dose: 100 mg Documented by: Topiramate (Topamax -) 200 mg PO BID [facility] Last Admin: 12/18/19 09:40 Dose: 200 mg Documented by: Trazodone HCl (Desyrel -) 100 mg PO [facility] Last Admin: 12/17/19 22:44 Dose: 100 mg Documented by: Allergies: Allergies Allergy/AdvReac Type Severity Reaction Status Date / Time ibuprofen [From Motrin] Allergy Intermediate Hives Verified 12/17/19 03:42 acetaminophen [From Percocet] Allergy Swelling Verified 12/17/19 03:42 oxycodone HCl [From Percocet] Allergy Swelling Verified 12/17/19 03:42 morphine AdvReac Severe Difficulty Verified 12/17/19 03:42 Breathing Does patient have pain?: Yes Pain Location Body Site: Abdomen Pain Description: Sharp Pain Intensity: 8 Hx Alcohol Use: Yes Hx Substance Use: Yes Substance Use Type: Alcohol Hx Substance Use Treatment: No Current Medical Exam-Psy Attention: Alert Orientation: Time, Person, Place Immediate Term Memory: 07/08 Expressive: Slurred Receptive: Delayed Receptive Comprehension Hallucinations: Present Hallucinations: Visual (In the ED she saw things such as people she never saw before, as if "I was in another world." She reports prior to the admission to the ED she had two cups of wine. She states that she is not an alcoholic.) Thought Process: Intact, [place] Depression: Moderate Hopelessness: No Loss of Interest: No Anxiety Level: Moderate Danger to Self and Others: No Sleep: Well Appetite: Good Serial Sevens Intact: No (Unable to spell [place]; did not attempt backward) Repeats 3 words told earlier: 05/10 Support System: Child/Children Leisure activities: With Family Problem List - Problem (1) Anxiety and depression Code(s): F41.9 - ANXIETY DISORDER, UNSPECIFIED; F32.9 - MAJOR DEPRESSIVE DISORDER, SINGLE EPISODE, UNSPECIFIED Assessment/Plan The patient was cooperative and tried to engage in the tasks. However, she experienced significant cognitive weaknesses as evidenced by delayed memory impairment, incoherent speech at times, and poor concentration for spelling a basic word in her [place] language. Her visual hallucinations are also of concern and should be addressed by neurology. For her anxiety the patient was taught to use slow breathing - inhaling to a count of 4 and exhaling to a count of 4. She stated that she felt better from this short intervention. The treatment plan is to continue training her in stress/anxiety and pain management techniques. In addition, supportive therapy will be provided. Thank you for your kind referral. Derrick Bustos Psy.D., N, [facility]
[2019-12-18] MEDS ORDERED: PT OWN MED DRAWER 7, Y5N ONE (22:00)
[2019-12-18] MEDS: traZODone HCL 100 MG TABLET (FP) PO SCH (22:09)
[2019-12-18] MEDS: THIAMINE HCL 100 MG TABLET (FP) PO SCH (22:09)
[2019-12-19] MEDS: LORazepam 2 MG/ML SDV VIAL IVPUSH PRN ×2 (01:38→22:50)
[2019-12-19] MEDS: GABAPENTIN 300 MG CAPSULE PO SCH ×3 (06:29→21:14)
[2019-12-19 08:49] LABS: ALBUMIN 2.8 g/dl (3.4-5.0); BILIRUBIN,DIRECT 0.3 mg/dL (0.0-0.2); BILIRUBIN,TOTAL 0.7 mg/dL (0.2-1); TOT PROT 6.7 g/dl (6.4-8.2)
[2019-12-19] MEDS: FOLIC ACID 1 MG TABLET (FP) PO SCH (12:03)
[2019-12-19] MEDS: ASPIRIN 81 MG CHEWABLE TABLETS PO SCH (12:03)
[2019-12-19] MEDS: TOPIRAMATE 200 MG TABLET PO SCH ×2 (12:04→21:14)
[2019-12-19] MEDS: carBAMazepine 200 MG TABLET PO SCH ×2 (12:04→21:14)
[2019-12-19] MEDS: MULTIVITAMINS (DAILY MVI) TABLET (FP) PO SCH (12:04)
[2019-12-19] MEDS: LACOSAMIDE 50 MG TABLET PO SCH ×2 (12:04→21:14)
[2019-12-19] MEDS: DEXTROSE 5%-0.45% SALINE 1,000 ML IV SCH ×2 (12:11→16:37)
--- NOTE | 2019-12-19 12:13 | PN ---
Progress Note, Physician Chief Complaint: Seizures Abnormal liver enzymes Alcohol abuse History of Present Illness: NAD Upon questioning, pt start crying c/o pain in her abdomen, back and head. subjective pain not consistent with symptoms sleeping calmly upon walking in the room. Upon conversing with the patient, sta rts screaming in pain, without any examination. Extremely anxious - Current Medication List Current Medications: Active Medications Aspirin (Asa -) 81 mg PO DAILY [facility] Last Admin: 12/19/19 12:03 Dose: 81 mg Documented by: Carbamazepine (Tegretol -) 400 mg PO BID [facility] Last Admin: 12/19/19 12:04 Dose: 400 mg Documented by: Folic Acid (Folic Acid -) 1 mg PO DAILY [facility] Last Admin: 12/19/19 12:03 Dose: 1 mg Documented by: Gabapentin (Neurontin -) 300 mg PO TID [facility] Last Admin: 12/19/19 06:29 Dose: 300 mg Documented by: Dextrose/Sodium Chloride (D5-1/2ns -) 1,000 mls @ 100 mls/hr IV ASDIR [facility] Last Admin: 12/19/19 12:11 Dose: 100 mls/hr Documented by: Lacosamide (Vimpat -) 150 mg PO BID [facility] Last Admin: 12/19/19 12:04 Dose: 150 mg Documented by: Lorazepam (Ativan Injection -) 1 mg IVPUSH BID PRN PRN Reason: AGITATION Last Admin: 12/19/19 01:38 Dose: 1 mg Documented by: Meclizine HCl (Antivert -) 12.5 mg PO BID PRN PRN Reason: dizziness Last Admin: 12/18/19 09:39 Dose: 12.5 mg Documented by: Melatonin (Melatonin) 5 mg PO HS PRN PRN Reason: INSOMNIA Multivitamins/Minerals/Vitamin C (Tab-A-Vit -) 1 tab PO DAILY [facility] Last Admin: 12/19/19 12:04 Dose: 1 tab Documented by: Thiamine HCl (Vitamin B1 -) 100 mg PO HS [facility] Last Admin: 12/18/19 22:09 Dose: 100 mg Documented by: Topiramate (Topamax -) 200 mg PO BID [facility] Last Admin: 12/19/19 12:04 Dose: 200 mg Documented by: Trazodone HCl (Desyrel -) 100 mg PO HS [facility] Last Admin: 12/18/19 22:09 Dose: 100 mg Documented by: - Objective Vital Signs: Vital Signs Temperature 98.0 F 12/18/19 23:00 Pulse Rate 86 12/19/19 06:40 Respiratory Rate 18 12/18/19 23:00 Blood Pressure 109/42 L 12/19/19 06:40 O2 Sat by Pulse Oximetry (%) 96 12/19/19 06:40 Constitutional: Yes: Well Nourished, No Distress, Anxious, Thin Cardiovascular: Yes: Regular Rate and Rhythm Respiratory: Yes: Regular, CTA Bilaterally Gastrointestinal: Yes: Soft, Hypoactive Bowel Sounds, Tenderness (diffuse) Genitourinary: Yes: WNL Musculoskeletal: Yes: Muscle Weakness Extremities: Yes: WNL Edema: No Peripheral Pulses WNL: Yes Neurological: Yes: Alert, Oriented Psychiatric: Yes: Alert, Oriented Labs: CBC, BMP 12/18/19 07:35 12/18/19 07:35 INR, PTT INR 0.87 (0.83-1.09) 12/17/19 04:20 Problem List - Problems (1) Alcohol abuse Assessment/Plan: -Detox consult -Ativan PRN Problems reviewed: Yes Code(s): F10.10 - ALCOHOL ABUSE, UNCOMPLICATED (2) Alcohol related seizure Problems reviewed: Yes Code(s): R56.9 - UNSPECIFIED CONVULSIONS (3) Lip laceration Assessment/Plan: -Local wound care -Steri strips Problems reviewed: Yes Code(s): S01.511A - LACERATION WITHOUT FOREIGN BODY OF LIP, INITIAL ENCOUNTER Qualifiers: Encounter type: initial encounter Qualified Code(s): S01.511A - Laceration without foreign body of lip, initial encounter (4) Epilepsy Assessment/Plan: -Neurology consult -CT head, facial,cervical spine unremarkable -Increase vimpat to 150 mg po bid -Carbamazepine 400 mg po bid Problems reviewed: Yes Code(s): G40.909 - EPILEPSY, UNSP, NOT INTRACTABLE, WITHOUT STATUS EPILEPTICUS (5) Elevated liver enzymes Assessment/Plan: -2/2 to alcohol abuse? -GI consult -CTAP-fatty infiltration of liver, cholelithiasis -monitor trend -Hold statin for now Problems reviewed: Yes Code(s): R74.8 - ABNORMAL LEVELS OF OTHER SERUM ENZYMES (6) Anxiety and depression Assessment/Plan: -Psychotherapy -Psychiatry consult -Ativan 1 mg BID PRN Problems reviewed: Yes Code(s): F41.9 - ANXIETY DISORDER, UNSPECIFIED; F32.9 - MAJOR DEPRESSIVE DISORDER, SINGLE EPISODE, UNSPECIFIED (7) Abdominal pain Assessment/Plan: -GI consult -CTAP reviewed -U/S abd reviewed- fatty infiltration vs hepatocellular disease -HIDA scan results pending -NPO except meds -IVF -Surgical consult Problems reviewed: Yes Code(s): R10.9 - UNSPECIFIED ABDOMINAL PAIN Assessment/Plan See problem list
--- NOTE | 2019-12-19 16:18 | PN ---
Progress Note (short form) - Note Progress Note: Spoke with Adriano Warren NP. Patient still with multipe pain complaints including abdomen. LFTs normalizing trend. Awaiting HIDA read. Surgical evaluation. NPO except meds, IV hydration. Problem List - Problems (1) Elevated liver enzymes Code(s): R74.8 - ABNORMAL LEVELS OF OTHER SERUM ENZYMES
--- NOTE | 2019-12-19 16:21 | PN ---
Progress Note (short form) - Note Progress Note: cc: lip swelling s: no dizziness, dyspnea,edema, palps. complains of pain all over body Current Medications Generic Name Dose Route Start Last Admin Trade Name Freq PRN Reason Stop Dose Admin Aspirin 81 mg 12/17/19 16:15 12/19/19 12:03 Asa - PO 81 mg DAILY [facility] Administration Carbamazepine 400 mg 12/17/19 22:00 12/19/19 12:04 Tegretol - PO 400 mg BID [facility] Administration Folic Acid 1 mg 12/18/19 10:00 12/19/19 12:03 Folic Acid - PO 1 mg DAILY [facility] Administration Gabapentin 300 mg 12/17/19 16:08 12/19/19 06:29 Neurontin - PO 300 mg TID [facility] Administration Dextrose/Sodium Chloride 1,000 mls @ 100 mls/hr 12/18/19 13:30 12/19/19 12:11 D5-1/2ns - IV 100 mls/hr ASDIR [facility] Administration Lacosamide 150 mg 12/17/19 22:00 12/19/19 12:04 Vimpat - PO 150 mg BID [facility] Administration Lorazepam 1 mg 12/17/19 16:14 12/19/19 01:38 Ativan Injection - IVPUSH 1 mg BID PRN Administration AGITATION Meclizine HCl 12.5 mg 12/17/19 16:08 12/18/19 09:39 Antivert - PO 12.5 mg BID PRN Administration dizziness Melatonin 5 mg 12/17/19 16:08 Melatonin PO HS PRN INSOMNIA Multivitamins/Minerals/Vitamin C 1 tab 12/18/19 10:00 12/19/19 12:04 Tab-A-Vit - PO 1 tab DAILY [facility] Administration Thiamine HCl 100 mg 12/17/19 22:00 12/18/19 22:09 Vitamin B1 - PO 100 mg HS [facility] Administration Topiramate 200 mg 12/17/19 22:30 12/19/19 12:04 Topamax - PO 200 mg BID [facility] Administration Trazodone HCl 100 mg 12/17/19 22:00 12/18/19 22:09 Desyrel - PO 100 mg HS [facility] Administration Vital Signs Period Temp Pulse Resp BP Sys/Carlson Pulse Ox Last 24 Hr 97.9 F-98.0 F 78-87 18-18 109-127/42-90 96-99 Constitutional: Yes: Well Nourished, No Distress Eyes: No: Sclera Icterus HENT: No: Nasal Congestion Respiratory: Yes: CTA Bilaterally (poor effort). No: Accessory Muscle Use, Rales, Wheezes Gastrointestinal: Yes: Normal Bowel Sounds. No: Distention, Hepatomegaly, Palpable Mass, Tenderness Cardiovascular: Yes: Regular Rate and Rhythm JVD: No Heart Sounds: Yes: S1, S2. No: Gallop Murmur: No: Systolic Murmur, Diastolic Murmur Edema: No Integumentary: No: Jaundice Neurological: Yes: awake Psychiatric: not agitated CBC, BMP 12/18/19 07:35 12/18/19 07:35 Assessment/Plan MPI 07/23 (tessy): nl STs. large/severe anterior/septal/apical/lateral ischemia, EF 43%, + TID Echo 07/23: nl LV/EF. nl RV. nl LA. mild TR. head CT no acute process LHC (08/23): NORMAL CORONARY ANGIOGRAM. (EDP normal = 9, nl EF). ECG: sinus, nl intervals, no ischemic changes echo 10/2018 nl LV function, nl RV, mild MR, mild TR seizure, alcohol intoxication - treating for alcohol withdrawal per primary - neuro consulted, history of seizures dizziness, palpitations - EKG stable, trop neg, unlikely ACS - likely in setting of alcohol intoxication HTN - cont current meds h/o CVA - cont home aspirin, statin HLD - elevated LFTs likely in setting of EtOH use - hold statin pending improvement in LFTs
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
[2019-12-19 19:28] LABS: URINE APPEARANCE TURBID; URINE BILIRUBIN NEGATIVE (NEGATIVE); URINE COLOR DK YELLOW; URINE GLUCOSE (UA) NEGATIVE (NEGATIVE); URINE KETONE NEGATIVE (NEGATIVE); URINE LEUK ESTERASE NEGATIVE (NEGATIVE); URINE NITRITE NEGATIVE (NEGATIVE); URINE PROTEIN NEGATIVE (NEGATIVE)
[2019-12-19] MEDS ORDERED: PT OWN MED DRAWER 7, Y5N ONE (20:54)
[2019-12-19] MEDS: traZODone HCL 100 MG TABLET (FP) PO SCH (21:14)
[2019-12-19] MEDS: THIAMINE HCL 100 MG TABLET (FP) PO SCH (21:15)
[2019-12-19] MEDS: PANTOPRAZOLE SODIUM 40 MG VIAL IVPUSH SCH (22:23)
[2019-12-19] MEDS ORDERED: levETIRAcetam 500 MG/5 ML INJECTION VIAL IVPB ONE (23:02)
--- NOTE | 2019-12-19 23:08 | PN ---
Progress Note (short form) - Note Progress Note: Rapid response was called at 22:57. Rapid response team arrived at bedside immediately. RN reports that pt demonstrated urinary incontinence, had RUE stiffness, and new onset expressive aphasia. There were tonic-clonic movements. Pt with a hx of stroke, alcohol abuse, and alcohol withdrawal induced seizures. PRN Ativan 1 mg administered prior to arrival of rapid response team. VS 143/87 HR 110 RR 16 O2 96% Gen - pt resting in bed, alert, not oriented, responding only with grunts CV - RRR, normal s1, s2; no MRG Pulm - CTAB Abd - soft, TTP in all four quadrants no guarding, rebound, or rigidity Neuro - residual deficits appreciated on L; GCS 11 (complicated by residual deficit + recent ativan administration) NIHSS 12; however complicated by residual deficit from previous stroke as well as administration of Ativan. Will reassess in [address] head to r/o acute intracranial pathology. Will give IV keppra 1000 now. Awaiting call back from primary team.
[2019-12-20 02:44] LABS: EOS % 2.7 % (0-4.5); HEMATOCRIT 34.6 % (32.4-45.2); HEMOGLOBIN 11.1 GM/dL (10.7-15.3); MCH 30.8 pg (25.7-33.7); MCHC 32.2 g/dl (32.0-36.0); MEAN CELL VOLUME 95.6 fl (80-96); MEAN PLT VOLUME 9.2 fl (7.5-11.1); MONO % 6.5 % (3.8-10.2); NEUT % 63.8 % (42.8-82.8); PLATELET COUNT 164 K/MM3 (134-434); RBC 3.62 M/mm3 (3.60-5.2); RDW 14.3 % (11.6-15.6); WHITE BLOOD COUNT 3.7 K/mm3 (4.0-10.0)
[2019-12-20] MEDS: DEXTROSE 5%-0.45% SALINE 1,000 ML IV SCH ×3 (06:22→17:29)
[2019-12-20] MEDS: GABAPENTIN 300 MG CAPSULE PO SCH ×3 (06:23→21:49)
--- NOTE | 2019-12-20 09:55 | PN.GI ---
GI Progress Note Subjective: complains of pain "all over", more on left side HIDA negative - Objective Vital Signs: Vital Signs Temperature 97.9 F 12/20/19 06:00 Pulse Rate 75 12/20/19 06:00 Respiratory Rate 20 12/20/19 06:00 Blood Pressure 104/79 12/20/19 06:00 O2 Sat by Pulse Oximetry (%) 96 12/20/19 06:00 Constitutional: Moderate Distress Eyes: No: Sclera Icterus Cardiovascular: Yes: Regular Rate and Rhythm Respiratory: Yes: Diminished (Poor insp effort) Gastrointestinal Inspection: No: Distention ...Auscultate: Yes: Normoactive Bowel Sounds ...Palpate: Yes: Soft, Tenderness (alone left lower ribs). No: Hepatomegaly, Splenomegaly ...Percussion: No: Tympanitic Edema: No (No LE edema) Neurological: Yes: Alert Labs: CBC, BMP 12/20/19 02:20 12/18/19 07:35 INR, PTT INR 0.87 (0.83-1.09) 12/17/19 04:20 Problem List - Problems (1) Elevated liver enzymes Assessment/Plan: Improving trend from 12/18 Monitor LFTs Avoid hepatotoxic agents Advance diet Ordered urine tox Advance diet Evaluation of diffuse pain complaints per PMD Code(s): R74.8 - ABNORMAL LEVELS OF OTHER SERUM ENZYMES
--- NOTE | 2019-12-20 10:14 | PN ---
Progress Note, Physician History of Present Illness: Events noted Chart reviewed Was notified this am by the PCP that patient had a major neuro event last night at 2200 Patient had a urinary incontenince and RUE stiffness Head CT stat was done Patient was not given TPA neurology was not called - Current Medication List Current Medications: Active Medications Aspirin (Asa -) 81 mg PO DAILY [facility] Last Admin: 12/19/19 12:03 Dose: 81 mg Documented by: Carbamazepine (Tegretol -) 400 mg PO BID [facility] Last Admin: 12/19/19 21:14 Dose: 400 mg Documented by: Folic Acid (Folic Acid -) 1 mg PO DAILY [facility] Last Admin: 12/19/19 12:03 Dose: 1 mg Documented by: Gabapentin (Neurontin -) 300 mg PO TID [facility] Last Admin: 12/20/19 06:23 Dose: Not Given Documented by: Dextrose/Sodium Chloride (D5-1/2ns -) 1,000 mls @ 100 mls/hr IV ASDIR [facility] Last Admin: 12/20/19 06:22 Dose: 100 mls/hr Documented by: Lacosamide (Vimpat -) 150 mg PO BID [facility] Last Admin: 12/19/19 21:14 Dose: 150 mg Documented by: Lorazepam (Ativan Injection -) 1 mg IVPUSH BID PRN PRN Reason: AGITATION Last Admin: 12/19/19 22:50 Dose: 1 mg Documented by: Meclizine HCl (Antivert -) 12.5 mg PO BID PRN PRN Reason: dizziness Last Admin: 12/18/19 09:39 Dose: 12.5 mg Documented by: Melatonin (Melatonin) 5 mg PO HS PRN PRN Reason: INSOMNIA Multivitamins/Minerals/Vitamin C (Tab-A-Vit -) 1 tab PO DAILY [facility] Last Admin: 12/19/19 12:04 Dose: 1 tab Documented by: Pantoprazole Sodium (Protonix Iv) 40 mg IVPUSH DAILY [facility] Last Admin: 12/19/19 22:23 Dose: 40 mg Documented by: Thiamine HCl (Vitamin B1 -) 100 mg PO HS [facility] Last Admin: 12/19/19 21:15 Dose: 100 mg Documented by: Topiramate (Topamax -) 200 mg PO BID [facility] Last Admin: 12/19/19 21:14 Dose: 200 mg Documented by: Trazodone HCl (Desyrel -) 100 mg PO HS [facility] Last Admin: 12/19/19 21:14 Dose: 100 mg Documented by: - Objective Vital Signs: Vital Signs Temperature 97.9 F 12/20/19 06:00 Pulse Rate 75 12/20/19 06:00 Respiratory Rate 12/20/19 06:00 Blood Pressure 104/79 12/20/19 06:00 O2 Sat by Pulse Oximetry (%) 96 12/20/19 06:00 Constitutional: Yes: Well Nourished Eyes: Yes: WNL Neurological: Yes: Alert, Oriented, Dysarthria ...Motor Strength: LUE (0), LLE (0) Labs: CBC, BMP 12/20/19 02:20 12/18/19 07:35 INR, PTT INR 0.87 (0.83-1.09) 12/17/19 04:20 Problem List - Problems (1) Seizure Code(s): R56.9 - UNSPECIFIED CONVULSIONS (2) Alcohol abuse Code(s): F10.10 - ALCOHOL ABUSE, UNCOMPLICATED (3) Headache Code(s): R51 - HEADACHE Assessment/Plan 1. Pls call neuro if this happens again 2. No Keppra a lot of pysch side effects 3. Start Lexapro 10 4. Tegretol level 5. Pysch eval inpatient and outpatient 6. Seziure precautions 7. No MRI
[2019-12-20] MEDS ORDERED: PT OWN MED DRAWER 7, Y5N ONE (10:37)
[2019-12-20] MEDS: MULTIVITAMINS (DAILY MVI) TABLET (FP) PO SCH (10:42)
[2019-12-20] MEDS: carBAMazepine 200 MG TABLET PO SCH ×2 (10:42→21:49)
[2019-12-20] MEDS: PANTOPRAZOLE SODIUM 40 MG VIAL IVPUSH SCH (10:42)
[2019-12-20] MEDS: FOLIC ACID 1 MG TABLET (FP) PO SCH (10:42)
[2019-12-20] MEDS: ASPIRIN 81 MG CHEWABLE TABLETS PO SCH (10:42)
[2019-12-20] MEDS: LACOSAMIDE 50 MG TABLET PO SCH ×2 (10:42→21:48)
[2019-12-20] MEDS: TOPIRAMATE 200 MG TABLET PO SCH ×2 (10:51→23:05)
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
[2019-12-20] MEDS ORDERED: LORazepam 1 MG TABLET PO PRN (11:09)
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
--- NOTE | 2019-12-20 11:39 | PN ---
Progress Note (short form) - Note Progress Note: cc: lip swelling s: lethargic but arousable, complains of pain all over body Current Medications Generic Name Dose Route Start Last Admin Trade Name Freq PRN Reason Stop Dose Admin Aspirin 81 mg 12/17/19 16:15 12/20/19 10:42 Asa - PO 81 mg DAILY [facility] Administration Carbamazepine 400 mg 12/17/19 22:00 12/20/19 10:42 Tegretol - PO 400 mg BID [facility] Administration Escitalopram Oxalate 10 mg 12/20/19 11:15 Lexapro - PO DAILY [facility] Folic Acid 1 mg 12/18/19 10:00 12/20/19 10:42 Folic Acid - PO 1 mg DAILY [facility] Administration Gabapentin 300 mg 12/17/19 16:08 12/20/19 06:23 Neurontin - PO Not Given TID [facility] Dextrose/Sodium Chloride 1,000 mls @ 100 mls/hr 12/18/19 13:30 12/20/19 06:22 D5-1/2ns - IV 100 mls/hr ASDIR [facility] Administration Lacosamide 150 mg 12/17/19 22:00 12/20/19 10:42 Vimpat - PO 150 mg BID [facility] Administration Lorazepam 1 mg 12/17/19 16:14 12/19/19 22:50 Ativan Injection - IVPUSH 1 mg BID PRN Administration AGITATION Lorazepam 1 mg 12/20/19 11:09 Ativan - PO 12/22/19 23:59 Q4H PRN Symptoms of Withdrawal Lorazepam 0.5 mg 12/23/19 05:00 Ativan - PO 12/23/19 23:01 Q6H [facility] Lorazepam 0.5 mg 12/23/19 00:00 Ativan - PO 12/24/19 00:00 Q4H PRN Symptoms of Withdrawal Lorazepam 0.5 mg 12/24/19 05:00 Ativan - PO 12/24/19 05:01 ONCE ONE Meclizine HCl 12.5 mg 12/17/19 16:08 12/18/19 09:39 Antivert - PO 12.5 mg BID PRN Administration dizziness Melatonin 5 mg 12/17/19 16:08 Melatonin PO HS PRN INSOMNIA Multivitamins/Minerals/Vitamin C 1 tab 12/18/19 10:00 12/20/19 10:42 Tab-A-Vit - PO 1 tab DAILY [facility] Administration Pantoprazole Sodium 40 mg 12/19/19 21:36 12/20/19 10:42 Protonix Iv IVPUSH 40 mg DAILY [facility] Administration Sucralfate 1 gm 12/20/19 14:00 Carafate Oral Suspension - PO QID [facility] Thiamine HCl 100 mg 12/17/19 22:00 12/19/19 21:15 Vitamin B1 - PO 100 mg HS [facility] Administration Topiramate 200 mg 12/17/19 22:30 12/20/19 10:51 Topamax - PO 200 mg BID [facility] Administration Trazodone HCl 100 mg 12/17/19 22:00 12/19/19 21:14 Desyrel - PO 100 mg HS [facility] Administration Vital Signs Period Temp Pulse Resp BP Sys/Carlson Pulse Ox Last 24 Hr 97.5 F-98.9 F 75-110 18-20 104-143/61-88 96-100 Constitutional: Yes: Well Nourished, No Distress Eyes: No: Sclera Icterus HENT: No: Nasal Congestion Respiratory: Yes: CTA Bilaterally (poor effort). No: Accessory Muscle Use, Rales, Wheezes Gastrointestinal: Yes: Normal Bowel Sounds. No: Distention, Hepatomegaly, Palpable Mass, Tenderness Cardiovascular: Yes: Regular Rate and Rhythm JVD: No Heart Sounds: Yes: S1, S2. No: Gallop Murmur: No: Systolic Murmur, Diastolic Murmur Edema: No Integumentary: No: Jaundice Psychiatric: not agitated Assessment/Plan MPI 07/23 (tessy): nl STs. large/severe anterior/septal/apical/lateral ischemia, EF 43%, + TID Echo 07/23: nl LV/EF. nl RV. nl LA. mild TR. head CT no acute process LHC (08/23): NORMAL CORONARY ANGIOGRAM. (EDP normal = 9, nl EF). ECG: sinus, nl intervals, no ischemic changes echo 10/2018 nl LV function, nl RV, mild MR, mild TR seizure, alcohol intoxication - treating for alcohol withdrawal per primary - neuro consulted, history of seizures dizziness, palpitations - EKG stable, trop neg, unlikely ACS - likely in setting of alcohol intoxication HTN - cont current meds h/o CVA - cont home aspirin, statin HLD - elevated LFTs likely in setting of EtOH use - hold statin pending improvement in LFTs
[2019-12-20 11:47] LABS: BASO % 0.9 % (0-2.0); HEMATOCRIT 34.9 % (32.4-45.2); HEMOGLOBIN 11.2 GM/dL (10.7-15.3); LYMPH % 23.5 % (8-40); MCH 30.4 pg (25.7-33.7); MEAN CELL VOLUME 94.9 fl (80-96); MEAN PLT VOLUME 8.8 fl (7.5-11.1); MONO % 7.3 % (3.8-10.2); NEUT % 64.3 % (42.8-82.8); PLATELET COUNT 173 K/MM3 (134-434); RBC 3.68 M/mm3 (3.60-5.2); RDW 14.1 % (11.6-15.6); WHITE BLOOD COUNT 3.1 K/mm3 (4.0-10.0)
[2019-12-20] MEDS: ESCITALOPRAM OXALATE 10 MG TABLET PO SCH (12:03)
[2019-12-20 12:15] LABS: BILIRUBIN,DIRECT 0.3 mg/dL (0.0-0.2); BILIRUBIN,TOTAL 0.5 mg/dL (0.2-1); BLOOD UREA NITROGEN 3.4 mg/dL (7-18); CREATININE 0.6 mg/dL (0.55-1.3); POTASSIUM 3.4 mmol/L (3.5-5.1)
[2019-12-20] MEDS: SUCRALFATE 1 GM/10 ML UNIT DOSE CUPS PO SCH ×3 (13:25→21:48)
[2019-12-20] MEDS: LORazepam 2 MG/ML SDV VIAL IVPUSH PRN (18:06)
[2019-12-20] MEDS: traZODone HCL 100 MG TABLET (FP) PO SCH (21:48)
[2019-12-20] MEDS: THIAMINE HCL 100 MG TABLET (FP) PO SCH (21:49)
[2019-12-21] MEDS: LORazepam 2 MG/ML SDV VIAL IVPUSH PRN (04:45)
[2019-12-21] MEDS: GABAPENTIN 300 MG CAPSULE PO SCH ×3 (05:00→21:53)
[2019-12-21] MEDS: DEXTROSE 5%-0.45% SALINE 1,000 ML IV SCH ×3 (06:06→21:52)
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
[2019-12-21] MEDS ORDERED: PT OWN MED DRAWER 7, Y5N ONE (10:56)
[2019-12-21] MEDS: FOLIC ACID 1 MG TABLET (FP) PO SCH (10:59)
[2019-12-21] MEDS: SUCRALFATE 1 GM/10 ML UNIT DOSE CUPS PO SCH ×4 (10:59→21:53)
[2019-12-21] MEDS: MULTIVITAMINS (DAILY MVI) TABLET (FP) PO SCH (11:00)
[2019-12-21] MEDS: LACOSAMIDE 50 MG TABLET PO SCH ×2 (11:00→21:53)
[2019-12-21] MEDS: ESCITALOPRAM OXALATE 10 MG TABLET PO SCH (11:00)
[2019-12-21] MEDS: ASPIRIN 81 MG CHEWABLE TABLETS PO SCH (11:00)
[2019-12-21] MEDS: TOPIRAMATE 200 MG TABLET PO SCH ×2 (11:00→21:53)
[2019-12-21] MEDS: PANTOPRAZOLE SODIUM 40 MG VIAL IVPUSH SCH (11:00)
[2019-12-21] MEDS: carBAMazepine 200 MG TABLET PO SCH ×2 (11:01→21:53)
[2019-12-21 12:50] LABS: ALBUMIN 2.7 g/dl (3.4-5.0); BILIRUBIN,TOTAL 0.4 mg/dL (0.2-1); BLOOD UREA NITROGEN 3.4 mg/dL (7-18); CALCIUM 8.5 mg/dL (8.5-10.1); CREATININE 0.5 mg/dL (0.55-1.3); POTASSIUM 3.2 mmol/L (3.5-5.1); TOT PROT 6.4 g/dl (6.4-8.2)
[2019-12-21 13:00] LABS: COCAINE, UR NEGATIVE ng/ml (CUTOFF=300); METHADONE, UR NEGATIVE ng/ml (CUTOFF=300); OPIATES, URI NEGATIVE ng/ml (CUTOFF=300); PHENCYCLIDINE,URINE NEGATIVE ng/ml (CUTOFF=25); URINE AMPHETAMINES NEGATIVE ng/ml (CUTOFF=500); URINE BARBITURATES NEGATIVE ng/ml (CUTOFF=200); URINE BENZODIAZEPINES NEGATIVE ng/ml (CUTOFF=200)
[2019-12-21] MEDS ORDERED: POTASSIUM CHLORIDE TABS 20 MEQ TABLET.ER (FP) PO ONE (16:05)
[2019-12-21] MEDS: traZODone HCL 100 MG TABLET (FP) PO SCH (21:53)
[2019-12-21] MEDS: THIAMINE HCL 100 MG TABLET (FP) PO SCH (21:53)
[2019-12-22] MEDS: GABAPENTIN 300 MG CAPSULE PO SCH ×4 (05:31→21:02)
[2019-12-22] MEDS: LORazepam 2 MG/ML SDV VIAL IVPUSH PRN ×2 (05:31→21:30)
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
[2019-12-22] MEDS ORDERED: PT OWN MED DRAWER 7, Y5N ONE (09:33)
[2019-12-22] MEDS: LACOSAMIDE 50 MG TABLET PO SCH ×3 (09:55→21:02)
[2019-12-22] MEDS: SUCRALFATE 1 GM/10 ML UNIT DOSE CUPS PO SCH ×5 (09:56→21:02)
[2019-12-22] MEDS: ASPIRIN 81 MG CHEWABLE TABLETS PO SCH (09:56)
[2019-12-22] MEDS: POTASSIUM CHLORIDE TABS 20 MEQ TABLET.ER (FP) PO SCH (09:56)
[2019-12-22] MEDS: KCL 10 MEQ IVPB 10 MEQ/100 ML INFUS.BAG IVPB SCH ×3 (09:56→12:04)
[2019-12-22] MEDS: FOLIC ACID 1 MG TABLET (FP) PO SCH (09:56)
[2019-12-22] MEDS: ESCITALOPRAM OXALATE 10 MG TABLET PO SCH (09:56)
[2019-12-22] MEDS: carBAMazepine 200 MG TABLET PO SCH ×3 (09:57→21:02)
[2019-12-22] MEDS: MULTIVITAMINS (DAILY MVI) TABLET (FP) PO SCH (09:57)
[2019-12-22] MEDS: TOPIRAMATE 200 MG TABLET PO SCH ×3 (09:58→21:02)
[2019-12-22] MEDS: PANTOPRAZOLE SODIUM 40 MG VIAL IVPUSH SCH (10:29)
[2019-12-22] MEDS: DEXTROSE 5%-0.45% SALINE 1,000 ML IV SCH (17:28)
--- NOTE | 2019-12-22 18:48 | EKG ---
Test Reason : Blood Pressure : / mmHG Vent. Rate : 073 BPM Atrial Rate : 073 BPM P-R Int : 204 ms QRS Dur : 076 ms QT Int : 386 ms P-R-T Axes : 043 035 045 degrees QTc Int : 425 ms NORMAL SINUS RHYTHM WITH 1ST DEGREE A-V BLOCK NONSPECIFIC ST ABNORMALITY BORDERLINE ECG Confirmed by MD KEYON, LEONEL ([id number]) on 12/22/2019 6:48:00 PM Referred By: Confirmed By:LEONEL TA MD
[2019-12-22] MEDS: traZODone HCL 100 MG TABLET (FP) PO SCH ×2 (20:54→21:02)
[2019-12-22] MEDS: THIAMINE HCL 100 MG TABLET (FP) PO SCH (21:03)
[2019-12-23] MEDS ORDERED: LORazepam 0.5 MG TABLET PO PRN
[2019-12-23] MEDS: LORazepam 0.5 MG TABLET PO SCH ×4 (05:17→23:38)
[2019-12-23] MEDS: GABAPENTIN 300 MG CAPSULE PO SCH ×4 (05:18→23:39)
[2019-12-23] MEDS: POTASSIUM CHLORIDE TABS 20 MEQ TABLET.ER (FP) PO SCH (10:41)
[2019-12-23] MEDS: LACOSAMIDE 50 MG TABLET PO SCH ×3 (10:41→23:40)
[2019-12-23] MEDS: MULTIVITAMINS (DAILY MVI) TABLET (FP) PO SCH (10:42)
[2019-12-23] MEDS: ESCITALOPRAM OXALATE 10 MG TABLET PO SCH (10:42)
[2019-12-23] MEDS: ASPIRIN 81 MG CHEWABLE TABLETS PO SCH (10:42)
[2019-12-23] MEDS: FOLIC ACID 1 MG TABLET (FP) PO SCH (10:42)
[2019-12-23] MEDS: PANTOPRAZOLE SODIUM 40 MG VIAL IVPUSH SCH (10:43)
[2019-12-23] MEDS: SUCRALFATE 1 GM/10 ML UNIT DOSE CUPS PO SCH ×5 (10:43→23:39)
[2019-12-23] MEDS: TOPIRAMATE 200 MG TABLET PO SCH ×3 (10:45→23:40)
[2019-12-23] MEDS ORDERED: PT OWN MED DRAWER 7, Y5N ONE ×2 (10:45→21:33)
[2019-12-23] MEDS: carBAMazepine 200 MG TABLET PO SCH ×3 (10:46→23:39)
--- NOTE | 2019-12-23 20:35 | DS ---
Physical Examination Vital Signs: Vital Signs Temperature 97.6 F 12/23/19 06:00 Pulse Rate 73 12/23/19 10:00 Respiratory Rate 20 12/23/19 10:00 Blood Pressure 113/77 12/23/19 10:00 O2 Sat by Pulse Oximetry (%) 98 12/23/19 10:00 Findings/Remarks: AWAKE ALERT X 2 S/P ATIVAN USE EVENTS AND NOTES REVIEWED Constitutional: Yes: Mild Distress Cardiovascular: Yes: Regular Rate and Rhythm Respiratory: Yes: WNL Gastrointestinal: Yes: WNL Renal/: Yes: WNL Neurological: Yes: Lethargy Labs: CBC, BMP 12/20/19 10:25 12/21/19 10:40 Discharge Summary Problems reviewed: Yes Reason For Visit: ALCOHOL RELATED SEIZURE,SEIZURE Current Active Problems Alcohol abuse (Acute) Alcohol related seizure (Acute) Alcohol withdrawal with complication with inpatient treatment (Acute) Anxiety and depression (Acute) Lip laceration (Acute) Seizure (Acute) Seizure (Acute) Procedures: Principal: CT SCAN/LABS Hospital Course: ADMITTES ETOH INDUCED SEIZURE, NEUROLOGY WORKUP Goals: SNF PLACEMENT Condition: Stable - Instructions Referrals: Andie Ireland MD [Primary Care Provider] - - Home Medications Comprehensive Discharge Medication List: Ambulatory Orders Aspirin [ASA -] 81 mg PO DAILY 07/31/17 Atorvastatin Ca [Lipitor] 20 mg PO HS 07/31/17 Gabapentin 300 mg PO TID 07/31/17 Meclizine HCl 12.5 mg PO BID PRN 07/31/17 traZODone HCL [Trazodone HCl] 100 mg PO HS 07/31/17 Melatonin 5 mg PO HS PRN tab 08/03/17 Thiamine HCl [Vitamin B1 -] 100 mg PO HS tablet 08/03/17 Folic Acid - 1 mg PO DAILY #30 tablet MDD 1 10/12/18 Lacosamide [Vimpat -] 100 mg PO BID #60 tab MDD 4 10/12/18 Multivitamins [Multivit ([facility] Formulary)] 1 tab PO DAILY #30 tab MDD 1 10/12/18 Topiramate [Topamax -] 200 mg PO BID #30 tablet MDD 2 10/12/18 Carbamazepine [Tegretol -] 400 mg PO BID tablet 12/23/19 Escitalopram Oxalate [Lexapro -] 10 mg PO DAILY tablet 12/23/19 LORazepam [Ativan] 0.5 mg PO Q6H tablet 12/23/19 Pantoprazole Sodium [Protonix] 40 mg PO DAILY #30 tablet. 12/23/19 Potassium Chloride [K-Dur -] 40 meq PO DAILY tablet.er 12/23/19 Sucralfate Oral Suspension [Carafate Oral Suspension -] 1 gm PO QID ml 12/23/19
[2019-12-23] MEDS: traZODone HCL 100 MG TABLET (FP) PO SCH ×2 (23:09→23:40)
[2019-12-23] MEDS: THIAMINE HCL 100 MG TABLET (FP) PO SCH ×2 (23:10→23:39)
[2019-12-23] MEDS: DEXTROSE 5%-0.45% SALINE 1,000 ML IV SCH (23:40)
[2019-12-24] MEDS ORDERED: LORazepam 0.5 MG TABLET PO ONE (05:00)
[2019-12-24] MEDS: GABAPENTIN 300 MG CAPSULE PO SCH (07:01)
[2019-12-24] MEDS ORDERED: PT OWN MED DRAWER 7, Y5N ONE (11:14)
[2019-12-24] MEDS: MULTIVITAMINS (DAILY MVI) TABLET (FP) PO SCH (11:16)
[2019-12-24] MEDS: ASPIRIN 81 MG CHEWABLE TABLETS PO SCH (11:16)
[2019-12-24] MEDS: TOPIRAMATE 200 MG TABLET PO SCH (11:16)
[2019-12-24] MEDS: SUCRALFATE 1 GM/10 ML UNIT DOSE CUPS PO SCH (11:16)
[2019-12-24] MEDS: carBAMazepine 200 MG TABLET PO SCH (11:17)
[2019-12-24] MEDS: POTASSIUM CHLORIDE TABS 20 MEQ TABLET.ER (FP) PO SCH (11:17)
[2019-12-24] MEDS: FOLIC ACID 1 MG TABLET (FP) PO SCH (11:18)
[2019-12-24] MEDS: ESCITALOPRAM OXALATE 10 MG TABLET PO SCH (11:18)
[2019-12-24] MEDS: PANTOPRAZOLE SODIUM 40 MG VIAL IVPUSH SCH (11:18)
[2019-12-24 11:45] VITALS: BP 83/63; PULSE 110; TEMP 97.5
== END 2019-12-24 13:39 | DRG 897 ==
LOC: JER 03:30 → JERBED 06:52 → J6S 12-18 00:02
PROVIDERS: ADMIT Family Medicine; ATTEND Family Medicine
PROC: HZ2ZZZZ Detoxification Services for Substance Abuse Treatment (ICD-10-PCS; principal; 2019-12-17)
DX: F10.232 Alcohol dependence with withdrawal with perceptual disturbance (principal); R64 Cachexia; I69.354 Hemiplegia and hemiparesis following cerebral infarction affecting left non-dominant side; F10.229 Alcohol dependence with intoxication, unspecified; S01.511A Laceration without foreign body of lip, initial encounter; G40.909 Epilepsy, unspecified, not intractable, without status epilepticus; R74.8 Abnormal levels of other serum enzymes; K76.0 Fatty (change of) liver, not elsewhere classified; K80.80 Other cholelithiasis without obstruction; I10 Essential (primary) hypertension; G43.909 Migraine, unspecified, not intractable, without status migrainosus; F41.8 Other specified anxiety disorders; Z68.20 Body mass index [BMI] 20.0-20.9, adult; X58.XXXA Exposure to other specified factors, initial encounter; Y93.89 Activity, other specified; Y92.89 Other specified places as the place of occurrence of the external cause; Y99.9 Unspecified external cause status
CPT/HCPCS: 36415; 70450-TC; 70486-TC; 70551-TC; 71045-TC-FY; 71260-TC; 72125-TC; 74177-TC; 76705-TC; 78226-TC; 80048; 80053; 80076; 80307; 81003; 82150; 82550; 82962; 83605; 83690; 84484; 85025; 85610; 85730; 87086; 93005; 93010; 97116-GP; 97162-GP; 99285-25; A9537; U0003

== ENCOUNTER → 2020-01-29 | Day surgery (SDC) | payer OTHER ==
--- OUTSIDE RECORDS SUMMARY | 2020-01-29 08:53 | XMS ---
:1970 Author Organization [facility] Care Team Providers Name Role Phone LORENZO MUELLER Unavailable Unavailable ED STAFF PHYSICIAN, STAFF Unavailable Unavailable MAGGY, WJCS9 Unavailable Unavailable CAROLYN ANTON Unavailable Unavailable Re-disclosure Warning The records that you are about to access may contain information from federally- assisted alcohol or drug abuse programs. If such information is present, then the following federally mandated warning applies: This information has been disclosed to you from records protected by federal confidentiality rules (42 CFR part 2). The federal rules prohibit you from making any further disclosure of this information unless further disclosure is expressly permitted by the written consent of the person to whom it pertains or as otherwise permitted by 42 CFR part 2. A general authorization for the release of medical or other information is NOT sufficient for this purpose. The Federal rules restrict any use of the information to criminally investigate or prosecute any alcohol or drug abuse patient.The records that you are about to access may contain highly sensitive health information, the redisclosure of which is protected by Article 27-F of the [facility] Public Health law. If you continue you may haveaccess to information: Regarding HIV / AIDS; Provided by facilities licensed or operated by the [facility] Office of Mental Health; or Provided by the [facility] Office for People With Developmental Disabilities. If such information is present, then the following [facility] mandated warning applies: This information has been disclosed to you from confidential records which are protected by state law. State law prohibits you from making any further disclosure of this information without the specific written consent of the person to whom it pertains, or as otherwise permitted by law. Any unauthorized further disclosure in violation of state law may result in a fine or fci sentence or both. A general authorization for the release of medical or other information is NOT sufficient authorization for further disclosure. Allergies and Adverse Reactions Type Description Substance Reaction Status Data Source(s ) Allergy to Allergy to Morphine Allergic NETSMART substance substance reaction Mild ([facility]) Allergy to Allergy to Percocet Allergic NETSMART substance substance reaction Mild ([facility]) Allergy to Allergy to Ibuprofen Allergic NETSMART substance substance reaction Mild ([facility]) Allergy to Allergy to Motrin Pill Allergic NETSMART substance substance reaction Mild ([facility]) Drug allergy ibuprofen ibuprofen [facility] Food allergy No Known Food No Known Food [facility] Allergies [facility] Drug allergy Dilaudid Dilaudid [facility] Encounters Encounter Providers Location Date Indications Data Source(s ) Outpatient Attender: [id number] 12/07/2019 [facility] Patient admitted. Outpatient Attender: [id number] [facility] 07/26/2019 05:48:05 [facility] Patient admitted. Inpatient Attender: CAROLYN LEON [id number] 05/05/2019 07:19:00 [facility] YAttender: LORENZO MCCARTY EST - 05/09/2019 [facility] MAHERAttender: STAFF ED STAFF 02:00:00 PM EST PHYSICIANAdmitter: CAROLYN LEON YReferrer: CAROLYN LEON Y Patient discharged. Outpatient 12/03/2018 02:25:56 PM EDT [facility] ([facility]) Patient admitted. Outpatient 11/26/2018 03:38:32 PM EDT [facility] ([facility]) Patient admitted. Medications Medication Brand Start Product Dose Route Administrative Pharmacy [facility] Indications Reaction Description Data Name Date Form Instructions Instructions Source(s) Melatonin 5 Melato 1.0 Oral active NE TSMART MG Oral steve 2020 Table ([facility] 04:00: t er Alevism 00 AM Community EDT Services) Paroxetine Paxil 1.0 Oral active NETS MART 20 MG Oral 2020 Table ([facility] 04:[facility]: t er Alevism [Paxil] 00 AM Community EDT Services) Paroxetine Paxil 14/ 1.0 Oral active NETS MART 20 MG Oral 2020 Table ([facility] 04:00: t er Alevism [Paxil] 00 AM Community EDT Services) Paroxetine Paxil 16/ 1.0 Oral active NETS MART 20 MG Oral 2020 Table ([facility] 04:00: t er Alevism [Paxil] 00 AM Community EDT Services) Paroxetine Paxil .0 Oral active NETS MART 20 MG Oral 2020 Table ([facility] 05:00: t er Alevism [Paxil] 00 AM Community EST Services) Melatonin 5 Melato .0 Oral active NE TSMART MG Oral steve 2019 Table ([facility] 05:00: t er Alevism 00 AM Community EST Services) 03/06/ ORAL active NETSMART 2019 ([facility] 04:00: er Alevism 00 AM Community EDT Services) Paroxetine Paxil .0 Oral active NETS MART 20 MG Oral 2019 Table ([facility] 04:00: t er Alevism [Paxil] 00 AM Community EDT Services) Trazodone traZOD .0 Oral active NETS MART Hydrochlori one 2018 Table ([facility] MG hydroc 04:00: t er Jewi sh Oral Tablet hlorid 00 AM Commu nity e EDT Services) 03/06/ ORAL active NETSMART 2019 [facility]: er Alevism 00 AM Community EDT Services) 01/22/ ORAL complet NETSMART 2019 ed ([facility] 04:[facility]: er Alevism 00 AM Community EDT Services) 01/22/ ORAL complet NETSMART 2019 ed ([facility] 04:[facility]: er Alevism 00 AM Community EDT Services) 12/06/ ORAL complet NETSMART 2019 ed ([facility] 04:[facility]: er Alevism 00 AM Community EDT Services) 12/06/ ORAL complet NETSMART 2019 ed ([facility] 04:[facility]: er Alevism 00 AM Community EDT Services) Vitamin B cyanoc 1 complet [facility] 12 1 MG obalam ed Melodie Oral Tablet in Medical cyanocobala (vitam Center min in (vitamin B-12) B-12) 1,000 1,000 mcg Tablet, mcg Ordered By: Tablet John Montez Ordere FNPDirectio d By: ns: 1 Anteno tablet oral r daily Ostine , FNPDir ection s: 1 tablet oral daily Trazodone traZOD 1 complet [facility] Hydrochlori one 50 ed Kj s de 50 MG mg Medical Oral Tablet Tablet Center traZODone , 50 mg Ordere Tablet, d By: Ordered By: John Taveras , ns: 1 FNPDir tablet oral ection daily at s: 1 bedtime tablet oral daily at bedtim e Aspirin 325 aspiri 1 complet [place] nt MG Delayed n 325 ed Melodie Release mg Medical Oral Tablet tablet Center aspirin 325 ,delay mg ed tablet,nicole releas yed release e (/EC), (/EC Ordered By: )Melida, michael By: Daryl Burns ns: 1 r tablet oral Ostine daily , FNPDir ection s: 1 tablet oral daily 12 HR carBAM 1 complet [facility] Carbamazepi azepin ed Kj s ne 400 MG e 400 Medical Extended mg Center Release Tablet Oral Tablet Extend carBAMazepi ed ne 400 mg Releas Tablet e 12 Extended hr, Release 12 Ordere hr, Ordered d By: By: waqar Figueroa ns: 1 , tablet oral FNPDir every ection twelve s: 1 hours tablet oral every twelve hours lacosamide lacosa 1 complet Vimpat Sa int 150 MG Oral mide ed Melodie Tablet (Vimpa Medical [Vimpat] t) 150 Center lacosamide mg (Vimpat) Tablet 150 mg , Tablet, Ordere Ordered By: d By: waqar Figueroa ns: 1 , tablet oral FNPDir three times ection a day s: 1 tablet oral three times a day Folic Acid foLIC 1 complet [facility] 1 MG Oral Acid 1 ed Melodie Tablet mg Medical foLIC Acid Tablet Center 1 mg , Tablet, Ordere Ordered By: d By: waqar Figueroa ns: 1 , tablet oral FNPDir daily ection s: 1 tablet oral daily Meclizine mecliz 1 complet [facility] Hydrochlori ine ed Melodie de 12.5 MG 12.5 Medical Oral Tablet mg Center meclizine Tablet 12.5 mg , Tablet, Ordere Ordered By: d By: waqar Figueroa ns: 1 , tablet oral FNPDir every ection twelve s: 1 hours PRN tablet dizziness oral every twelve hours PRN dizzin ess gabapentin gabape 1 complet Minna t 300 MG Oral ntin ed Melodie Capsule 300 mg Medical gabapentin Capsul Center 300 mg e, Capsule, Ordere Ordered By: d By: waqar Figueroa ns: 1 , capsule FNPDir oral twice ection a day s: 1 capsul e oral twice a day lidocaine 1 complet Lidocaine Sa int (Lidocaine ed Pain Relief [facility] Pain Medical Relief) 4 % Center adhesive patch,medic ated, Ordered By: Daryl Riojas ns: 1 patch transdermal every twelve hours meloxicam meloxi 1 complet [facility] 7.5 MG Oral cam ed Melodie Tablet 7.5 mg Medical meloxicam Tablet Center 7.5 mg , Tablet, Ordere Ordered By: d By: waqar Figueroa ns: 1 , tablet oral FNPDir twice a day ection PRN pain s: 1 tablet oral twice a day PRN pain topiramate topira 1 complet Minna t 100 MG Oral mate ed Melodie Tablet 100 mg Medical topiramate Tablet Center 100 mg , Tablet, Ordere Ordered By: d By: waqar Figueroa ns: 1 , tablet oral FNPDir daily ection s: 1 tablet oral daily atorvastati atorva 1 complet [place] nt n 40 MG statin ed Melodie Oral Tablet 40 mg Medical atorvastati Tablet Center n 40 mg , Tablet, Ordere Ordered By: d By: waqar Figueroa ns: 1 , tablet oral FNPDir daily at ection bedtime s: 1 tablet oral daily at bedtim e Insurance Providers Payer name Policy type Policy ID Covered Covered alliance party's Policy P yogi / Coverage alliance party ID relationship to [place] Inf ormation type casas MEDICAID [id number] SP [id number] MEDICARE [id number] SP [id number] W [id number] 01 [id number] M [id number] 01 [id number] M [id number] 01 [id number] 40 [id number] M [id number] 01 [id number] W [id number] 01 [id number] 01 [id number] A Problems, Conditions, and Diagnoses Code Display Name Description Problem Type Effective Data Dates Source(s) 14100643 Alcohol abuse Alcohol abuse Complaint 08/06/2018 NETSMART 04:00:00 AM ([facility]) [id number] Posttraumatic Posttraumatic Complaint 08/06/2018 [facility] stress disorder stress disorder 04:00:00 AM ([facility]) [id number] Dysthymia Dysthymia Complaint 08/06/2018 NETSMART 04:00:00 AM ([facility]) [id number] 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 [facility]) G40.909 Epilepsy, EPILEPSY, UNSP, Diagnosis 05/09/2019 [facility] unspecified, not NOT INTRACTABLE, 02:00:00 PM M edical intractable, WITHOUT STATUS EST Center without status EPILEPTICUS epilepticus E53.8 Deficiency of DEFICIENCY OF Diagnosis 05/09/2019 [facility] other specified B OTHER SPECIFIED B 02:00:00 PM Medical group vitamins GROUP VITAMINS EST Center Z86.73 Personal history PRSNL HX OF TIA Diagnosis 05/09/2019 [place] of transient (TIA), AND CEREB 02:00:00 PM Medic al ischemic attack INFRC W/O RESID EST Cent er (TIA), and DEFICITS cerebral infarction without residual deficits G45.9 Transient cerebral TRANSIENT CEREBRAL Diagnosis 9 [facility] ischemic attack, ISCHEMIC ATTACK, 07:19:00 PM M edical unspecified UNSPECIFIED EST Center Results ID Date Data Source [id number] 12/24/2019 07:45:00 AM EDT [facility] Name Value Range Interpretation Description Data Sup porting Code Source(s) Document(s ) SARS [facility] coronavirus 2 RNA This lab was ordered by [facility] and reported by [facility]. ID Date Data Source [id number] 12/17/2019 06:25:00 PM EDT [facility] Name Value Range Interpretation Description Data Sup porting Code Source(s) Document(s ) SARS [facility] coronavirus 2 RNA This lab was ordered by [facility] and reported by [facility]. ID Date Data Source GFR(Creatinine).[id number] 05/09/2019 05:20:00 AM [facility] 0-0500 Name Value Range Interpretation Code Description Data Dolores rce(s) Supporting Document(s ) UNK > 60 <content [facility] styleCode="Bold"> Medical Cent er EGFR </content>94 GFR<content styleCode="Italic s"> (> 60 GFR)</content> ID Date Data Source [id number] 05/09/2019 05:20:00 AM [facility] Name Value Range Interpretation Description Data Sup porting Code Source(s) Document(s ) Chloride 98-107 <content [facility] [Moles/volume] styleCode="Mary Mel[place]ie in Serum or d">Chloride Medical Plasma </content>106 Center MEQ/L<content styleCode="Tiarra lics"> (98-107 MEQ/L)</conten t> Potassium 3.5-5.3 <content [facility] [Moles/volume] styleCode="Mary [place]ie in Serum or d">Potassium Medical Plasma </content>4.3 Center MEQ/L<content styleCode="Tiarra lics"> (3.5-5.3 MEQ/L)</conten t> Sodium 137-145 <content [facility] [Moles/volume] styleCode="[facility] [place]ie in Serum or d">Sodium Medical Plasma </content>138 Center MEQ/L<content styleCode="Tiarra lics"> (137-145 MEQ/L)</conten t> Carbon 22-30 <content [facility] dioxide, total styleCode="Mary [facility]ie [Moles/volume] d">Carbon Medical in Serum or Dioxide Center Plasma </content>22 MEQ/L<content styleCode="Tiarra lics"> (22-30 MEQ/L)</conten t> UNK 7-17 <content [facility] styleCode="[facility] [place]ie d">BUN Medical </content>11 Center MG/DL<content styleCode="Tiarra lics"> (7-17 MG/DL)</conten t> Creatinine 0.5-1.3 <content [facility] [Mass/volume] styleCode="Mary [place]ie in Serum or d">Creatinine Medical Plasma </content>0.7 Center MG/DL<content styleCode="Tiarra lics"> (0.5-1.3 MG/DL)</conten t> Glucose 74-106 <content [facility] [Mass/volume] styleCode="Mary [place]ie in Serum or d">Glucose Medical Plasma </content>97 Center MG/DL<content styleCode="Tiarra lics"> (74-106 MG/DL)</conten t> UNK > 60 <content Saint styleCode="[facility] [place] d">EGFR Medical </content>94 Center GFR<content styleCode="Tiarra lics"> (> 60 GFR)</content> Calcium 8.4-10.2 <content Saint [Mass/volume] styleCode="Mary [place]ie in Serum or d">Calcium Medical Plasma </content>9.6 Center MG/DL<content styleCode="Tiarra lics"> (8.4-10.2 MG/DL)</conten t> ID Date Data Source [id number] 05/08/2019 05:28:00 AM EST [facility] Name Value Range Interpretation Description Data Sup porting Code Source(s) Document(s ) Triglyceride < 150 <content [facility] [Mass/volume] in styleCode="[facility] Serum or Plasma d">Triglycerid Medical Center </content>61 MG/DL<content styleCode="Tiarra lics"> (< 150 MG/DL)</conten t> Cholesterol -<200 <content [facility] [Mass/volume] in styleCode="[facility] Serum or Plasma d">Cholesterol Medical </content>185 Center MG/DL<content styleCode="Tiarra lics"> (-<200 MG/DL)</conten t> UNK > 60 <content Saint styleCode="[facility] d">HDL- Medical Cholesterol Center </content>117 MG/DL<content styleCode="Tiarra lics"> (> 60 MG/DL)</conten t> UNK < 100 <content Saint styleCode="[facility] d">LDL-Cholest Medical john Center </content>56 MG/DL<content styleCode="Tiarra lics"> (< 100 MG/DL)</conten t> ID Date Data Source HematologyRou.[id number] 05/08/2019 05:28:00 AM ANN [place] [facility] 0500 Name Value Range Interpretation Description Data Sup porting Code Source(s) Document(s ) Hematocrit 36.0-46. <content [facility] [Volume 0 styleCode="Bold Melodie Fraction] of ">Hematocrit Medical Blood by </content>36.9 Center Automated count %<content styleCode="Ital ics"> (36.0-46.0 %)</content> Erythrocytes 4.0-5.1 <content Saint [#/volume] in styleCode="Bold Melodie Blood by ">Red Blood Medical Automated count Cell Count Center </content>4.20 MCUMM<content styleCode="Ital ics"> (4.0-5.1 MCUMM)</content > Hemoglobin 12.3-16. Below low normal <content [facility] [Mass/volume] in 0 styleCode="Bold Melodie Blood ">Hemoglobin Medical </content>11.5 Center G/DL L<content styleCode="Ital ics"> (12.3-16.0 G/DL)</content> Leukocytes 4.4-11.0 Below low normal <content [facility] [#/volume] in styleCode="Bold Melodie Blood by ">White Blood Medical Automated count Cell Count Center </content>3.66 KCUMM L<content styleCode="Ital ics"> (4.4-11.0 KCUMM)</content > Erythrocyte mean 80.0-100 <content [facility] corpuscular .0 styleCode="Bold Melodie volume [Entitic ">Mean Medical volume] by Corpuscular Center Automated count Volume </content>87.9 FL<content styleCode="Ital ics"> (80.0-100.0 FL)</content> Erythrocyte mean 26.0-34. <content [facility] corpuscular 0 styleCode="Bold Melodie hemoglobin ">Mean Medical [Entitic mass] Corposcular Center by Automated Hemoglobin count </content>27.4 PG<content styleCode="Ital ics"> (26.0-34.0 PG)</content> Erythrocyte mean 32.0-37. Below low normal <content [facility] corpuscular 0 styleCode="Bold Melodie hemoglobin ">Mean Corpus. Medical concentration Hgb Center [Mass/volume] by Concentration Automated count (MCHC) </content>31.2 G/DL L<content styleCode="Ital ics"> (32.0-37.0 G/DL)</content> Erythrocyte 11.5-14. Above high <content [facility] distribution 5 normal styleCode="Bold Melodie width [Ratio] by ">Red Cell Medical Automated count Distribution Center Width </content>20.4 % H<content styleCode="Ital ics"> (11.5-14.5 %)</content> Platelet mean 8.0-11.0 Above high <content Saint volume [Entitic normal styleCode="Bold Melodie volume] in Blood ">Mean Platelet Medical by Automated Volume Center count </content>11.4 FL H<content styleCode="Ital ics"> (8.0-11.0 FL)</content> UNK 0 <content Saint styleCode="Bold Melodie ">Nucleated Red Medical Blood Cell Center </content>0.0 /100<content styleCode="Ital ics"> (0 /100)</content> Platelets 130-400 <content Saint [#/volume] in styleCode="Bold Melodie Blood by ">Platelet Medical Automated count Count Center </content>202 KCUMM<content styleCode="Ital ics"> (130-400 KCUMM)</content > UNK 0.0 <content Saint styleCode="Bold Melodie ">Nucleated Red Medical Blood Cell Center Count </content>0.00 KCUMM<content styleCode="Ital ics"> (0.0 KCUMM)</content > ID Date Data Source GFR(Creatinine).[id number] 05/08/2019 05:28:00 AM EST [facility] [facility] 0-0500 Name Value Range Interpretation Code Description Data Dolores rce(s) Supporting Document(s ) UNK > 60 <content [facility] styleCode="Bold"> Medical Cent er EGFR </content>94 GFR<content styleCode="Italic s"> (> 60 GFR)</content> ID Date Data Source [id number] 05/08/2019 05:28:00 AM EST [facility] Name Value Range Interpretation Description Data Sup porting Code Source(s) Document(s ) Chloride 98-107 Above high normal <content [facility] [Moles/volume] styleCode="Mary [facility]ie in Serum or d">Chloride Medical Plasma </content>109 Center MEQ/L H<content styleCode="Tiarra lics"> (98-107 MEQ/L)</conten t> Sodium 137-145 <content [facility] [Moles/volume] styleCode="Mary Mel[place]ie in Serum or d">Sodium Medical Plasma </content>141 Center MEQ/L<content styleCode="Tiarra lics"> (137-145 MEQ/L)</conten t> Potassium <content [facility] [Moles/volume] styleCode="Mary [place]ie in Serum or d">Potassium Medical Plasma </content>Test Center not performed. MEQ/L (Reference Range: not available)<br/ > UNK 7-17 <content Saint styleCode="[facility] [place]ie d">BUN Medical </content>15 Center MG/DL<content styleCode="Tiarra lics"> (7-17 MG/DL)</conten t> UNK > 60 <content Saint styleCode="[facility] [place] d">EGFR Medical </content>94 Center GFR<content styleCode="Tiarra lics"> (> 60 GFR)</content> Glucose 74-106 <content [facility] [Mass/volume] styleCode="Mary Mel[place]ie in Serum or d">Glucose Medical Plasma </content>103 Center MG/DL<content styleCode="Tiarra lics"> (74-106 MG/DL)</conten t> Creatinine 0.5-1.3 <content [facility] [Mass/volume] styleCode="Mary Mel[place]ie in Serum or d">Creatinine Medical Plasma </content>0.7 Center MG/DL<content styleCode="Tiarra lics"> (0.5-1.3 MG/DL)</conten t> Carbon 22-30 <content [facility] dioxide, total styleCode="Mary Mel[facility]ie [Moles/volume] d">Carbon Medical in Serum or Dioxide Center Plasma </content>23 MEQ/L<content styleCode="Tiarra lics"> (22-30 MEQ/L)</conten t> Calcium 8.4-10.2 <content [facility] [Mass/volume] styleCode="Mary Melodie in Serum or d">Calcium Medical Plasma </content>9.7 Center MG/DL<content styleCode="Tiarra lics"> (8.4-10.2 MG/DL)</conten t> ID Date Data Source [id number] 05/07/2019 05:35:00 AM EST [place] [facility] Name Value Range Interpretation Description Data Sup porting Code Source(s) Document(s ) Thyrotropin 0.465-4. <content [facility] [Units/volume] 68 styleCode="Mary Melodie in Serum or d">Thyroid Medical Plasma by Stimulating Center Detection Hormone limit <= 0.05 </content>1.78 mIU/L MIU/L<content styleCode="Tiarra lics"> (0.465-4.68 MIU/L)</conten t> ID Date Data Source HematologyRou.[id number] 05/07/2019 05:35:00 AM EST [place] [facility] 0500 Name Value Range Interpretation Description Data Sup porting Code Source(s) Document(s ) Hemoglobin 12.3-16. Below low normal <content [facility] [Mass/volume] in 0 styleCode="Bold Melodie Blood ">Hemoglobin Medical </content>11.1 Center G/DL L<content styleCode="Ital ics"> (12.3-16.0 G/DL)</content> Leukocytes 4.4-11.0 Below low normal <content [facility] [#/volume] in styleCode="Bold Melodie Blood by ">White Blood Medical Automated count Cell Count Center </content>3.50 KCUMM L<content styleCode="Ital ics"> (4.4-11.0 KCUMM)</content > Erythrocytes 4.0-5.1 <content [facility] [#/volume] in styleCode="Bold Melodie Blood by ">Red Blood Medical Automated count Cell Count Center </content>4.04 MCUMM<content styleCode="Ital ics"> (4.0-5.1 MCUMM)</content > Hematocrit 36.0-46. Below low normal <content [facility] [Volume 0 styleCode="Bold Melodie Fraction] of ">Hematocrit Medical Blood by </content>35.0 Center Automated count % L<content styleCode="Ital ics"> (36.0-46.0 %)</content> Erythrocyte mean 80.0-100 <content [facility] corpuscular .0 styleCode="Bold Melodie volume [Entitic ">Mean Medical volume] by Corpuscular Center Automated count Volume </content>86.6 FL<content styleCode="Ital ics"> (80.0-100.0 FL)</content> Erythrocyte 11.5-14. Above high <content [facility] distribution 5 normal styleCode="Bold Melodie width [Ratio] by ">Red Cell Medical Automated count Distribution Center Width </content>19.9 % H<content styleCode="Ital ics"> (11.5-14.5 %)</content> Erythrocyte mean 32.0-37. Below low normal <content [facility] corpuscular 0 styleCode="Bold Melodie hemoglobin ">Mean Corpus. Medical concentration Hgb Center [Mass/volume] by Concentration Automated count (MCHC) </content>31.7 G/DL L<content styleCode="Ital ics"> (32.0-37.0 G/DL)</content> Platelets 130-400 <content Saint [#/volume] in styleCode="Bold Melodie Blood by ">Platelet Medical Automated count Count Center </content>189 KCUMM<content styleCode="Ital ics"> (130-400 KCUMM)</content > Erythrocyte mean 26.0-34. <content [facility] corpuscular 0 styleCode="Bold Melodie hemoglobin ">Mean Medical [Entitic mass] Corposcular Center by Automated Hemoglobin count </content>27.5 PG<content styleCode="Ital ics"> (26.0-34.0 PG)</content> UNK 0.0 <content Saint styleCode="Bold Melodie ">Nucleated Red Medical Blood Cell Center Count </content>0.00 KCUMM<content styleCode="Ital ics"> (0.0 KCUMM)</content > UNK 0 <content Saint styleCode="Bold Melodie ">Nucleated Red Medical Blood Cell Center </content>0.0 /100<content styleCode="Ital ics"> (0 /100)</content> Platelet mean 8.0-11.0 <content [facility] volume [Entitic styleCode="Bold Melodie volume] in Blood ">Mean Platelet Medical by Automated Volume Center count </content>10.4 FL<content styleCode="Ital ics"> (8.0-11.0 FL)</content> ID Date Data Source GFR(Creatinine).[id number] 05/07/2019 05:35:00 AM [facility] 0-0500 Name Value Range Interpretation Code Description Data Dolores rce(s) Supporting Document(s ) UNK > 60 <content [facility] styleCode="Bold"> Medical Cent er EGFR </content>112 GFR<content styleCode="Italic s"> (> 60 GFR)</content> ID Date Data Source ChemistrySpecia.[id number] 05/07/2019 05:35:00 AM [facility] 0-0500 Name Value Range Interpretation Description Data Sup porting Code Source(s) Document(s ) Cobalamin 239-931 Below low normal <content Saint (Vitamin B12) styleCode="Mary Melodie [Mass/volume] d">Vitamin B12 Medical in Serum or </content>221 Center Plasma PG/ML L<content styleCode="Tiarra lics"> (239-931 PG/ML)</conten t> ID Date Data Source CANDICE.[id number] 05/07/2019 05:35:00 AM [facility] -0500 Name Value Range Interpretation Description Data Sup porting Code Source(s) Document(s ) Magnesium 1.6-2.3 <content [facility] [Mass/volume] styleCode="Mary Melodie in Serum or d">Magnesium Medical Plasma </content>2.2 Center MG/DL<content styleCode="Tiarra lics"> (1.6-2.3 MG/DL)</conten t> ID Date Data Source [facility].[id number] 05/07/2019 05:35:00 AM [facility] -0500 Name Value Range Interpretation Description Data Sup porting Code Source(s) Document(s ) Troponin < 0.034 <content [facility] I.cardiac styleCode="Bold Melodie [Mass/volume ">Troponin I Medical ] in Serum </content>< Center or Plasma 0.012 NG/ML<content styleCode="Ital ics"> (< 0.034 NG/ML)</content > ID Date Data Source [facility].[id number] 05/07/2019 05:35:00 AM EST [facility] Name Value Range Interpretation Description Data Sup porting Code Source(s) Document(s ) Sodium 137-145 <content [facility] [Moles/volume] styleCode="Mary Melodie in Serum or d">Sodium Medical Plasma </content>140 Center MEQ/L<content styleCode="Tiarra lics"> (137-145 MEQ/L)</conten t> Potassium 3.5-5.3 <content [facility] [Moles/volume] styleCode="Mary Melodie in Serum or d">Potassium Medical Plasma </content>4.2 Center MEQ/L<content styleCode="Tiarra lics"> (3.5-5.3 MEQ/L)</conten t> Calcium 8.4-10.2 <content [facility] [Mass/volume] styleCode="Mary Melodie in Serum or d">Calcium Medical Plasma </content>9.6 Center MG/DL<content styleCode="Tiarra lics"> (8.4-10.2 MG/DL)</conten t> Creatinine 0.5-1.3 <content [facility] [Mass/volume] styleCode="Mary Melodie in Serum or d">Creatinine Medical Plasma </content>0.6 Center MG/DL<content styleCode="Tiarra lics"> (0.5-1.3 MG/DL)</conten t> Chloride 98-107 Above high normal <content [facility] [Moles/volume] styleCode="Mary Melodie in Serum or d">Chloride Medical Plasma </content>108 Center MEQ/L H<content styleCode="Tiarra lics"> (98-107 MEQ/L)</conten t> Carbon 22-30 <content [facility] dioxide, total styleCode="Mary Melodie [Moles/volume] d">Carbon Medical in Serum or Dioxide Center Plasma </content>24 MEQ/L<content styleCode="Tiarra lics"> (22-30 MEQ/L)</conten t> Glucose 74-106 <content [facility] [Mass/volume] styleCode="Mary Melodie in Serum or d">Glucose Medical Plasma </content>97 Center MG/DL<content styleCode="Tiarra lics"> (74-106 MG/DL)</conten t> UNK 7-17 <content [facility] styleCode="Mary Melodie d">BUN Medical </content>11 Center MG/DL<content styleCode="Tiarra lics"> (7-17 MG/DL)</conten t> UNK > 60 <content [facility] styleCode="Mary Melodie d">EGFR Medical </content>112 Center GFR<content styleCode="Tiarra lics"> (> 60 GFR)</content> ID Date Data Source [facility][id number] 05/06/2019 11:30:00 AM [facility] -0500 Name Value Range Interpretation Description Data Sup porting Code Source(s) Document(s ) Natriuretic < 125 Above high normal <content [facility] peptide.B styleCode="Mary Melodie prohormone d">NT Pro BNP Medical N-Terminal </content>246 Center [Mass/volume] PG/ML in Serum or H<content Plasma styleCode="Tiarra lics"> (< 125 PG/ML)</conten t> ID Date Data Source [facility].[id number] 05/06/2019 11:30:00 AM [facility] -0500 Name Value Range Interpretation Description Data Sup porting Code Source(s) Document(s ) Troponin < 0.034 <content [facility] I.cardiac styleCode="Bold Melodie [Mass/volume ">Troponin I Medical ] in Serum </content>< Center or Plasma 0.012 NG/ML<content styleCode="Ital ics"> (< 0.034 NG/ML)</content > ID Date Data Source Liver 05/06/2019 05:20:00 AM [facility] Profile.[id number] Name Value Range Interpretation Description Data Sup porting Code Source(s) Document(s ) Aspartate 14-36 Above high <content [facility] aminotransferase normal styleCode="Bold"> Anish hs [Enzymatic Aspartate Medical activity/volume] Aminotransferase Center in Serum or Plasma (AST) </content>47 IU/L H<content styleCode="Italic s"> (14-36 IU/L)</content> Alanine 7-30 Above high <content [facility] aminotransferase normal styleCode="Bold"> Anish hs [Enzymatic Alanine Medical activity/volume] Aminotransferase Center in Serum or Plasma (ALT) </content>76 IU/L H<content styleCode="Italic s"> (7-30 IU/L)</content> Alkaline 38-126 <content [facility] phosphatase styleCode="Bold"> Melodie [Enzymatic Alkaline Medical activity/volume] Phosphatase (ALP) Cente r in Serum or Plasma </content>72 IU/L<content styleCode="Italic s"> (38-126 IU/L)</content> Albumin 3.5-5.0 Below low <content [facility] [Mass/volume] in normal styleCode="Bold"> Anish hs Serum or Plasma Albumin Medical </content>3.4 Center G/DL L<content styleCode="Italic s"> (3.5-5.0 G/DL)</content> Bilirubin.total 0.2-1.3 <content [facility] [Mass/volume] in styleCode="Bold"> Anish hs Serum or Plasma Bilirubin Total Medical </content>0.3 Center MG/DL<content styleCode="Italic s"> (0.2-1.3 MG/DL)</content> ID Date Data Source HematologyRou.[id number] 05/06/2019 05:20:00 AM [facility] 0500 Name Value Range Interpretation Description Data Sup porting Code Source(s) Document(s ) Leukocytes 4.4-11.0 <content [facility] [#/volume] in styleCode="Bold [facility] Blood by ">White Blood Medical Automated count Cell Count Center </content>5.57 KCUMM<content styleCode="Ital ics"> (4.4-11.0 KCUMM)</content > Erythrocytes 4.0-5.1 Below low normal <content [facility] [#/volume] in styleCode="Bold [facility] Blood by ">Red Blood Medical Automated count Cell Count Center </content>3.77 MCUMM L<content styleCode="Ital ics"> (4.0-5.1 MCUMM)</content > Hemoglobin 12.3-16. Below low normal <content [facility] [Mass/volume] in 0 styleCode="Bold Melodie Blood ">Hemoglobin Medical </content>10.5 Center G/DL L<content styleCode="Ital ics"> (12.3-16.0 G/DL)</content> Hematocrit 36.0-46. Below low normal <content [facility] [Volume 0 styleCode="[facility] Fraction] of ">Hematocrit Medical Blood by </content>32.2 Center Automated count % L<content styleCode="Ital ics"> (36.0-46.0 %)</content> Erythrocyte mean 26.0-34. <content [facility] corpuscular 0 styleCode="Bold Melodie hemoglobin ">Mean Medical [Entitic mass] Corposcular Center by Automated Hemoglobin count </content>27.9 PG<content styleCode="Ital ics"> (26.0-34.0 PG)</content> Erythrocyte mean 32.0-37. <content [facility] corpuscular 0 styleCode="Bold Melodie hemoglobin ">Mean Corpus. Medical concentration Hgb Center [Mass/volume] by Concentration Automated count (MCHC) </content>32.6 G/DL<content styleCode="Ital ics"> (32.0-37.0 G/DL)</content> Erythrocyte mean 80.0-100 <content [facility] corpuscular .0 styleCode="Bold Melodie volume [Entitic ">Mean Medical volume] by Corpuscular Center Automated count Volume </content>85.4 FL<content styleCode="Ital ics"> (80.0-100.0 FL)</content> Neutrophils 36-66 <content [facility] [#/volume] in styleCode="Bold Melodie Blood by ">Neutrophil Medical Automated count </content>53.2 Center %<content styleCode="Ital ics"> (36-66 %)</content> Platelets 130-400 <content [facility] [#/volume] in styleCode="Bold Melodie Blood by ">Platelet Medical Automated count Count Center </content>165 KCUMM<content styleCode="Ital ics"> (130-400 KCUMM)</content > UNK 1.6-7.3 <content [facility] styleCode="Bold Melodie ">Neutrophil Medical Count Center </content>2.96 KCUMM<content styleCode="Ital ics"> (1.6-7.3 KCUMM)</content > Platelet mean 8.0-11.0 <content [facility] volume [Entitic styleCode="Bold Melodie volume] in Blood ">Mean Platelet Medical by Automated Volume Center count </content>10.6 FL<content styleCode="Ital ics"> (8.0-11.0 FL)</content> Erythrocyte 11.5-14. Above high <content [facility] distribution 5 normal styleCode="Bold Melodie width [Ratio] by ">Red Cell Medical Automated count Distribution Center Width </content>19.6 % H<content styleCode="Ital ics"> (11.5-14.5 %)</content> UNK 0.2-0.9 <content [facility] styleCode="Bold Melodie ">Monocyte Medical Count Center </content>0.58 KCUMM<content styleCode="Ital ics"> (0.2-0.9 KCUMM)</content > Monocytes 3.0-10.0 Above high <content [facility] [#/volume] in normal styleCode="Bold Melodie Blood by ">Monocyte Medical Automated count </content>10.4 Center % H<content styleCode="Ital ics"> (3.0-10.0 %)</content> Eosinophils 0-5.0 <content [facility] [#/volume] in styleCode="Bold Melodie Blood by ">Eosinophil Medical Automated count </content>1.4 Center %<content styleCode="Ital ics"> (0-5.0 %)</content> Lymphocytes 24.0-44. <content [facility] [#/volume] in 0 styleCode="Bold Melodie Blood by ">Lymphocyte Medical Automated count </content>33.9 Center %<content styleCode="Ital ics"> (24.0-44.0 %)</content> UNK 1.0-4.8 <content [facility] styleCode="Bold Melodie ">Lymphocyte Medical Count Center </content>1.89 KCUMM<content styleCode="Ital ics"> (1.0-4.8 KCUMM)</content > UNK 0 <content [facility] styleCode="Bold Melodie ">Nucleated Red Medical Blood Cell Center </content>0.0 /100<content styleCode="Ital ics"> (0 /100)</content> Basophils 0.0-1.0 <content [facility] [#/volume] in styleCode="Bold Melodie Blood by ">Basophil Medical Automated count </content>0.7 Center %<content styleCode="Ital ics"> (0.0-1.0 %)</content> UNK 0.0-0.3 <content [facility] styleCode="Bold Melodie ">Basophil Medical Count Center </content>0.04 KCUMM<content styleCode="Ital ics"> (0.0-0.3 KCUMM)</content > UNK 0.0-0.6 <content [facility] styleCode="Bold Melodie ">Eosinophil Medical Count Center </content>0.08 KCUMM<content styleCode="Ital ics"> (0.0-0.6 KCUMM)</content > UNK < 1 <content [facility] styleCode="Bold Melodie ">Immature Medical Granulocyte Center Ratio </content>0.4 %<content styleCode="Ital ics"> (< 1 %)</content> UNK 0.0 <content [facility] styleCode="Bold Melodie ">Nucleated Red Medical Blood Cell Center Count </content>0.00 KCUMM<content styleCode="Ital ics"> (0.0 KCUMM)</content > UNK 0-0.1 <content [facility] styleCode="Bold Melodie ">Immature Medical Granulocyte Center Count </content>0.02 KCUMM<content styleCode="Ital ics"> (0-0.1 KCUMM)</content > ID Date Data Source GFR(Creatinine).[id number] 05/06/2019 05:20:00 AM [facility] 0-0500 Name Value Range Interpretation Code Description Data Dolores rce(s) Supporting Document(s ) UNK > 60 <content [facility] Melodie styleCode="Bold"> Medical Cent er EGFR </content>180 GFR<content styleCode="Italic s"> (> 60 GFR)</content> ID Date Data Source [facility].[id number] 05/06/2019 05:20:00 AM [facility] -0500 Name Value Range Interpretation Description Data Sup porting Code Source(s) Document(s ) UNK >= 1.0 <content [facility] styleCode="Bold Medical ">AG Ratio Center </content>1.2 <content styleCode="Ital ics"> (>= 1.0 )</content> Protein 6.3-8.2 <content [facility] Melodie [Mass/volum styleCode="Bold Medical e] in Serum ">Total Protein Center or Plasma </content>6.3 G/DL<content styleCode="Ital ics"> (6.3-8.2 G/DL)</content> UNK 2.3-3.5 <content [facility] Melodie styleCode="Bold Medical ">Globulin Center </content>2.9 G/DL<content styleCode="Ital ics"> (2.3-3.5 G/DL)</content> ID Date Data Source [facility].[id number] 05/06/2019 05:20:00 AM EST [facility] Center Name Value Range Interpretation Description Data Sup porting Code Source(s) Document(s ) Sodium 137-145 <content [facility] [Moles/volume] in styleCode="Bold"> Tay phs Serum or Plasma Sodium Medical </content>137 Center MEQ/L<content styleCode="Italic s"> (137-145 MEQ/L)</content> UNK 7-17 <content Saint styleCode="Bold"> Melodie BUN </content>12 Medical MG/DL<content Center styleCode="Italic s"> (7-17 MG/DL)</content> Potassium 3.5-5.3 <content [facility] [Moles/volume] in styleCode="Bold"> Tay phs Serum or Plasma Potassium Medical </content>4.1 Center MEQ/L<content styleCode="Italic s"> (3.5-5.3 MEQ/L)</content> Glucose 74-106 <content [facility] [Mass/volume] in styleCode="Bold"> Anish hs Serum or Plasma Glucose Medical </content>89 Center MG/DL<content styleCode="Italic s"> (74-106 MG/DL)</content> Carbon dioxide, 22-30 <content [facility] total styleCode="Bold"> Melodie [Moles/volume] in Carbon Dioxide Medical Serum or Plasma </content>26 Center MEQ/L<content styleCode="Italic s"> (22-30 MEQ/L)</content> Chloride 98-107 <content [facility] [Moles/volume] in styleCode="Bold"> Tay phs Serum or Plasma Chloride Medical </content>105 Center MEQ/L<content styleCode="Italic s"> (98-107 MEQ/L)</content> Creatinine 0.5-1.3 Below low <content [facility] [Mass/volume] in normal styleCode="Bold"> Anish hs Serum or Plasma Creatinine Medical </content>0.4 Center MG/DL L<content styleCode="Italic s"> (0.5-1.3 MG/DL)</content> UNK > 60 <content Saint styleCode="Bold"> Melodie EGFR Medical </content>180 Center GFR<content styleCode="Italic s"> (> 60 GFR)</content> Alanine 7-30 Above high <content [facility] aminotransferase normal styleCode="Bold"> Anish hs [Enzymatic Alanine Medical activity/volume] Aminotransferase Center in Serum or Plasma (ALT) </content>76 IU/L H<content styleCode="Italic s"> (7-30 IU/L)</content> Aspartate 14-36 Above high <content [facility] aminotransferase normal styleCode="Bold"> Anish hs [Enzymatic Aspartate Medical activity/volume] Aminotransferase Center in Serum or Plasma (AST) </content>47 IU/L H<content styleCode="Italic s"> (14-36 IU/L)</content> Alkaline 38-126 <content [facility] phosphatase styleCode="Bold"> Melodie [Enzymatic Alkaline Medical activity/volume] Phosphatase (ALP) Cente r in Serum or Plasma </content>72 IU/L<content styleCode="Italic s"> (38-126 IU/L)</content> Calcium 8.4-10. <content [facility] [Mass/volume] in 2 styleCode="Bold"> Anish hs Serum or Plasma Calcium Medical </content>9.1 Center MG/DL<content styleCode="Italic s"> (8.4-10.2 MG/DL)</content> Bilirubin.total 0.2-1.3 <content [facility] [Mass/volume] in styleCode="Bold"> Anish hs Serum or Plasma Bilirubin Total Medical </content>0.3 Center MG/DL<content styleCode="Italic s"> (0.2-1.3 MG/DL)</content> Albumin 3.5-5.0 Below low <content [facility] [Mass/volume] in normal styleCode="Bold"> Anish hs Serum or Plasma Albumin Medical </content>3.4 Center G/DL L<content styleCode="Italic s"> (3.5-5.0 G/DL)</content> ID Date Data Source Liver 05/05/2019 08:10:00 PM EST [facility] Profile.[id number] Name Value Range Interpretation Description Data Sup porting Code Source(s) Document(s ) Aspartate 14-36 Above high <content [facility] aminotransferase normal styleCode="Bold"> Anish hs [Enzymatic Aspartate Medical activity/volume] Aminotransferase Center in Serum or Plasma (AST) </content>62 IU/L H<content styleCode="Italic s"> (14-36 IU/L)</content> Bilirubin.total 0.2-1.3 <content [facility] [Mass/volume] in styleCode="Bold"> Anish hs Serum or Plasma Bilirubin Total Medical </content>0.2 Center MG/DL<content styleCode="Italic s"> (0.2-1.3 MG/DL)</content> Albumin 3.5-5.0 <content [facility] [Mass/volume] in styleCode="Bold"> Anish hs Serum or Plasma Albumin Medical </content>3.8 Center G/DL<content styleCode="Italic s"> (3.5-5.0 G/DL)</content> Alkaline 38-126 <content [facility] phosphatase styleCode="Bold"> Melodie [Enzymatic Alkaline Medical activity/volume] Phosphatase (ALP) Cente r in Serum or Plasma </content>74 IU/L<content styleCode="Italic s"> (38-126 IU/L)</content> Alanine 7-30 Above high <content [facility] aminotransferase normal styleCode="Bold"> Anish hs [Enzymatic Alanine Medical activity/volume] Aminotransferase Center in Serum or Plasma (ALT) </content>92 IU/L H<content styleCode="Italic s"> (7-30 IU/L)</content> ID Date Data Source HematologyRou.[id number] 05/05/2019 08:10:00 PM ANN [facility] 0500 Name Value Range Interpretation Description Data Sup porting Code Source(s) Document(s ) Erythrocytes 4.0-5.1 Below low normal <content [facility] [#/volume] in styleCode="Bold Melodie Blood by ">Red Blood Medical Automated count Cell Count Center </content>3.81 MCUMM L<content styleCode="Ital ics"> (4.0-5.1 MCUMM)</content > Leukocytes 4.4-11.0 <content [facility] [#/volume] in styleCode="Bold Melodie Blood by ">White Blood Medical Automated count Cell Count Center </content>5.85 KCUMM<content styleCode="Ital ics"> (4.4-11.0 KCUMM)</content > Hematocrit 36.0-46. Below low normal <content Saint [Volume 0 styleCode="Bold [facility] Fraction] of ">Hematocrit Medical Blood by </content>33.0 Center Automated count % L<content styleCode="Ital ics"> (36.0-46.0 %)</content> Hemoglobin 12.3-16. Below low normal <content [facility] [Mass/volume] in 0 styleCode="Bold Melodie Blood ">Hemoglobin Medical </content>10.7 Center G/DL L<content styleCode="Ital ics"> (12.3-16.0 G/DL)</content> Erythrocyte mean 32.0-37. <content [facility] corpuscular 0 styleCode="Bold Melodie hemoglobin ">Mean Corpus. Medical concentration Hgb Center [Mass/volume] by Concentration Automated count (MCHC) </content>32.4 G/DL<content styleCode="Ital ics"> (32.0-37.0 G/DL)</content> Platelets 130-400 <content Saint [#/volume] in styleCode="Bold Melodie Blood by ">Platelet Medical Automated count Count Center </content>157 KCUMM<content styleCode="Ital ics"> (130-400 KCUMM)</content > Erythrocyte 11.5-14. Above high <content [facility] distribution 5 normal styleCode="Bold Melodie width [Ratio] by ">Red Cell Medical Automated count Distribution Center Width </content>19.7 % H<content styleCode="Ital ics"> (11.5-14.5 %)</content> Erythrocyte mean 26.0-34. <content [facility] corpuscular 0 styleCode="Bold Melodie hemoglobin ">Mean Medical [Entitic mass] Corposcular Center by Automated Hemoglobin count </content>28.1 PG<content styleCode="Ital ics"> (26.0-34.0 PG)</content> Erythrocyte mean 80.0-100 <content [facility] corpuscular .0 styleCode="Bold Melodie volume [Entitic ">Mean Medical volume] by Corpuscular Center Automated count Volume </content>86.6 FL<content styleCode="Ital ics"> (80.0-100.0 FL)</content> Platelet mean 8.0-11.0 <content [facility] volume [Entitic styleCode="Bold Melodie volume] in Blood ">Mean Platelet Medical by Automated Volume Center count </content>10.3 FL<content styleCode="Ital ics"> (8.0-11.0 FL)</content> UNK 0.0 <content Saint styleCode="Bold Melodie ">Nucleated Red Medical Blood Cell Center Count </content>0.00 KCUMM<content styleCode="Ital ics"> (0.0 KCUMM)</content > UNK 0 <content Saint styleCode="Bold Emlodie ">Nucleated Red Medical Blood Cell Center </content>0.0 /100<content styleCode="Ital ics"> (0 /100)</content> ID Date Data Source GFR(Creatinine).[id number] 05/05/2019 08:10:00 PM EST [facility] 0-0500 Name Value Range Interpretation Code Description Data Dolores rce(s) Supporting Document(s ) UNK > 60 <content [facility] Melodie styleCode="Bold"> Medical Cent er EGFR </content>180 GFR<content styleCode="Italic s"> (> 60 GFR)</content> ID Date Data Source MONSERRAT.[id number] 05/05/2019 08:10:00 PM ANN [facility] -0500 Name Value Range Interpretation Description Data Sup porting Code Source(s) Document(s ) UNK >= 1.0 <content Saint styleCode="Bold Melodie ">AG Ratio Medical </content>1.3 Center <content styleCode="Ital ics"> (>= 1.0 )</content> UNK NEGATIVE <content Saint styleCode="Bold Melodie ">Acetone Medical </content>NEGAT Center LUCERO <content styleCode="Ital ics"> (NEGATIVE )</content> UNK 2.3-3.5 <content Saint styleCode="Bold Melodie ">Globulin Medical </content>3.0 Center G/DL<content styleCode="Ital ics"> (2.3-3.5 G/DL)</content> Protein 6.3-8.2 <content Saint [Mass/volum styleCode="Bold Melodie e] in Serum ">Total Protein Medical or Plasma </content>6.8 Center G/DL<content styleCode="Ital ics"> (6.3-8.2 G/DL)</content> Lipase 23-300 <content Saint [Enzymatic styleCode="Bold Melodie activity/vo ">Lipase Medical lume] in </content>138 Center Serum or IU/L<content Plasma styleCode="Ital ics"> (23-300 IU/L)</content> ID Date Data Source [facility].[id number] 05/05/2019 08:10:00 PM [facility] -0500 Name Value Range Interpretation Description Data Sup porting Code Source(s) Document(s ) Troponin < 0.034 <content [facility] I.cardiac styleCode="Bold Melodie [Mass/volume ">Troponin I Medical ] in Serum </content>< Center or Plasma 0.012 NG/ML<content styleCode="Ital ics"> (< 0.034 NG/ML)</content > ID Date Data Source [facility].[id number] 05/05/2019 08:10:00 PM EST [facility] Name Value Range Interpretation Description Data Sup porting Code Source(s) Document(s ) Sodium 137-145 <content [facility] [Moles/volume] in styleCode="Bold"> Tay phs Serum or Plasma Sodium Medical </content>138 Center MEQ/L<content styleCode="Italic s"> (137-145 MEQ/L)</content> Potassium 3.5-5.3 <content [facility] [Moles/volume] in styleCode="Bold"> Tay phs Serum or Plasma Potassium Medical </content>4.1 Center MEQ/L<content styleCode="Italic s"> (3.5-5.3 MEQ/L)</content> Glucose 74-106 <content [facility] [Mass/volume] in styleCode="Bold"> Anish hs Serum or Plasma Glucose Medical </content>88 Center MG/DL<content styleCode="Italic s"> (74-106 MG/DL)</content> Chloride 98-107 <content [facility] [Moles/volume] in styleCode="Bold"> Tay phs Serum or Plasma Chloride Medical </content>106 Center MEQ/L<content styleCode="Italic s"> (98-107 MEQ/L)</content> UNK 7-17 <content Saint styleCode="Bold"> Melodie BUN </content>16 Medical MG/DL<content Center styleCode="Italic s"> (7-17 MG/DL)</content> Creatinine 0.5-1.3 Below low <content [facility] [Mass/volume] in normal styleCode="Bold"> Anish hs Serum or Plasma Creatinine Medical </content>0.4 Center MG/DL L<content styleCode="Italic s"> (0.5-1.3 MG/DL)</content> Carbon dioxide, 22-30 <content [facility] total styleCode="Bold"> Melodie [Moles/volume] in Carbon Dioxide Medical Serum or Plasma </content>27 Center MEQ/L<content styleCode="Italic s"> (22-30 MEQ/L)</content> Alanine 7-30 Above high <content [facility] aminotransferase normal styleCode="Bold"> Anish hs [Enzymatic Alanine Medical activity/volume] Aminotransferase Center in Serum or Plasma (ALT) </content>92 IU/L H<content styleCode="Italic s"> (7-30 IU/L)</content> Calcium 8.4-10. <content [facility] [Mass/volume] in 2 styleCode="Bold"> Anish hs Serum or Plasma Calcium Medical </content>9.0 Center MG/DL<content styleCode="Italic s"> (8.4-10.2 MG/DL)</content> Aspartate 14-36 Above high <content [facility] aminotransferase normal styleCode="Bold"> Anish hs [Enzymatic Aspartate Medical activity/volume] Aminotransferase Center in Serum or Plasma (AST) </content>62 IU/L H<content styleCode="Italic s"> (14-36 IU/L)</content> UNK > 60 <content [facility] styleCode="Bold"> Melodie EGFR Medical </content>180 Center GFR<content styleCode="Italic s"> (> 60 GFR)</content> Alkaline 38-126 <content [facility] phosphatase styleCode="Bold"> Melodie [Enzymatic Alkaline Medical activity/volume] Phosphatase (ALP) Cente r in Serum or Plasma </content>74 IU/L<content styleCode="Italic s"> (38-126 IU/L)</content> Bilirubin.total 0.2-1.3 <content [facility] [Mass/volume] in styleCode="Bold"> Anish hs Serum or Plasma Bilirubin Total Medical </content>0.2 Center MG/DL<content styleCode="Italic s"> (0.2-1.3 MG/DL)</content> Albumin 3.5-5.0 <content [facility] [Mass/volume] in styleCode="Bold"> Anish hs Serum or Plasma Albumin Medical </content>3.8 Center G/DL<content styleCode="Italic s"> (3.5-5.0 G/DL)</content> Procedure Social History Code Duration Value Status Description Data Source(s ) Smoking 05/05/2019 Denies Ever completed Denies Ever Smoked [facility] 10:45:00 PM EST Smoked Medical C enter Smoking 05/05/2019 Denies Ever completed Denies Ever Smoked [facility] 10:16:00 PM EST Smoked Medical C enter Smoking 05/05/2019 Denies Ever completed Denies Ever Smoked [facility] 10:03:00 PM EST Smoked Medical C enter Smoking 05/05/2019 Denies Ever completed Denies Ever Smoked [facility] 09:16:00 PM EST Smoked Medical C enter Smoking 05/05/2019 Denies Ever completed Denies Ever Smoked [facility] 07:45:00 PM EST Smoked Medical C enter Smoking 05/05/2019 Denies Ever completed Denies Ever Smoked [facility] 07:33:00 PM EST Smoked Medical C enter Vital Signs ID Date Data Source UNK Name Value Range Interpretation Code Description Data Source(s) Body temperature 37.649318 37.431845 [facility] Respiratory rate 20 /min 20 /min [facility] Heart rate 84 /min 84 /min [facility] [facility] Diastolic blood 77 mm[Hg] 77 mm[Hg] [facility] Systolic blood 126 mm[Hg] 126 mm[Hg] [facility] Body temperature 36.360586 36.129697 [facility] Respiratory rate 18 /min 18 /min [facility] Heart rate 78 /min 78 /min [facility] Diastolic blood 68 mm[Hg] 68 mm[Hg] [facility] Systolic blood 105 mm[Hg] 105 mm[Hg] [facility] Body temperature 36.705656 36.285855 [facility] Respiratory rate 19 /min 19 /min [facility] Heart rate 66 /min 66 /min [facility] Diastolic blood 66 mm[Hg] 66 mm[Hg] [facility] Systolic blood 100 mm[Hg] 100 mm[Hg] [facility] Body temperature 36.490672 36.152318 [facility] Respiratory rate 18 /min 18 /min [facility] Heart rate 79 /min 79 /min [facility] Diastolic blood 80 mm[Hg] 80 mm[Hg] [facility] Systolic blood 127 mm[Hg] 127 mm[Hg] [facility] Body temperature 36.204666 36.953863 [facility] Respiratory rate 18 /min 18 /min [facility] Heart rate 72 /min 72 /min [facility] Diastolic blood 79 mm[Hg] 79 mm[Hg] [facility] pressure Medical Center Systolic blood 122 mm[Hg] 122 mm[Hg] [facility] [place] Body temperature 37.191323 37.132298 [facility] Respiratory rate 19 /min 19 /min [facility] Heart rate 68 /min 68 /min [facility] Diastolic blood 97 mm[Hg] 97 mm[Hg] [facility] pressure [facility] Center Systolic blood 151 mm[Hg] 151 mm[Hg] [facility] [place] Respiratory rate 18 /min 18 /min [facility] Heart rate 60 /min 60 /min [facility] Diastolic blood 87 mm[Hg] 87 mm[Hg] [facility] Systolic blood 137 mm[Hg] 137 mm[Hg] [facility] [place] Body temperature 36.055960 36.202949 [facility] Body temperature 36.847276 36.042910 [facility] Respiratory rate 20 /min 20 /min [facility] Heart rate 59 /min 59 /min [facility] Diastolic blood 79 mm[Hg] 79 mm[Hg] [facility] Systolic blood 121 mm[Hg] 121 mm[Hg] [facility] [place] Body temperature 37.442119 37.758427 [facility] Respiratory rate 20 /min 20 /min [facility] Heart rate 72 /min 72 /min [facility] Diastolic blood 95 mm[Hg] 95 mm[Hg] [facility] Systolic blood 139 mm[Hg] 139 mm[Hg] [facility] [place] Body weight 68.075159 kg 68.500734 kg [facility] [place] Body height 165.971894 165.075846 cm [facility] [place] Body mass index 25.24 kg/m2 25.24 kg/m2 [facility] (BMI) [Ratio] Medical [facility] Body weight 68.079861 kg 68.895205 kg [facility] Measured [facility] Body temperature 37.296244 37.897620 [facility] Respiratory rate 18 /min 18 /min [facility] Heart rate 73 /min 73 /min [facility] Body height 165.303790 165.531108 cm [facility] cm Medical Center Diastolic blood 88 mm[Hg] 88 mm[Hg] [facility] pressure Medical Center Systolic blood 142 mm[Hg] 142 mm[Hg] [facility] pressure Medical Center Body mass index 25.24 kg/m2 25.24 kg/m2 [facility] osep (BMI) [Ratio] Medical [facility] Oxygen saturation 98 % 98 % [facility] Arter[facility] by Pulse oximetry Oxygen saturation 98 % 98 % [facility] Arter[facility] blood [facility] by Pulse oximetry Body weight 54.0 kg 54.0 kg [facility] Body weight 120.0 120.0 [lb_av] NETSMART Measured [lb_av] ([facility]) Heart rate 75.0 /MIN 75.0 /MIN [facility] ([facility]) Body temperature 36.7778 YARA 36.7778 [facility] Body temperature 98.2 [degF] 98.2 [degF] [facility] Body mass index 20.6 % 20.6 % [facility] (BMI) [Ratio] ([facility]) Body height 163.0 cm 163.0 cm [facility] ([facility]) Region of interest 64.0 [IN_I] 64.0 [IN_I] NETS LUCAS Height by ([facility]) Patient Treatment Plan of Care Planned Activity Planned Date Details Description Data Source (s) atorvastatin 40 MG Oral [facility] Medical Tablet Center Trazodone Hydrochloride 50 S [facility] Medical MG Oral Tablet Center Vitamin B 12 1 MG Oral [facility] Tablet [place] Aspirin 325 MG Delayed [facility] Medical Release Oral Tablet Center 12 HR Carbamazepine 400 MG S [facility] Extended Release Oral Tablet Center lacosamide 150 MG Oral [facility] Tablet [Vimpat] Center Folic Acid 1 MG Oral Tablet [facility] gabapentin 300 MG Oral [facility] Capsule [place] Meclizine Hydrochloride 12.5 [facility] MG Oral Tablet [place] meloxicam 7.5 MG Oral Tablet [facility] lidocaine (Lidocaine Pain Sa [facility]) 4 % adhesive Center patch,medicated, Ordered By: JOSEPH Riojasirections: 1 patch transdermal every twelve hours topiramate 100 MG Oral [facility]
--- NOTE | 2020-01-31 11:08 | PATH ---
Surgical Pathology Report Patient Name: CYNDY LUEVANO [facility]. Rec. #: [id number] /Age/Gender: 1970 (Age: 49) / F Account: [id number] Location: [facility] Taken: 01/29/2020 Received: 01/29/2020 Reported: 01/31/2020 Physicians: Faraz Nogueira M.D. 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 Electronically Signed Jesica Seay M.D. Gross Description Received in formalin labeled "right breast with possible calcification," is a 4.4 x 2.7 x 0.3 cm aggregate of multiple bocanegra-yellow, irregular to cylindrical portions of fibroadipose tissue. The formalin is filtered and the specimen is entirely submitted in two cassettes. Time to formalin fixation: 10 minutes Total formalin fixation time: Approximately 7 hours. /01/29/2020 [place]/01/29/2020
== END | disposition home or self-care (01) ==
LOC: FMAMMOTONE 08:45
PROVIDERS: ATTEND Family Medicine
PROC: 0HBT3ZX Excision of Right Breast, Percutaneous Approach, Diagnostic (ICD-10-PCS; principal; 2020-01-29)
DX: N60.91 Unspecified benign mammary dysplasia of right breast (principal); N64.89 Other specified disorders of breast; R92.1 Mammographic calcification found on diagnostic imaging of breast
CPT/HCPCS: 19081; 76098-TC-FY; 87899; 88305-TC; A4648

== ENCOUNTER 2020-05-24 04:20 | Emergency (ER) | payer OTHER ==
[2020-05-24 05:07] VITALS: PULSE 102; BMI 21.6
[2020-05-24] MEDS ORDERED: DIPHTH,PERTUSS(ACELL),TET 0.5 ML DISP.SYRIN IM ONE (05:14)
[2020-05-24 06:30] VITALS: BP 126/86; TEMP 98.3
== END 2020-05-24 06:52 | disposition home or self-care (01) ==
LOC: JER 04:20
PROC: 0HQ1XZZ Repair Face Skin, External Approach (ICD-10-PCS; principal; 2020-05-24)
PROC: 3E0234Z Introduction of Serum, Toxoid and Vaccine into Muscle, Percutaneous Approach (ICD-10-PCS; 2020-05-24)
DX: S01.521A Laceration with foreign body of lip, initial encounter (principal)
CPT/HCPCS: 12011-25; 90471; 99285-25

== ENCOUNTER 2020-07-01 08:23 | Emergency (ER) | payer OTHER ==
[2020-07-01 08:39] VITALS: TEMP 99.9; BMI 25.3
[2020-07-01] MEDS ORDERED: ACETAMINOPHEN 1000 MG/100 ML VIAL (NON FORMULARY) IVPB ONE (09:15)
[2020-07-01] MEDS ORDERED: ACETAMINOPHEN INJECTION 100 ML IVPB ONE (09:26)
[2020-07-01 10:07] LABS: BASO % 1.5 % (0-2.0); EOS % 1.3 % (0-4.5); HEMATOCRIT 32.6 % (32.4-45.2); HEMOGLOBIN 10.3 GM/dL (10.7-15.3); LYMPH % 35.2 % (8-40); MCHC 31.4 g/dl (32.0-36.0); MEAN CELL VOLUME 86.1 fl (80-96); MEAN PLT VOLUME 8.3 fl (7.5-11.1); MONO % 16.5 % (3.8-10.2); NEUT % 45.5 % (42.8-82.8); PLATELET COUNT 182 K/MM3 (134-434); RBC 3.79 M/mm3 (3.60-5.2); RDW 26.1 % (11.6-15.6); WHITE BLOOD COUNT 2.7 K/mm3 (4.0-10.0)
[2020-07-01 10:08] LABS: INR 0.94 (0.83-1.09); PROTHROMBIN TIME (PATIENT) 11.6 SEC (9.7-13.0)
[2020-07-01 10:10] LABS: CHLORIDE 104 mmol/L (98-107); POTASSIUM 4.2 mmol/L (3.5-5.1); SODIUM 136 mmol/L (136-145)
[2020-07-01 10:11] LABS: ACTIVATED PTT 30.3 SECONDS (25.2-36.5)
[2020-07-01 10:12] LABS: ALBUMIN 3.4 g/dl (3.4-5.0); ANION GAP 7 MMOL/L (8-16); CALCIUM 8.4 mg/dL (8.5-10.1); CO2 25 mmol/L (21-32)
[2020-07-01 10:13] LABS: BLOOD UREA NITROGEN 9.5 mg/dL (7-18); GLUCOSE,RANDOM 100 mg/dL (74-106)
[2020-07-01 10:15] LABS: SGPT/ALT 44 U/L (13-61)
[2020-07-01 10:16] LABS: CREATININE 0.5 mg/dL (0.55-1.3); SGOT/AST 75 U/L (15-37)
[2020-07-01 10:17] LABS: BILIRUBIN,TOTAL 0.3 mg/dL (0.2-1); TOT PROT 7.5 g/dl (6.4-8.2)
[2020-07-01 10:18] LABS: ALK PHOS 123 U/L (45-117)
[2020-07-01 12:19] LABS: ANISOCYTOSIS 1+; MACROCYTOSIS 1+; PLATELET ESTIMATE NORMAL; TARGET CELLS 1+
[2020-07-01 13:08] VITALS: BP 134/91; PULSE 76
== END 2020-07-01 13:08 | disposition home or self-care (01) ==
LOC: JER 08:23
PROC: 3E0333Z Introduction of Anti-inflammatory into Peripheral Vein, Percutaneous Approach (ICD-10-PCS; principal; 2020-07-01)
DX: S22.32XA Fracture of one rib, left side, initial encounter for closed fracture (principal); R91.8 Other nonspecific abnormal finding of lung field
CPT/HCPCS: 36415; 71250-TC; 80053; 84484; 85025; 85610; 85730; 93005; 93010; 99285-25; J0131

== ENCOUNTER 2020-07-24 23:46 | Inpatient (IN) | payer OTHER ==
[2020-07-25 00:01] VITALS: BMI 21.6
[2020-07-25 02:14] LABS: BASO % 0.8 % (0-2.0); EOS % 1.3 % (0-4.5); HEMATOCRIT 34.1 % (32.4-45.2); HEMOGLOBIN 10.6 GM/dL (10.7-15.3); LYMPH % 31.9 % (8-40); MCH 26.6 pg (25.7-33.7); MEAN CELL VOLUME 85.7 fl (80-96); MEAN PLT VOLUME 9.4 fl (7.5-11.1); MONO % 4.6 % (3.8-10.2); NEUT % 61.4 % (42.8-82.8); PLATELET COUNT 188 K/MM3 (134-434); RBC 3.99 M/mm3 (3.60-5.2); RDW 24.2 % (11.6-15.6); WHITE BLOOD COUNT 6.4 K/mm3 (4.0-10.0)
[2020-07-25 02:21] LABS: INR 0.86 (0.83-1.09); PROTHROMBIN TIME (PATIENT) 10.6 SEC (9.7-13.0)
[2020-07-25 02:24] LABS: ACTIVATED PTT 28.3 SECONDS (25.2-36.5)
[2020-07-25 02:39] LABS: CHLORIDE 110 mmol/L (98-107); POTASSIUM 5.1 mmol/L (3.5-5.1); SODIUM 140 mmol/L (136-145)
[2020-07-25 02:43] LABS: ANION GAP 5 MMOL/L (8-16); BLOOD UREA NITROGEN 10.6 mg/dL (7-18); CALCIUM 8.4 mg/dL (8.5-10.1); CO2 25 mmol/L (21-32)
[2020-07-25 02:44] LABS: ALBUMIN 3.5 g/dl (3.4-5.0); GLUCOSE,RANDOM 94 mg/dL (74-106); LIPASE 114 U/L (73-393); MAGNESIUM 2.7 mg/dL (1.8-2.4)
[2020-07-25 02:46] LABS: CREATININE 0.5 mg/dL (0.55-1.3); SGOT/AST 62 U/L (15-37); SGPT/ALT 45 U/L (13-61)
[2020-07-25 02:48] LABS: BILIRUBIN,TOTAL 0.3 mg/dL (0.2-1)
[2020-07-25 02:49] LABS: ALK PHOS 139 U/L (45-117)
[2020-07-25 02:53] LABS: LACTIC ACID 2.4 mmol/L (0.4-2.0)
[2020-07-25 03:05] LABS: PH,URINE 6.5 (5.0-8.0); URINE APPEARANCE CLEAR; URINE BILIRUBIN NEGATIVE (NEGATIVE); URINE COLOR YELLOW; URINE GLUCOSE (UA) NEGATIVE (NEGATIVE); URINE KETONE NEGATIVE (NEGATIVE); URINE LEUK ESTERASE NEGATIVE (NEGATIVE); URINE NITRITE NEGATIVE (NEGATIVE); URINE PROTEIN NEGATIVE (NEGATIVE); URINE UROBILINOGEN 0.2 mg/dL (0.2-1.0)
[2020-07-25 03:12] LABS: METHADONE, UR NEGATIVE ng/ml (CUTOFF=300); URINE BENZODIAZEPINES NEGATIVE ng/ml (CUTOFF=200)
[2020-07-25 03:13] LABS: COCAINE, UR NEGATIVE ng/ml (CUTOFF=300); OPIATES, URI NEGATIVE ng/ml (CUTOFF=300); PHENCYCLIDINE,URINE NEGATIVE ng/ml (CUTOFF=25); URINE AMPHETAMINES NEGATIVE ng/ml (CUTOFF=500); URINE BARBITURATES NEGATIVE ng/ml (CUTOFF=200)
[2020-07-25] MEDS ORDERED: SODIUM CHLORIDE 1,000 ML IV STA (05:21)
[2020-07-25] MEDS ORDERED: PANTOPRAZOLE 40 MG TABLET ONE (10:46)
[2020-07-25] MEDS ORDERED: MULTIVITAMINS (DAILY MVI) TABLET (FP) ONE (10:46)
[2020-07-25] MEDS ORDERED: LACOSAMIDE 50 MG TABLET PO ONE (10:46)
[2020-07-25] MEDS ORDERED: carBAMazepine 200 MG TABLET ONE (10:47)
[2020-07-25] MEDS ORDERED: FOLIC ACID 1 MG TABLET (FP) ONE (10:47)
[2020-07-25] MEDS ORDERED: THIAMINE HCL 100 MG TABLET (FP) ONE (10:47)
[2020-07-25] MEDS: LACOSAMIDE 50 MG TABLET PO SCH ×2 (11:00→22:47)
[2020-07-25] MEDS: chlordiazePOXIDE HCL 25 MG CAPSULE PO PRN ×3 (11:00→22:46)
[2020-07-25] MEDS: carBAMazepine 200 MG TABLET PO SCH ×2 (11:00→22:46)
[2020-07-25] MEDS: MULTIVITAMINS (DAILY MVI) TABLET (FP) PO SCH (11:00)
[2020-07-25] MEDS: PANTOPRAZOLE 40 MG TABLET PO SCH (11:00)
[2020-07-25] MEDS: FOLIC ACID 1 MG TABLET (FP) PO SCH (11:00)
[2020-07-25] MEDS ORDERED: ACETAMINOPHEN 325 MG TABLET (FP) ONE (12:04)
[2020-07-25] MEDS ORDERED: chlordiazePOXIDE HCL 25 MG CAPSULE ONE (16:12)
[2020-07-25] MEDS: GABAPENTIN 300 MG CAPSULE PO SCH (22:47)
[2020-07-25] MEDS: THIAMINE HCL 100 MG TABLET (FP) PO SCH (22:47)
[2020-07-25] MEDS: ATORVASTATIN CA 20 MG TABLET (FP) PO SCH (22:47)
[2020-07-25] MEDS ORDERED: CYCLOBENZAPRINE HCL 5 MG TABLET PO ONE (22:56)
[2020-07-26] MEDS: chlordiazePOXIDE HCL 25 MG CAPSULE PO PRN ×2 (04:17→21:48)
[2020-07-26] MEDS: GABAPENTIN 300 MG CAPSULE PO SCH ×3 (05:48→21:41)
[2020-07-26 09:05] LABS: BASO % 0.9 % (0-2.0); EOS % 2.8 % (0-4.5); HEMATOCRIT 31.2 % (32.4-45.2); HEMOGLOBIN 9.8 GM/dL (10.7-15.3); LYMPH % 53.5 % (8-40); MCHC 31.4 g/dl (32.0-36.0); MEAN PLT VOLUME 8.9 fl (7.5-11.1); MONO % 10.4 % (3.8-10.2); NEUT % 32.4 % (42.8-82.8); PLATELET COUNT 132 K/MM3 (134-434); RBC 3.63 M/mm3 (3.60-5.2)
[2020-07-26 09:31] LABS: CHLORIDE 109 mmol/L (98-107); POTASSIUM 4.2 mmol/L (3.5-5.1); SODIUM 143 mmol/L (136-145)
[2020-07-26 09:34] LABS: ALBUMIN 3.2 g/dl (3.4-5.0); BLOOD UREA NITROGEN 10.2 mg/dL (7-18); CALCIUM 8.5 mg/dL (8.5-10.1); GLUCOSE,RANDOM 84 mg/dL (74-106)
[2020-07-26 09:35] LABS: MAGNESIUM 2.5 mg/dL (1.8-2.4)
[2020-07-26] MEDS: ASPIRIN 325 MG TABLET PO SCH (09:35)
[2020-07-26 09:36] LABS: ANION GAP 6 MMOL/L (8-16); CO2 28 mmol/L (21-32)
[2020-07-26] MEDS: MULTIVITAMINS (DAILY MVI) TABLET (FP) PO SCH (09:36)
[2020-07-26] MEDS: FOLIC ACID 1 MG TABLET (FP) PO SCH (09:36)
[2020-07-26] MEDS: carBAMazepine 200 MG TABLET PO SCH ×2 (09:36→21:41)
[2020-07-26] MEDS: PANTOPRAZOLE 40 MG TABLET PO SCH (09:36)
[2020-07-26 09:37] LABS: CHOLESTEROL 220 mg/dL (50-200); CREATININE 0.6 mg/dL (0.55-1.3)
[2020-07-26] MEDS: LACOSAMIDE 50 MG TABLET PO SCH ×2 (09:37→21:41)
[2020-07-26 09:39] LABS: ALK PHOS 143 U/L (45-117); BILIRUBIN,TOTAL 0.4 mg/dL (0.2-1); LDL CHOLESTEROL (ONLY SJRH) 107 mg/dL (5-100); SGOT/AST 73 U/L (15-37); SGPT/ALT 46 U/L (13-61)
[2020-07-26 09:40] LABS: HDL CHOLESTEROL 77 mg/dL (40-60); TRIGLYCERIDES 133 mg/dL (0-150)
[2020-07-26 16:48] LABS: IRON SERUM 131 ug/dL (50-175); TOTAL IRON BINDING CAPACITY 319 ug/dL (250-450)
[2020-07-26] MEDS: ATORVASTATIN CA 20 MG TABLET (FP) PO SCH (21:41)
[2020-07-26] MEDS: THIAMINE HCL 100 MG TABLET (FP) PO SCH (21:41)
[2020-07-27] MEDS: chlordiazePOXIDE HCL 25 MG CAPSULE PO PRN ×4 (05:21→14:55)
[2020-07-27] MEDS: GABAPENTIN 300 MG CAPSULE PO SCH ×3 (05:22→21:16)
[2020-07-27 08:11] LABS: BASO % 0.8 % (0-2.0); EOS % 2.7 % (0-4.5); HEMATOCRIT 30.8 % (32.4-45.2); HEMOGLOBIN 9.8 GM/dL (10.7-15.3); LYMPH % 37.8 % (8-40); MCHC 31.7 g/dl (32.0-36.0); MEAN CELL VOLUME 85.1 fl (80-96); MEAN PLT VOLUME 8.7 fl (7.5-11.1); MONO % 9.9 % (3.8-10.2); NEUT % 48.8 % (42.8-82.8); PLATELET COUNT 150 K/MM3 (134-434); RBC 3.62 M/mm3 (3.60-5.2); RDW 25.2 % (11.6-15.6); WHITE BLOOD COUNT 3.9 K/mm3 (4.0-10.0)
[2020-07-27 08:47] LABS: CALCIUM 8.6 mg/dL (8.5-10.1)
[2020-07-27 08:48] LABS: ALBUMIN 3.3 g/dl (3.4-5.0); MAGNESIUM 2.3 mg/dL (1.8-2.4)
[2020-07-27 08:52] LABS: BILIRUBIN,TOTAL 0.4 mg/dL (0.2-1); CREATININE 0.6 mg/dL (0.55-1.3); PHOSPHOROUS 3.6 mg/dL (2.5-4.9)
[2020-07-27 08:54] LABS: TOT PROT 7.1 g/dl (6.4-8.2)
[2020-07-27] MEDS: PANTOPRAZOLE 40 MG TABLET PO SCH (09:15)
[2020-07-27] MEDS: ASPIRIN 325 MG TABLET PO SCH (09:15)
[2020-07-27] MEDS: LACOSAMIDE 50 MG TABLET PO SCH ×2 (09:15→21:17)
[2020-07-27] MEDS: FOLIC ACID 1 MG TABLET (FP) PO SCH (09:15)
[2020-07-27] MEDS: MULTIVITAMINS (DAILY MVI) TABLET (FP) PO SCH (09:15)
[2020-07-27] MEDS: carBAMazepine 200 MG TABLET PO SCH (09:16)
[2020-07-27] MEDS ORDERED: chlordiazePOXIDE HCL 25 MG CAPSULE PO PRN (20:25)
[2020-07-27] MEDS: ATORVASTATIN CA 20 MG TABLET (FP) PO SCH (21:18)
[2020-07-27] MEDS: carBAMazepine XR 400 MG TAB.ER.12H PO SCH (21:19)
[2020-07-27] MEDS: THIAMINE HCL 100 MG TABLET (FP) PO SCH (21:19)
[2020-07-27] MEDS ORDERED: carBAMazepine 200 MG TABLET PO SCH (22:00)
[2020-07-28] MEDS ORDERED: LORazepam 1 MG TABLET PO ONE (00:17)
[2020-07-28] MEDS: GABAPENTIN 300 MG CAPSULE PO SCH ×3 (06:00→22:40)
[2020-07-28 08:40] LABS: BASO % 0.6 % (0-2.0); EOS % 2.5 % (0-4.5); HEMATOCRIT 31.8 % (32.4-45.2); LYMPH % 28.5 % (8-40); MCHC 31.4 g/dl (32.0-36.0); MEAN CELL VOLUME 86.1 fl (80-96); MEAN PLT VOLUME 8.6 fl (7.5-11.1); MONO % 8.1 % (3.8-10.2); NEUT % 60.3 % (42.8-82.8); PLATELET COUNT 171 K/MM3 (134-434); RBC 3.69 M/mm3 (3.60-5.2); RDW 25.4 % (11.6-15.6); WHITE BLOOD COUNT 4.9 K/mm3 (4.0-10.0)
[2020-07-28 09:08] LABS: POTASSIUM 3.9 mmol/L (3.5-5.1)
[2020-07-28 09:15] LABS: BLOOD UREA NITROGEN 13.4 mg/dL (7-18)
[2020-07-28 09:17] LABS: ALBUMIN 3.5 g/dl (3.4-5.0); CALCIUM 8.9 mg/dL (8.5-10.1); PHOSPHOROUS 2.8 mg/dL (2.5-4.9)
[2020-07-28 09:18] LABS: BILIRUBIN,TOTAL 0.3 mg/dL (0.2-1); TOT PROT 7.5 g/dl (6.4-8.2)
[2020-07-28 09:20] LABS: CREATININE 0.6 mg/dL (0.55-1.3); MAGNESIUM 2.5 mg/dL (1.8-2.4)
[2020-07-28] MEDS ORDERED: PT OWN MED DRAWER 7, Y5N ONE ×2 (10:25→22:31)
[2020-07-28] MEDS: ENOXAPARIN NA (PORCINE) 40 MG/0.4 ML DISP.SYRIN SQ SCH (10:31)
[2020-07-28] MEDS: ASPIRIN 325 MG TABLET PO SCH (10:31)
[2020-07-28] MEDS: MULTIVITAMINS (DAILY MVI) TABLET (FP) PO SCH (10:31)
[2020-07-28] MEDS: PANTOPRAZOLE 40 MG TABLET PO SCH (10:31)
[2020-07-28] MEDS: LACOSAMIDE 50 MG TABLET PO SCH ×2 (10:32→22:41)
[2020-07-28] MEDS: FOLIC ACID 1 MG TABLET (FP) PO SCH (10:32)
[2020-07-28] MEDS: carBAMazepine XR 400 MG TAB.ER.12H PO SCH ×2 (10:32→22:41)
[2020-07-28 14:56] LABS: ANISOCYTOSIS 1+; MACROCYTOSIS 1+; PLATELET ESTIMATE DECREASED; TEAR DROP CELLS 1+
[2020-07-28] MEDS ORDERED: chlordiazePOXIDE 5 MG CAPSULE PO SCH (22:00)
[2020-07-28] MEDS: ATORVASTATIN CA 20 MG TABLET (FP) PO SCH (22:40)
[2020-07-28] MEDS: THIAMINE HCL 100 MG TABLET (FP) PO SCH (22:41)
[2020-07-29] MEDS: GABAPENTIN 300 MG CAPSULE PO SCH ×3 (06:43→21:50)
[2020-07-29 08:37] LABS: BASO % 0.5 % (0-2.0); EOS % 2.9 % (0-4.5); HEMATOCRIT 31.1 % (32.4-45.2); HEMOGLOBIN 9.8 GM/dL (10.7-15.3); LYMPH % 30.5 % (8-40); MCH 27.5 pg (25.7-33.7); MCHC 31.3 g/dl (32.0-36.0); MEAN CELL VOLUME 87.6 fl (80-96); MEAN PLT VOLUME 8.6 fl (7.5-11.1); MONO % 7.7 % (3.8-10.2); NEUT % 58.4 % (42.8-82.8); PLATELET COUNT 178 K/MM3 (134-434); RBC 3.55 M/mm3 (3.60-5.2); RDW 26.1 % (11.6-15.6); WHITE BLOOD COUNT 4.7 K/mm3 (4.0-10.0)
[2020-07-29 09:30] LABS: ALBUMIN 3.2 g/dl (3.4-5.0); BILIRUBIN,TOTAL 0.3 mg/dL (0.2-1); BLOOD UREA NITROGEN 10.4 mg/dL (7-18); CALCIUM 8.5 mg/dL (8.5-10.1); PHOSPHOROUS 3.1 mg/dL (2.5-4.9); TOT PROT 7.1 g/dl (6.4-8.2)
[2020-07-29 09:31] LABS: MAGNESIUM 2.5 mg/dL (1.8-2.4)
[2020-07-29 09:32] LABS: CREATININE 0.6 mg/dL (0.55-1.3)
[2020-07-29] MEDS ORDERED: chlordiazePOXIDE 5 MG CAPSULE PO SCH (09:34)
[2020-07-29] MEDS: ASPIRIN 325 MG TABLET PO SCH (11:35)
[2020-07-29] MEDS: FOLIC ACID 1 MG TABLET (FP) PO SCH (11:35)
[2020-07-29] MEDS: chlordiazePOXIDE 5 MG CAPSULE PO SCH (11:35)
[2020-07-29] MEDS: carBAMazepine XR 400 MG TAB.ER.12H PO SCH ×2 (11:36→21:51)
[2020-07-29] MEDS: PANTOPRAZOLE 40 MG TABLET PO SCH (11:36)
[2020-07-29] MEDS: LACOSAMIDE 50 MG TABLET PO SCH ×2 (11:36→21:51)
[2020-07-29] MEDS: MULTIVITAMINS (DAILY MVI) TABLET (FP) PO SCH (11:36)
[2020-07-29] MEDS: ENOXAPARIN NA (PORCINE) 40 MG/0.4 ML DISP.SYRIN SQ SCH (11:37)
[2020-07-29] MEDS: THIAMINE HCL 100 MG TABLET (FP) PO SCH (21:50)
[2020-07-29] MEDS: ATORVASTATIN CA 20 MG TABLET (FP) PO SCH (21:50)
[2020-07-29] MEDS: MECLIZINE HCL 12.5 MG TABLET PO SCH (21:50)
[2020-07-29 23:34] VITALS: TEMP 97.9
[2020-07-30] MEDS: GABAPENTIN 300 MG CAPSULE PO SCH (06:01)
[2020-07-30 06:19] VITALS: BP 134/94; PULSE 72
[2020-07-30] MEDS ORDERED: PT OWN MED DRAWER 7, Y5N ONE (09:29)
[2020-07-30] MEDS: ASPIRIN 325 MG TABLET PO SCH (09:35)
[2020-07-30] MEDS: MECLIZINE HCL 12.5 MG TABLET PO SCH (09:35)
[2020-07-30] MEDS: FOLIC ACID 1 MG TABLET (FP) PO SCH (09:36)
[2020-07-30] MEDS: MULTIVITAMINS (DAILY MVI) TABLET (FP) PO SCH (09:36)
[2020-07-30] MEDS: chlordiazePOXIDE 5 MG CAPSULE PO SCH (09:36)
[2020-07-30] MEDS: PANTOPRAZOLE 40 MG TABLET PO SCH (09:36)
[2020-07-30] MEDS: carBAMazepine XR 400 MG TAB.ER.12H PO SCH (09:36)
[2020-07-30] MEDS: LACOSAMIDE 50 MG TABLET PO SCH (09:37)
[2020-07-30] MEDS: ENOXAPARIN NA (PORCINE) 40 MG/0.4 ML DISP.SYRIN SQ SCH (09:38)
== END 2020-07-30 12:30 | disposition home health service (06) | DRG 897 ==
LOC: JER 23:46 → JERBED 07-25 06:34 → OBSVTOIN 07-25 08:56 → J6WEST-2 07-25 19:45 → J6S 07-27 18:56
PROVIDERS: ADMIT Family Medicine; ATTEND Internal Medicine
DX: F10.129 Alcohol abuse with intoxication, unspecified (principal); I69.354 Hemiplegia and hemiparesis following cerebral infarction affecting left non-dominant side; I50.22 Chronic systolic (congestive) heart failure; W19.XXXA Unspecified fall, initial encounter; S42.002A Fracture of unspecified part of left clavicle, initial encounter for closed fracture; G40.909 Epilepsy, unspecified, not intractable, without status epilepticus; Y93.9 Activity, unspecified; Y92.89 Other specified places as the place of occurrence of the external cause; Y99.9 Unspecified external cause status; I10 Essential (primary) hypertension; R07.89 Other chest pain; E78.5 Hyperlipidemia, unspecified; D64.9 Anemia, unspecified; R55 Syncope and collapse
CPT/HCPCS: 36415; 70450-TC; 70486-TC; 71045-TC-FY; 71250-TC; 72125-TC; 73030-TC-LT-FY; 73070-TC-LT-FY; 73110-TC-LT-FY; 73130-TC-LT-FY; 73523-TC-FY; 80053; 80061; 80156; 80307; 81003; 82550; 82553; 82728; 82962; 83036; 83540; 83550; 83605; 83690; 83721; 83735; 84100; 84443; 84484; 84703; 85025; 85610; 85730; 93005; 93010; 93880-TC; 97116-GP; 97162-GP; 99285-25; C9803; G0378; G0480; U0003

== ENCOUNTER 2020-11-02 15:47 | Emergency (ER) | payer OTHER ==
[2020-11-02 15:56] VITALS: BMI 21.6
[2020-11-02] MEDS ORDERED: METOCLOPRAMIDE HCL INJECTION 10 MG/2 ML VIAL IVPUSH ONE (16:09)
[2020-11-02] MEDS ORDERED: METOCLOPRAMIDE HCL INJECTION 10 MG/2 ML VIAL IVPB ONE (16:20)
[2020-11-02] MEDS ORDERED: METOCLOPRAMIDE HCL INJECTION 10 MG/2 ML VIAL ONE (16:28)
[2020-11-02 17:29] LABS: BASO % 0.6 % (0-2.0); HEMATOCRIT 32.6 % (32.4-45.2); HEMOGLOBIN 10.4 GM/dL (10.7-15.3); LYMPH % 10.5 % (8-40); MCH 29.4 pg (25.7-33.7); MCHC 31.9 g/dl (32.0-36.0); MEAN CELL VOLUME 92.3 fl (80-96); MEAN PLT VOLUME 8.4 fl (7.5-11.1); MONO % 7.8 % (3.8-10.2); NEUT % 81.1 % (42.8-82.8); PLATELET COUNT 165 10^3/uL (134-434); RBC 3.54 M/mm3 (3.60-5.2); RDW 22.5 % (11.6-15.6); WHITE BLOOD COUNT 3.9 K/mm3 (4.0-10.0)
[2020-11-02 17:35] LABS: INR 0.93 (0.83-1.09); PROTHROMBIN TIME (PATIENT) 11.3 SEC (9.7-13.0)
[2020-11-02 17:38] LABS: ACTIVATED PTT 25.9 SECONDS (25.2-36.5)
[2020-11-02 17:54] LABS: CHLORIDE 102 mmol/L (98-107); SODIUM 133 mmol/L (136-145)
[2020-11-02 17:56] LABS: CALCIUM 8.1 mg/dL (8.5-10.1)
[2020-11-02 17:57] LABS: ALBUMIN 3.3 g/dl (3.4-5.0); CO2 25 mmol/L (21-32); GLUCOSE,RANDOM 200 mg/dL (74-106)
[2020-11-02 18:00] LABS: CREATININE 0.6 mg/dL (0.55-1.3); SGPT/ALT 105 U/L (13-61)
[2020-11-02 18:02] LABS: BILIRUBIN,TOTAL 0.4 mg/dL (0.2-1); TOT PROT 7.5 g/dl (6.4-8.2)
[2020-11-02 18:03] LABS: ALK PHOS 157 U/L (45-117)
[2020-11-02 18:19] LABS: SGOT/AST 190 U/L (15-37)
[2020-11-02 18:28] LABS: ANION GAP 6 MMOL/L (8-16)
[2020-11-02 19:32] LABS: ANISOCYTOSIS 2+; MACROCYTOSIS 1+
[2020-11-02 19:58] LABS: BLOOD UREA NITROGEN 8.2 mg/dL (7-18); CALCIUM 8.5 mg/dL (8.5-10.1)
[2020-11-02 20:02] LABS: CREATININE 0.7 mg/dL (0.55-1.3)
[2020-11-02] MEDS ORDERED: MECLIZINE HCL 25 MG TABLET (FP) PO ONE (20:44)
[2020-11-02] MEDS ORDERED: MECLIZINE HCL 25 MG TABLET (FP) ONE (20:50)
[2020-11-03 06:01] VITALS: BP 142/95; PULSE 67; TEMP 98.3
== END 2020-11-03 08:33 | disposition home or self-care (01) ==
LOC: JER 15:47
PROC: 3E033GC Introduction of Other Therapeutic Substance into Peripheral Vein, Percutaneous Approach (ICD-10-PCS; principal; 2020-11-02)
DX: R42 Dizziness and giddiness (principal); R11.2 Nausea with vomiting, unspecified
CPT/HCPCS: 36415; 70450-TC; 71045-TC-FY; 80048; 80053; 82550; 82553; 84484; 85025; 85610; 85730; 93005; 93010; 99285-25

== ENCOUNTER 2020-11-15 17:06 | Emergency (ER) | payer OTHER ==
[2020-11-15 17:31] VITALS: BP 144/101; PULSE 83; TEMP 98.4; BMI 21.6
[2020-11-15 19:07] LABS: BASO % 1.6 % (0-2.0); HEMATOCRIT 36.4 % (32.4-45.2); HEMOGLOBIN 11.8 GM/dL (10.7-15.3); LYMPH % 7.9 % (8-40); MCH 29.7 pg (25.7-33.7); MCHC 32.5 g/dl (32.0-36.0); MEAN CELL VOLUME 91.5 fl (80-96); MEAN PLT VOLUME 8.4 fl (7.5-11.1); MONO % 3.7 % (3.8-10.2); NEUT % 86.8 % (42.8-82.8); PLATELET COUNT 152 10^3/uL (134-434); RBC 3.98 M/mm3 (3.60-5.2); RDW 20.4 % (11.6-15.6); WHITE BLOOD COUNT 3.8 K/mm3 (4.0-10.0)
[2020-11-15 19:25] LABS: CALCIUM 8.2 mg/dL (8.5-10.1); CHLORIDE 106 mmol/L (98-107); SODIUM 138 mmol/L (136-145)
[2020-11-15 19:26] LABS: ANION GAP 9 MMOL/L (8-16); BLOOD UREA NITROGEN 5.1 mg/dL (7-18); CO2 23 mmol/L (21-32)
[2020-11-15 19:27] LABS: GLUCOSE,RANDOM 143 mg/dL (74-106)
[2020-11-15 19:28] LABS: ALBUMIN 3.5 g/dl (3.4-5.0)
[2020-11-15 19:31] LABS: CREATININE 0.5 mg/dL (0.55-1.3); SGOT/AST 132 U/L (15-37); SGPT/ALT 65 U/L (13-61)
[2020-11-15 19:32] LABS: BILIRUBIN,TOTAL 0.6 mg/dL (0.2-1); TOT PROT 7.5 g/dl (6.4-8.2)
[2020-11-15 19:33] LABS: ALK PHOS 179 U/L (45-117)
[2020-11-15] MEDS ORDERED: SODIUM CHLORIDE 0.9% 500 ML INFUS.BAG IV ONE (20:36)
[2020-11-15] MEDS ORDERED: ONDANSETRON 4 MG/2 ML VIAL IVPUSH ONE (20:36)
[2020-11-15] MEDS ORDERED: ONDANSETRON 4 MG/2 ML VIAL ONE (20:57)
== END 2020-11-15 21:30 | disposition left against medical advice (07) ==
LOC: JER 17:06
PROC: 3E033GC Introduction of Other Therapeutic Substance into Peripheral Vein, Percutaneous Approach (ICD-10-PCS; principal; 2020-11-15)
DX: S09.90XA Unspecified injury of head, initial encounter (principal); R10.32 Left lower quadrant pain
CPT/HCPCS: 36415; 70450-TC; 72125-TC; 73070-TC-LT-FY; 80053; 80307; 82550; 83605; 84484; 84703; 85025; 93005; 93010; 99285-25

== ENCOUNTER 2020-11-18 23:11 | Inpatient (IN) | payer OTHER ==
[2020-11-19] MEDS ORDERED: SODIUM CHLORIDE 0.9% 500 ML INFUS.BAG IV ONE (00:54)
[2020-11-19 01:15] LABS: BASO % 0.5 % (0-2.0); EOS % 0.2 % (0-4.5); HEMATOCRIT 35.1 % (32.4-45.2); HEMOGLOBIN 11.2 GM/dL (10.7-15.3); LYMPH % 12.3 % (8-40); MCH 29.5 pg (25.7-33.7); MCHC 31.8 g/dl (32.0-36.0); MEAN CELL VOLUME 92.9 fl (80-96); MEAN PLT VOLUME 9.3 fl (7.5-11.1); MONO % 8.1 % (3.8-10.2); NEUT % 78.9 % (42.8-82.8); PLATELET COUNT 134 10^3/uL (134-434); RBC 3.78 M/mm3 (3.60-5.2); RDW 20.4 % (11.6-15.6); WHITE BLOOD COUNT 4.1 K/mm3 (4.0-10.0)
[2020-11-19 01:21] LABS: INR 0.91 (0.83-1.09); PROTHROMBIN TIME (PATIENT) 11.1 SEC (9.7-13.0)
[2020-11-19 01:23] LABS: ACTIVATED PTT 25.6 SECONDS (25.2-36.5)
[2020-11-19 02:28] LABS: CHLORIDE 108 mmol/L (98-107); SODIUM 141 mmol/L (136-145)
[2020-11-19 02:31] LABS: ALBUMIN 3.3 g/dl (3.4-5.0); ANION GAP 9 MMOL/L (8-16); BLOOD UREA NITROGEN 9.5 mg/dL (7-18); CO2 24 mmol/L (21-32); GLUCOSE,RANDOM 97 mg/dL (74-106); MAGNESIUM 2.5 mg/dL (1.8-2.4)
[2020-11-19 02:33] LABS: SGOT/AST 51 U/L (15-37); SGPT/ALT 43 U/L (13-61)
[2020-11-19 02:34] LABS: CREATININE 0.5 mg/dL (0.55-1.3); PHOSPHOROUS 2.2 mg/dL (2.5-4.9)
[2020-11-19 02:35] LABS: BILIRUBIN,TOTAL 0.3 mg/dL (0.2-1)
[2020-11-19 02:57] LABS: ALK PHOS 129 U/L (45-117)
[2020-11-19] MEDS ORDERED: chlordiazePOXIDE HCL 10 MG CAPSULE PO PRN (05:58)
[2020-11-19] MEDS ORDERED: ONDANSETRON 4 MG/2 ML VIAL IVPUSH PRN (06:27)
[2020-11-19 09:25] VITALS: BMI 21.2
[2020-11-19] MEDS ORDERED: MECLIZINE HCL 25 MG TABLET (FP) PO PRN (09:36)
[2020-11-19 09:58] LABS: URINE APPEARANCE CLEAR; URINE BILIRUBIN NEGATIVE (NEGATIVE); URINE COLOR YELLOW; URINE GLUCOSE (UA) NEGATIVE (NEGATIVE)
[2020-11-19 09:59] LABS: PH,URINE 7.5 (5.0-8.0); URINE KETONE TRACE (NEGATIVE); URINE PROTEIN NEGATIVE (NEGATIVE)
[2020-11-19 10:00] LABS: URINE LEUK ESTERASE TRACE (NEGATIVE); URINE NITRITE NEGATIVE (NEGATIVE)
[2020-11-19] MEDS ORDERED: CYCLOBENZAPRINE HCL 10 MG TABLET (FP) PO SCH (10:00)
[2020-11-19] MEDS ORDERED: carBAMazepine XR 400 MG TAB.ER.12H PO SCH (10:00)
[2020-11-19] MEDS ORDERED: LACOSAMIDE 50 MG TABLET PO SCH (10:00)
[2020-11-19] MEDS ORDERED: CYCLOBENZAPRINE HCL 10 MG TABLET (FP) ONE (10:45)
[2020-11-19] MEDS ORDERED: LACOSAMIDE 50 MG TABLET PO ONE (10:45)
[2020-11-19] MEDS: NAPROXEN 250 MG TABLET PO SCH ×2 (11:35→23:07)
[2020-11-19] MEDS: GABAPENTIN 300 MG CAPSULE PO SCH ×2 (13:22→23:07)
[2020-11-19] MEDS ORDERED: PT OWN MED DRAWER 7, Y5N ONE (20:48)
[2020-11-19] MEDS: LACOSAMIDE 50 MG TABLET PO SCH (23:07)
[2020-11-20] MEDS: GABAPENTIN 300 MG CAPSULE PO SCH ×3 (06:22→21:50)
[2020-11-20 08:39] LABS: EOS % 4.3 % (0-4.5); HEMATOCRIT 34.6 % (32.4-45.2); HEMOGLOBIN 10.9 GM/dL (10.7-15.3); LYMPH % 46.1 % (8-40); MCH 29.3 pg (25.7-33.7); MCHC 31.4 g/dl (32.0-36.0); MEAN CELL VOLUME 93.3 fl (80-96); MEAN PLT VOLUME 8.8 fl (7.5-11.1); MONO % 12.4 % (3.8-10.2); NEUT % 36.2 % (42.8-82.8); PLATELET COUNT 150 10^3/uL (134-434); RBC 3.71 M/mm3 (3.60-5.2); RDW 20.2 % (11.6-15.6); WHITE BLOOD COUNT 2.9 K/mm3 (4.0-10.0)
[2020-11-20 08:59] LABS: ALBUMIN 3.3 g/dl (3.4-5.0); CALCIUM 8.3 mg/dL (8.5-10.1); MAGNESIUM 2.6 mg/dL (1.8-2.4)
[2020-11-20 09:02] LABS: CREATININE 0.5 mg/dL (0.55-1.3)
[2020-11-20 09:03] LABS: PHOSPHOROUS 2.7 mg/dL (2.5-4.9)
[2020-11-20 09:04] LABS: BILIRUBIN,TOTAL 0.9 mg/dL (0.2-1); TOT PROT 6.6 g/dl (6.4-8.2)
[2020-11-20] MEDS ORDERED: PT OWN MED DRAWER 7, Y5N ONE (09:35)
[2020-11-20] MEDS: LACOSAMIDE 50 MG TABLET PO SCH ×2 (09:39→21:49)
[2020-11-20] MEDS: NAPROXEN 250 MG TABLET PO SCH (09:39)
[2020-11-20] MEDS: POLYETHYLENE GLYCOL (HEALTHYLAX) 3350 17 GM PACKET PO SCH ×2 (13:38→21:49)
[2020-11-20] MEDS ORDERED: POTASSIUM CHLORIDE TABS 20 MEQ TABLET.ER (FP) PO ONE (18:45)
[2020-11-21] MEDS: GABAPENTIN 300 MG CAPSULE PO SCH ×3 (06:05→21:34)
[2020-11-21] MEDS: POLYETHYLENE GLYCOL (HEALTHYLAX) 3350 17 GM PACKET PO SCH ×3 (06:05→21:33)
[2020-11-21 09:17] LABS: HEMATOCRIT 34.3 % (32.4-45.2); HEMOGLOBIN 10.6 GM/dL (10.7-15.3); MCH 29.3 pg (25.7-33.7); MEAN CELL VOLUME 94.6 fl (80-96); MEAN PLT VOLUME 8.4 fl (7.5-11.1); PLATELET COUNT 190 10^3/uL (134-434); RBC 3.63 M/mm3 (3.60-5.2)
[2020-11-21] MEDS ORDERED: PT OWN MED DRAWER 7, Y5N ONE ×2 (09:17→21:22)
[2020-11-21] MEDS: carBAMazepine XR 200 MG TAB.ER.12H PO SCH ×3 (09:21→21:41)
[2020-11-21] MEDS: PANTOPRAZOLE 40 MG TABLET PO SCH (09:21)
[2020-11-21] MEDS: LACOSAMIDE 50 MG TABLET PO SCH ×2 (09:21→21:34)
[2020-11-21] MEDS ORDERED: ACETAMINOPHEN 325 MG TABLET (FP) PO PRN ×2 (09:33→10:23)
[2020-11-21 09:36] LABS: BLOOD UREA NITROGEN 7.9 mg/dL (7-18)
[2020-11-21 09:37] LABS: ALBUMIN 3.1 g/dl (3.4-5.0); MAGNESIUM 2.5 mg/dL (1.8-2.4)
[2020-11-21 09:39] LABS: CREATININE 0.6 mg/dL (0.55-1.3)
[2020-11-21 09:41] LABS: TOT PROT 6.4 g/dl (6.4-8.2)
[2020-11-21 09:43] LABS: BILIRUBIN,TOTAL 0.3 mg/dL (0.2-1)
[2020-11-22] MEDS ORDERED: PT OWN MED DRAWER 7, Y5N ONE ×2 (04:15→09:40)
[2020-11-22] MEDS: POLYETHYLENE GLYCOL (HEALTHYLAX) 3350 17 GM PACKET PO SCH ×3 (05:18→21:11)
[2020-11-22] MEDS: GABAPENTIN 300 MG CAPSULE PO SCH ×3 (05:18→21:11)
[2020-11-22] MEDS: LACOSAMIDE 50 MG TABLET PO SCH ×2 (09:43→21:11)
[2020-11-22] MEDS: PANTOPRAZOLE 40 MG TABLET PO SCH (09:44)
[2020-11-22] MEDS: carBAMazepine XR 200 MG TAB.ER.12H PO SCH ×2 (09:57→21:11)
[2020-11-22] MEDS: AMINO ACIDS/PROTEIN HYDROLYS 30 ML LIQUID.PKT PO SCH (17:30)
[2020-11-23] MEDS: POLYETHYLENE GLYCOL (HEALTHYLAX) 3350 17 GM PACKET PO SCH ×3 (05:28→22:31)
[2020-11-23] MEDS: GABAPENTIN 300 MG CAPSULE PO SCH ×3 (05:28→22:31)
[2020-11-23] MEDS ORDERED: PT OWN MED DRAWER 7, Y5N ONE ×3 (09:13→11:41)
[2020-11-23] MEDS: AMINO ACIDS/PROTEIN HYDROLYS 30 ML LIQUID.PKT PO SCH ×2 (09:14→18:17)
[2020-11-23] MEDS: LACOSAMIDE 50 MG TABLET PO SCH (09:14)
[2020-11-23] MEDS: PANTOPRAZOLE 40 MG TABLET PO SCH (09:14)
[2020-11-23] MEDS ORDERED: INSULIN (LEVEMIR) 100 UNITS/ML UNITS SQ ONE (09:19)
[2020-11-23] MEDS: LACOSAMIDE 200 MG TABLET PO SCH (22:31)
[2020-11-24] MEDS: POLYETHYLENE GLYCOL (HEALTHYLAX) 3350 17 GM PACKET PO SCH (05:27)
[2020-11-24] MEDS: GABAPENTIN 300 MG CAPSULE PO SCH (05:27)
[2020-11-24 07:55] LABS: ALBUMIN 3.2 g/dl (3.4-5.0)
[2020-11-24 07:57] LABS: BLOOD UREA NITROGEN 9.7 mg/dL (7-18); CALCIUM 8.6 mg/dL (8.5-10.1)
[2020-11-24 08:00] LABS: BILIRUBIN,TOTAL 0.3 mg/dL (0.2-1); CREATININE 0.5 mg/dL (0.55-1.3)
[2020-11-24 08:01] LABS: TOT PROT 6.5 g/dl (6.4-8.2)
[2020-11-24] MEDS: AMINO ACIDS/PROTEIN HYDROLYS 30 ML LIQUID.PKT PO SCH (09:15)
[2020-11-24] MEDS: LACOSAMIDE 200 MG TABLET PO SCH (09:16)
[2020-11-24] MEDS: PANTOPRAZOLE 40 MG TABLET PO SCH (09:16)
[2020-11-24 09:22] VITALS: BP 127/82; PULSE 97; TEMP 98
== END 2020-11-24 10:30 | disposition home health service (06) | DRG 92 ==
LOC: JER 23:11 → JERBED 11-19 04:32 → J8W 11-19 12:18
PROVIDERS: ADMIT Hospitalist; ATTEND Family Medicine
DX: R26.0 Ataxic gait (principal); I69.354 Hemiplegia and hemiparesis following cerebral infarction affecting left non-dominant side; T42.1X5A Adverse effect of iminostilbenes, initial encounter; R10.9 Unspecified abdominal pain; K21.9 Gastro-esophageal reflux disease without esophagitis; E78.5 Hyperlipidemia, unspecified; I25.2 Old myocardial infarction; F10.11 Alcohol abuse, in remission; G40.909 Epilepsy, unspecified, not intractable, without status epilepticus; G43.909 Migraine, unspecified, not intractable, without status migrainosus; F39 Unspecified mood [affective] disorder; F32.9 Major depressive disorder, single episode, unspecified; K59.09 Other constipation; F41.8 Other specified anxiety disorders; R29.6 Repeated falls; K80.20 Calculus of gallbladder without cholecystitis without obstruction; E87.6 Hypokalemia; Z86.010 Personal history of colon polyps; Z98.84 Bariatric surgery status
CPT/HCPCS: 36415; 70450-TC; 71045-TC-FY; 74177-TC; 80048; 80053; 80156; 80307; 81003; 82550; 83735; 84100; 84443; 84484; 84703; 85025; 85027; 85610; 85730; 87086; 93005; 93010; 97116-GP; 97161-GP; 99285-25; C9803; U0003; U0005

== ENCOUNTER 2021-03-23 10:43 | Emergency (ER) | payer OTHER ==
[2021-03-23] MEDS ORDERED: LORazepam 2 MG/ML SDV VIAL IVPUSH ONE (10:59)
[2021-03-23] MEDS ORDERED: LORazepam 2 MG/ML SDV VIAL ONE (11:00)
[2021-03-23 11:04] VITALS: TEMP 98.6; BMI 24.1
[2021-03-23] MEDS ORDERED: KCL 10 MEQ IVPB 20 MEQ/200 ML INFUS.BAG IVPB ONE (12:13)
[2021-03-23 13:52] LABS: BASO % 1.1 % (0-2.0); EOS % 2.2 % (0-4.5); HEMATOCRIT 30.1 % (32.4-45.2); HEMOGLOBIN 9.5 GM/dL (10.7-15.3); LYMPH % 19.4 % (8-40); MCH 27.9 pg (25.7-33.7); MCHC 31.7 g/dl (32.0-36.0); MEAN PLT VOLUME 8.3 fl (7.5-11.1); MONO % 9.3 % (3.8-10.2); PLATELET COUNT 266 10^3/uL (134-434); RBC 3.42 M/mm3 (3.60-5.2); RDW 22.2 % (11.6-15.6); WHITE BLOOD COUNT 7.4 K/mm3 (4.0-10.0)
[2021-03-23 14:01] LABS: LACTIC ACID 2.4 mmol/L (0.4-2.0)
[2021-03-23 14:10] LABS: CHLORIDE 110 mmol/L (98-107); SODIUM 141 mmol/L (136-145)
[2021-03-23 14:12] LABS: CALCIUM 8.6 mg/dL (8.5-10.1)
[2021-03-23 14:13] LABS: ALBUMIN 3.4 g/dl (3.4-5.0); ANION GAP 6 MMOL/L (8-16); CO2 26 mmol/L (21-32); GLUCOSE,RANDOM 96 mg/dL (74-106)
[2021-03-23 14:16] LABS: CREATININE 0.5 mg/dL (0.55-1.3); SGOT/AST 35 U/L (15-37); SGPT/ALT 31 U/L (13-61)
[2021-03-23 14:18] LABS: BILIRUBIN,TOTAL 0.2 mg/dL (0.2-1); TOT PROT 7.4 g/dl (6.4-8.2)
[2021-03-23 14:19] LABS: ALK PHOS 138 U/L (45-117)
[2021-03-23 14:28] LABS: ANISOCYTOSIS 2+; MACROCYTOSIS 1+; PLATELET ESTIMATE NORMAL
[2021-03-23] MEDS ORDERED: ACETAMINOPHEN 1000 MG/100 ML VIAL IVPB ONE (14:49)
[2021-03-23] MEDS ORDERED: ACETAMINOPHEN INJECTION 100 ML IVPB ONE (14:57)
[2021-03-23] MEDS ORDERED: levETIRAcetam 500 MG/5 ML INJECTION VIAL IVPB ONE ×2 (16:11→16:17)
[2021-03-23 17:47] VITALS: BP 141/80; PULSE 75
== END 2021-03-23 17:46 | disposition home or self-care (01) ==
LOC: JER 10:43
PROC: 3E033NZ Introduction of Analgesics, Hypnotics, Sedatives into Peripheral Vein, Percutaneous Approach (ICD-10-PCS; principal; 2021-03-23)
PROC: 3E033GC Introduction of Other Therapeutic Substance into Peripheral Vein, Percutaneous Approach (ICD-10-PCS; 2021-03-23)
PROC: 3E033GC Introduction of Other Therapeutic Substance into Peripheral Vein, Percutaneous Approach (ICD-10-PCS; 2021-03-23)
DX: R56.9 Unspecified convulsions (principal); F10.230 Alcohol dependence with withdrawal, uncomplicated
CPT/HCPCS: 36415; 70450-TC; 70486-TC; 73130-TC-LT-FY; 80053; 80156; 80307; 83605; 85025; 93005; 93010; 96374; 96375; 99284-25; C9803; J0131; U0003; U0005

== ENCOUNTER 2022-09-30 13:23 | Emergency (ER) | payer OTHER ==
[2022-09-30 14:00] VITALS: BP 144/91; PULSE 80; RESP 20; TEMP 98.2; BMI 22.6
[2022-09-30 15:21] LABS: BASO % 0.8 % (0-2.0); EOS % 1.3 % (0-4.5); HEMATOCRIT 35.9 % (32.4-45.2); HEMOGLOBIN 11.3 GM/dL (10.7-15.3); LYMPH % 19.7 % (8-40); MCH 25.7 pg (25.7-33.7); MCHC 31.6 g/dl (32.0-36.0); MEAN CELL VOLUME 81.3 fl (80-96); MEAN PLT VOLUME 8.8 fl (7.5-11.1); MONO % 5.9 % (3.8-10.2); NEUT % 72.3 % (42.8-82.8); PLATELET COUNT 223 10^3/uL (134-434); RBC 4.41 M/mm3 (3.60-5.2); RDW 17.7 % (11.6-15.6); WHITE BLOOD COUNT 7.2 K/mm3 (4.0-10.0)
[2022-09-30 15:39] LABS: POTASSIUM 3.6 mmol/L (3.5-5.1)
[2022-09-30 15:41] LABS: ALBUMIN 3.6 g/dl (3.4-5.0); CALCIUM 9.2 mg/dL (8.5-10.1)
[2022-09-30 15:42] LABS: BLOOD UREA NITROGEN 12.5 mg/dL (7-18); MAGNESIUM 2.2 mg/dL (1.8-2.4)
[2022-09-30 15:44] LABS: CREATININE 0.6 mg/dL (0.55-1.3)
[2022-09-30 15:45] LABS: PHOSPHOROUS 2.4 mg/dL (2.5-4.9)
[2022-09-30 15:46] LABS: BILIRUBIN,TOTAL 0.4 mg/dL (0.2-1); TOT PROT 7.4 g/dl (6.4-8.2)
== END 2022-09-30 20:25 | disposition home or self-care (01) ==
LOC: JER 13:23
PROC: 0HQ0XZZ Repair Scalp Skin, External Approach (ICD-10-PCS; principal; 2022-09-30)
DX: S01.01XA Laceration without foreign body of scalp, initial encounter (principal); R53.1 Weakness; R42 Dizziness and giddiness; W01.198A Fall on same level from slipping, tripping and stumbling with subsequent striking against other object, initial encounter; Y93.89 Activity, other specified; Y92.009 Unspecified place in unspecified non-institutional (private) residence as the place of occurrence of the external cause; Z20.822 Contact with and (suspected) exposure to COVID-19
CPT/HCPCS: 0241U-QW; 36415; 70450-TC; 71045-TC-FY; 72170-TC-FY; 73562-TC-LT-FY; 73562-TC-RT-FY; 80053; 83735; 84100; 84484; 85025; 93005; 93010; 99285-25

== ENCOUNTER 2023-01-04 04:21 | Day surgery (SDC) | payer BC, OTHER ==
[2023-01-02 16:17] VITALS: BMI 21.6
[2023-01-04] MEDS ORDERED: ONDANSETRON 4 MG/2 ML VIAL IVPUSH PRN (09:04)
[2023-01-04] MEDS ORDERED: oxyCODONE HCL 5 MG TABLET PO PRN (09:04)
[2023-01-04] MEDS ORDERED: LACTATED RINGERS SOLUTION 1,000 ML IV SCH (09:15)
[2023-01-04] MEDS ORDERED: BUPIVACAINE HCL/PF 0.5% (5MG/ML) 10 ML VIAL ONE (09:47)
[2023-01-04] MEDS ORDERED: PROPOFOL 20 ML ONE (10:28)
[2023-01-04] MEDS ORDERED: MIDAZOLAM HCL 2 MG/2 ML SINGLE DOSE VIAL ONE (10:28)
[2023-01-04] MEDS ORDERED: ceFAZolin SODIUM 1 GM VIAL ONE (10:29)
[2023-01-04] MEDS ORDERED: SODIUM CHLORIDE 0.9% P/F 10 ML VIAL IJ ONE (10:29)
[2023-01-04] MEDS ORDERED: LIDOCAINE HCL/PF 2% SDV 5ML VIAL ONE (10:29)
[2023-01-04] MEDS ORDERED: ONDANSETRON 4 MG/2 ML VIAL ONE (11:06)
[2023-01-04] MEDS ORDERED: DEXAMETHASONE SOD PHOSPHATE 4 MG/1 ML VIAL ONE (11:06)
[2023-01-04] MEDS ORDERED: LIDOCAINE 1%/EPI 1:100000 (50 ML MULTI DOSE VIAL) INF ONE (11:10)
[2023-01-04] MEDS ORDERED: ACETAMINOPHEN INJECTION 100 ML IVPB ONE (11:16)
[2023-01-04] MEDS ORDERED: BUPIVACAINE HCL/PF 0.5% (5 MG/ML) 30 ML VIAL IJ ONE ×2 (11:20)
[2023-01-04 13:39] VITALS: RESP 16
[2023-01-04] MEDS ORDERED: ACETAMINOPHEN 325 MG TABLET (FP) ONE (16:08)
[2023-01-04 17:00] VITALS: TEMP 97.9
[2023-01-04 17:28] VITALS: BP 130/80; PULSE 74
== END 2023-01-04 19:45 | disposition home or self-care (01) ==
LOC: JASU-SURG 04:21
PROVIDERS: ATTEND Orthopaedic Surgery
PROC: 0SCD4ZZ Extirpation of Matter from Left Knee Joint, Percutaneous Endoscopic Approach (ICD-10-PCS; principal; 2023-01-04 11:10)
DX: M23.42 Loose body in knee, left knee (principal)
CPT/HCPCS: 94760

== ENCOUNTER 2023-01-04 22:55 | Emergency (ER) | payer BC, OTHER ==
[2023-01-04 23:53] VITALS: BP 128/87; PULSE 77; RESP 16; TEMP 97.6; BMI 47.7
[2023-01-04] MEDS ORDERED: ACETAMINOPHEN 325 MG TABLET (FP) PO ONE (23:54)
[2023-01-05] MEDS ORDERED: ACETAMINOPHEN 325 MG TABLET (FP) ONE (00:22)
== END 2023-01-05 05:30 | disposition home or self-care (01) ==
LOC: JER 22:55
DX: L76.22 Postprocedural hemorrhage of skin and subcutaneous tissue following other procedure (principal)
CPT/HCPCS: 99283-25

== ENCOUNTER 2023-01-05 10:13 | Emergency (ER) | payer BC, OTHER ==
[2023-01-05 10:34] VITALS: BP 148/92; PULSE 72; RESP 18; TEMP 98.4; BMI 21.6
== END 2023-01-05 12:49 | disposition home or self-care (01) ==
LOC: JER 10:13
DX: L76.22 Postprocedural hemorrhage of skin and subcutaneous tissue following other procedure (principal)
CPT/HCPCS: 99282-25

== ENCOUNTER 2023-12-31 12:09 | Emergency (ER) | payer BC, OTHER ==
[2023-12-31 12:37] VITALS: BMI 21.9
[2023-12-31 13:15] VITALS: TEMP 97.9
[2023-12-31 13:56] LABS: BASO % 0.7 % (0-2.0); HEMATOCRIT 34.2 % (32.4-45.2); HEMOGLOBIN 10.4 GM/dL (10.7-15.3); LYMPH % 18.7 % (8-40); MCH 25.4 pg (25.7-33.7); MCHC 30.5 g/dl (32.0-36.0); MEAN CELL VOLUME 83.1 fl (80-96); MEAN PLT VOLUME 7.7 fl (7.5-11.1); MONO % 6.1 % (3.8-10.2); NEUT % 73.5 % (42.8-82.8); PLATELET COUNT 277 10^3/uL (134-434); RBC 4.12 M/mm3 (3.60-5.2); RDW 19.9 % (11.6-15.6); WHITE BLOOD COUNT 6.7 K/mm3 (4.0-10.0)
[2023-12-31 14:20] LABS: POTASSIUM 4.8 mmol/L (3.5-5.1)
[2023-12-31] MEDS ORDERED: carBAMazepine 200 MG TABLET ONE (14:20)
[2023-12-31] MEDS ORDERED: LACOSAMIDE 50 MG TABLET PO ONE (14:20)
[2023-12-31] MEDS ORDERED: GABAPENTIN 300 MG CAPSULE ONE (14:20)
[2023-12-31 14:22] LABS: CALCIUM 8.4 mg/dL (8.5-10.1)
[2023-12-31 14:23] LABS: ALBUMIN 3.3 g/dl (3.4-5.0); BLOOD UREA NITROGEN 24.7 mg/dL (7-18)
[2023-12-31] MEDS: LACOSAMIDE 200 MG TABLET PO ONE (14:25)
[2023-12-31] MEDS: GABAPENTIN 300 MG CAPSULE PO ONE (14:25)
[2023-12-31] MEDS: carBAMazepine 100 MG TAB.CHEW PO ONE (14:25)
[2023-12-31 14:26] LABS: CREATININE 0.7 mg/dL (0.55-1.3)
[2023-12-31] MEDS: carBAMazepine 200 MG TABLET PO ONE (14:26)
[2023-12-31 14:27] LABS: BILIRUBIN,TOTAL 0.2 mg/dL (0.2-1); TOT PROT 7.2 g/dl (6.4-8.2)
[2023-12-31] MEDS: LACTATED RINGERS SOLUTION 1000 ML INFUS.BAG IV ONE (15:23)
[2023-12-31 17:27] LABS: PH,URINE 8.5 (5.0-8.0); URINE APPEARANCE CLEAR; URINE BILIRUBIN NEGATIVE (NEGATIVE); URINE COLOR YELLOW; URINE GLUCOSE (UA) NEGATIVE (NEGATIVE); URINE KETONE NEGATIVE (NEGATIVE); URINE LEUK ESTERASE NEGATIVE (NEGATIVE); URINE NITRITE NEGATIVE (NEGATIVE); URINE PROTEIN TRACE (NEGATIVE); URINE UROBILINOGEN 0.2 mg/dL (0.2-1.0)
[2023-12-31 18:07] VITALS: BP 148/95; PULSE 70; RESP 16
== END 2023-12-31 18:08 | disposition home or self-care (01) ==
LOC: JER 12:09
DX: G40.909 Epilepsy, unspecified, not intractable, without status epilepticus (principal); R42 Dizziness and giddiness; R41.0 Disorientation, unspecified
CPT/HCPCS: 36415; 80053; 80156; 80171; 81003; 84703; 85025; 87086; 93005; 93010; 99283-25; G0480

== ENCOUNTER 2024-01-15 23:45 | Inpatient (IN) | payer BC, OTHER ==
[2024-01-15 23:53] VITALS: BMI 29.9
[2024-01-16] MEDS ORDERED: ONDANSETRON 4 MG/2 ML VIAL ONE ×2 (00:24→02:19)
[2024-01-16] MEDS ORDERED: ACETAMINOPHEN INJECTION 100 ML ONE ×4 (00:24→09:29)
[2024-01-16] MEDS: ACETAMINOPHEN 1000 MG/100 ML BAG IVPB ONE (00:49)
[2024-01-16] MEDS: ONDANSETRON 4 MG/2 ML VIAL IVPUSH ONE ×2 (00:49→02:32)
[2024-01-16 00:54] LABS: HEMOGLOBIN 10.6 GM/dL (10.7-15.3); RBC 4.13 M/mm3 (3.60-5.2); WHITE BLOOD COUNT 6.9 K/mm3 (4.0-10.0)
[2024-01-16 00:55] LABS: BASO % 0.7 % (0-2.0); EOS % 1.3 % (0-4.5); HEMATOCRIT 33.7 % (32.4-45.2); LYMPH % 20.7 % (8-40); MCH 25.6 pg (25.7-33.7); MCHC 31.3 g/dl (32.0-36.0); MEAN CELL VOLUME 81.6 fl (80-96); MONO % 8.3 % (3.8-10.2); PLATELET COUNT 254 10^3/uL (134-434); RDW 19.4 % (11.6-15.6)
[2024-01-16 01:21] LABS: CHLORIDE 107 mmol/L (98-107); POTASSIUM 4.4 mmol/L (3.5-5.1); SODIUM 139 mmol/L (136-145)
[2024-01-16 01:23] LABS: CALCIUM 9.2 mg/dL (8.5-10.1)
[2024-01-16 01:24] LABS: ALBUMIN 3.6 g/dl (3.4-5.0); ANION GAP 9 mmol/L (4-13); BLOOD UREA NITROGEN 11.5 mg/dL (7-18); CO2 24 mmol/L (21-32); GLUCOSE,RANDOM 120 mg/dL (74-106); MAGNESIUM 2.1 mg/dL (1.8-2.4)
[2024-01-16 01:27] LABS: CREATININE 0.7 mg/dL (0.55-1.3); PHOSPHOROUS 3.8 mg/dL (2.5-4.9); SGOT/AST 28 U/L (15-37); SGPT/ALT 31 U/L (13-61)
[2024-01-16 01:28] LABS: BILIRUBIN,TOTAL 0.4 mg/dL (0.2-1); TOT PROT 7.3 g/dl (6.4-8.2)
[2024-01-16 01:29] LABS: ALK PHOS 101 U/L (45-117)
[2024-01-16] MEDS: LACTATED RINGERS SOLUTION 1000 ML INFUS.BAG IV ONE (01:57)
[2024-01-16 02:43] LABS: HIV INTERPRETATION NEGATIVE (NEGATIVE)
[2024-01-16] MEDS ORDERED: DEXTROSE 5%-NORMAL SALINE 1,000 ML IV SCH (03:45)
[2024-01-16] MEDS ORDERED: FAMOTIDINE 20 MG/50 ML IVPB 20 MG/50 ML MG IVPB ONE (03:50)
[2024-01-16] MEDS ORDERED: LIDOCAINE HCL 2% JELLY 11 ML TP ONE (03:57)
[2024-01-16] MEDS: SUCRALFATE 1 GM TABLET (FP) PO ONE (04:23)
[2024-01-16] MEDS: FAMOTIDINE 20 MG/50 ML IVPB 20 MG/50 ML MG IVPB ONE (04:23)
[2024-01-16] MEDS: DEXTROSE 5%-NORMAL SALINE 1,000 ML IV SCH ×2 (04:23→12:30)
[2024-01-16 04:32] LABS: PH,URINE 5.5 (5.0-8.0); URINE APPEARANCE CLEAR; URINE BILIRUBIN NEGATIVE (NEGATIVE); URINE COLOR YELLOW; URINE GLUCOSE (UA) NEGATIVE (NEGATIVE); URINE KETONE NEGATIVE (NEGATIVE); URINE LEUK ESTERASE NEGATIVE (NEGATIVE); URINE NITRITE NEGATIVE (NEGATIVE); URINE PROTEIN NEGATIVE (NEGATIVE); URINE UROBILINOGEN 0.2 mg/dL (0.2-1.0)
[2024-01-16] MEDS: ACETAMINOPHEN 1000 MG/100 ML BAG IVPB PRN (05:10)
[2024-01-16] MEDS ORDERED: ROCURONIUM BROMIDE 50 MG/5 ML SYRINGE ONE ×2 (07:41→10:32)
[2024-01-16] MEDS ORDERED: SUCCINYLCHOLINE CHLORIDE 200 MG/10 ML SYRINGE ONE (07:41)
[2024-01-16] MEDS ORDERED: PROPOFOL 20 ML ONE (07:42)
[2024-01-16] MEDS ORDERED: MIDAZOLAM HCL 2 MG/2 ML SINGLE DOSE VIAL ONE (07:43)
[2024-01-16] MEDS ORDERED: BUPIVACAINE HCL/PF 0.25% (2.5MG/ML) 10 ML VIAL ONE (08:25)
[2024-01-16] MEDS ORDERED: cefOXitin SODIUM 2 GM VIAL (RESTRICTED TO ID) IVPB ONE (08:35)
[2024-01-16] MEDS ORDERED: levETIRAcetam 500 MG/5 ML INJECTION VIAL IVPB ONE ×2 (09:00→11:22)
[2024-01-16] MEDS ORDERED: Lacosamide 200 MG/20 ML VIAL IVPB SCH (10:00)
[2024-01-16] MEDS: cefOXitin SODIUM 2 GM VIAL (RESTRICTED TO ID) IVPB ONE (10:15)
[2024-01-16] MEDS: BUPIVACAINE HCL/PF 0.25% (2.5MG/ML) 10 ML VIAL IJ ONE (10:27)
[2024-01-16] MEDS ORDERED: HYDROmorphone HCl 2 MG/ML VIAL ONE (10:28)
[2024-01-16] MEDS ORDERED: SUGAMMADEX SODIUM 200 MG/2 ML VIAL ONE (10:40)
[2024-01-16] MEDS ORDERED: LABETALOL HCL 20 MG/4 ML VIAL ONE (10:53)
[2024-01-16] MEDS ORDERED: LACTATED RINGERS SOLUTION 1,000 ML IV SCH (11:45)
[2024-01-16] MEDS: ACETAMINOPHEN 1000 MG/100 ML BAG IVPB SCH (17:35)
[2024-01-16] MEDS: Lacosamide 200 MG/20 ML VIAL IVPB SCH (21:21)
[2024-01-17 12:38] VITALS: BP 119/80; PULSE 66; RESP 19; TEMP 98.3
== END 2024-01-17 12:30 | disposition home or self-care (01) | DRG 336 ==
LOC: JER 23:45 → JERBED 01-16 03:41 → J6S 01-16 06:56
PROVIDERS: ADMIT Internal Medicine; ATTEND Family Medicine
PROC: 0DNU4ZZ Release Omentum, Percutaneous Endoscopic Approach (ICD-10-PCS; principal; 2024-01-16 08:00)
DX: K95.89 Other complications of other bariatric procedure (principal); I69.352 Hemiplegia and hemiparesis following cerebral infarction affecting left dominant side; K91.30 Postprocedural intestinal obstruction, unspecified as to partial versus complete; K95.09 Other complications of gastric band procedure; K46.9 Unspecified abdominal hernia without obstruction or gangrene; G40.909 Epilepsy, unspecified, not intractable, without status epilepticus; I10 Essential (primary) hypertension; F10.10 Alcohol abuse, uncomplicated; E78.5 Hyperlipidemia, unspecified; G43.909 Migraine, unspecified, not intractable, without status migrainosus; F32.A Depression, unspecified; D50.9 Iron deficiency anemia, unspecified; K21.9 Gastro-esophageal reflux disease without esophagitis; K44.9 Diaphragmatic hernia without obstruction or gangrene; Z98.84 Bariatric surgery status; Y84.8 Other medical procedures as the cause of abnormal reaction of the patient, or of later complication, without mention of misadventure at the time of the procedure
CPT/HCPCS: 36415; 71045-TC-FY; 74177-TC; 80053; 81003; 83605; 83690; 83735; 84100; 84484; 84702; 85025; 86803; 86850; 86900; 86901; 86922; 87086; 87389; 93005; 93010; 94760; 99285-25; J0131; Q9967

== ENCOUNTER 2024-02-20 11:13 | Emergency (ER) | payer BC, OTHER ==
[2024-02-20 12:31] VITALS: BMI 26.5
[2024-02-20 13:05] LABS: BASO % 0.5 % (0-2.0); EOS % 0.2 % (0-4.5); HEMATOCRIT 41.4 % (32.4-45.2); HEMOGLOBIN 12.8 GM/dL (10.7-15.3); LYMPH % 27.7 % (8-40); MCH 25.4 pg (25.7-33.7); MCHC 30.9 g/dl (32.0-36.0); MEAN PLT VOLUME 8.2 fl (7.5-11.1); MONO % 5.5 % (3.8-10.2); NEUT % 66.1 % (42.8-82.8); PLATELET COUNT 268 10^3/uL (134-434); RBC 5.05 M/mm3 (3.60-5.2); RDW 19.6 % (11.6-15.6); WHITE BLOOD COUNT 7.4 K/mm3 (4.0-10.0)
[2024-02-20 13:07] LABS: INR 0.91 (0.83-1.09); PROTHROMBIN TIME (PATIENT) 10.5 SEC (9.7-13.0)
[2024-02-20] MEDS: ONDANSETRON 4 MG/2 ML VIAL IVPUSH ONE (13:11)
[2024-02-20] MEDS ORDERED: ONDANSETRON 4 MG/2 ML VIAL ONE (13:12)
[2024-02-20 13:23] LABS: POTASSIUM 3.5 mmol/L (3.5-5.1)
[2024-02-20 13:25] LABS: CALCIUM 9.2 mg/dL (8.5-10.1)
[2024-02-20] MEDS ORDERED: ACETAMINOPHEN INJECTION 100 ML ONE (13:26)
[2024-02-20 13:27] LABS: BLOOD UREA NITROGEN 18.7 mg/dL (7-18)
[2024-02-20 13:28] LABS: CREATININE 0.8 mg/dL (0.55-1.3)
[2024-02-20] MEDS: ACETAMINOPHEN 1000 MG/100 ML BAG IVPB ONE (13:28)
[2024-02-20 13:30] LABS: TOT PROT 8.3 g/dl (6.4-8.2)
[2024-02-20 13:32] LABS: BILIRUBIN,TOTAL 1.2 mg/dL (0.2-1)
[2024-02-20 13:36] VITALS: RESP 18
[2024-02-20] MEDS ORDERED: GABAPENTIN 100 MG CAPSULE ONE (13:52)
[2024-02-20] MEDS: GABAPENTIN 100 MG CAPSULE PO ONE (13:54)
[2024-02-20 14:27] LABS: EPI CELLS 0 /uL (0-25.1); HYALINE CASTS 0 /uL (0-3.1); URINE APPEARANCE CLEAR; URINE BACTERIA >9,000 /uL (0-1359); URINE BILIRUBIN NEGATIVE (NEGATIVE); URINE COLOR YELLOW; URINE GLUCOSE (UA) NEGATIVE (NEGATIVE); URINE KETONE NEGATIVE (NEGATIVE); URINE LEUK ESTERASE 1+ (NEGATIVE); URINE NITRITE POSITIVE (NEGATIVE); URINE PROTEIN NEGATIVE (NEGATIVE); URINE RBC 7 /uL (0-23.9); URINE UROBILINOGEN 0.2 mg/dL (0.2-1.0); URINE WBC 111 /uL (0-25.8)
[2024-02-20 15:20] VITALS: BP 141/83; PULSE 87; TEMP 99
[2024-02-20] MEDS ORDERED: CEPHALEXIN MONOHYDRATE 500 MG CAPSULE (UD) ONE (15:42)
[2024-02-20] MEDS: CEPHALEXIN MONOHYDRATE 500 MG CAPSULE (UD) PO ONE (15:43)
[2024-02-20] MEDS ORDERED: CEFTRIAXONE 1,000 MG in DEXTROSE 5%-WATER - 50 ML IVPB ONE (15:44)
== END 2024-02-20 16:20 | disposition home or self-care (01) ==
LOC: JER 11:13
PROC: 3E033NZ Introduction of Analgesics, Hypnotics, Sedatives into Peripheral Vein, Percutaneous Approach (ICD-10-PCS; principal; 2024-02-20)
PROC: 3E033GC Introduction of Other Therapeutic Substance into Peripheral Vein, Percutaneous Approach (ICD-10-PCS; 2024-02-20)
DX: R29.898 Other symptoms and signs involving the musculoskeletal system (principal); W01.198A Fall on same level from slipping, tripping and stumbling with subsequent striking against other object, initial encounter; Y93.01 Activity, walking, marching and hiking; Z20.822 Contact with and (suspected) exposure to COVID-19
CPT/HCPCS: 0241U-QW; 36415; 70450-TC; 70551-TC; 72125-TC; 80053; 80061; 80307; 81003; 82550; 82553; 82962; 83036; 84484; 85025; 85610; 85730; 86850; 86900; 86901; 87086; 87186; 93005; 93010; 99285-25; J0131

== ENCOUNTER 2024-07-12 21:40 | Inpatient (IN) | payer BC, OTHER ==
[2024-07-12 21:54] VITALS: BMI 23.3
[2024-07-12] MEDS ORDERED: ACETAMINOPHEN INJECTION 100 ML ONE (23:32)
[2024-07-13] MEDS: ACETAMINOPHEN 1000 MG/100 ML BAG IVPB ONE ×2 (00:18→06:15)
[2024-07-13 00:24] LABS: BASO % 0.9 % (0-2.0); EOS % 1.1 % (0-4.5); HEMATOCRIT 33.6 % (32.4-45.2); HEMOGLOBIN 10.5 GM/dL (10.7-15.3); LYMPH % 29.9 % (8-40); MCH 25.8 pg (25.7-33.7); MCHC 31.1 g/dl (32.0-36.0); MONO % 3.7 % (3.8-10.2); NEUT % 64.4 % (42.8-82.8); PLATELET COUNT 264 10^3/uL (134-434); RBC 4.05 M/mm3 (3.60-5.2); RDW 18.6 % (11.6-15.6); WHITE BLOOD COUNT 7.1 K/mm3 (4.0-10.0)
[2024-07-13] MEDS ORDERED: HYDROmorphone HCL CARPU-JECT 2 MG/1 ML DISP.SYRIN ONE (00:27)
[2024-07-13] MEDS: HYDROmorphone HCl 2 MG/ML VIAL IVPUSH ONE (00:33)
[2024-07-13 00:39] LABS: INR 0.9 (0.83-1.09); PROTHROMBIN TIME (PATIENT) 9.8 SEC (9.7-13.0)
[2024-07-13 00:42] LABS: ACTIVATED PTT 28.2 SECONDS (25.2-36.5)
[2024-07-13 00:43] LABS: CHLORIDE 113 mmol/L (98-107); POTASSIUM 4.2 mmol/L (3.5-5.1); SODIUM 142 mmol/L (136-145)
[2024-07-13 00:45] LABS: CALCIUM 8.3 mg/dL (8.5-10.1)
[2024-07-13 00:46] LABS: ALBUMIN 3.5 g/dl (3.4-5.0); ANION GAP 7 mmol/L (4-13); BLOOD UREA NITROGEN 19.8 mg/dL (7-18); CO2 22 mmol/L (21-32); GLUCOSE,RANDOM 117 mg/dL (74-106); MAGNESIUM 2.5 mg/dL (1.8-2.4)
[2024-07-13 00:49] LABS: CREATININE 0.7 mg/dL (0.55-1.3); SGOT/AST 28 U/L (15-37); SGPT/ALT 34 U/L (13-61)
[2024-07-13 00:50] LABS: BILIRUBIN,TOTAL < 0.1 mg/dL (0.2-1); TOT PROT 7.4 g/dl (6.4-8.2)
[2024-07-13 00:52] LABS: ALK PHOS 100 U/L (45-117)
[2024-07-13 00:54] LABS: N-TERMINAL BNP 33.1 pg/ml (5-125)
[2024-07-13] MEDS: diphenhydrAMINE HCL 25 MG CAPSULE (FP) PO ONE (04:10)
[2024-07-13] MEDS ORDERED: diphenhydrAMINE HCL 25 MG CAPSULE (FP) PO ONE (04:11)
[2024-07-13] MEDS ORDERED: ACETAMINOPHEN INJECTION 100 ML ONE ×3 (06:16→17:31)
[2024-07-13 08:34] LABS: EOS % 4.5 % (0-4.5); HEMATOCRIT 29.3 % (32.4-45.2); LYMPH % 37.9 % (8-40); MCH 25.8 pg (25.7-33.7); MCHC 30.8 g/dl (32.0-36.0); MEAN CELL VOLUME 83.8 fl (80-96); MEAN PLT VOLUME 8.1 fl (7.5-11.1); MONO % 7.7 % (3.8-10.2); NEUT % 48.9 % (42.8-82.8); PLATELET COUNT 232 10^3/uL (134-434); RDW 18.7 % (11.6-15.6); WHITE BLOOD COUNT 6.1 K/mm3 (4.0-10.0)
[2024-07-13 08:47] LABS: CALCIUM 8.2 mg/dL (8.5-10.1)
[2024-07-13 08:48] LABS: BLOOD UREA NITROGEN 17.2 mg/dL (7-18)
[2024-07-13 08:51] LABS: CREATININE 0.4 mg/dL (0.55-1.3)
[2024-07-13] MEDS: PANTOPRAZOLE 40 MG TABLET PO SCH (09:08)
[2024-07-13] MEDS: levETIRAcetam 250 MG TABLET PO SCH (09:08)
[2024-07-13] MEDS: amLODIPine BESYLATE 5 MG TABLET (FP) PO SCH (09:08)
[2024-07-13] MEDS ORDERED: amLODIPine BESYLATE 5 MG TABLET (FP) ONE (09:10)
[2024-07-13] MEDS ORDERED: PANTOPRAZOLE 40 MG TABLET PO ONE (09:10)
[2024-07-13] MEDS ORDERED: levETIRAcetam 500 MG TABLET (FP) PO ONE ×2 (09:10→21:02)
[2024-07-13] MEDS ORDERED: THIAMINE 100 MG TABLET ONE (12:13)
[2024-07-13] MEDS ORDERED: FOLIC ACID 1 MG TABLET (FP) ONE (12:13)
[2024-07-13] MEDS: FOLIC ACID 1 MG TABLET (FP) PO SCH (12:19)
[2024-07-13] MEDS: THIAMINE 100 MG TABLET PO SCH (12:19)
[2024-07-13] MEDS: ACETAMINOPHEN 1000 MG/100 ML BAG IVPB PRN (12:19)
[2024-07-13 15:04] LABS: IRON SERUM 24 ug/dL (50-175); TOTAL IRON BINDING CAPACITY 499 ug/dL (250-450)
[2024-07-13] MEDS ORDERED: GABAPENTIN 300 MG CAPSULE ONE ×2 (15:12→21:01)
[2024-07-13] MEDS: GABAPENTIN 300 MG CAPSULE PO SCH (15:14)
[2024-07-13 16:24] LABS: URINE APPEARANCE CLEAR; URINE BILIRUBIN NEGATIVE (NEGATIVE); URINE COLOR YELLOW; URINE GLUCOSE (UA) NEGATIVE (NEGATIVE); URINE KETONE NEGATIVE (NEGATIVE); URINE LEUK ESTERASE NEGATIVE (NEGATIVE); URINE NITRITE NEGATIVE (NEGATIVE); URINE PROTEIN TRACE (NEGATIVE); URINE UROBILINOGEN 0.2 mg/dL (0.2-1.0)
[2024-07-13] MEDS ORDERED: traMADol HCL 50 MG TABLET PO ONE (19:51)
[2024-07-13] MEDS: traMADol HCL 50 MG TABLET PO ONE (21:07)
[2024-07-14] MEDS ORDERED: HYDROmorphone HCL CARPU-JECT 2 MG/1 ML DISP.SYRIN ONE (03:10)
[2024-07-14] MEDS: HYDROmorphone HCL CARPU-JECT 2 MG/1 ML DISP.SYRIN IVPUSH ONE (03:13)
[2024-07-14] MEDS ORDERED: GABAPENTIN 300 MG CAPSULE ONE ×3 (06:01→21:50)
[2024-07-14 07:26] LABS: BASO % 0.8 % (0-2.0); EOS % 3.5 % (0-4.5); HEMATOCRIT 32.2 % (32.4-45.2); LYMPH % 33.7 % (8-40); MCH 25.9 pg (25.7-33.7); MCHC 31.1 g/dl (32.0-36.0); MEAN CELL VOLUME 83.2 fl (80-96); MEAN PLT VOLUME 8.2 fl (7.5-11.1); MONO % 7.2 % (3.8-10.2); NEUT % 54.8 % (42.8-82.8); PLATELET COUNT 239 10^3/uL (134-434); RBC 3.87 M/mm3 (3.60-5.2); RDW 18.2 % (11.6-15.6); WHITE BLOOD COUNT 5.9 K/mm3 (4.0-10.0)
[2024-07-14 07:55] LABS: POTASSIUM 4.2 mmol/L (3.5-5.1)
[2024-07-14 08:19] LABS: CREATININE 0.4 mg/dL (0.55-1.3)
[2024-07-14 08:33] LABS: CALCIUM 8.8 mg/dL (8.5-10.1)
[2024-07-14 08:34] LABS: BLOOD UREA NITROGEN 10.1 mg/dL (7-18)
[2024-07-14] MEDS ORDERED: ACETAMINOPHEN INJECTION 100 ML ONE (08:55)
[2024-07-14] MEDS: PARoxetine HCL 20 MG TABLET PO SCH (09:10)
[2024-07-14] MEDS ORDERED: CycloBENZAprine HCL 5 MG TABLET ONE (14:02)
[2024-07-14] MEDS: CycloBENZAprine HCL 10 MG TABLET (FP) PO PRN (14:04)
[2024-07-14] MEDS: IRON SUCROSE INJECTION 200 MG in SODIUM CHLORIDE 100 ML IVPB ONE (17:28)
[2024-07-14] MEDS ORDERED: levETIRAcetam 500 MG TABLET (FP) PO ONE (21:51)
[2024-07-14] MEDS: NAPROXEN 375 MG TABLET PO PRN (22:32)
[2024-07-15] MEDS ORDERED: diphenhydrAMINE HCL 25 MG CAPSULE (FP) PO ONE (03:03)
[2024-07-15] MEDS: diphenhydrAMINE HCL 25 MG CAPSULE (FP) PO ONE (03:04)
[2024-07-15] MEDS ORDERED: GABAPENTIN 300 MG CAPSULE ONE (06:07)
[2024-07-15 08:47] LABS: BASO % 0.7 % (0-2.0); EOS % 4.2 % (0-4.5); HEMATOCRIT 33.4 % (32.4-45.2); HEMOGLOBIN 10.2 GM/dL (10.7-15.3); LYMPH % 25.1 % (8-40); MCH 25.9 pg (25.7-33.7); MCHC 30.5 g/dl (32.0-36.0); MEAN CELL VOLUME 84.8 fl (80-96); MEAN PLT VOLUME 8.1 fl (7.5-11.1); MONO % 6.9 % (3.8-10.2); NEUT % 63.1 % (42.8-82.8); PLATELET COUNT 240 10^3/uL (134-434); RBC 3.94 M/mm3 (3.60-5.2); RDW 18.8 % (11.6-15.6); WHITE BLOOD COUNT 5.3 K/mm3 (4.0-10.0)
[2024-07-15 09:11] LABS: ALBUMIN 3.1 g/dl (3.4-5.0); BLOOD UREA NITROGEN 12.8 mg/dL (7-18); CALCIUM 9.1 mg/dL (8.5-10.1); POTASSIUM 4.2 mmol/L (3.5-5.1)
[2024-07-15 09:14] LABS: BILIRUBIN,TOTAL 0.3 mg/dL (0.2-1)
[2024-07-15 09:17] LABS: CREATININE 0.5 mg/dL (0.55-1.3); TOT PROT 6.4 g/dl (6.4-8.2)
[2024-07-15] MEDS: IRON SUCROSE INJECTION 200 MG in SODIUM CHLORIDE 100 ML IVPB ONE (13:01)
[2024-07-15] MEDS: diphenhydrAMINE HCL 25 MG CAPSULE (FP) PO PRN (13:01)
[2024-07-15] MEDS: LIDOCAINE 5% TOPICAL PATCH TP SCH (15:40)
[2024-07-15] MEDS: ACETAMINOPHEN 325 MG TABLET (FP) PO PRN (15:40)
[2024-07-15] MEDS: LIDOCAINE PATCH REMOVAL MC SCH (21:46)
[2024-07-15] MEDS: MELATONIN 5 MG TABLETS PO PRN (21:58)
[2024-07-16] MEDS: ACETAMINOPHEN 325 MG TABLET (FP) PO ONE (09:59)
[2024-07-17 08:47] VITALS: BP 138/66; PULSE 66; RESP 16; TEMP 98.2
== END 2024-07-17 15:19 | disposition home or self-care (01) | DRG 563 ==
LOC: JER 21:40 → JERBED 07-13 05:24 → OBSVTOIN 07-13 13:39 → J6S 07-15 08:49
PROVIDERS: ADMIT Student in an Organized Health Care Education/Training Program; ATTEND Family Medicine
DX: S42.212A Unspecified displaced fracture of surgical neck of left humerus, initial encounter for closed fracture (principal); I69.354 Hemiplegia and hemiparesis following cerebral infarction affecting left non-dominant side; G40.909 Epilepsy, unspecified, not intractable, without status epilepticus; I10 Essential (primary) hypertension; R26.81 Unsteadiness on feet; D50.9 Iron deficiency anemia, unspecified; K21.9 Gastro-esophageal reflux disease without esophagitis; K59.00 Constipation, unspecified; F41.8 Other specified anxiety disorders; K44.9 Diaphragmatic hernia without obstruction or gangrene; E78.5 Hyperlipidemia, unspecified; F10.10 Alcohol abuse, uncomplicated; G43.909 Migraine, unspecified, not intractable, without status migrainosus; W06.XXXA Fall from bed, initial encounter; Y93.9 Activity, unspecified; Y92.092 Bedroom in other non-institutional residence as the place of occurrence of the external cause; Y99.9 Unspecified external cause status; Z86.74 Personal history of sudden cardiac arrest
CPT/HCPCS: 0241U-QW; 36415; 70450-TC; 71045-TC-FY; 73000-TC-LT-FY; 73030-TC-LT-FY; 73060-TC-LT-FY; 76705-TC; 80048; 80053; 80177; 80307; 81003; 82140; 82728; 83540; 83550; 83735; 83880; 84466; 84484; 85025; 85610; 85730; 87086; 93005; 93010; 93971; 97116-GP; 97162-GP; 99285-25; G0378; J0131; J1756

== ENCOUNTER 2024-07-27 08:20 | Emergency (ER) | payer BC, OTHER ==
[2024-07-27 08:44] VITALS: BMI 23.3
[2024-07-27 10:45] LABS: ABSOLUTE IMMATURE GRANULOCYTES 0.02 x10^3/uL (0.0-0.031); BASOPHILS # 0.06 x10^3/uL (0.01-0.08); EOSINOPHIL % 3.4 % (0.7-5.8); EOSINOPHILS # 0.15 x10^3/uL (0.04-0.36); HEMATOCRIT 36.3 % (34.1-44.9); HEMOGLOBIN 10.8 g/dL (11.2-15.7); MCHC 29.8 g/dl (32.2-35.5); MEAN CELL VOLUME 88.5 fl (79.4-94.8); MONOCYTE # 0.28 x10^3/uL (0.24-0.86); MONOCYTE % 6.3 % (4.7-12.5); PLATELET COUNT 366 x10^3/uL (182-369); RDW 20.5 % (12.3-16.6)
[2024-07-27 10:56] LABS: INR 0.89 (0.83-1.09); PROTHROMBIN TIME (PATIENT) 9.8 SEC (9.7-13.0)
[2024-07-27 10:59] LABS: ACTIVATED PTT 30.9 SECONDS (25.2-36.5)
[2024-07-27 11:19] LABS: POTASSIUM 4.6 mmol/L (3.5-5.1)
[2024-07-27 11:21] LABS: ALBUMIN 3.4 g/dl (3.4-5.0); BLOOD UREA NITROGEN 16.4 mg/dL (7-18); CALCIUM 8.9 mg/dL (8.5-10.1)
[2024-07-27 11:24] LABS: CREATININE 0.5 mg/dL (0.55-1.3)
[2024-07-27 11:26] LABS: BILIRUBIN,TOTAL 0.3 mg/dL (0.2-1); TOT PROT 7.2 g/dl (6.4-8.2)
[2024-07-27] MEDS ORDERED: ACETAMINOPHEN INJECTION 100 ML ONE (11:34)
[2024-07-27] MEDS: DIPHTH,PERTUSS(ACELL),TET 0.5 ML DISP.SYRIN IM ONE (11:35)
[2024-07-27] MEDS ORDERED: DIPHTH,PERTUSS(ACELL),TET 0.5 ML DISP.SYRIN IM ONE (11:35)
[2024-07-27] MEDS: ACETAMINOPHEN 1000 MG/100 ML BAG IVPB ONE (11:38)
[2024-07-27] MEDS ORDERED: LIDOCAINE 1%/EPI 1:100000 (20 ML MULTI DOSE VIAL) ONE (11:50)
[2024-07-27] MEDS: LIDOCAINE 1%/EPI 1:100000 (50 ML MULTI DOSE VIAL) INF ONE (11:54)
[2024-07-27 14:31] VITALS: BP 102/69; PULSE 92; RESP 18; TEMP 98.4
== END 2024-07-27 14:41 | disposition home or self-care (01) ==
LOC: JER 08:20
PROC: 0HQ1XZZ Repair Face Skin, External Approach (ICD-10-PCS; principal; 2024-07-27)
PROC: 3E033NZ Introduction of Analgesics, Hypnotics, Sedatives into Peripheral Vein, Percutaneous Approach (ICD-10-PCS; 2024-07-27)
PROC: 3E0234Z Introduction of Serum, Toxoid and Vaccine into Muscle, Percutaneous Approach (ICD-10-PCS; 2024-07-27)
DX: S01.81XA Laceration without foreign body of other part of head, initial encounter (principal); F10.10 Alcohol abuse, uncomplicated; Z23 Encounter for immunization; W01.198A Fall on same level from slipping, tripping and stumbling with subsequent striking against other object, initial encounter
CPT/HCPCS: 12015; 36415; 70450-TC; 70486-TC; 71046-TC-FY; 72125-TC; 72170-TC-FY; 73000-TC-LT-FY; 73030-TC-LT-FY; 73060-TC-LT-FY; 80053; 85025; 85610; 85730; 86850; 86900; 86901; 90471; 90715; 96374; 99285-25; J0131